=== PATIENT | male | born 1950 | race Caucasian/White ===

== ENCOUNTER 2018-02-11 14:22 | Observation (INO) | payer OTHER ==
[2018-02-11] VITALS (8 sets, daily range): BP systolic 125–183; BP diastolic 64–88; PULSE 69–82; RESP 14–20; TEMP 98.2–98.5; O2SAT 95–96
[~2018-02-11] VITALS: Ht 185.4 cm; Wt 125.0 kg
[~2018-02-11 14:22] MED LIST: ATOR10 PO; LEVO50TA4 PO; LISI-588 PO; ULTR50TA PO
[2018-02-11] MEDS ORDERED: METH750T PO (14:52)
[2018-02-11] MEDS ORDERED: LEVO50TA4 PO (14:52)
[2018-02-11] MEDS ORDERED: ATOR20TA15 PO (14:52)
[2018-02-11] MEDS ORDERED: ISOS60TA PO (14:52)
[2018-02-11] MEDS ORDERED: VITA100018 PO (14:52)
[2018-02-11] MEDS ORDERED: ASPI-516 CHEW (14:52)
[2018-02-11] MEDS ORDERED: LOSA25TA PO (14:52)
[2018-02-11] MEDS ORDERED: METO25TA3 PO (14:52)
[2018-02-11] MEDS ORDERED: TYLE325T PO (14:52)
[2018-02-11] MEDS ORDERED: ASPIRIN 81 MG CHEW TAB PO ONE (15:00)
--- NOTE | 2018-02-11 15:11 | PD ---
HPI Chief Complaint: Dizziness Time Seen by Provider: 14:49 Travel History International Travel<30 days: No Contact w/Intl Traveler<30days: No Traveled to known affect area: No History of Present Illness HPI 67-year-old male here by private vehicle for evaluation of dizziness and chest heaviness. The patient has had these symptoms intermittently over the last 5 days, however states that they were worse today. Patient reports he feels dizzy when he goes from sitting to standing. This dizziness improves while sitting or laying flat. He has never had this happen to him before. He denies any paresthesias or motor deficits. He does experience some blurry vision during these episodes of dizziness. Patient also reports intermittently having chest heaviness over the last 5 days. There are no modifying factors to this heaviness. Currently he does not have any chest discomfort. He denies any known cardiac history, however he is followed by a rn transport Dr. Zepeda and is on isosorbide. He denies fevers or recent illness. No dyspnea. No abdominal pain. No melena or hematochezia. PFSH Past Medical History Heart Rhythm Problems: No Cardiac Catheterization: No Cardiovascular Problems: Yes High Cholesterol: Yes Congestive Heart Failure: No Diabetes: No Heparin Induced Thrombocytopen: No Hypertension: Yes Integumentary: Yes (PSYRIOSIS) Thyroid Disease: Yes Past Surgical History Coronary Artery Bypass Graft: No Genitourinary Surgery: Yes (VASECTOMY) Family History Family Myocardial Infarction: Yes (Mother) Social History Alcohol Use: No Tobacco Use: No Substance Use: No Allergies-Medications (Allergen,Severity, Reaction): Coded Allergies: No Known Allergies (Unverified , 06/30/16) Reported Meds & Prescriptions Reported Meds & Active Scripts Active Reported Aspirin 81 Mg Chew 81 Mg CHEW DAILY Vitamin D3 (Cholecalciferol) 1,000 Unit Tab 1,000 Units PO DAILY Metoprolol Tartrate 25 Mg Tab 25 Mg PO DAILY Isosorbide Mononitrate ER (Isosorbide Mononitrate) 60 Mg Tab 60 Mg PO DAILY Methocarbamol 750 Mg Tab 750 Mg PO HS Atorvastatin (Atorvastatin Calcium) 20 Mg Tab 20 Mg PO HS Tylenol (Acetaminophen) 325 Mg Tab 500 Mg PO Q4H PRN Levothyroxine (Levothyroxine Sodium) 50 Mcg Tab 50 Mcg PO DAILY Losartan (Losartan Potassium) 25 Mg Tab 25 Mg PO DAILY Review of Systems Except as stated in HPI: all other systems reviewed are Neg Physical Exam Narrative GENERAL: Well-developed, well-nourished, awake, alert, no apparent distress. SKIN: Focused skin assessment warm/dry. No rash. No pallor. HEAD: Atraumatic. Normocephalic. EYES: Pupils equal, round, 3 mm, reactive to light. EOMI. No scleral icterus. No injection or drainage. ENT: Mucous membranes pink and moist. Bilateral tympanic membranes and external auditory canals are normal. NECK: Trachea midline. No JVD. No nuchal rigidity. CARDIOVASCULAR: Regular rate and rhythm. No murmur appreciated. RESPIRATORY: No accessory muscle use. Clear to auscultation. Breath sounds equal bilaterally. GASTROINTESTINAL: Abdomen soft, non-tender, nondistended. MUSCULOSKELETAL: No obvious deformities. No clubbing. No cyanosis. No edema. NEUROLOGICAL: Awake and alert. No obvious cranial nerve deficits. Motor grossly within normal limits. Normal speech. No focal deficits. PSYCHIATRIC: Appropriate mood and affect; insight and judgment normal. Data Data Last Documented VS Vital Signs Date Time Temp Pulse Resp B/P (MAP) Pulse Ox O2 Delivery O2 Flow Rate FiO2 02/11/18 18:33 76 17 125/73 (90) 96 02/11/18 14:32 98.2 Orders Orders Electrocardiogram (02/11/18 14:57) Ckmb (Isoenzyme) Profile (02/11/18 14:57) Complete Blood Count With Diff (02/11/18 14:57) Comprehensive Metabolic Panel (02/11/18 14:57) Magnesium (Mg) (02/11/18 14:57) Prothrombin Time / Inr (Pt) (02/11/18 14:57) Act Partial Throm Time (Ptt) (02/11/18 14:57) Troponin I (02/11/18 14:57) Chest, Single Ap (02/11/18 14:57) Ecg Monitoring (02/11/18 14:57) Iv Access Insert/Monitor (02/11/18 14:57) Oximetry (02/11/18 14:57) Aspirin Chew (Aspirin Chew) (02/11/18 15:00) Sodium Chloride 0.9% Flush (Ns Flush) (02/11/18 15:00) Ct Brain W/O Iv Contrast(Rout) (02/11/18 ) CKMB (02/11/18 15:05) CKMB% (02/11/18 15:05) Urinalysis - C+S If Indicated (02/11/18 16:19) Lorazepam Inj (Ativan Inj) (02/11/18 16:30) Meclizine (Antivert) (02/11/18 17:15) Mri Brain W/O Contrast (02/11/18 ) Mra Brain W/O Contrast (Cow) (02/11/18 ) Lorazepam Inj (Ativan Inj) (02/11/18 19:00) Labs Laboratory Tests Test 02/11/18 15:05 02/11/18 16:20 White Blood Count 7.0 TH/MM3 Red Blood Count 4.57 MIL/MM3 Hemoglobin 14.2 GM/DL Hematocrit 41.6 % Mean Corpuscular Volume 91.0 FL Mean Corpuscular Hemoglobin 31.1 PG Mean Corpuscular Hemoglobin Concent 34.1 % Red Cell Distribution Width 13.2 % Platelet Count 206 TH/MM3 Mean Platelet Volume 8.3 FL Neutrophils (%) (Auto) 73.8 % Lymphocytes (%) (Auto) 12.6 % Monocytes (%) (Auto) 11.3 % Eosinophils (%) (Auto) 1.9 % Basophils (%) (Auto) 0.4 % Neutrophils # (Auto) 5.2 TH/MM3 Lymphocytes # (Auto) 0.9 TH/MM3 Monocytes # (Auto) 0.8 TH/MM3 Eosinophils # (Auto) 0.1 TH/MM3 Basophils # (Auto) 0.0 TH/MM3 CBC Comment DIFF FINAL Differential Comment Prothrombin Time 11.6 SEC Prothromb Time International Ratio 1.1 RATIO Activated Partial Thromboplast Time 28.0 SEC Blood Urea Nitrogen 11 MG/DL Creatinine 1.09 MG/DL Random Glucose 76 MG/DL Total Protein 6.2 GM/DL Albumin 3.6 GM/DL Calcium Level 8.6 MG/DL Magnesium Level 2.0 MG/DL Alkaline Phosphatase 74 U/L Aspartate Amino Transf (AST/SGOT) 24 U/L Alanine Aminotransferase (ALT/SGPT) 43 U/L Total Bilirubin 1.5 MG/DL Sodium Level 141 MEQ/L Potassium Level 3.8 MEQ/L Chloride Level 109 MEQ/L Carbon Dioxide Level 26.2 MEQ/L Anion Gap 6 MEQ/L Estimat Glomerular Filtration Rate 67 ML/MIN Total Creatine Kinase 176 U/L Creatine Kinase MB 4.9 NG/ML Troponin I LESS THAN 0.02 NG/ML Urine Color LIGHT-YELLOW Urine Turbidity CLEAR Urine pH 7.0 Urine Specific [place] 1.005 Urine Protein NEG mg/dL Urine Glucose (UA) NEG mg/dL Urine Ketones NEG mg/dL Urine Occult Blood NEG Urine Nitrite NEG Urine Bilirubin NEG Urine Urobilinogen LESS THAN 2.0 MG/DL Urine Leukocyte Esterase NEG Urine RBC LESS THAN 1 /hpf Urine WBC 1 /hpf Microscopic Urinalysis Comment CULT NOT INDICATED MDM Medical Decision Making Medical Screen Exam Complete: Yes Emergency Medical Condition: Yes Medical Record Reviewed: Yes Differential Diagnosis Vertigo: Peripheral versus central, VBI, CVA, ACS, anemia, metabolic abnormality Narrative Course Vital signs reviewed. CBC is essentially unremarkable. CMP is essentially unremarkable. Cardiac enzymes are negative. UA is not suggestive of UTI. CT head: No acute disease. No evidence of acute infarct, hemorrhage, mass, or edema. Chest x-ray: No acute disease. Patient was given meclizine and continues to complain of dizziness upon movements. He required Ativan for CT brain for claustrophobia. Given ongoing vertiginous symptoms, MRI brain and MRA [place] ordered to rule out vertebrobasilar insufficiency. At approximately 7:00 PM at the end of my shift the patient was signed out to Dr. Garza to follow-up with MRI brain and disposition. Miquel Willard MD Feb 11, 2018 15:11
[2018-02-11 15:24] LABS: AUTOMATED NEUTROPHIL # 5.2 TH/MM3 (1.8-7.7); BASOPHIL % 0.4 % (0.0-2.0); EOSINOPHIL # 0.1 TH/MM3 (0-0.4); EOSINOPHIL % 1.9 % (0.0-4.0); HEMATOCRIT 41.6 % (39.0-51.0); HEMOGLOBIN 14.2 GM/DL (13.0-17.0); LYMPH % 12.6 % (9.0-44.0); LYMPHOCYTE # 0.9 TH/MM3 (1.0-4.8); MEAN CORPUSCULAR HEMOGLOBIN 31.1 PG (27.0-34.0); MEAN CORPUSCULAR HGB CONC 34.1 % (32.0-36.0); MEAN PLATELET VOLUME 8.3 FL (7.0-11.0); MONO % 11.3 % (0.0-8.0); MONOCYTE # 0.8 TH/MM3 (0-0.9); NEUT % 73.8 % (16.0-70.0); PLATELET COUNT 206 TH/MM3 (150-450); RED BLOOD COUNT 4.57 MIL/MM3 (4.50-5.90); RED CELL DISTRIBUTION WIDTH 13.2 % (11.6-17.2)
--- NOTE | 2018-02-11 15:40 | RADRPT ---
EXAM DATE/TIME: 02/11/2018 15:05 [facility] COMPARISON: CHEST SINGLE AP, June 30, 2016, 17:31. INDICATIONS : Chest pain to anterior chest. MEDICAL HISTORY : None. SURGICAL HISTORY : None. ENCOUNTER: Initial ACUITY: 1 day PAIN SCORE: 4/10 LOCATION: Bilateral chest FINDINGS: A single view of the chest demonstrates the lungs to be symmetrically aerated without evidence of mas s, infiltrate or effusion. The cardiomediastinal contours are unremarkable. Osseous structures are intact. CONCLUSION: No acute disease. Rubén Barrios MD on February 11, 2018 at 15:38 Board Certified Radiologist. This report was verified electronically.
[2018-02-11 15:55] LABS: ALBUMIN 3.6 GM/DL (3.4-5.0); ALT (GPT) 43 U/L (12-78); AST (GOT) 24 U/L (15-37); BICARBONATE 26.2 MEQ/L (21.0-32.0); BLOOD UREA NITROGEN 11 MG/DL (7-18); CALCIUM 8.6 MG/DL (8.5-10.1); CHLORIDE 109 MEQ/L (98-107); CREATININE 1.09 MG/DL (0.60-1.30); GLOMERULAR FILTRATION RATE 67 ML/MIN (>89); GLUCOSE,RANDOM 76 MG/DL (74-106); SODIUM (NA) 141 MEQ/L (136-145)
[2018-02-11 15:59] LABS: ALKALINE PHOSPHATASE 74 U/L (45-117); TOTAL BILIRUBIN ADULT 1.5 MG/DL (0.2-1.0); TOTAL PROTEIN 6.2 GM/DL (6.4-8.2); TROPONIN I LESS THAN 0.02 NG/ML (0.02-0.05)
[2018-02-11] MEDS: SODIUM CHLORIDE 0.9% FLUSH 10 ML FLUSH IVF PRN ×2 (16:00→16:31)
[2018-02-11 16:03] LABS: INTERNATIONAL NORMALIZED RATIO 1.1 RATIO; PROTHROMBIN TIME - PATIENT 11.6 SEC (9.8-11.6)
[2018-02-11] MEDS ORDERED: LORazepam 2 MG/ML VIAL IV PUSH ONE ×2 (16:30→19:00)
[2018-02-11 16:34] LABS: BILIRUBIN, URINE NEG (NEG); BLOOD, URINE NEG (NEG); GLUCOSE,URINE NEG (NEG); KETONE, URINE NEG (NEG); NITRITE,URINE NEG (NEG); URINE COLOR LIGHT-YELLOW (YELLW/STRAW); URINE LEUKOCYTE ESTERASE NEG (NEG)
--- NOTE | 2018-02-11 16:57 | RADRPT ---
EXAM DATE/TIME: 02/11/2018 16:39 [facility] COMPARISON: No previous studies available for comparison. INDICATIONS : Dizziness and blurred vision for five days. RADIATION DOSE: 56.35 CTDIvol (mGy) MEDICAL HISTORY : Hypertension. SURGICAL HISTORY : None. ENCOUNTER: Initial ACUITY: 1 day PAIN SCALE: 0/10 LOCATION: Bilateral head TECHNIQUE: Multiple contiguous axial images were obtained of the head. Using automated exposure control and adj ustment of the mA and/or kV according to patient size, radiation dose was kept as low as reasonably a chievable to obtain optimal diagnostic quality images. DICOM format image data is available electro nically for review and comparison. FINDINGS: CEREBRUM: The ventricles are normal for age. No evidence of midline shift, mass lesion, hemorrhage or acute in farction. No extra-axial fluid collections are seen. POSTERIOR FOSSA: The cerebellum and brainstem are intact. The 4th ventricle is midline. The cerebellopontine angle i s unremarkable. EXTRACRANIAL: The visualized portion of the orbits is intact. SKULL: The calvaria is intact. No evidence of skull fracture. CONCLUSION: No acute disease. No evidence of acute infarct, hemorrhage, mass or edema. Rubén Barrios MD on February 11, 2018 at 16:54 Board Certified Radiologist. This report was verified electronically.
[2018-02-11] MEDS ORDERED: MECLIZINE HCL 25 MG TAB PO ONE (17:15)
--- NOTE | 2018-02-11 19:16 | RADRPT ---
EXAM DATE/TIME: 02/11/2018 18:56 [facility] COMPARISON: CT BRAIN W/O CONTRAST, February 11, 2018, 16:39. INDICATIONS : Dizziness. MEDICAL HISTORY : Hypertension. Hypercholesterolemia. Hypothyroidism. SURGICAL HISTORY : None. ENCOUNTER: Initial ACUITY: 1 day PAIN SCORE: 0/10 LOCATION: cranial Please note a normal MRA of the brain does not entirely exclude the possibility of a small aneurysm, nor the possibility of distal intracranial vessel disease. TECHNIQUE: 3D time of flight MRA was performed. Source images, multiplanar STS MIP, and 3D volume MIP reconstru ctions were reviewed. FINDINGS: There is severe stenosis of the left internal carotid artery peak wrist segment and cavernous segment noted with diminutive flow identified. Caliber and signal intensity of flow in the left middle cereb ral artery and supraclinoid internal carotid artery is diminished. Basilar artery and distal vertebra l arteries, superior cerebellar and posterior cerebral arteries are patent. There is no aneurysm. No evidence of vascular malformation. CONCLUSION: Severe irregularity of the Karla and distal cervical left internal carotid artery identified with de crease in signal intensity but patent left middle cerebral artery and anterior cerebral artery A1 div ision. Case Damon MD on February 11, 2018 at 19:11 Board Certified Radiologist. This report was verified electronically.
--- NOTE | 2018-02-11 19:37 | RADRPT ---
EXAM DATE/TIME: 02/11/2018 18:56 [facility] COMPARISON: MRA BRAIN W/O CONTRAST, February 11, 2018, 18:56. CT BRAIN W/O CONTRAST, February 11, 2018, 16:39. INDICATIONS : Dizziness. MEDICAL HISTORY : Hypothyroidism. Hypertension. Hypercholesterolemia. SURGICAL HISTORY : None. ENCOUNTER: Initial ACUITY: 1 day PAIN SCORE: 0/10 LOCATION: cranial TECHNIQUE: Multiplanar, multisequence MRI of the brain was performed without contrast. FINDINGS: Diffusion weighted images demonstrate no evidence for acute infarction. There is some secretions with in the right mastoid air cells. 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 There are no signs of intracranial hemorrhage or mass. CONCLUSION: No acute disease. Case Damon MD on February 11, 2018 at 19:35 Board Certified Radiologist. This report was verified electronically.
--- NOTE | 2018-02-11 20:37 | PD ---
Data Data Last Documented VS Vital Signs Date Time Temp Pulse Resp B/P (MAP) Pulse Ox O2 Delivery O2 Flow Rate FiO2 02/11/18 19:56 73 15 95 Room Air 02/11/18 19:55 135/79 (97) 02/11/18 14:32 98.2 Orders Orders Electrocardiogram (02/11/18 14:57) Ckmb (Isoenzyme) Profile (02/11/18 14:57) Complete Blood Count With Diff (02/11/18 14:57) Comprehensive Metabolic Panel (02/11/18 14:57) Magnesium (Mg) (02/11/18 14:57) Prothrombin Time / Inr (Pt) (02/11/18 14:57) Act Partial Throm Time (Ptt) (02/11/18 14:57) Troponin I (02/11/18 14:57) Chest, Single Ap (02/11/18 14:57) Ecg Monitoring (02/11/18 14:57) Iv Access Insert/Monitor (02/11/18 14:57) Oximetry (02/11/18 14:57) Aspirin Chew (Aspirin Chew) (02/11/18 15:00) Sodium Chloride 0.9% Flush (Ns Flush) (02/11/18 15:00) Ct Brain W/O Iv Contrast(Rout) (02/11/18 ) CKMB (02/11/18 15:05) CKMB% (02/11/18 15:05) Urinalysis - C+S If Indicated (02/11/18 16:19) Lorazepam Inj (Ativan Inj) (02/11/18 16:30) Meclizine (Antivert) (02/11/18 17:15) Mri Brain W/O Contrast (02/11/18 ) Mra Brain W/O Contrast (Cow) (02/11/18 ) Lorazepam Inj (Ativan Inj) (02/11/18 19:00) Admit Order (Ed Use Only) (02/11/18 20:19) Consult Neurology (02/11/18 ) Labs Laboratory Tests Test 02/11/18 15:05 02/11/18 16:20 White Blood Count 7.0 TH/MM3 Red Blood Count 4.57 MIL/MM3 Hemoglobin 14.2 GM/DL Hematocrit 41.6 % Mean Corpuscular Volume 91.0 FL Mean Corpuscular Hemoglobin 31.1 PG Mean Corpuscular Hemoglobin Concent 34.1 % Red Cell Distribution Width 13.2 % Platelet Count 206 TH/MM3 Mean Platelet Volume 8.3 FL Neutrophils (%) (Auto) 73.8 % Lymphocytes (%) (Auto) 12.6 % Monocytes (%) (Auto) 11.3 % Eosinophils (%) (Auto) 1.9 % Basophils (%) (Auto) 0.4 % Neutrophils # (Auto) 5.2 TH/MM3 Lymphocytes # (Auto) 0.9 TH/MM3 Monocytes # (Auto) 0.8 TH/MM3 Eosinophils # (Auto) 0.1 TH/MM3 Basophils # (Auto) 0.0 TH/MM3 CBC Comment DIFF FINAL Differential Comment Prothrombin Time 11.6 SEC Prothromb Time International Ratio 1.1 RATIO Activated Partial Thromboplast Time 28.0 SEC Blood Urea Nitrogen 11 MG/DL Creatinine 1.09 MG/DL Random Glucose 76 MG/DL Total Protein 6.2 GM/DL Albumin 3.6 GM/DL Calcium Level 8.6 MG/DL Magnesium Level 2.0 MG/DL Alkaline Phosphatase 74 U/L Aspartate Amino Transf (AST/SGOT) 24 U/L Alanine Aminotransferase (ALT/SGPT) 43 U/L Total Bilirubin 1.5 MG/DL Sodium Level 141 MEQ/L Potassium Level 3.8 MEQ/L Chloride Level 109 MEQ/L Carbon Dioxide Level 26.2 MEQ/L Anion Gap 6 MEQ/L Estimat Glomerular Filtration Rate 67 ML/MIN Total Creatine Kinase 176 U/L Creatine Kinase MB 4.9 NG/ML Troponin I LESS THAN 0.02 NG/ML Urine Color LIGHT-YELLOW Urine Turbidity CLEAR Urine pH 7.0 Urine Specific [place] 1.005 Urine Protein NEG mg/dL Urine Glucose (UA) NEG mg/dL Urine Ketones NEG mg/dL Urine Occult Blood NEG Urine Nitrite NEG Urine Bilirubin NEG Urine Urobilinogen LESS THAN 2.0 MG/DL Urine Leukocyte Esterase NEG Urine RBC LESS THAN 1 /hpf Urine WBC 1 /hpf Microscopic Urinalysis Comment CULT NOT INDICATED [facility] Medical Record Reviewed: Yes Supervised Visit with SHIVA: No Interpretation(s) Last Impressions Chest X-Ray 02/11/18 7674 Signed Impressions: Service Date/Time: Sunday, February 11, 2018 15:05 - CONCLUSION: No acute disease. Rubén Barrios MD Head Magnetic Resonance Angiography 02/11/18 0000 Signed Impressions: Service Date/Time: Sunday, February 11, 2018 18:56 - CONCLUSION: Severe irregularity of the Karla and distal cervical left internal carotid artery identified with decrease in signal intensity but patent left middle cerebral artery and anterior cerebral artery A1 division. Case Damon MD Head CT 02/11/18 0000 Signed Impressions: Service Date/Time: Sunday, February 11, 2018 16:39 - CONCLUSION: No acute disease. No evidence of acute infarct, hemorrhage, mass or edema. Rubén Barrios MD Brain MRI 02/11/18 0000 Signed Impressions: Service Date/Time: Sunday, February 11, 2018 18:56 - CONCLUSION: No acute disease. Case Damon MD Narrative Course During the course of the patient's emergency department visit, the patient's history, examination, and differential diagnosis were reviewed with the patient. 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 The patient had IV access obtained and blood work sent for analysis. Patient's case was checked out to me by Dr. Willard. Please see his complete history and physical. The patient's case was checked out to me at the conclusion of his shift. The patient reported a 5 day history of intermittent blurry vision, dizziness which was described as a lightheaded sensation with standing and chest pressure. The patient's studies were reviewed and remarkable for A white count of 7, hemoglobin 14.2, platelets 206 with 73.8 neutrophils, monocytes 11.3. CMP is remarkable for chloride of 109, total bilirubin 1.5, GFR 67, initial set of cardiac enzymes are negative, PT PTT within normal limit, urinalysis unremarkable. A chest x-ray shows no acute cardiopulmonary disease. MRI of the brain showed no acute abnormality. Regarding the patient's findings on MRA that include severe irregularity of the petrous and distal cervical left internal carotid artery identified with a decrease in signal intensity but patent left middle cerebral artery and anterior cerebral artery A1 division, I spoke to Dr. Ayon the neurologist on- call regarding these findings. He did not recommend any changes to the patient' s medication regimen. He recommended that the patient continue on low-dose aspirin daily. He recommended a consultation with his group to be done in the morning. The patient will be admitted to the [facility] service for continued evaluation, rule out serial cardiac enzyme protocol for chest pressure, neurology consultation regarding carotid abnormality associated with dizziness and blurry vision. The patient's results were discussed with the patient, including the plan of care. I explained that further testing and/ or monitoring is indicated based on the patient's history, examination, and/ or laboratory findings. Therefore, I recommended admission for additional evaluation. The patient expressed understanding and was agreeable with this plan. The patient was admitted to the hospital in stable condition and sent to a bed under the care of the [facility] service. Physician Communication Physician Communication The patient's case including history, pertinent physical examination findings, and laboratory studies were discussed with Dr. Rico. It was agreed that the patient would be admitted to the [facility] service. Diagnosis Primary Impression: Chest pain, rule out acute myocardial infarction Additional Impressions: Dizziness Blurred vision Stenosis of left internal carotid artery Admitting Information Admitting Physician Requests: Observation Natacha Garza MD Feb 11, 2018 20:37
[2018-02-11] MEDS ORDERED: SODIUM CHLOR 0.9% 1000 ML INJ 1,000 ML IV SCH (20:42)
[2018-02-11] MEDS ORDERED: ONDANSETRON HCL 4 MG/2 ML VIAL IVP PRN (20:45)
[2018-02-11] MEDS ORDERED: NALOXONE HCL 0.4 MG/ML AMP IV PUSH PRN (20:45)
[2018-02-11] MEDS ORDERED: SODIUM CHLORIDE 0.9% FLUSH 10 ML FLUSH IV FLUSH PRN (20:45)
--- NOTE | 2018-02-11 21:10 | HHI.HP ---
[facility] Liban Odom MD Admission Diagnosis CP r/o ACS, left carotid abnormality Diagnoses: Travel History International Travel<30 Days: No Contact w/Intl Traveler <30 Da: No Traveled to Known Affected Are: No History of Present Illness 67-year-old male with a past medical history significant for hypertension, hyperlipidemia, hypothyroidism and coronary artery disease presents to emergency department for evaluation of dizziness. Patient reports she was walking earlier today when he was dizzy and had blurred vision. He states this is the fifth time this has occurred this week although this time was worse than previous episodes. He denies any loss of consciousness. His symptoms were relieved by sitting. The patient endorses an accompanying chest pressure that is substernal and does not radiate. He states this is the first time he has had any chest pain or pressure associated with these episodes. The patient denies any fever/chills. No cough. No nausea/vomiting/abdominal pain/diarrhea. Review of Systems Except as stated in HPI: all other systems reviewed are Neg Past Family Social History Past Medical History Hypertension Hyperlipidemia Hypothyroidism Coronary artery disease Past Surgical History Vasectomy Reported Medications Reported Meds & Active Scripts Active Reported Aspirin 81 Mg Chew 81 Mg CHEW DAILY Vitamin D3 (Cholecalciferol) 1,000 Unit Tab 1,000 Units PO DAILY Metoprolol Tartrate 25 Mg Tab 25 Mg PO DAILY Isosorbide Mononitrate ER (Isosorbide Mononitrate) 60 Mg Tab 60 Mg PO DAILY Methocarbamol 750 Mg Tab 750 Mg PO HS Atorvastatin (Atorvastatin Calcium) 20 Mg Tab 20 Mg PO HS Tylenol (Acetaminophen) 325 Mg Tab 500 Mg PO Q4H PRN Levothyroxine (Levothyroxine Sodium) 50 Mcg Tab 50 Mcg PO DAILY Losartan (Losartan Potassium) 25 Mg Tab 25 Mg PO DAILY Allergies: Coded Allergies: No Known Allergies (Unverified , 06/30/16) Family History Mother with CAD Social History Negative for alcohol, tobacco and illicit drugs Physical Exam Vital Signs Vital Signs Date Time Temp Pulse Resp B/P (MAP) Pulse Ox O2 Delivery O2 Flow Rate FiO2 02/11/18 19:56 73 15 95 Room Air 02/11/18 19:55 73 15 135/79 (97) 95 02/11/18 18:33 76 17 125/73 (90) 96 02/11/18 17:00 82 16 133/73 (93) 95 02/11/18 16:00 77 17 143/78 (99) 95 02/11/18 15:00 77 20 142/81 (101) 96 02/11/18 14:47 82 14 143/78 (99) 78 14 142/81 (101) 84 18 133/73 (93) 02/11/18 14:42 80 02/11/18 14:32 98.2 69 18 131/64 (86) 96 Physical Exam GENERAL: Obese, male lying in bed SKIN: No rashes, ecchymoses or lesions. Cool and dry. HEAD: Atraumatic. Normocephalic. No temporal or scalp tenderness. EYES: Pupils equal round and reactive. Extraocular motions intact. No scleral icterus. No injection or drainage. ENT: Nose without bleeding, purulent drainage or septal hematoma. Throat without erythema, tonsillar hypertrophy or exudate. Uvula midline. Airway patent. NECK: Trachea midline. No JVD or lymphadenopathy. Supple, nontender, no meningeal signs. CARDIOVASCULAR: Regular rate and rhythm without murmurs, gallops, or rubs. RESPIRATORY: Clear to auscultation. Breath sounds equal bilaterally. No wheezes , rales, or rhonchi. GASTROINTESTINAL: Abdomen soft, non-tender, nondistended. No hepato-splenomegaly , or palpable masses. No guarding. MUSCULOSKELETAL: Extremities without clubbing, cyanosis, or edema. No joint tenderness, effusion, or edema noted. No calf tenderness. Negative Homans sign bilaterally. NEUROLOGICAL: Awake and alert. Cranial nerves II through XII intact. Motor and sensory within normal limits. Five out of 5 muscle strength in all muscle groups. Normal speech. Laboratory Laboratory Tests Test 02/11/18 15:05 02/11/18 16:20 White Blood Count 7.0 Red Blood Count 4.57 Hemoglobin 14.2 Hematocrit 41.6 Mean Corpuscular Volume 91.0 Mean Corpuscular Hemoglobin 31.1 Mean Corpuscular Hemoglobin Concent 34.1 Red Cell Distribution Width 13.2 Platelet Count 206 Mean Platelet Volume 8.3 Neutrophils (%) (Auto) 73.8 Lymphocytes (%) (Auto) 12.6 Monocytes (%) (Auto) 11.3 Eosinophils (%) (Auto) 1.9 Basophils (%) (Auto) 0.4 Neutrophils # (Auto) 5.2 Lymphocytes # (Auto) 0.9 Monocytes # (Auto) 0.8 Eosinophils # (Auto) 0.1 Basophils # (Auto) 0.0 CBC Comment DIFF FINAL Differential Comment Prothrombin Time 11.6 Prothromb Time International Ratio 1.1 Activated Partial Thromboplast Time 28.0 Blood Urea Nitrogen 11 Creatinine 1.09 Random Glucose 76 Total Protein 6.2 Albumin 3.6 Calcium Level 8.6 Magnesium Level 2.0 Alkaline Phosphatase 74 Aspartate Amino Transf (AST/SGOT) 24 Alanine Aminotransferase (ALT/SGPT) 43 Total Bilirubin 1.5 Sodium Level 141 Potassium Level 3.8 Chloride Level 109 Carbon Dioxide Level 26.2 Anion Gap 6 Estimat Glomerular Filtration Rate 67 Total Creatine Kinase 176 Creatine Kinase MB 4.9 Troponin I LESS THAN 0.02 Urine Color LIGHT-YELLOW Urine Turbidity CLEAR Urine pH 7.0 Urine Specific [place] 1.005 Urine Protein NEG Urine Glucose (UA) NEG Urine Ketones NEG Urine Occult Blood NEG Urine Nitrite NEG Urine Bilirubin NEG Urine Urobilinogen LESS THAN 2.0 Urine Leukocyte Esterase NEG Urine RBC LESS THAN 1 Urine WBC 1 Microscopic Urinalysis Comment CULT NOT INDICATED Result Diagram: 02/11/18 1505 02/11/18 1505 Caprini VTE Risk Assessment Caprini VTE Risk Assessment: Mod/High Risk (score >= 2) Caprini Risk Assessment Model Point Value = 1 Point Value = 2 Point Value = 3 Point Value = 5 Age 41-60 Minor surgery BMI > 25 kg/m2 Swollen legs Varicose veins or History of unexplained or recurrent spontaneous Oral contraceptives or hormone replacement Sepsis (< 1 month) Serious lung disease, including pneumonia (< 1 month) Abnormal pulmonary function Acute myocardial infarction Congestive heart failure (< 1 month) History of inflammatory bowel disease Medical patient at bed rest Age 61-74 Arthroscopic surgery Major open surgery (> 45 min) Laparoscopic surgery (> 45 min) Malignancy Confined to bed (> 72 hours) Immobilizing plaster cast Central venous access Age >= 75 History of VTE Family history of VTE Factor V Leiden Prothrombin [id number] Lupus anticoagulant Anticardiolipin antibodies Elevated serum homocysteine Heparin-induced thrombocytopenia Other congenital or acquired thrombophilia Stroke (< 1 month) Elective arthroplasty Hip, pelvis, or leg fracture Acute spinal cord injury (< 1 month) Prophylaxis Regimen Total Risk Factor Score Risk Level Prophylaxis Regimen 0-1 Low Early ambulation 2 Moderate Order ONE of the following: *Sequential Compression Device (SCD) *Heparin 5000 units SQ BID 3-4 Higher Order ONE of the following medications: *Heparin 5000 units SQ TID *Enoxaparin/Lovenox 40 mg SQ daily (WT < 150 kg, CrCl > 30 mL/min) *Enoxaparin/Lovenox 30 mg SQ daily (WT < 150 kg, CrCl > 10-29 mL/min) *Enoxaparin/Lovenox 30 mg SQ BID (WT < 150 kg, CrCl > 30 mL/min) AND/OR *Sequential Compression Device (SCD) 5 or more Highest Order ONE of the following medications: *Heparin 5000 units SQ TID (Preferred with Epidurals) *Enoxaparin/Lovenox 40 mg SQ daily (WT < 150 kg, CrCl > 30 mL/min) *Enoxaparin/Lovenox 30 mg SQ daily (WT < 150 kg, CrCl > 10-29 mL/min) *Enoxaparin/Lovenox 30 mg SQ BID (WT < 150 kg, CrCl > 30 mL/min) AND *Sequential Compression Device (SCD) Assessment and Plan Assessment and Plan Assessment/plan: 1. Dizziness/blurry vision Unclear etiology Head CT and brain MRI negative for acute process Had MRA shows severe irregularity of the petrous and distal cervical left internal carotid artery Neurology consulted, appreciate recommendations Continue home aspirin 2. Chest pain/CAD Chest pain resolved at this time EKG shows normal sinus rhythm with a right bundle branch block, pulse 78, personally reviewed Initial troponin negative ACS rule out pending; serial troponins/EKGs 3. Hypertension/hyperlipidemia Continue home medications 4. Hypothyroidism Continue home Synthroid FEN NPO Electrolytes: monitor and replete prn NS at 100 cc/hr Heparin Sue Rico MD Feb 11, 2018 21:10
[2018-02-12] VITALS (8 sets, daily range): BP systolic 120–180; BP diastolic 66–98; PULSE 67–82; RESP 16–20; TEMP 97–98.7; O2SAT 96–100
[2018-02-12] MEDS: METHOCARBAMOL 500 MG TAB PO SCH ×2 (00:17→20:46)
[2018-02-12] MEDS: ATORVASTATIN 20 MG TAB PO SCH ×2 (00:17→20:46)
[2018-02-12] MEDS: HEPARIN SODIUM - SQ 10,000 UNITS/ML VIAL SQ SCH ×4 (00:19→20:45)
[2018-02-12] MEDS: SODIUM CHLORIDE 0.9% FLUSH 10 ML FLUSH IV FLUSH SCH ×3 (00:19→20:47)
[2018-02-12 00:35] LABS: TROPONIN I LESS THAN 0.02 NG/ML (0.02-0.05)
[2018-02-12 03:12] LABS: AUTOMATED NEUTROPHIL # 4.4 TH/MM3 (1.8-7.7); BASOPHIL % 0.6 % (0.0-2.0); EOSINOPHIL # 0.2 TH/MM3 (0-0.4); EOSINOPHIL % 3.5 % (0.0-4.0); HEMATOCRIT 41.1 % (39.0-51.0); LYMPH % 19.2 % (9.0-44.0); LYMPHOCYTE # 1.3 TH/MM3 (1.0-4.8); MEAN CELL VOLUME 91.1 FL (80.0-100.0); MEAN CORPUSCULAR HEMOGLOBIN 31.1 PG (27.0-34.0); MEAN CORPUSCULAR HGB CONC 34.1 % (32.0-36.0); MEAN PLATELET VOLUME 8.3 FL (7.0-11.0); MONO % 10.8 % (0.0-8.0); MONOCYTE # 0.7 TH/MM3 (0-0.9); NEUT % 65.9 % (16.0-70.0); PLATELET COUNT 173 TH/MM3 (150-450); RED BLOOD COUNT 4.51 MIL/MM3 (4.50-5.90); RED CELL DISTRIBUTION WIDTH 13.1 % (11.6-17.2); WHITE BLOOD COUNT 6.6 TH/MM3 (4.0-11.0)
[2018-02-12 03:34] LABS: CALCIUM 8.2 MG/DL (8.5-10.1); CREATININE 0.9 MG/DL (0.60-1.30)
[2018-02-12 03:37] LABS: TROPONIN I LESS THAN 0.02 NG/ML (0.02-0.05)
[2018-02-12] MEDS: LEVOTHYROXINE SODIUM 50 MCG TAB PO SCH (07:10)
[2018-02-12] MEDS: SODIUM CHLOR 0.9% 1000 ML INJ 1,000 ML IV SCH (08:32)
[2018-02-12] MEDS: ASPIRIN EC 325 MG TABEC PO SCH (09:00)
[2018-02-12] MEDS ORDERED: ASPIRIN 81 MG CHEW TAB CHEW SCH (09:00)
--- NOTE | 2018-02-12 09:24 | MB ---
cc: Blair Dickey MD DATE: 02/12/2018 HISTORY OF PRESENT ILLNESS: A 67-year-old right-handed man with hypertension, hypercholesterolemia, CAD, without stent, aspirin 81 mg a day. He noticed some chest pressure in the last 5 days. When he stands up, he feels lightheaded and blurred vision. This occurred for about 5 days. No headache or palpitations. REVIEW OF SYSTEMS: He denies any vertigo asymmetrical weakness or numbness or vision loss in one eye. He denies any history of diabetes, CABG, stent, angioplasty, A-fib, Coumadin, renal, hepatic, pulmonary disease, thyroid disease, lupus, ulcer, cancer, seizure or stroke. SOCIAL HISTORY: Nonsmoker, drinker, lives with his . FAMILY HISTORY: Negative for cancer, seizures or stroke. MEDICATIONS. He says no change in his medication in the last week or so. 1. He takes aspirin. 2. Metoprolol. 3. Isosorbide. 4. Methocarbamol. 5. Atorvastatin. 6. Tylenol. 7. Thyroid medicine. 8. Losartan. PAST MEDICAL HISTORY: As above, also history of psoriasis. PHYSICAL EXAMINATION: VITAL SIGNS: One standing blood pressure 133/73. NECK: There were no carotid bruits. HEART: Regular rhythm. I do not detect a murmur. NEUROLOGICAL EXAMINATION: Pupils are equal. Visual bergman are full. Extraocular movements intact without nystagmus. Face is symmetric with normal sensation. Tongue was midline with no drift. He had normal strength in upper and lower extremities bilaterally. DTRs trace throughout. Toes downgoing bilaterally. Pinprick and vibratory sense are intact. He is not ataxic on [id number]. Speech is fluent. He is not aphasic. LABORATORY DATA: CBC is normal. UA is negative. Basic metabolic profile essentially normal. Troponin, CPK normal. Albumin, normal. LFTs normal. He had a chest x-ray that was negative. He had an MRA of his head, showed some disease in the left petrous and distal cervical carotid. MRI of the brain was read as negative. CAT scan of the brain read as negative. On review of the films, I would agree the left distal carotid space of the petrous portion appears quite small and diseased, much smaller than on the right side. His right side may fill his anterior cerebral artery better than the left side. There is a small posterior communicating artery on the left. There is no evidence for acute infarct. There are some small chronic infarcts, somewhat cortically based in the left posterior parieto-occipital region and small white matter changes subcortical on the left parietal region towards the midline, but no acute infarct is seen. No hemorrhage is noted. IMPRESSION AND PLAN: Some distal carotid disease. Whether he could have also disease at the left internal carotid artery is unclear. We are going to do a CTA of his neck and [place] and now for now I would give him 325 of aspirin, check his LDL continue to check some standing blood pressures. I could check a Hallpike maneuver depending on what we find. I note he has been in sinus rhythm on tele here. He does have some coronary artery disease and some chest pressure. Defer to medical team if they think they should have Cardiology see him as he does get chest pressure when he stands. Check his lipid profile. Keep him on IV fluids. Looks like he has had some old infarcts in the left side in the past and that artery could be symptomatic. I will be following him within you in the hospital. On the surface of it, it sounds like he is just having some orthostatic hypotension, but there may be more than that going on with the chest pressure and the MRA findings and the MRI findings. MD PILAR Gusman/LOULOU , 08:34 AM , 09:23 AM
[2018-02-12] MEDS ORDERED: LORazepam 2 MG/ML VIAL IV PUSH ONE (09:45)
--- NOTE | 2018-02-12 10:14 | EKG ---
Date Performed: 02/12/2018 Time Performed: 01:00:13 PTAGE: 67 years EKG: Sinus rhythm WITH OCCASIONAL VENTRICULAR PREMATURE COMPLEXES RIGHT BUNDLE BRANCH BLOCK ABNORMAL ECG NO PREVIOUS TRACING DOCTOR: Blair Banks Interpretating Date/Time 02/12/2018 10:13:00
--- NOTE | 2018-02-12 10:14 | EKG ---
Date Performed: 02/12/2018 Time Performed: 03:39:47 PTAGE: 67 years EKG: Sinus rhythm RIGHT BUNDLE BRANCH BLOCK ABNORMAL ECG PREVIOUS TRACING : 02/11/2018 14.42 Since previous tracing, no significant change noted DOCTOR: Blair Banks Interpretating Date/Time 02/12/2018 10:12:44
--- NOTE | 2018-02-12 10:17 | EKG ---
Date Performed: 02/11/2018 Time Performed: 14:42:48 PTAGE: 67 years EKG: Sinus rhythm RIGHT BUNDLE BRANCH BLOCK ABNORMAL ECG INTERPRETATION BASED ON A DEFAULT AGE OF 40 YEARS NO PREVIOUS TRACING DOCTOR: Blair Banks Interpretating Date/Time 02/12/2018 10:15:49
[2018-02-12] MEDS: METOPROLOL TARTRATE 25 MG TAB PO SCH (11:29)
[2018-02-12] MEDS: ISOSORBIDE MONONITRATE 60 MG CR TAB (IMDUR) PO SCH (11:30)
[2018-02-12] MEDS: LOSARTAN 25 MG TAB PO SCH (11:35)
[2018-02-12] MEDS ORDERED: IOHEXOL 350 MG/ML 10 ML VIAL (for RAD DIAG) IVCONTRAST ONE (13:24)
--- NOTE | 2018-02-12 14:21 | RADRPT ---
EXAM DATE/TIME: 02/12/2018 13:08 [facility] COMPARISON: MRA BRAIN W/O CONTRAST, February 11, 2018, 18:56. INDICATIONS : Episodes of dizziness and blurred vision. IV CONTRAST: 75 cc Omnipaque 350 (iohexol) IV RADIATION DOSE: 10.59 CTDIvol (mGy) MEDICAL HISTORY : Hypertension. SURGICAL HISTORY : None. ENCOUNTER: Initial ACUITY: 1 day PAIN SCALE: 0/10 LOCATION: Bilateral neck Elevated flow velocities and ICA/CCA ratios have been found to correlate with increased degrees of vessel stenosis, calculated as percentage of diameter relative to a normal segment of distal ICA/CCA. TECHNIQUE: Volumetric scanning was performed using a multirow detector CT scanner. The data was post processed with a variety of visualization algorithms including full-volume maximum intensity projection, multip lanar sliding thin-slab reformation, curved-planar reformation, and surface-rendering techniques. Us ing automated exposure control and adjustment of the mA and/or kV according to patient size, radiatio n dose was kept as low as reasonably achievable to obtain optimal diagnostic quality images. DICOM f ormat image data is available electronically for review and comparison. FINDINGS: AORTIC ARCH: There is a three-vessel origin of the great vessels from the aorta. No evidence of ostial narrowing. RIGHT CAROTID: The common carotid artery is intact. The carotid bulb has a normal configuration without ulceration o r narrowing. Atherosclerotic calcification in the proximal internal with luminal irregularity but no stenosis. The external carotid artery is intact. LEFT CAROTID: The common carotid artery is intact. The carotid bulb has a normal configuration without ulceration or narrowing. The ostial portion of the internal carotid is patent. However, an approximately 1 cm, t here is an abrupt transition to a very diminutive internal carotid measuring approximately 1-2 mm. A string sign persists throughout the course of the internal into the skull base. The external carotid artery is intact. VERTEBRALS: The vertebral arteries have a symmetric diameter. No stenotic lesions are seen. CONCLUSION: 1. Arch vessels are patent. 2. String sign with marked luminal narrowing throughout the left internal carotid artery beginning ap proximately 1 cm from the ostium. 3. Atherosclerotic calcification at the origin of the right internal carotid artery with no significa nt stenosis. 4. Both vertebrals are patent. Gabo Todd MD on February 12, 2018 at 14:13 Board Certified Radiologist. This report was verified electronically.
--- NOTE | 2018-02-12 14:41 | HHI.PR ---
Subjective Remarks Follow-up on patient with possible TIA. Patient seen and examined. He states he feels foggy. He denies any headache or vision changes. He reports dizziness at this time while lying in the hospital bed. Patient complaining of left sided nonradicular chest heaviness with associated dyspnea presently. He denies any diaphoresis, palpitations, nausea or vomiting. He denies any fever or chills. Denies any abdominal pain. Denies any hematuria, dysuria, diarrhea or constipation. He denies any hx of atrial fibrillation. He denies any previous CVA or TIA. He reports tobacco use in the past of 1/2 pack per day x 15yrs but quit over 30 yrs ago. Objective Vitals Vital Signs Date Time Temp Pulse Resp B/P (MAP) Pulse Ox O2 Delivery O2 Flow Rate FiO2 02/12/18 11:41 97.6 82 16 178/92 (120) 98 02/12/18 07:57 97.6 75 16 167/92 (117) 97 02/12/18 04:00 98.4 70 20 171/96 (121) 100 02/12/18 00:00 97.0 78 20 173/98 (123) 97 02/11/18 21:45 98.5 77 20 183/88 (119) 96 02/11/18 19:56 73 15 95 Room Air 02/11/18 19:55 73 15 135/79 (97) 95 02/11/18 18:33 76 17 125/73 (90) 96 02/11/18 17:00 82 16 133/73 (93) 95 02/11/18 16:00 77 17 143/78 (99) 95 02/11/18 15:00 77 20 142/81 (101) 96 02/11/18 14:47 82 14 143/78 (99) 78 14 142/81 (101) 84 18 133/73 (93) 02/11/18 14:42 80 02/11/18 14:32 98.2 69 18 131/64 (86) 96 I/O 02/11/18 02/11/18 02/11/18 02/12/18 02/12/18 02/12/18 07:00 15:00 23:00 07:00 15:00 23:00 Intake Total 50 ml Output Total 800 ml 600 ml Balance 50 ml -800 ml -600 ml Intake Oral 50 ml Output Urine Total 800 ml 600 ml # Bowel Movements 0 Result Diagram: 02/12/18 0252 02/12/18 0252 Imaging Last Impressions Chest X-Ray 02/11/18 1457 Signed Impressions: Service Date/Time: Sunday, February 11, 2018 15:05 - CONCLUSION: No acute disease. Rubén Barrios MD Head Magnetic Resonance Angiography 02/11/18 0000 Signed Impressions: Service Date/Time: Sunday, February 11, 2018 18:56 - CONCLUSION: Severe irregularity of the Karla and distal cervical left internal carotid artery identified with decrease in signal intensity but patent left middle cerebral artery and anterior cerebral artery A1 division. Case Damon MD Head CT 02/11/18 0000 Signed Impressions: Service Date/Time: Sunday, February 11, 2018 16:39 - CONCLUSION: No acute disease. No evidence of acute infarct, hemorrhage, mass or edema. Rubén Barrios MD Brain MRI 02/11/18 0000 Signed Impressions: Service Date/Time: Sunday, February 11, 2018 18:56 - CONCLUSION: No acute disease. Case Damon MD Objective Remarks GENERAL: Well-developed well-nourished obese male lying in bed. INAD. Awake and alert. Oriented x 3. SKIN: Cool and dry. HEAD: Atraumatic. Normocephalic. EYES: Extraocular motions intact. No scleral icterus. No injection or drainage. ENT: Nose without bleeding or purulent drainage. Airway patent. MMM. NECK: Trachea midline. CARDIOVASCULAR: Regular rate and rhythm without murmurs, gallops, or rubs. Chest wall nontender to palpation. RESPIRATORY: Clear to auscultation. Breath sounds equal bilaterally. No wheezes , rales, or rhonchi. GASTROINTESTINAL: Abdomen soft, non-tender, nondistended. MUSCULOSKELETAL: Extremities without clubbing, cyanosis, or edema. NEUROLOGICAL: Awake and alert. Cranial nerves II through XII grossly intact. Motor and sensory within normal limits. Nonfocal. Slow but appropriate responses. Medications and IVs Current Medications Medications (Trade) Dose Ordered Sig/Fabiola Route Start Time Stop Time Status Last Admin Sodium Chloride 1,000 ml @ 100 mls/hr Q10H IV 02/11/18 20:42 02/12/18 00:19 (NS Flush) 2 ml UNSCH PRN IV FLUSH 02/11/18 20:45 (NS Flush) 2 ml BID IV FLUSH 02/11/18 21:00 02/12/18 09:00 (Tylenol) 650 mg Q4H PRN PO 02/11/18 20:45 (Zofran Inj) 4 mg Q6H PRN IVP 02/11/18 20:45 (Narcan Inj) 0.4 mg UNSCH PRN IV PUSH 02/11/18 20:45 (Heparin Inj) 5,000 units Q8HR SQ 02/11/18 22:00 02/12/18 07:10 (Aspirin Chew) 81 mg DAILY CHEW 02/12/18 09:00 02/12/18 11:30 (Lipitor) 20 mg HS PO 02/11/18 21:00 02/12/18 00:17 (Imdur) 60 mg DAILY PO 02/12/18 09:00 02/12/18 11:30 (Synthroid) 50 mcg DAILY@0600 PO 02/12/18 06:00 02/12/18 07:10 (Cozaar) 25 mg DAILY PO 02/12/18 09:00 02/12/18 11:35 (Robaxin) 750 mg HS PO 02/11/18 21:00 02/12/18 00:17 (Lopressor) 25 mg DAILY PO 02/12/18 09:00 02/12/18 11:29 (Ecotrin Ec) 325 mg DAILY PO 02/12/18 09:00 Sodium Chloride 1,000 ml @ 75 mls/hr [id number] IV 02/12/18 08:32 A/P Assessment and Plan 67yo male with HTN, HLD, hypothyroidism and CAD admitted with complaints of dizziness, blurred vision and left sided chest pressure x 5 days. Dizziness/blurry vision Possible TIA -Head CT and brain MRI negative for acute process -Had MRA shows severe irregularity of the petrous and distal cervical left internal carotid artery -Neurology consulted, appreciate recommendations. Appears to have had some left sided infarcts in the past. Workup in progress to include ESR, RPR, TERE, B1, B12, CRP, MMA, Lipid profile. CTA brain and neck ordered for further evaluation. Aspirin 325mg daily. Continue on IV fluids. -orthostatic BP measurements ordered -Obtain 2D echo -Holter monitor -continuous cardiac monitoring -PT eval/tx -ST swallow eval -fall and seizure precautions Chest pain/CAD -c/o left sided chest heaviness, dyspnea and dizziness -Consult Cardiology, appreciate recommendations -EKG shows normal sinus rhythm with a right bundle branch block, pulse 78 -troponin negative x 3 Hypertension/hyperlipidemia -Continue home medications to include Imdur 60mg daily, Losartan 25mg daily, Lopressor 25mg daily -continue on statin therapy daily Hypothyroidism -Continue home Synthroid -obtain TSH level Hyperbilirubinemia -patient has no complaints of nausea, vomiting or abdominal pain -monitor FEN NPO Electrolytes: monitor and replete prn NS at 75 cc/hr Heparin Discharge Planning Pending clinical course and Neurology clearance Irma Wood Feb 12, 2018 14:41
--- NOTE | 2018-02-12 14:46 | RADRPT ---
EXAM DATE/TIME: 02/12/2018 13:08 [facility] COMPARISON: MRA BRAIN W/O CONTRAST, February 11, 2018, 18:56. INDICATIONS : Episodes of dizziness and blurred vision. IV CONTRAST: 75 cc Omnipaque 350 (iohexol) IV ; Cumulative dose for multiple exams. RADIATION DOSE: 10.59 CTDIvol (mGy) ; Combined studies MEDICAL HISTORY : Hypertension. SURGICAL HISTORY : None. ENCOUNTER: Subsequent ACUITY: 1 day PAIN SCALE: 0/10 LOCATION: Bilateral head TECHNIQUE: Volumetric scanning was performed using a multi-row detector CT scanner. The data was post processed with a variety of visualization algorithms including full volume maximum intensity projection, multi -planar sliding thin slab reformation, curved planar reformation, and surface rendering techniques. Using automated exposure control and adjustment of the mA and/or kV according to patient size, radiat ion dose was kept as low as reasonably achievable to obtain optimal diagnostic quality images. DICO M format image data is available electronically for review and comparison. FINDINGS: There is excellent visualization of the major intracranial arteries out to the second-order branch ve ssels. There is a string sign with an extremely diminutive distal left internal carotid artery which remains patent to the carotid bifurcation. Otherwise, intracranial vessels are patent without aneurys mal disease. 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 Anterior communicating artery is patent. CONCLUSION: 1. String sign with an extremely diminutive distal left internal carotid artery. Inflow vessels are o therwise patent. 2. 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 The combination almost certai nly significantly limits flow to the left MCA territory. 3. Otherwise, intracranial vessels are patent without aneurysmal disease. Gabo Todd MD on February 12, 2018 at 14:40 Board Certified Radiologist. This report was verified electronically.
[2018-02-12 15:46] LABS: CHOLESTEROL 91 MG/DL (120-200)
[2018-02-12 16:11] LABS: C-REACTIVE PROTEIN LESS THAN 0.29 MG/DL (0.00-0.30); CHOLESTEROL/ HDL RATIO 2.61 RATIO; FOLATE 13.7 NG/ML (3.1-17.5); FREE T4 1.34 NG/DL (0.76-1.46); HDL CHOLESTEROL 34.8 MG/DL (40.0-60.0); LDL CHOLESTEROL 39 MG/DL (0-99); TRIGLYCERIDES 86 MG/DL (42-150)
[2018-02-12] MEDS ORDERED: SODIUM CHLOR 0.9% 1000 ML INJ 1,000 ML IV SCH (17:00)
--- NOTE | 2018-02-13 00:58 | MB ---
cc: Britton Conti DO DATE: 02/12/2018 REASON FOR CONSULTATION: Chest pain. HISTORY OF PRESENT ILLNESS: Yoni Banks is a pleasant 67-year-old male, whom I see in the office, who presented to [facility] Emergency Room on 02/11/2018, due to dizziness, blurred vision and chest pain. He states that over the past week he has had about 5 episodes when he is up and moving. He gets dizzy and has blurred vision. He states that, before this, he had no previous episodes like this. Symptoms seem to be relieved when he sits down. He also has been getting chest pain when he is up and walking around. Chest pain is somewhat substernal and does not radiate. He states that he has had no chest pain and, when seeing him in the office previously, he had a CTA done, showing moderate disease of his RCA and we have been following this for symptoms for some time. In seeing him, he is currently hemodynamically stable without chest pain or shortness of breath. He underwent a CTA of the head, which showed extensive disease of his left internal carotid artery and Vascular Surgery has been consulted for consideration of a CEA. PAST MEDICAL HISTORY: 1. Hypertension. 2. Hyperlipidemia. 3. Hypothyroidism. 4. Coronary artery disease. 5. Peripheral artery disease with left internal carotid artery stenosis. PAST SURGICAL HISTORY: Vasectomy. ALLERGIES: NO KNOWN DRUG ALLERGIES. MEDICATIONS: 1. Methocarbamol 750 mg every night. 2. Lipitor 20 mg every night. 3. Isosorbide mononitrate 60 mg daily. 4. Metoprolol tartrate 25 mg daily. 5. Losartan 25 mg daily. 6. Aspirin 81 mg daily. 7. Synthroid 50 micrograms daily. FAMILY HISTORY: Denies premature coronary artery disease or sudden cardiac deaths within the family. SOCIAL HISTORY: Denies alcohol, tobacco or drug abuse. REVIEW OF SYSTEMS: Fourteen systems were reviewed, including osteopathic; pertinent positives and negatives above, otherwise, negative. PHYSICAL EXAMINATION: VITAL SIGNS: Temperature 98.7, heart rate 70, blood pressure 138/78, respirations 16, pulse oximetry 97% in room air. GENERAL: The patient appears well, no acute distress, alert, awake, oriented x3. HEENT: Extraocular muscles intact. Mucous membranes moist. NECK: Is supple. No JVD at 45 degrees. Left carotid with bruit noted. Right no bruit noted. HEART: Has regular rate and rhythm. Positive first and second heart sounds with no noted murmurs, gallops or rubs. LUNGS: Are clear to auscultation bilaterally. No wheezes, rales or rhonchi. ABDOMEN: Is soft, nontender, nondistended. No organomegaly noted. EXTREMITIES: Show no clubbing, cyanosis or edema. NEUROLOGICAL: No focal deficits. SKIN: Warm, dry and intact. OSTEOPATHIC: No kyphoscoliosis, lordosis or paraspinal tender points. LABWORK: Hemoglobin 14.0, hematocrit 41.1, platelets 173. Potassium 3.7, BUN 10, creatinine 0.90. Troponin negative x3. Electrocardiogram (02/12/2018 at 0339), sinus rhythm, right bundle branch block. IMPRESSIONS: 1. Somewhat atypical chest pain. 2. 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 3. History of coronary artery disease with a CTA showing moderate RCA disease. 4. Hypertension. 5. Hyperlipidemia. RECOMMENDATIONS 1. Mr. Banks presented with dizziness and blurred vision and was found to have significant left carotid artery disease. Vascular Surgery has been consulted for consideration of a CEA. 2. As he has had chest pain with a known history of coronary artery disease, he will need a pharmacologic nuclear stress test preoperatively to further risk stratify him. If this is negative, then he may proceed as a moderate cardiovascular risk. If the stress test shows ischemia then, most likely, he will need a cardiac catheterization to determine his coronary anatomy and, from there, decisions on how to treat his coronary, as well as his carotid, disease. 3. Further recommendations will be made based on the hospital course. Thank you for allowing me to see Yoni Banks. If there are any questions, please do not hesitate to call. DO MASOUD Chen/ROSE MARIE , 12:16 AM , 12:57 AM
[2018-02-13 01:33] LABS: DIRECT BILIRUBIN ADULT 0.2 MG/DL (0.0-0.2)
[2018-02-13 01:42] LABS: INDIRECT BILIRUBIN 1.4 MG/DL (0.0-0.8); TOTAL BILIRUBIN ADULT 1.6 MG/DL (0.2-1.0)
[2018-02-13] MEDS: SODIUM CHLOR 0.9% 1000 ML INJ 1,000 ML IV SCH (02:24)
[2018-02-13 04:06] VITALS: BP 168/93; PULSE 75; RESP 16; TEMP 97.5; O2SAT 98
[2018-02-13] MEDS: LEVOTHYROXINE SODIUM 50 MCG TAB PO SCH (06:18)
[2018-02-13] MEDS: HEPARIN SODIUM - SQ 10,000 UNITS/ML VIAL SQ SCH ×3 (06:18→20:31)
--- NOTE | 2018-02-13 07:15 | HHI.PR ---
Subjective Remarks feels better Objective Vital Signs Date Time Temp Pulse Resp B/P (MAP) Pulse Ox O2 Delivery O2 Flow Rate FiO2 02/13/18 04:06 97.5 75 16 168/93 (118) 98 02/12/18 23:41 98.2 75 18 167/88 (114) 96 02/12/18 23:03 67 02/12/18 20:37 98.3 81 17 120/66 (84) 96 02/12/18 16:02 98.7 70 16 138/78 (98) 97 146/83 (104) 180/97 (124) 02/12/18 11:41 97.6 82 16 178/92 (120) 98 02/12/18 07:57 97.6 75 16 167/92 (117) 97 I/O 02/12/18 02/12/18 02/12/18 02/13/18 02/13/18 02/13/18 07:00 15:00 23:00 07:00 15:00 23:00 Output Total 800 ml 600 ml 400 ml Balance -800 ml -600 ml -400 ml Output Urine Total 800 ml 600 ml 400 ml # Bowel Movements 0 Result Diagram: 02/12/18 0252 02/12/18 0252 Objective Remarks awake alert moves all well vff face sym Assessment and Plan Assessment and Plan imp cards on case echo pend labs ok standing bp ok left carotid string vascular to see on asa and statin ldl nl Blair Dickey MD Feb 13, 2018 07:14
[2018-02-13 07:56] VITALS: BP_SYST 149; BP_SYST 155; BP_SYST 166; BP_DIAS 76; BP_DIAS 83; BP_DIAS 97; PULSE 87; RESP 16; TEMP 97.6; O2SAT 96
[2018-02-13 08:00] VITALS: PULSE 45
[2018-02-13] MEDS: SODIUM CHLORIDE 0.9% FLUSH 10 ML FLUSH IV FLUSH SCH ×2 (09:00→20:30)
[2018-02-13] MEDS: LOSARTAN 25 MG TAB PO SCH (09:00)
[2018-02-13] MEDS: METOPROLOL TARTRATE 25 MG TAB PO SCH (09:00)
[2018-02-13] MEDS: ASPIRIN EC 325 MG TABEC PO SCH (09:55)
[2018-02-13] MEDS: ISOSORBIDE MONONITRATE 60 MG CR TAB (IMDUR) PO SCH (09:55)
--- NOTE | 2018-02-13 11:42 | PD.CARD.PN ---
Subjective Subjective Remarks No events overnight No chest pain, no neurological changes Objective Medications Current Medications Medications (Trade) Dose Ordered Sig/Fabiola Route Start Time Stop Time Status Last Admin (NS Flush) 2 ml UNSCH PRN IV FLUSH 02/11/18 20:45 (NS Flush) 2 ml BID IV FLUSH 02/11/18 21:00 02/12/18 20:47 (Tylenol) 650 mg Q4H PRN PO 02/11/18 20:45 (Zofran Inj) 4 mg Q6H PRN IVP 02/11/18 20:45 (Narcan Inj) 0.4 mg UNSCH PRN IV PUSH 02/11/18 20:45 (Heparin Inj) 5,000 units Q8HR SQ 02/11/18 22:00 02/13/18 06:18 (Lipitor) 20 mg HS PO 02/11/18 21:00 02/12/18 20:46 (Imdur) 60 mg DAILY PO 02/12/18 09:00 02/13/18 09:55 (Synthroid) 50 mcg DAILY@0600 PO 02/12/18 06:00 02/13/18 06:18 (Cozaar) 25 mg DAILY PO 02/12/18 09:00 02/12/18 11:35 (Robaxin) 750 mg HS PO 02/11/18 21:00 02/12/18 20:46 (Lopressor) 25 mg DAILY PO 02/12/18 09:00 02/12/18 11:29 (Ecotrin Ec) 325 mg DAILY PO 02/12/18 09:00 02/13/18 09:55 Sodium Chloride 1,000 ml @ 75 mls/hr [id number] IV 02/12/18 17:00 Vital Signs / I&O Vital Signs Date Time Temp Pulse Resp B/P (MAP) Pulse Ox O2 Delivery O2 Flow Rate FiO2 02/13/18 07:56 97.6 87 16 166/97 (120) 96 149/76 (100) 155/83 (107) 02/13/18 04:06 97.5 75 16 168/93 (118) 98 02/12/18 23:41 98.2 75 18 167/88 (114) 96 02/12/18 23:03 67 02/12/18 20:37 98.3 81 17 120/66 (84) 96 02/12/18 16:02 98.7 70 16 138/78 (98) 97 146/83 (104) 180/97 (124) 02/12/18 11:41 97.6 82 16 178/92 (120) 98 I/O 02/12/18 02/12/18 02/12/18 02/13/18 02/13/18 02/13/18 07:00 15:00 23:00 07:00 15:00 23:00 Output Total 800 ml 600 ml 400 ml 400 ml Balance -800 ml -600 ml -400 ml -400 ml Output Urine Total 800 ml 600 ml 400 ml 400 ml # Bowel Movements 0 Physical Exam GENERAL: NAD, AAOx3 SKIN: Warm and dry. HEAD: Atraumatic. Normocephalic. EYES: Pupils equal and round. No scleral icterus. No injection or drainage. ENT: No nasal bleeding or discharge. Mucous membranes pink and moist. NECK: Trachea midline. No JVD. CARDIOVASCULAR: Regular rate and rhythm. RESPIRATORY: No accessory muscle use. Clear to auscultation. Breath sounds equal bilaterally. GASTROINTESTINAL: Abdomen soft, non-tender, nondistended. Hepatic and splenic margins not palpable. MUSCULOSKELETAL: Extremities without clubbing, cyanosis, or edema. No obvious deformities. NEUROLOGICAL: Awake and alert. No obvious cranial nerve deficits. Motor grossly within normal limits. Five out of 5 muscle strength in the arms and legs. Normal speech. PSYCHIATRIC: Appropriate mood and affect; insight and judgment normal. Laboratory Laboratory Tests Test 02/12/18 14:34 Erythrocyte Sedimentation Rate 3 mm/hr Total Bilirubin 1.6 MG/DL Direct Bilirubin 0.2 MG/DL Indirect Bilirubin 1.4 MG/DL C-Reactive Protein LESS THAN 0.29 MG/DL Triglycerides Level 86 MG/DL Cholesterol Level 91 MG/DL LDL Cholesterol 39 MG/DL HDL Cholesterol 34.8 MG/DL Cholesterol/HDL Ratio 2.61 RATIO Vitamin B12 Level 405 PG/ML Folate 13.7 NG/ML Free Thyroxine 1.34 NG/DL Thyroid Stimulating Hormone 3rd Gen 2.230 uIU/ML Rapid Plasma Reagin NON-REACTIVE Assessment and Plan Problem List: (1) Chest pain ICD Codes: R07.9 - Chest pain, unspecified Status: Acute (2) Stenosis of left internal carotid artery ICD Codes: I65.22 - Occlusion and stenosis of left carotid artery Status: Acute (3) Dizziness ICD Codes: R42 - Dizziness and giddiness Status: Acute (4) Blurred vision ICD Codes: H53.8 - Other visual disturbances Status: Acute (5) Obesity (BMI 30.0-34.9) ICD Codes: E66.9 - Obesity, Class I, BMI 30-34.9 Status: Acute (6) Hypertension ICD Codes: I10 - Essential (primary) hypertension Status: Acute (7) Hyperlipidemia ICD Codes: E78.5 - Hyperlipidemia, unspecified Status: Acute (8) Hypothyroidism ICD Codes: E03.9 - Hypothyroidism, unspecified Status: Acute Assessment and Plan 1) Chest pain Plan for stress test today to rule out significant disease 2) Left carotid stenosis Per the patient, Dr. Cerda saw him and said that with the amount of blockage, not planning on surgery Con't ASA/Statin therapy Britton Conti DO Feb 13, 2018 11:42
[2018-02-13 11:46] VITALS: BP 133/90; PULSE 45; RESP 16; TEMP 97.8; O2SAT 98
[2018-02-13] MEDS ORDERED: REGADENOSON INJ 0.4 MG/5 ML SYR ONE (12:47)
--- NOTE | 2018-02-13 12:51 | HHI.PR ---
Subjective Remarks Follow up for dizziness, blurred vision, concern for TIA. The patient reports feeling better again today. Denies any current dizziness, and only minimal dizziness upon initial standing. Denies any recurrent blurred vision. Denies any headache, unilateral numbness/weakness, chest pain, palpitations, or shortness of breath. He has no other medical complaints to report at this time. Objective Vitals Vital Signs Date Time Temp Pulse Resp B/P (MAP) Pulse Ox O2 Delivery O2 Flow Rate FiO2 02/13/18 11:46 97.8 45 16 133/90 (104) 98 02/13/18 07:56 97.6 87 16 166/97 (120) 96 149/76 (100) 155/83 (107) 02/13/18 04:06 97.5 75 16 168/93 (118) 98 02/12/18 23:41 98.2 75 18 167/88 (114) 96 02/12/18 23:03 67 02/12/18 20:37 98.3 81 17 120/66 (84) 96 02/12/18 16:02 98.7 70 16 138/78 (98) 97 146/83 (104) 180/97 (124) I/O 02/12/18 02/12/18 02/12/18 02/13/18 02/13/18 02/13/18 07:00 15:00 23:00 07:00 15:00 23:00 Output Total 800 ml 600 ml 400 ml 400 ml Balance -800 ml -600 ml -400 ml -400 ml Output Urine Total 800 ml 600 ml 400 ml 400 ml # Bowel Movements 0 Result Diagram: 02/12/18 0252 02/12/18 0252 Imaging Last Impressions Myocardial Perfusion Scan Nuc Med 02/13/18 0000 Signed Impressions: Service Date/Time: Tuesday, February 13, 2018 12:46 - CONCLUSION: Within normal limits. No stress-induced ischemia demonstrated. Normal wall motion. RISK CATEGORY: Low Jose Antonio Pereyra MD Neck CTA 02/12/18 0832 Signed Impressions: Service Date/Time: Monday, February 12, 2018 13:08 - CONCLUSION: 1. Arch vessels are patent. 2. String sign with marked luminal narrowing throughout the left internal carotid artery beginning approximately 1 cm from the ostium. 3. Atherosclerotic calcification at the origin of the right internal carotid artery with no significant stenosis. 4. Both vertebrals are patent. Gabo Todd MD Head CTA 02/12/18 0832 Signed Impressions: Service Date/Time: Monday, February 12, 2018 13:08 - CONCLUSION: 1. String sign with an extremely diminutive distal left internal carotid artery. Inflow vessels are otherwise patent. 2. 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 The combination almost certainly significantly limits flow to the left MCA territory. 3. Otherwise, intracranial vessels are patent without aneurysmal disease. Gabo Todd MD Chest X-Ray 02/11/18 1457 Signed Impressions: Service Date/Time: Sunday, February 11, 2018 15:05 - CONCLUSION: No acute disease. Rubén Barrios MD Head Magnetic Resonance Angiography 02/11/18 0000 Signed Impressions: Service Date/Time: Sunday, February 11, 2018 18:56 - CONCLUSION: Severe irregularity of the Karla and distal cervical left internal carotid artery identified with decrease in signal intensity but patent left middle cerebral artery and anterior cerebral artery A1 division. Case Damon MD Head CT 02/11/18 0000 Signed Impressions: Service Date/Time: Sunday, February 11, 2018 16:39 - CONCLUSION: No acute disease. No evidence of acute infarct, hemorrhage, mass or edema. Rubén Barrios MD Brain MRI 02/11/18 0000 Signed Impressions: Service Date/Time: Sunday, February 11, 2018 18:56 - CONCLUSION: No acute disease. Case Damon MD Objective Remarks GENERAL: Well-nourished, well-developed male patient in [facility]. SKIN: Warm and dry. No rash. HEENT: Normocephalic. Atraumatic. Pupils equal and round. Mucous membranes pink and moist. CARDIOVASCULAR: Regular rate and rhythm. No murmur appreciated. RESPIRATORY: No accessory muscle use. Clear to auscultation. Breath sounds equal bilaterally. GASTROINTESTINAL: Abdomen soft, non-tender, nondistended. Normoactive bowel sounds x4. MUSCULOSKELETAL: No obvious deformities. Extremities without clubbing, cyanosis , or edema. NEUROLOGICAL: Awake and alert. No obvious cranial nerve deficits. Motor grossly within normal limits. 5/5 muscle strength in bilateral upper and lower extremities. Normal speech. No facial droop/lid lag or tongue deviation. PSYCHIATRIC: Appropriate mood and affect; insight and judgment normal. Medications and IVs Current Medications Medications (Trade) Dose Ordered Sig/Fabiola Route Start Time Stop Time Status Last Admin (NS Flush) 2 ml UNSCH PRN IV FLUSH 02/11/18 20:45 (NS Flush) 2 ml BID IV FLUSH 02/11/18 21:00 02/12/18 20:47 (Tylenol) 650 mg Q4H PRN PO 02/11/18 20:45 (Zofran Inj) 4 mg Q6H PRN IVP 02/11/18 20:45 (Narcan Inj) 0.4 mg UNSCH PRN IV PUSH 02/11/18 20:45 (Heparin Inj) 5,000 units Q8HR SQ 02/11/18 22:00 02/13/18 06:18 (Lipitor) 20 mg HS PO 02/11/18 21:00 02/12/18 20:46 (Imdur) 60 mg DAILY PO 02/12/18 09:00 02/13/18 09:55 (Synthroid) 50 mcg DAILY@0600 PO 02/12/18 06:00 02/13/18 06:18 (Cozaar) 25 mg DAILY PO 02/12/18 09:00 02/12/18 11:35 (Robaxin) 750 mg HS PO 02/11/18 21:00 02/12/18 20:46 (Lopressor) 25 mg DAILY PO 02/12/18 09:00 02/12/18 11:29 (Ecotrin Ec) 325 mg DAILY PO 02/12/18 09:00 02/13/18 09:55 Sodium Chloride 1,000 ml @ 75 mls/hr [id number] IV 02/12/18 17:00 A/P Assessment and Plan 67yo male with HTN, HLD, hypothyroidism and CAD admitted with complaints of dizziness, blurred vision and left sided chest pressure x 5 days. Dizziness/blurry vision, suspected TIA: -Head CT and brain MRI images reviewed, negative for acute process -Head MRA shows severe irregularity of the Karla and distal cervical left internal carotid artery -Head/Neck CTA shows string sign with marked luminal narrowing throughout L ICA in combination with left A1 segment congenitally atretic; significantly limiting flow to left MCA territory -Neurology consulted, appreciate recommendations. Appears to have had some left sided infarcts in the past. -Workup in progress to include ESR, RPR, TERE, B1, B12, CRP, MMA. -Continue on Aspirin 325mg daily. -orthostatic BP negative -Echocardiogram pending -Holter monitor, monitor on telemetry, fall and seizure precautions -PT eval/tx, recommend PT at rehab, consult case management -ST swallow eval, no restrictions or speech therapy needed -symptoms improving, awaiting echo Chest pain/CAD: patient complained of left sided chest heaviness, dyspnea and dizziness -Consult Cardiology, appreciate recommendations -ACS ruled out with negative serial cardiac enzymes x 3 -EKG shows NSR with RBBB, pulse 78 -Nuclear Stress test 4/3 within normal limits, no stress-induced ischemia demonstrated, EF 65% -chest pain resolved Hypertension/hyperlipidemia -Continue home medications to include Imdur 60mg daily, Losartan 25mg daily, Lopressor 25mg daily -continue on statin therapy daily Hypothyroidism -Continue home Synthroid -TSH level wnl Hyperbilirubinemia -patient has no complaints of nausea, vomiting or abdominal pain -monitor. Outpatient f/up. DVT Prophylaxis: Heparin sq Discharge Planning Awaiting echocardiogram. PT recommending rehab. Case management consulted to assist with discharge planning. Anna Newell PA-C Feb 13, 2018 12:51 pm
--- NOTE | 2018-02-13 14:59 | PD.CAR.PN ---
CVT Progress Note Subjective/Hospital Course: Patient evaluated in consult dictated Due to the diffuse narrowing of the vessel all the way to the base of the skull there is no target zone and therefore no open or endovascular endarterectomy is possible This is probably result of dissection of the vessel sometimes in the past Would place on platelet inhibitor and that is about it. Thanks J Objective: Vital Signs Date Time Temp Pulse Resp B/P (MAP) Pulse Ox O2 Delivery O2 Flow Rate FiO2 02/13/18 11:46 97.8 45 16 133/90 (104) 98 02/13/18 07:56 97.6 87 16 166/97 (120) 96 149/76 (100) 155/83 (107) 02/13/18 04:06 97.5 75 16 168/93 (118) 98 02/12/18 23:41 98.2 75 18 167/88 (114) 96 02/12/18 23:03 67 02/12/18 20:37 98.3 81 17 120/66 (84) 96 02/12/18 16:02 98.7 70 16 138/78 (98) 97 146/83 (104) 180/97 (124) Result Diagram: 02/12/18 0252 02/12/18 0252 (1) Chest pain (2) Stenosis of left internal carotid artery (3) Dizziness (4) Blurred vision (5) Obesity (BMI 30.0-34.9) (6) Hypertension (7) Hyperlipidemia (8) Hypothyroidism Savage Cerda MD Feb 13, 2018 14:59
[2018-02-13 15:02] VITALS: BP 147/75; PULSE 87; RESP 16; TEMP 97.9; O2SAT 97
--- NOTE | 2018-02-13 15:11 | MB ---
cc: Savage Cerda MD DATE: 02/13/2018 CONSULTING PHYSICIAN: REASON FOR CONSULTATION: Left internal carotid artery stenosis. HISTORY OF PRESENT ILLNESS: This 67-year-old gentleman presented to the hospital from doctor's office complaining about dizziness, blurred vision and chest pain. The patient states that in the past week, he had about 5 episodes of this, mainly blurred vision and dizziness. [place] when this happened. The chest pain is mainly substernal. The patient underwent workup and hence the consultation. PAST MEDICAL HISTORY: Coronary artery disease, hyperlipidemia, hypertension, hypothyroidism. PAST SURGICAL HISTORY: Only vasectomy. MEDICATIONS: Can be found in the record, are mainly antihypertensives. SOCIAL HISTORY: The patient does not smoke or drink. He is retired. PHYSICAL EXAMINATION: GENERAL: Reveals a 67-year-old male in no acute distress. HEENT: Normocephalic. No trauma to the head. Pupils equal, reactive. Extraocular muscles intact. The patient does not have a facial droop or any asymmetry. His speech is normal, although little slow. NECK: Bilateral carotid pulses, very weak on the left side, pretty strong on the right side. No bruits. CHEST: Bilateral breath sounds. HEART: Regular rate and rhythm. ABDOMEN: Soft. No rebound, no guarding, no masses. EXTREMITIES: Grossly within normal limits. The patient has actually palpable femoral pulses, strong dopplerable popliteal pulses. Dorsalis pedis and posterior tibial also strong by Doppler. Feet are warm. NEUROLOGIC: CN II through XII are grossly normal. The patient seems to be neurologically intact, motorically and sensory. Normal deep tendon reflexes. No pathologic reflexes. IMPRESSION: I reviewed laboratory and diagnostic procedures on this gentleman. He indeed has an abnormal CTA of the left carotid, manifested by a narrowing that starts about half inch after the bifurcation and then goes all the way up to the base of the skull. There is essentially a string sign in this carotid and the flow is minimal. It should be noted that this is not a surgically correctable disease, nor is it correctable by endovascular stenting considering that there is no target zone and this is diffuse going all the way up to the base of the skull and then into the division of the middle cerebral artery. 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 This is now a chronic finding. Of course, patient could have theoretically had hypotrophic carotid or in some other ways, injured it. Most likely, however, this is a complete dissection of the carotid and it stopped where the division of the carotid occurs about the base of the skull. This is not reconstructable by any open or endovascular means. The patient should be placed on antiplatelet therapy, either aspirin or Plavix, and that it the only option. I thank you very much for your referral. MD ROSA Wood/LOULOU , 02:43 PM , 03:10 PM MTDLilia
--- NOTE | 2018-02-13 15:42 | RADRPT ---
EXAM DATE/TIME: 02/13/2018 12:46 [facility] COMPARISON: No previous studies available for comparison. INDICATIONS : Substernal chest pain for 1 week. Coronary artery disease. Angina. DOSE: 30 mCi Tc99m Myoview at stress. 11 mCi Tc99m Myoview at rest. 0.4 mg Lexiscan STRESS SYMPTOMS: Dyspnea. EJECTION FRACTION: 65% MEDICAL HISTORY : Hypertension. Hypothyroidism. SURGICAL HISTORY : Vasectomy. ENCOUNTER: Initial ACUITY: 1 week PAIN SCALE: 4/10 LOCATION: Substernal chest TECHNIQUE: The patient underwent pharmacologic stress with infusion of prescribed dose. Continuous ECG tracing was monitored during stress. Gated SPECT imaging was performed after stress and conventional SPECT i maging was performed at rest. The examination was performed on a SPECT/CT scanner, both attenuation and non-corrected datasets were reviewed. FINDINGS: DISTRIBUTION: The maximum perfused segment at stress is in the anterolateral wall. PERFUSION STUDY: The pattern of perfusion at stress is within normal limits. GATED STUDY: There is intact wall motion and thickening without hypokinetic or dyskinetic segments. CONCLUSION: Within normal limits. No stress-induced ischemia demonstrated. Normal wall motion. RISK CATEGORY: Low Jose Antonio Pereyra MD on February 13, 2018 at 15:39 Board Certified Radiologist. This report was verified electronically.
[2018-02-13] MEDS: ATORVASTATIN 20 MG TAB PO SCH (20:30)
[2018-02-13] MEDS: METHOCARBAMOL 500 MG TAB PO SCH (20:31)
[2018-02-13] MEDS: ACETAMINOPHEN 325 MG TAB PO PRN (20:35)
[2018-02-13 21:19] VITALS: BP 131/66; PULSE 46; RESP 18; TEMP 97.9; O2SAT 98
[2018-02-14 00:15] VITALS: PULSE 74
[2018-02-14 04:53] VITALS: BP 143/70; PULSE 45; RESP 18; TEMP 97.8; O2SAT 99
[2018-02-14] MEDS: LEVOTHYROXINE SODIUM 50 MCG TAB PO SCH (05:40)
[2018-02-14] MEDS: ACETAMINOPHEN 325 MG TAB PO PRN ×2 (05:41→13:30)
[2018-02-14] MEDS: HEPARIN SODIUM - SQ 10,000 UNITS/ML VIAL SQ SCH ×2 (05:41→13:30)
--- NOTE | 2018-02-14 07:15 | HHI.PR ---
Subjective Remarks feels better not dizzy Objective Vital Signs Date Time Temp Pulse Resp B/P (MAP) Pulse Ox O2 Delivery O2 Flow Rate FiO2 02/14/18 04:53 97.8 45 18 143/70 (94) 99 02/14/18 00:15 74 02/13/18 21:19 97.9 46 18 131/66 (87) 98 02/13/18 15:02 97.9 87 16 147/75 (99) 97 02/13/18 11:46 97.8 45 16 133/90 (104) 98 02/13/18 08:00 45 02/13/18 07:56 97.6 87 16 166/97 (120) 96 149/76 (100) 155/83 (107) I/O 02/13/18 02/13/18 02/13/18 02/14/18 02/14/18 02/14/18 07:00 15:00 23:00 07:00 15:00 23:00 Output Total 400 ml 400 ml Balance -400 ml -400 ml Output Urine Total 400 ml 400 ml # Voids 4 Result Diagram: 02/12/18 0252 02/12/18 0252 Objective Remarks awake alert moves all well vff face sym gait nl hallpike neg Assessment and Plan Assessment and Plan imp cards on case echo pend still stress test neg labs ok standing bp ok left carotid string vascular felt dissection will rx plavix on asa and statin i would dc asa in three days ldl nl hallpike neg okto dc neurowise and fu office Blair Dickey MD Feb 14, 2018 07:15
[2018-02-14 08:06] VITALS: BP 144/70; PULSE 85; RESP 18; TEMP 97.8; O2SAT 98
[2018-02-14] MEDS: LOSARTAN 25 MG TAB PO SCH (09:00)
[2018-02-14] MEDS ORDERED: CLOPIDOGREL 75 MG TAB PO SCH (09:00)
[2018-02-14] MEDS: METOPROLOL TARTRATE 25 MG TAB PO SCH (09:00)
[2018-02-14] MEDS: ASPIRIN EC 325 MG TABEC PO SCH (09:53)
[2018-02-14] MEDS: ISOSORBIDE MONONITRATE 60 MG CR TAB (IMDUR) PO SCH (09:53)
[2018-02-14] MEDS: SODIUM CHLORIDE 0.9% FLUSH 10 ML FLUSH IV FLUSH SCH (09:54)
--- NOTE | 2018-02-14 10:20 | HHI.DS ---
cc: Blair Dickey MD Discharge Summary Admission Date Feb 11, 2018 at 8:23 pm Discharge Date: Feb 14, 2018 Admitting Diagnosis CP r/o ACS, left carotid abnormality (1) TIA (transient ischemic attack) ICD Code: G45.9 - Transient cerebral ischemic attack, unspecified Diagnosis: Principal (2) Dizziness ICD Code: R42 - Dizziness and giddiness Diagnosis: Principal Status: Acute (3) Stenosis of left internal carotid artery ICD Code: I65.22 - Occlusion and stenosis of left carotid artery Diagnosis: Secondary Status: Acute (4) Chest pain ICD Code: R07.9 - Chest pain, unspecified Diagnosis: Secondary Status: Acute (5) Hypertension ICD Code: I10 - Essential (primary) hypertension Diagnosis: Secondary Status: Acute (6) Hyperlipidemia ICD Code: E78.5 - Hyperlipidemia, unspecified Diagnosis: Secondary Status: Chronic Procedures None. Brief History - From Admission 67-year-old male with a past medical history significant for hypertension, hyperlipidemia, hypothyroidism and coronary artery disease presents to emergency department for evaluation of dizziness. Patient reports she was walking earlier today when he was dizzy and had blurred vision. He states this is the fifth time this has occurred this week although this time was worse than previous episodes. He denies any loss of consciousness. His symptoms were relieved by sitting. The patient endorses an accompanying chest pressure that is substernal and does not radiate. He states this is the first time he has had any chest pain or pressure associated with these episodes. The patient denies any fever/chills. No cough. No nausea/vomiting/abdominal pain/diarrhea. CBC/BMP: 02/12/18 0252 02/12/18 0252 Significant Findings Laboratory Tests Test 02/11/18 15:05 02/11/18 16:20 02/11/18 23:45 02/12/18 02:52 Neutrophils (%) (Auto) 73.8 % (16.0-70.0) Monocytes (%) (Auto) 11.3 % (0.0-8.0) 10.8 % (0.0-8.0) Lymphocytes # (Auto) 0.9 TH/MM3 (1.0-4.8) Total Protein 6.2 GM/DL (6.4-8.2) Total Bilirubin 1.5 MG/DL (0.2-1.0) Chloride Level 109 MEQ/L (98-107) 111 MEQ/L (98-107) Estimat Glomerular Filtration Rate 67 ML/MIN (>89) 84 ML/MIN (>89) Creatine Kinase MB 4.9 NG/ML (0.5-3.6) Troponin I LESS THAN 0.02 NG/ML LESS THAN 0.02 NG/ML LESS THAN 0.02 NG/ML Calcium Level 8.2 MG/DL (8.5-10.1) Test 02/12/18 14:34 Total Bilirubin 1.6 MG/DL (0.2-1.0) Indirect Bilirubin 1.4 MG/DL (0.0-0.8) Cholesterol Level 91 MG/DL (120-200) HDL Cholesterol 34.8 MG/DL (40.0-60.0) Imaging Last Impressions Myocardial Perfusion Scan Nuc Med 02/13/18 0000 Signed Impressions: Service Date/Time: Tuesday, February 13, 2018 12:46 - CONCLUSION: Within normal limits. No stress-induced ischemia demonstrated. Normal wall motion. RISK CATEGORY: Low Jose Antonio Pereyra MD Neck CTA 02/12/1832 Signed Impressions: Service Date/Time: Monday, February 12, 2018 13:08 - CONCLUSION: 1. Arch vessels are patent. 2. String sign with marked luminal narrowing throughout the left internal carotid artery beginning approximately 1 cm from the ostium. 3. Atherosclerotic calcification at the origin of the right internal carotid artery with no significant stenosis. 4. Both vertebrals are patent. Gabo Todd MD Head CTA 02/12/18 0032 Signed Impressions: Service Date/Time: Monday, February 12, 2018 13:08 - CONCLUSION: 1. String sign with an extremely diminutive distal left internal carotid artery. Inflow vessels are otherwise patent. 2. 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 The combination almost certainly significantly limits flow to the left MCA territory. 3. Otherwise, intracranial vessels are patent without aneurysmal disease. Gabo Todd MD Chest X-Ray 02/11/18 5799 Signed Impressions: Service Date/Time: Sunday, February 11, 2018 15:05 - CONCLUSION: No acute disease. Rubén Barrios MD Head Magnetic Resonance Angiography 02/11/18 0000 Signed Impressions: Service Date/Time: Sunday, February 11, 2018 18:56 - CONCLUSION: Severe irregularity of the Karla and distal cervical left internal carotid artery identified with decrease in signal intensity but patent left middle cerebral artery and anterior cerebral artery A1 division. Case Damon MD Head CT 02/11/18 0000 Signed Impressions: Service Date/Time: Sunday, February 11, 2018 16:39 - CONCLUSION: No acute disease. No evidence of acute infarct, hemorrhage, mass or edema. Rubén Barrios MD Brain MRI 02/11/18 0000 Signed Impressions: Service Date/Time: Sunday, February 11, 2018 18:56 - CONCLUSION: No acute disease. Case Damon MD PE at Discharge GENERAL: Well-nourished, well-developed male patient in [facility]. Patient ambulating his room. SKIN: Warm and dry. No rash. HEENT: Normocephalic. Atraumatic. Pupils equal and round. EOMI. No nystagmus. Mucous membranes pink and moist. CARDIOVASCULAR: Regular rate and rhythm. No murmur appreciated. RESPIRATORY: No accessory muscle use. Clear to auscultation. Breath sounds equal bilaterally. GASTROINTESTINAL: Abdomen soft, non-tender, nondistended. Normoactive bowel sounds x4. MUSCULOSKELETAL: No obvious deformities. Extremities without clubbing, cyanosis , or edema. NEUROLOGICAL: Awake and alert. No obvious cranial nerve deficits. Motor grossly within normal limits. 5/5 muscle strength in bilateral upper and lower extremities. Normal speech. No facial droop/lid lag or tongue deviation. PSYCHIATRIC: Appropriate mood and affect; insight and judgment normal. Pt update on day of discharge Follow up for dizziness, blurred vision, chest pain, TIA, carotid stenosis. The patient is seen ambulating his room without difficulty. He denies any further blurred vision, dizziness, or chest pain. He wants to go home. He does not want to go to rehab as he feels he is much improved. Discussed with patient and at bedside who both agree to go home with [facility]. Also discussed Dr. Dickey's recommendations to only continue aspirin for a few more days then stop and continue taking plavix, patient/ verbalized understanding. Hospital Course 67yo male with HTN, HLD, hypothyroidism and CAD admitted with complaints of dizziness, blurred vision and left sided chest pressure x 5 days. Dizziness/blurry vision, suspected TIA, with Left Internal Carotid Stenosis: Head CT and brain MRI images reviewed, negative for acute process. Head MRA shows severe irregularity of the Karla and distal cervical left internal carotid artery. Head/Neck CTA shows string sign with marked luminal narrowing throughout L ICA in combination with left A1 segment congenitally atretic; significantly limiting flow to left MCA territory. Neurology consulted, followed by Dr. Dickey. 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 Orthostatics negative. Holter unremarkable. Echo with EF 50-55%. ESR , RPR, B1, B12, CRP, MMA all wnl. TERE pending at discharge. He was started on Aspirin 325mg daily. He was evaluated by Dr. Cerda with vascular surgery regarding his left ICA stenosis, felt likely chronic dissection, recommended plavix. Dr. Dickey started plavix with recommendations to stop aspirin after 3 days of dual therapy, discussed with the patient/. PT initially recommended rehab however re-evaluation by PT on the day of discharge recommended no PT needed. Patient's symptoms resolved throughout admission and he felt mostly back to baseline except for some generalized weakness upon discharge. Patient and comfortable going home with [facility]. Case management consulted and arranged C at discharge. Chest pain/CAD: patient complained of left sided chest heaviness in combination with his dizziness as above. ACS ruled out with negative serial cardiac enzymes x 3. EKG with no acute ischemic changes. Consult Cardiology. Nuclear Stress test 4/3 within normal limits, no stress-induced ischemia demonstrated, EF 65%. Chest pain resolved. Discussed with ralph Wilcox to discharge. Hypertension/hyperlipidemia: Continue home medications to include Imdur 60mg daily, Losartan 25mg daily, Lopressor 25mg daily. Continue on statin therapy daily. Hypothyroidism: Continue home Synthroid. TSH level wnl Hyperbilirubinemia: patient has no complaints of nausea, vomiting or abdominal pain. monitor. Outpatient f/up. Pt Condition on Discharge: Stable Discharge Disposition: Disch w/ Home Health Serv Discharge Time: > 30 minutes Discharge Instructions DIET: Follow Instructions for: Heart Healthy Diet Follow up Referrals: Neurology - 1 Week with Blair Dickey MD PCP Follow-up - 2-3 Days with Liban Odom MD New Medications: Meclizine (Meclizine) 25 Mg Tab 25 MG PO Q8HR PRN for VERTIGO, #12 TAB 0 Refills Clopidogrel (Plavix) 75 Mg Tab 75 MG PO DAILY for Stroke Prevention, #30 TAB 1 Refill Continued Medications: Acetaminophen (Tylenol) 325 Mg Tab 500 MG PO Q4H PRN for pain, TAB 0 Refills Aspirin (Aspirin) 81 Mg Chew 81 MG CHEW DAILY, TAB 0 Refills Atorvastatin (Atorvastatin) 20 Mg Tab 20 MG PO HS for Cholesterol Management, #30 TAB 0 Refills Cholecalciferol (Vitamin D3) 1,000 Unit Tab 1000 UNITS PO DAILY for Nutritional Supplement, #1 BOTTLE 0 Refills Isosorbide Mononitrate ER (Isosorbide Mononitrate ER) 60 Mg Tab 60 MG PO DAILY for Prevent Chest Pain, #30 TAB 0 Refills Levothyroxine (Levothyroxine) 50 Mcg Tab 50 MCG PO DAILY for Thyroid, #30 TAB 0 Refills Losartan (Losartan) 25 Mg Tab 25 MG PO DAILY for Blood Pressure Management, #30 TAB 0 Refills Methocarbamol (Methocarbamol) 750 Mg Tab 750 MG PO HS for Muscle Spasm, #120 TAB 0 Refills Metoprolol Tartrate (Metoprolol Tartrate) 25 Mg Tab 25 MG PO DAILY, #30 TAB 0 Refills Anna Newell PA-C Feb 14, 2018 10:20 am
--- NOTE | 2018-02-14 10:22 | HHI.FF ---
Face to Face Verification Diagnosis: (1) TIA (transient ischemic attack) (2) Vertigo (3) Chest pain (4) Hypertension (5) Hyperlipidemia (6) Hypothyroidism (7) Chronic back pain (8) Stenosis of left internal carotid artery (9) Blurred vision (10) Dizziness Physical Therapy Order: Evaluate and Treat, Improve ambulation, Strength and gait training Occupational Therapy Order: Evaluate and Treat, Improve ADL Home Health Nursing Order: Medical education Signs/symptoms of disease process Nursing assessment with vital signs I have seen patient Yoni Banks on 02/14/18. My clinical findings support the need for the requested home health care services because: Ltd mobility - disease progression Deconditioned w/ increased weakness Limited ability to care for self I certify that my clinical findings support that this patient is homebound because: Unsteady gait/balance Unsafe to leave home unassisted Unable to use public transportation Anna Newell PA-C Feb 14, 2018 10:22 am
[2018-02-14 11:47] VITALS: BP 140/77; PULSE 85; RESP 20; TEMP 98; O2SAT 97
--- NOTE | 2018-02-14 12:36 | ECHRPT ---
Indication: CVA/TIA CONCLUSIONS The left ventricular systolic function is low normal with an estimated ejection fraction in the rang e of 50- 55%. Wall thickness is normal. Normal left ventricular size. The left atrial size is mildly dilated. Mitral annular calcification is present. Mild mitral valve regurgitation. calcified and Mild to moderate thickening of the aortic valve leaflets. Mild aortic valve regurgitation. There is mild tricuspid valve regurgitation. The estimated pulmonary arterial pressure is 45.8 mmHg. There is a small pericardial effusion present. BP: 178 / 92 HR: 78 Rhythm: Sinus MEASUREMENTS (Male / Female) Normal Values Technical Quality:Fair 2D ECHO LV Diastolic Diameter PLAX 4.8 cm 4.2 - 5.9 / 3.9 - 5.3 cm LV Systolic Diameter PLAX 4.0 cm IVS Diastolic Thickness 0.9 cm 0.6 - 1.0 / 0.6 - 0.9 cm LVPW Diastolic Thickness 0.9 cm 0.6 - 1.0 / 0.6 - 0.9 cm LV Relative Wall Thickness 0.4 RV Internal Dim ED PLAX 2.8 cm LVOT Diameter 2.3 cm LA Systolic Diameter LX 4.2 cm 3.0 - 4.0 / 2.7 - 3.8 cm M-MODE Aortic Root Diameter MM 3.0 cm LA Systolic Diameter MM 4.4 cm LA Ao Ratio MM 1.5 AV Cusp Separation MM 2.1 cm DOPPLER AV Peak Velocity 130.0 cm/s AV Peak Gradient 6.8 mmHg AI Peak Velocity 379.3 cm/s AI Peak Gradient 57.6 mmHg AI Pressure Half Time 855.0 ms LVOT Peak Velocity 83.0 cm/s LVOT Peak Gradient 2.8 mmHg AV Area Cont Eq pk 2.7 cm MV Area PHT 2.9 cm Mitral E Point Velocity 67.5 cm/s Mitral A Point Velocity 90.2 cm/s Mitral E to A Ratio 0.7 LV E' Lateral Velocity 5.6 cm/s Mitral E to LV E' Lateral Ratio 12.1 LV E' Septal Velocity 7.2 cm/s Mitral E to LV E' Septal Ratio 9.4 TR Peak Velocity 299.0 cm/s TR Peak Gradient 35.8 mmHg Right Atrial Pressure 10.0 mmHg Pulmonary Artery Systolic Pressu 45.8 mmHg Right Ventricular Systolic Press 45.8 mmHg FINDINGS LEFT VENTRICLE The left ventricular systolic function is low normal with an estimated ejection fraction in the rang e of 50- 55%. Wall thickness is normal. Normal left ventricular size. RIGHT VENTRICLE Normal right ventricular size and systolic function. LEFT ATRIUM The left atrial size is mildly dilated. RIGHT ATRIUM The right atrial size is normal. ATRIAL SEPTUM Normal atrial septal thickness without atrial level shunting by limited color doppler interrogation. AORTA The aortic root and proximal ascending aorta are normal in size on limited imaging. MITRAL VALVE Mitral annular calcification is present. Mild mitral valve regurgitation. AORTIC VALVE Trileaflet aortic valve. Mild thickening of the aortic valve leaflets. Mild aortic valve regurgitation. TRICUSPID VALVE Structurally normal tricuspid valve. There is mild tricuspid valve regurgitation. The estimated pulmonary arterial pressure is 45.8 mmHg. PULMONARY VALVE No pulmonary valve regurgitation or stenosis. VESSELS The inferior vena cava is normal in size. PERICARDIUM There is a small pericardial effusion present. Basilio Kellogg MD, FACC, [facility] [place] (Electronically Signed) Final Date:14 February 2018 12:35
[2018-02-14 12:52] LABS: METHYLMALONIC ACID 0.16 nmol/mL (<=0.40)
--- NOTE | 2018-02-14 13:32 | HM ---
Date Performed: 02/12/2018 Time Performed: 18:38:00 HOOKUP DATE: 02/12/18 06:38:00 PM Mon ANALYSIS START TIME: 02/12/2018 6:43:00 PM ANALYSIS END TIME: 02/13/2018 6:47:00 PM PATIENT AGE: 67 PATIENT HEIGHT PATIENT WEIGHT DRUG LIST PATIENT DIAGNOSIS: CP R/O ACS TEST NARRATIVE: The patient's average heart rate was 67 BPM. No episodes of tachycardia wer e noted. Heart rates less than 50 BPM were noted 31% of the time. No pauses exceeding 2.0 second s were noted. 1276 ventricular ectopics, which represented 1% of the total beat count, were noted . The highest ventricular ectopic frequency occurred from 08:00 PM to 09:00 PM Mon. During this sourav e 270 VE(s) occurred. Ventricular ectopics were observed as 1217 isolated beat(s), as 20 couplet(s) and as 6 run(s). 1567 supraventricular ectopics, which represented 2% of the total beat count, we re noted. The highest supraventricular ectopic frequency occurred from 02:00 PM to 03:00 PM Tue. Du ring this time 464 SVE(s) occurred. Multiple episodes of ST depression (defined as -1.0 mm or mor e) were noted in channel 1. The maximum depression of -3.8 mm occurred at 07:44:33 PM Mon. Multipl e episodes of ST depression (defined as -1.0 mm or more) were noted in channel 2. The maximum depre ssion of -3.1 mm occurred at 08:02:40 PM Mon. In channel 3, a single episode of ST depression (defin ed as -1.0 mm or more) occurred at 07:37:14 AM Tue with a maximum depression of -1.3 mm. NO DIARY GIGI NTAINED TEST INTERPRETATION: Sinus rhythm OCCASIONAL PACs Signed by : Marry Pepper
[2018-02-14] MEDS ORDERED: PLAV75TA29 PO (13:39)
[2018-02-14] MEDS ORDERED: MECL-62 PO (13:43)
[2018-02-14 13:51] LABS: ANA SCREEN NEG (NEG)
--- NOTE | 2018-02-14 14:25 | PD.CARD.PN ---
Subjective Subjective Remarks No events overnight No chest pain, no neurological changes Objective Medications Current Medications Medications (Trade) Dose Ordered Sig/Fabiola Route Start Time Stop Time Status Last Admin (NS Flush) 2 ml UNSCH PRN IV FLUSH 02/11/18 20:45 (NS Flush) 2 ml BID IV FLUSH 02/11/18 21:00 02/14/18 09:54 (Tylenol) 650 mg Q4H PRN PO 02/11/18 20:45 02/14/18 13:30 (Zofran Inj) 4 mg Q6H PRN IVP 02/11/18 20:45 (Narcan Inj) 0.4 mg UNSCH PRN IV PUSH 02/11/18 20:45 (Heparin Inj) 5,000 units Q8HR SQ 02/11/18 22:00 02/14/18 13:30 (Lipitor) 20 mg HS PO 02/11/18 21:00 02/13/18 20:30 (Imdur) 60 mg DAILY PO 02/12/18 09:00 02/14/18 09:53 (Synthroid) 50 mcg DAILY@0600 PO 02/12/18 06:00 02/14/18 05:40 (Cozaar) 25 mg DAILY PO 02/12/18 09:00 02/12/18 11:35 (Robaxin) 750 mg HS PO 02/11/18 21:00 02/13/18 20:31 (Lopressor) 25 mg DAILY PO 02/12/18 09:00 02/12/18 11:29 (Ecotrin Ec) 325 mg DAILY PO 02/12/18 09:00 02/17/18 08:59 02/14/18 09:53 (Plavix) 75 mg DAILY PO 02/14/18 09:00 02/14/18 09:53 Vital Signs / I&O Vital Signs Date Time Temp Pulse Resp B/P (MAP) Pulse Ox O2 Delivery O2 Flow Rate FiO2 02/14/18 11:47 98.0 85 20 140/77 (98) 97 02/14/18 09:52 20 02/14/18 08:06 97.8 85 18 144/70 (94) 98 02/14/18 04:53 97.8 45 18 143/70 (94) 99 02/14/18 00:15 74 02/13/18 21:19 97.9 46 18 131/66 (87) 98 02/13/18 15:02 97.9 87 16 147/75 (99) 97 I/O 02/13/18 02/13/18 02/13/18 02/14/18 02/14/18 02/14/18 07:00 15:00 23:00 07:00 15:00 23:00 Output Total 400 ml 400 ml Balance -400 ml -400 ml Output Urine Total 400 ml 400 ml # Voids 4 Physical Exam GENERAL: NAD, AAOx3 SKIN: Warm and dry. HEAD: Atraumatic. Normocephalic. EYES: Pupils equal and round. No scleral icterus. No injection or drainage. ENT: No nasal bleeding or discharge. Mucous membranes pink and moist. NECK: Trachea midline. No JVD. CARDIOVASCULAR: Regular rate and rhythm. RESPIRATORY: No accessory muscle use. Clear to auscultation. Breath sounds equal bilaterally. GASTROINTESTINAL: Abdomen soft, non-tender, nondistended. Hepatic and splenic margins not palpable. MUSCULOSKELETAL: Extremities without clubbing, cyanosis, or edema. No obvious deformities. NEUROLOGICAL: Awake and alert. No obvious cranial nerve deficits. Motor grossly within normal limits. Five out of 5 muscle strength in the arms and legs. Normal speech. PSYCHIATRIC: Appropriate mood and affect; insight and judgment normal. Assessment and Plan Problem List: (1) Chest pain ICD Codes: R07.9 - Chest pain, unspecified Status: Acute (2) Stenosis of left internal carotid artery ICD Codes: I65.22 - Occlusion and stenosis of left carotid artery Status: Acute (3) Dizziness ICD Codes: R42 - Dizziness and giddiness Status: Acute (4) Blurred vision ICD Codes: H53.8 - Other visual disturbances Status: Acute (5) Obesity (BMI 30.0-34.9) ICD Codes: E66.9 - Obesity, Class I, BMI 30-34.9 Status: Acute (6) Hypertension ICD Codes: I10 - Essential (primary) hypertension Status: Acute (7) Hyperlipidemia ICD Codes: E78.5 - Hyperlipidemia, unspecified Status: Chronic (8) Hypothyroidism ICD Codes: E03.9 - Hypothyroidism, unspecified Status: Acute Assessment and Plan 1) Chest pain, atypical Stress test showing no significant ischemia 2) Left carotid stenosis Per the patient, Dr. Cerda saw him and said that with the amount of blockage, not planning on surgery Con't Anti-platelet/statin therapy 3) 2D echo pending 4) Cardiovascularly stable for discharge Britton Conti DO Feb 14, 2018 14:25
== END 2018-02-14 16:23 | disposition home or self-care (01) ==
LOC: NEPE 14:22 → NEDA 20:23 → NEPHCDU 21:36
PROVIDERS: ADMIT Internal Medicine; ATTEND Internal Medicine
DX: G45.9 Transient cerebral ischemic attack, unspecified (principal); I77.71 Dissection of carotid artery; R17 Unspecified jaundice; R07.9 Chest pain, unspecified; I25.10 Atherosclerotic heart disease of native coronary artery without angina pectoris; I45.10 Unspecified right bundle-branch block; I10 Essential (primary) hypertension; E78.00 Pure hypercholesterolemia, unspecified; E03.9 Hypothyroidism, unspecified; I49.3 Ventricular premature depolarization; R94.31 Abnormal electrocardiogram [ECG] [EKG]; F40.240 Claustrophobia; I65.22 Occlusion and stenosis of left carotid artery; I73.9 Peripheral vascular disease, unspecified; E66.9 Obesity, unspecified; Z87.891 Personal history of nicotine dependence; Z79.899 Other long term (current) drug therapy; Z79.82 Long term (current) use of aspirin
CPT/HCPCS: 70450; 70496; 70498; 70544; 70551; 71045; 78452; 80048; 80053; 80061; 81001; 82247; 82248; 82550; 82552; 82607; 82746; 83735; 83921; 84425; 84439; 84443; 84484; 85025; 85610; 85652; 85730; 86038; 86140; 86592; 92610; 93005; 93017; 93225; 93226; 93306; 96361; 96372; 96374; 96376; 97162; 97530; 99285; A9502; G0378; G8987; G8988; J1644; J2060; J2785; J7030; Q9967

== ENCOUNTER 2018-03-11 10:45 | Emergency (ER) | payer OTHER ==
[~2018-03-11] VITALS: Ht 185.4 cm; Wt 120.0 kg
[~2018-03-11 10:45] MED LIST changes: +ASPI-516 CHEW; -ATOR10 PO; +ATOR20TA15 PO; +ISOS60TA PO; -LISI-588 PO; +LOSA25TA PO; +MECL-62 PO; +METH750T PO; +METO25TA3 PO; +PLAV75TA29 PO; +TYLE325T PO; -ULTR50TA PO; +VITA100018 PO
[2018-03-11 10:52] VITALS: BP_SYST 125; BP_SYST 137; BP_DIAS 52; BP_DIAS 82; PULSE 49; RESP 18; TEMP 98.4; TEMP 98.8; O2SAT 96; O2SAT 97
[2018-03-11 11:05] VITALS: PULSE 48; RESP 20; O2SAT 95
[2018-03-11] MEDS ORDERED: TRIA.1%T TOPICAL (11:06)
--- NOTE | 2018-03-11 11:41 | PD ---
HPI Chief Complaint: Numbness/Tingling Time Seen by Provider: 11:07 Travel History International Travel<30 days: No Contact w/Intl Traveler<30days: No Traveled to known affect area: No History of Present Illness HPI 67-year-old male presents emergency department for evaluation of left arm, right arm and right foot numbness that started a couple days ago. Patient states that he was laying in bed when the dorsal aspect of his right foot and near the ankle became "numb". Says that the numbness in his foot resolves with walking but denies any other palliative or provocative factors. Patient has does not feel like he has a foot drop. In addition, patient states that yesterday his right arm became numb from his elbow to his fingertips. Says his left arm became numb today and decided to come to the emergency department. Says that the numbness is from his elbow to his fingertips as well in his left arm. He denies any weakness however. He says that the numbness of his hands are resolved whenever he rubs his hands.. Patient states that he was discharged from the hospital several days ago and was placed on Plavix. States that he has been compliant with his medication. He was diagnosed with stenosis of the left carotid artery at last visit. He denies history of peripheral artery disease, diabetes, neuropathy, CVA, TIA. Denies fever, chills, chest pain, shortness of breath. Says he is due to see his primary care physician on Monday for blood work. PFSH Past Medical History Asthma: No Blood Disorders: No Anxiety: No Depression: No Heart Rhythm Problems: No Cancer: No Cardiac Catheterization: No Cardiovascular Problems: Yes (states has occluded L carotid, started on plavix) High Cholesterol: No Chemotherapy: No Chest Pain: No Congestive Heart Failure: No COPD: No Diabetes: No Endocrine: No Genitourinary: No Heparin Induced Thrombocytopen: No Hypertension: Yes Immune Disorder: No Musculoskeletal: Yes ( ) Neurologic: Yes ( ) Psychiatric: No Respiratory: No Integumentary: Yes ( ) Radiation Therapy: No Sleep Apnea: No Thyroid Disease: No Past Surgical History Coronary Artery Bypass Graft: No Genitourinary Surgery: Yes (VASECTOMY) Family History Family Myocardial Infarction: Yes (Mother) Social History Alcohol Use: No Tobacco Use: No Substance Use: No (denied) Allergies-Medications (Allergen,Severity, Reaction): Coded Allergies: No Known Allergies (Unverified , 06/30/16) Reported Meds & Prescriptions Reported Meds & Active Scripts Active Plavix (Clopidogrel Bisulfate) 75 Mg Tab 75 Mg PO DAILY Reported Triamcinolone Topical (Triamcinolone Acetonide) 0.1% Cream 1 Applic TOPICAL BID Aspirin 81 Mg Chew 81 Mg CHEW DAILY Vitamin D3 (Cholecalciferol) 1,000 Unit Tab 1,000 Units PO DAILY Metoprolol Tartrate 25 Mg Tab 25 Mg PO DAILY Isosorbide Mononitrate ER (Isosorbide Mononitrate) 60 Mg Tab 60 Mg PO DAILY Methocarbamol 750 Mg Tab 750 Mg PO HS Atorvastatin (Atorvastatin Calcium) 20 Mg Tab 20 Mg PO HS Tylenol (Acetaminophen) 325 Mg Tab 500 Mg PO Q4H PRN Levothyroxine (Levothyroxine Sodium) 50 Mcg Tab 50 Mcg PO DAILY Losartan (Losartan Potassium) 25 Mg Tab 25 Mg PO DAILY Review of Systems Except as stated in HPI: all other systems reviewed are Neg Physical Exam Narrative GENERAL: [-] SKIN: Focused skin assessment warm/dry. HEAD: Atraumatic. Normocephalic. EYES: Pupils equal and round. No scleral icterus. No injection or drainage. ENT: No nasal bleeding or discharge. Mucous membranes pink and moist. NECK: Trachea midline. No JVD. CARDIOVASCULAR: Regular rate and rhythm. No murmur appreciated. RESPIRATORY: No accessory muscle use. Clear to auscultation. Breath sounds equal bilaterally. GASTROINTESTINAL: Abdomen soft, non-tender, nondistended. Hepatic and splenic margins not palpable. MUSCULOSKELETAL: No obvious deformities. No clubbing. No cyanosis. No edema. Left arm Right arm Right foot NEUROLOGICAL: Awake and alert. No obvious cranial nerve deficits. Motor grossly within normal limits. Normal speech. PSYCHIATRIC: Appropriate mood and affect; insight and judgment normal. Data Data Last Documented VS Vital Signs Date Time Temp Pulse Resp B/P (MAP) Pulse Ox O2 Delivery O2 Flow Rate FiO2 03/11/18 14:33 77 18 151/74 (99) 91 Room Air 03/11/18 10:52 98.4 Orders Orders Mri Brain W/O Contrast (03/11/18 11:50) Electrocardiogram (03/11/18 12:04) Basic Metabolic Panel (Bmp) (03/11/18 12:04) Complete Blood Count With Diff (03/11/18 12:04) Magnesium (Mg) (03/11/18 12:04) Prothrombin Time / Inr (Pt) (03/11/18 12:04) Act Partial Throm Time (Ptt) (03/11/18 12:04) Troponin I (03/11/18 12:04) Chest, Single Ap (03/11/18 12:04) Ecg Monitoring (03/11/18 12:04) Bilateral Bp Monitoring (03/11/18 12:04) Iv Access Insert/Monitor (03/11/18 12:04) Oximetry (03/11/18 12:04) Oxygen Administration (03/11/18 12:04) Sodium Chloride 0.9% Flush (Ns Flush) (03/11/18 12:15) Lorazepam Inj (Ativan Inj) (03/11/18 12:15) Admit Order (Ed Use Only) (03/11/18 14:34) Labs Laboratory Tests Test 03/11/18 12:45 White Blood Count 5.6 TH/MM3 Red Blood Count 4.30 MIL/MM3 Hemoglobin 13.5 GM/DL Hematocrit 39.2 % Mean Corpuscular Volume 91.1 FL Mean Corpuscular Hemoglobin 31.5 PG Mean Corpuscular Hemoglobin Concent 34.6 % Red Cell Distribution Width 13.2 % Platelet Count 169 TH/MM3 Mean Platelet Volume 9.3 FL Neutrophils (%) (Auto) 80.8 % Lymphocytes (%) (Auto) 10.7 % Monocytes (%) (Auto) 6.2 % Eosinophils (%) (Auto) 1.8 % Basophils (%) (Auto) 0.5 % Neutrophils # (Auto) 4.5 TH/MM3 Lymphocytes # (Auto) 0.6 TH/MM3 Monocytes # (Auto) 0.3 TH/MM3 Eosinophils # (Auto) 0.1 TH/MM3 Basophils # (Auto) 0.0 TH/MM3 CBC Comment DIFF FINAL Differential Comment Prothrombin Time 11.8 SEC Prothromb Time International Ratio 1.2 RATIO Activated Partial Thromboplast Time 28.6 SEC Blood Urea Nitrogen 10 MG/DL Creatinine 1.09 MG/DL Random Glucose 177 MG/DL Calcium Level 8.9 MG/DL Magnesium Level 2.1 MG/DL Sodium Level 141 MEQ/L Potassium Level 3.7 MEQ/L Chloride Level 108 MEQ/L Carbon Dioxide Level 22.1 MEQ/L Anion Gap 11 MEQ/L Estimat Glomerular Filtration Rate 67 ML/MIN Troponin I LESS THAN 0.02 NG/ML MDM Medical Decision Making Medical Screen Exam Complete: Yes Emergency Medical Condition: Yes Differential Diagnosis CVA, TIA, neuropathy, cubital tunnel syndrome, carpal tunnel syndrome Narrative Course 67-year-old male presents emergency department for evaluation of left arm, right arm and right foot numbness that started a couple days ago. Patient states that he was laying in bed when the dorsal aspect of his right foot and near the ankle became "numb". Says that the numbness in his foot resolves with walking but denies any other palliative or provocative factors. Patient has does not feel like he has a foot drop. In addition, patient states that yesterday his right arm became numb from his elbow to his fingertips. Says his left arm became numb today and decided to come to the emergency department. Says that the numbness is from his elbow to his fingertips as well in his left arm. He denies any weakness however. He says that the numbness of his hands are resolved whenever he rubs his hands.. Patient states that he was discharged from the hospital several days ago and was placed on Plavix. States that he has been compliant with his medication. He was diagnosed with stenosis of the left carotid artery at last visit. He denies history of peripheral artery disease, diabetes, neuropathy, CVA, TIA. Denies fever, chills, chest pain, shortness of breath. Says he is due to see his primary care physician on Monday for blood work. Denies any history of cancer or chemotherapy. My physical exam findings were most consistent with neuropathy, potentially cubital tunnel syndrome versus ulnar neuropathy versus idiopathic peripheral neuropathy. I spoke with Dr. Ayon, neurologist, he recommended MRI of the brain. If normal will refer to an outpatient appointment with Dr. Ayon for potential nerve conduction study. However, during the process of the workup, an EKG was performed and found bradycardic rates with a 2-[address] Javier, my attending , call Dr. Conti the on-call open claims representative and he recommended admission for new finding on EKG. The cardiac workup was performed. CBC & BMP Diagram 03/11/18 12:45 Calcium Level 8.9, Magnesium Level 2.1 Cardiac enzymes negative. Last Impressions Chest X-Ray 03/11/18 1204 Signed Impressions: Service Date/Time: Sunday, March 11, 2018 12:43 - CONCLUSION: No acute disease. Case Damon MD Brain MRI 03/11/18 1150 Signed Impressions: Service Date/Time: Sunday, March 11, 2018 13:24 - CONCLUSION: No significant change has occurred. Case Damon MD Patient will be admitted for EKG change. He has neuropathy as well and may require a nerve conduction study. I spoke with Dr. Sanders who accepted this patient. Diagnosis Primary Impression: Abnormal EKG Additional Impression: Neuropathy Admitting Information Admitting Physician Requests: Admit Condition: Stable Jennifer Ochoa Mar 11, 2018 11:41
[2018-03-11 11:56] VITALS: BP 136/65; PULSE 48; RESP 18; O2SAT 95
[2018-03-11] MEDS ORDERED: LORazepam 2 MG/ML VIAL IV PUSH ONE (12:15)
[2018-03-11] MEDS ORDERED: SODIUM CHLORIDE 0.9% FLUSH 10 ML FLUSH IVF PRN (12:15)
[2018-03-11 13:17] LABS: AUTOMATED NEUTROPHIL # 4.5 TH/MM3 (1.8-7.7); BASOPHIL % 0.5 % (0.0-2.0); EOSINOPHIL # 0.1 TH/MM3 (0-0.4); EOSINOPHIL % 1.8 % (0.0-4.0); HEMATOCRIT 39.2 % (39.0-51.0); HEMOGLOBIN 13.5 GM/DL (13.0-17.0); LYMPH % 10.7 % (9.0-44.0); LYMPHOCYTE # 0.6 TH/MM3 (1.0-4.8); MEAN CELL VOLUME 91.1 FL (80.0-100.0); MEAN CORPUSCULAR HEMOGLOBIN 31.5 PG (27.0-34.0); MEAN CORPUSCULAR HGB CONC 34.6 % (32.0-36.0); MEAN PLATELET VOLUME 9.3 FL (7.0-11.0); MONO % 6.2 % (0.0-8.0); MONOCYTE # 0.3 TH/MM3 (0-0.9); NEUT % 80.8 % (16.0-70.0); PLATELET COUNT 169 TH/MM3 (150-450); RED CELL DISTRIBUTION WIDTH 13.2 % (11.6-17.2); WHITE BLOOD COUNT 5.6 TH/MM3 (4.0-11.0)
--- NOTE | 2018-03-11 13:23 | RADRPT ---
EXAM DATE/TIME: 03/11/2018 12:43 [facility] COMPARISON: No previous studies available for comparison. INDICATIONS : Chest Pain MEDICAL HISTORY : Hypertension. Hypothyroidism SURGICAL HISTORY : Vasectomy. ENCOUNTER: Initial ACUITY: 1 day PAIN SCORE: 7/10 LOCATION: chest FINDINGS: A single view of the chest demonstrates the lungs to be symmetrically aerated without evidence of mas s, infiltrate or effusion. The cardiomediastinal contours are unremarkable. Osseous structures are intact. CONCLUSION: No acute disease. Case Damon MD on March 11, 2018 at 13:20 Board Certified Radiologist. This report was verified electronically.
[2018-03-11 13:30] LABS: INTERNATIONAL NORMALIZED RATIO 1.2 RATIO; PROTHROMBIN TIME - PATIENT 11.8 SEC (9.8-11.6)
[2018-03-11 13:39] LABS: BICARBONATE 22.1 MEQ/L (21.0-32.0); BLOOD UREA NITROGEN 10 MG/DL (7-18); CALCIUM 8.9 MG/DL (8.5-10.1); CHLORIDE 108 MEQ/L (98-107); CREATININE 1.09 MG/DL (0.60-1.30); GLOMERULAR FILTRATION RATE 67 ML/MIN (>89); GLUCOSE,RANDOM 177 MG/DL (74-106); MAGNESIUM 2.1 MG/DL (1.5-2.5); SODIUM (NA) 141 MEQ/L (136-145)
[2018-03-11 13:44] LABS: TROPONIN I LESS THAN 0.02 NG/ML (0.02-0.05)
--- NOTE | 2018-03-11 13:51 | RADRPT ---
EXAM DATE/TIME: 03/11/2018 13:24 [facility] COMPARISON: MRI BRAIN W/O CONTRAST, February 11, 2018, 18:56. INDICATIONS : Right sided weakness. MEDICAL HISTORY : Hypothyroidism. Hypertension. Hypercholesterolemia. SURGICAL HISTORY : Vasectomy. ENCOUNTER: Initial ACUITY: 1 day PAIN SCORE: 0/10 LOCATION: cranial TECHNIQUE: Multiplanar, multisequence MRI of the brain was performed without contrast. FINDINGS: Diffusion weighted images demonstrate no evidence for acute infarction. A few scattered foci of incre ased flair signal in the bilateral periventricular white matter and bilateral centrum semiovale again seen. Remote left parietal infarct with gliosis. Right mastoid secretions again noted. There is no h emorrhage. No masses are seen. CONCLUSION: No significant change has occurred. Case Damon MD on March 11, 2018 at 13:47 Board Certified Radiologist. This report was verified electronically.
[2018-03-11 14:33] VITALS: BP 151/74; PULSE 77; RESP 18; O2SAT 91
--- NOTE | 2018-03-11 14:39 | EKG ---
Date Performed: 03/11/2018 Time Performed: 11:20:25 PTAGE: 67 years EKG: SINUS BRADYCARDIA WITH OCCASIONAL SUPRAVENTRICULAR PREMATURE COMPLEXES (BLOCKED PACs), LESS LIKELY TO BE 2:1 AV BLOCK ONE PAC CONDUCTS THROUGH POSSIBLE LEFT ATRIAL ENLARGEMENT RIGHT BUNDLE BRANCH BLOCK ABNORMAL ECG PREVIOUS TRACING : 02/12/2018 03.39 Compared to previous tracing, now appears to have blocked PACs DOCTOR: Britton Conti Interpretating Date/Time 03/11/2018 14:37:17
--- NOTE | 2018-03-11 15:30 | HHI.DCPOC ---
Discharge Care Plan Diagnosis: (1) Chronic back pain (2) Hypothyroidism (3) Neuropathy (4) Abnormal EKG Goals to Promote Your Health * To prevent worsening of your condition and complications * To maintain your health at the optimal level Directions to Meet Your Goals Take your medications as prescribed Follow your dietary instruction Follow activity as directed Keep your appointments as scheduled Take your immunizations and boosters as scheduled If your symptoms worsen call your PCP, if no PCP go to Urgent Care Center or Emergency Room Smoking is Dangerous to Your Health. Avoid second hand smoke Call the 24-hour hour crisis hotline for domestic abuse at Juancho Sanders DO Mar 11, 2018 15:30
--- NOTE | 2018-03-11 15:36 | HHI.HP ---
[facility] Primary Care Physician Liban Odom MD Admission Diagnosis abnormal EKG, neuropathy Diagnoses: Travel History International Travel<30 Days: No Contact w/Intl Traveler <30 Da: No Traveled to Known Affected Are: No History of Present Illness The patient is a 67-year-old male past medical history of neuropathy, CAD and carotid stenosis who is presenting to the hospital with sensations of numbness in several extremities. The patient says that earlier this month he came to the hospital because he felt dizzy and weak. He says he was in the hospital for about 3 days. He had a stress test done at that time. The patient says he has been doing well until today when he started to develop numbness in his right foot and both of his arms. He describes the numbness in his arms as involving the forearms and hands. He says it feels better but he still has some residual numbness. He denies any weakness or pain associated with it. He does have chronic back pain that has gotten worse recently. His states that he lifted a heavy refrigerator recently while helping somebody move. The patient currently denies any dizziness. He says he is ambulating without a walker or a cane. He has not been falling down. He was originally to be discharged from the emergency department, however, an EKG showed an abnormality and cardiology was notified. The patient has since been cleared for discharge home by cardiology and also neurology was contacted about his symptoms. The patient does not wish to stay in the hospital for further workup at this time. Review of Systems Except as stated in HPI: all other systems reviewed are Neg Past Family Social History Past Medical History Hypertension Hyperlipidemia Hypothyroidism Coronary artery disease Carotid stenosis Neuropathy Past Surgical History Vasectomy Allergies: Coded Allergies: No Known Allergies (Unverified , 06/30/16) Active Ordered Medications Current Medications Medications (Trade) Dose Ordered Sig/Fabiola Route Start Time Stop Time Status Last Admin (NS Flush) 2 ml UNSCH PRN IVF 03/11/18 12:15 Family History DM CAD Social History The pt does not drink or smoke. Physical Exam Vital Signs Vital Signs Date Time Temp Pulse Resp B/P (MAP) Pulse Ox O2 Delivery O2 Flow Rate FiO2 03/11/18 14:33 77 18 151/74 (99) 91 Room Air 03/11/18 14:05 96 Room Air 03/11/18 11:56 48 18 136/65 (88) 95 Room Air 03/11/18 11:05 48 20 95 Room Air 03/11/18 10:52 98.4 49 18 137/52 (80) 97 Physical Exam GENERAL: This is a well-nourished, well-developed patient, in no apparent distress. SKIN: No rashes, ecchymoses or lesions. Cool and dry. HEAD: Atraumatic. Normocephalic. No temporal or scalp tenderness. EYES: Pupils equal round and reactive. Extraocular motions intact. No scleral icterus. No injection or drainage. ENT: Nose without bleeding, purulent drainage or septal hematoma. Throat without erythema, tonsillar hypertrophy or exudate. Uvula midline. Airway patent. NECK: Trachea midline. No JVD or lymphadenopathy. Supple, nontender, no meningeal signs. CARDIOVASCULAR: Regular rate and rhythm without murmurs, gallops, or rubs. RESPIRATORY: Clear to auscultation. Breath sounds equal bilaterally. No wheezes , rales, or rhonchi. GASTROINTESTINAL: Abdomen soft, non-tender, nondistended. No hepato-splenomegaly , or palpable masses. No guarding. MUSCULOSKELETAL: Extremities without clubbing, cyanosis, or edema. No joint tenderness, effusion, or edema noted. NEUROLOGICAL: Awake and alert. Cranial nerves II through XII intact. Motor grossly within normal limits. Endorses numbness on right foot and both forearms. Laboratory Laboratory Tests Test 03/11/18 12:45 White Blood Count 5.6 Red Blood Count 4.30 Hemoglobin 13.5 Hematocrit 39.2 Mean Corpuscular Volume 91.1 Mean Corpuscular Hemoglobin 31.5 Mean Corpuscular Hemoglobin Concent 34.6 Red Cell Distribution Width 13.2 Platelet Count 169 Mean Platelet Volume 9.3 Neutrophils (%) (Auto) 80.8 Lymphocytes (%) (Auto) 10.7 Monocytes (%) (Auto) 6.2 Eosinophils (%) (Auto) 1.8 Basophils (%) (Auto) 0.5 Neutrophils # (Auto) 4.5 Lymphocytes # (Auto) 0.6 Monocytes # (Auto) 0.3 Eosinophils # (Auto) 0.1 Basophils # (Auto) 0.0 CBC Comment DIFF FINAL Differential Comment Prothrombin Time 11.8 Prothromb Time International Ratio 1.2 Activated Partial Thromboplast Time 28.6 Blood Urea Nitrogen 10 Creatinine 1.09 Random Glucose 177 Calcium Level 8.9 Magnesium Level 2.1 Sodium Level 141 Potassium Level 3.7 Chloride Level 108 Carbon Dioxide Level 22.1 Anion Gap 11 Estimat Glomerular Filtration Rate 67 Troponin I LESS THAN 0.02 Result Diagram: 03/11/18 1245 03/11/18 1245 Imaging Last Impressions Chest X-Ray 03/11/18 1204 Signed Impressions: Service Date/Time: Sunday, March 11, 2018 12:43 - CONCLUSION: No acute disease. Case Damon MD Brain MRI 03/11/18 1150 Signed Impressions: Service Date/Time: Sunday, March 11, 2018 13:24 - CONCLUSION: No significant change has occurred. Case Damon MD Capkrisi VTE Risk Assessment Caprini VTE Risk Assessment: Mod/High Risk (score >= 2) Caprini Risk Assessment Model Point Value = 1 Point Value = 2 Point Value = 3 Point Value = 5 Age 41-60 Minor surgery BMI > 25 kg/m2 Swollen legs Varicose veins or History of unexplained or recurrent spontaneous Oral contraceptives or hormone replacement Sepsis (< 1 month) Serious lung disease, including pneumonia (< 1 month) Abnormal pulmonary function Acute myocardial infarction Congestive heart failure (< 1 month) History of inflammatory bowel disease Medical patient at bed rest Age 61-74 Arthroscopic surgery Major open surgery (> 45 min) Laparoscopic surgery (> 45 min) Malignancy Confined to bed (> 72 hours) Immobilizing plaster cast Central venous access Age >= 75 History of VTE Family history of VTE Factor V Leiden Prothrombin [id number] Lupus anticoagulant Anticardiolipin antibodies Elevated serum homocysteine Heparin-induced thrombocytopenia Other congenital or acquired thrombophilia Stroke (< 1 month) Elective arthroplasty Hip, pelvis, or leg fracture Acute spinal cord injury (< 1 month) Prophylaxis Regimen Total Risk Factor Score Risk Level Prophylaxis Regimen 0-1 Low Early ambulation 2 Moderate Order ONE of the following: *Sequential Compression Device (SCD) *Heparin 5000 units SQ BID 3-4 Higher Order ONE of the following medications: *Heparin 5000 units SQ TID *Enoxaparin/Lovenox 40 mg SQ daily (WT < 150 kg, CrCl > 30 mL/min) *Enoxaparin/Lovenox 30 mg SQ daily (WT < 150 kg, CrCl > 10-29 mL/min) *Enoxaparin/Lovenox 30 mg SQ BID (WT < 150 kg, CrCl > 30 mL/min) AND/OR *Sequential Compression Device (SCD) 5 or more Highest Order ONE of the following medications: *Heparin 5000 units SQ TID (Preferred with Epidurals) *Enoxaparin/Lovenox 40 mg SQ daily (WT < 150 kg, CrCl > 30 mL/min) *Enoxaparin/Lovenox 30 mg SQ daily (WT < 150 kg, CrCl > 10-29 mL/min) *Enoxaparin/Lovenox 30 mg SQ BID (WT < 150 kg, CrCl > 30 mL/min) AND *Sequential Compression Device (SCD) Assessment and Plan Assessment and Plan Neuropathy The patient endorses numbness in his right foot and bilateral forearms. He recently had a neurological evaluation in the hospital. Repeat MRI in the emergency department was stable. Neurology was contacted who recommended an outpatient nerve conduction study. - Follow-up with neurology as an outpatient for nerve conduction study. - Follow hemoglobin A1c level. EKG changes Initially thought to have a 2-1 block. Cardiology evaluated the patient believes the EKG is more consistent with blocked PACs. Recent echo with EF 50-55 %. - DC metoprolol for now per cardiology. - Follow-up with cardiology as an outpatient. Hyperglycemia Glucose level 177 on admission. - Check hemoglobin A1c. PPx: Ambulation Discussed Condition With Pt, pt's , Dr. Conti, Jennifer Justice The pt has been cleared by cardiology and neurology and would like to pursue further work-up as an outpt. Juancho Sanders DO Mar 11, 2018 15:36
--- NOTE | 2018-03-12 08:33 | MB ---
cc: Britton Conti DO DATE: 03/11/2018 REASON FOR CONSULTATION: Possible arrhythmia. HISTORY OF PRESENT ILLNESS: Yoni Banks is a pleasant 67-year-old male, whom I see in the office and presented to [facility] Emergency Room on 03/11/2018 due to numbness in several extremities. Apparently, the patient was driving due to numbness in several extremities. The patient was originally here at the beginning of the month with dizziness and weakness. He continued to have these episodes throughout his hospitalization, but no arrhythmias were noted at that time. He did have a cardiovascular workup which showed a normal pharmacologic nuclear stress test and an echo showing an ejection fraction of 50-55%, with no significant valvulopathies. He was found to have an almost occluded left internal carotid artery. Due to the significance of this, it was felt that it should not be intervened on by Vascular Surgery and he was discharged home for medical management. Since that time, the patient has been doing relatively well. When he was driving today, he started noticing some numbness in his right foot and then to his right hand and then to his left hand. His states that he recently was helping to move a heavy refrigerator. Upon arrival, an EKG was done and there was a question of 2:1 block noted on EKG and so I was asked to see the patient. The patient currently denies chest pain, shortness of breath or dizziness. PAST MEDICAL HISTORY: 1. Hypertension. 2. Hyperlipidemia. 3. Hypothyroidism. 4. Coronary artery disease. 5. Known left carotid stenosis, with string sign by CTA. 6. Neuropathy. PAST SURGICAL HISTORY: Vasectomy. ALLERGIES: NO KNOWN DRUG ALLERGIES. MEDICATIONS: 1. Methocarbamol 750 mg every night. 2. Plavix 75 mg daily. 3. Lipitor 20 mg every night. 4. Imdur 60 mg daily. 5. Metoprolol tartrate 25 mg daily. 6. Losartan 25 mg daily. 7. Aspirin 81 mg daily. 8. Tylenol 500 mg every 4 hours as needed for pain. 9. Synthroid 50 mcg daily. FAMILY HISTORY: Denies premature coronary artery disease or sudden cardiac within the family. SOCIAL HISTORY: Denies tobacco, alcohol or drug abuse. REVIEW OF SYSTEMS: Fourteen systems were reviewed including osteopathic pertinent positives and negatives above, otherwise negative. PHYSICAL EXAMINATION: VITAL SIGNS: Temperature 98.4, heart rate 77, blood pressure 151/74, respirations 18, pulse oximetry 96% on room air. GENERAL: The patient appears well, in no acute distress. Alert, awake and oriented x 3. HEENT: Extraocular muscles intact. Mucous membranes moist. NECK: Supple. No JVD at 45 degrees. Left carotid with bruit noted. Right carotid, no bruit noted. HEART: Regular rate and rhythm. Positive first and second heart sounds, with no murmurs, gallops or rubs. LUNGS: Clear to auscultation bilaterally. No wheezes, rales or rhonchi. ABDOMEN: Soft, nontender, nondistended. No organomegaly noted. EXTREMITIES: Show no clubbing, cyanosis or edema. Femoral and distal pulses intact bilaterally. NEUROLOGIC: No focal deficits. SKIN: Warm, dry and intact. OSTEOPATHICALLY: No kyphoscoliosis, lordosis or paraspinal tender points. LABORATORY DATA: Hemoglobin 13.5, hematocrit 39.2, platelets 169. Potassium 3.7, BUN 10, creatinine 1.09. Troponin less than 0.02. ELECTROCARDIOGRAM (03/11/2018 AT 11:20): Most likely sinus bradycardia with occasional PACs (blocked PACs, less likely to be 2:1 AV block, as 1 PVC conducts through), right bundle branch block. IMPRESSION: 1. Numbness in extremities of his right foot and bilateral forearms. 2. Incidental finding of arrhythmia. 3. Peripheral artery disease, with known left internal carotid artery extensively stenosed. 4. Previous dizziness and weakness, not associated with arrhythmia. RECOMMENDATIONS: 1. Mr. Banks presented with numbness in his right foot and forearms and case was discussed from the emergency room with Neurology. Further recommendations from that standpoint per Neurology. 2. He was incidentally found to have an arrhythmia which appears to be 2:1 block. In review of the EKG, it appears that the nonconducted atrial component is somewhat different than the P-wave and is most likely a PAC. Overall, the timing is relatively similar. There is one conducted one which would go more towards a blocked PAC pattern. 3. Overall, he has had no further dizziness or lightheadedness since his previous hospitalization 4 weeks ago. During the episodes in the emergency room, he feels no lightheadedness or other complaints. 4. I did get him up and walk him around for which he was asymptomatic and during this, his heart rate increased, with a decrease in the nonconducted component. 5. He appears anxious to go home, as well as his does also. Overall, I think this is an incidental finding and more than likely blocked PACs. I have asked that his beta ines be stopped and he will followup in the office with me in the near future. Consideration may be made for long-term rhythm analysis. 6. Case was discussed with the ER attending, the patient, his and primary care team. 7. He understands that if he has any change in his symptoms, he should come back immediately to the emergency room. Thank you for allowing me to see Yoni Darren. If there are any questions, please do not hesitate to call. DO MASOUD Chen/SANDY , 04:36 PM , 05:42 PM
[2018-03-12 10:46] LABS: HEMOGLOBIN A1C 5.1 % (4.3-6.0)
== END 2018-03-11 16:33 | disposition home or self-care (01) ==
LOC: NEPC 10:45 → NEDA 14:41 → UNDOADMOB 14:41
DX: G62.9 Polyneuropathy, unspecified (principal); R00.1 Bradycardia, unspecified; R94.31 Abnormal electrocardiogram [ECG] [EKG]; R73.9 Hyperglycemia, unspecified; R20.0 Anesthesia of skin; I73.9 Peripheral vascular disease, unspecified; I10 Essential (primary) hypertension; E78.00 Pure hypercholesterolemia, unspecified; E03.9 Hypothyroidism, unspecified; Z79.01 Long term (current) use of anticoagulants; Z79.899 Other long term (current) drug therapy
CPT/HCPCS: 70551; 71045; 80048; 83036; 83735; 84484; 85025; 85610; 85730; 93005; 96374; 99285; J2060

== ENCOUNTER 2018-09-01 17:39 | Inpatient (IN) ==
[2018-09-01] MEDS ORDERED: Atropine Inj 1 MG/ML Vial IV.PUSH ONE (18:07)
[2018-09-01] MEDS ORDERED: Aspirin 325 MG Tablet PO ONE (18:09)
--- NOTE | 2018-09-01 18:09 | ED ---
HPI General Chief Complaint: Chest Pain Stated Complaint: dizziness/low pulse Time Seen by Provider: 09/01/18 18:06 Source: patient Mode of arrival: ambulatory Limitations: no limitations History of Present Illness HPI narrative: 68-year-old male patient with history of hypertension, thyroidism , presents to the ER today because he started having left-sided chest pains which he rates an 8 out of 10 in its waxing and waning. He was seen yesterday by his primary care doctor and was found to have slow heart rate, was told to come to the ER if he started having chest pains or having symptoms. He denies any nausea, shortness of breath, or other symptoms. Related Data Home Medications Medication Instructions Recorded Confirmed aspirin [Aspir-81] 81 mg PO DAILY 09/01/18 09/01/18 atorvastatin 20 mg PO DAILY 09/01/18 09/01/18 clopidogrel 75 mg PO DAILY 09/01/18 09/01/18 isosorbide mononitrate 60 mg PO DAILY 09/01/18 09/01/18 levothyroxine 50 mcg PO DAILY 09/01/18 09/01/18 losartan 25 mg PO DAILY 09/01/18 09/01/18 methocarbamol 750 mg PO HS 09/01/18 09/01/18 Allergies Allergy/AdvReac Type Severity Reaction Status Date / Time gabapentin [From Neurontin] Allergy Anaphylaxis Verified 09/01/18 18:04 Review of Systems ROS: all other systems reviewed are negative [facility] Medical History Medical History CAD (coronary artery disease) (Acute) Hyperchloremia (Acute) Hypertension (Acute) Hypothyroid (Acute) Social History Social History Substance History: No History of Abuse Second Hand Smoke Exposure: No Smoking Status: Former smoker How Often Do You Have a Drink Containing Alcohol: Monthly or less Recent Travel in [facility] [place] within the Last 8 Weeks: No Recent Out of Country Travel within the Last 8 Weeks: No Immunization History Tetanus Immunization: <5 Years Exam Narrative Exam Narrative: GENERAL: Well-developed elderly white male patient currently and moderate distress. Awake and oriented x3. SKIN: Focused skin assessment warm/dry. HEAD: Atraumatic. Normocephalic. EYES: Pupils equal and round. No scleral icterus. No injection or drainage. ENT: No nasal bleeding or discharge. Mucous membranes pink and moist. NECK: Trachea midline. No JVD. CARDIOVASCULAR: Slow and regular rhythm. No murmur appreciated. RESPIRATORY: No accessory muscle use. Clear to auscultation. Breath sounds equal bilaterally. GASTROINTESTINAL: Abdomen soft, non-tender, nondistended. Hepatic and splenic margins not palpable. MUSCULOSKELETAL: No obvious deformities. No clubbing. No cyanosis. No edema. NEUROLOGICAL: Awake and alert. No obvious cranial nerve deficits. Motor grossly within normal limits. Normal speech. PSYCHIATRIC: Appropriate mood and affect; insight and judgment normal. Course Initial Documented Vital Signs Temperature 97.5 F L 09/01/18 17:43 Pulse Rate 50 L 09/01/18 17:43 Respiratory Rate 16 09/01/18 17:43 Blood Pressure 152/72 H 09/01/18 17:43 Pulse Oximetry 98 09/01/18 17:43 Last Documented Vital Signs Temperature 97.5 F L 09/01/18 17:43 Pulse Rate 47 L 09/01/18 18:08 Respiratory Rate 18 09/01/18 18:08 Blood Pressure 136/64 09/01/18 18:08 Pulse Oximetry 96 09/01/18 18:19 Medical Decision Making MDM Narrative Medical decision making narrative: EKG shows second-degree Mobitz type II block and patient was initially given 0.5 mg of atropine and heart rate improved momentarily but then went back down to the 40s. Case was discussed with Dr. Blood who is covering for Dr. Conti, patient's dietary tech. He takes a look at the EKG and states that the patient will likely need a temporary pacemaker. He also recommend another dose of atropine 1 mg. He recommends that the patient be admitted to the critical care service. Case is discussed with Dr. Berry for admission. Aggregate critical care time was 35 minutes. Time to perform other separately billable procedures was not included in the critical care time. My time did not include minutes spent treating any other patients simultaneously or on activities that did not directly contribute to the patient's treatment. The services I provided to this patient were to treat and/or prevent clinically significant deterioration that could result in: Worsening dysrhythmia, bradycardia, arrest. I provided critical care services requiring my management, as noted below: Chart data review, documentation time, medication orders and management, vital sign assessments/reviewing monitor data, ordering and reviewing lab tests, ordering and interpreting/reviewing x-rays and diagnostic studies, care of the patient and discussion of the patient with the admitting physicians. Medical Screen Exam Complete: Yes Emergency Medical Condition: Yes Differential Diagnosis Differential Diagnosis: Dysrhythmias versus ACS versus hypotension versus electrolyte abnormalities Lab Data Result diagrams: 09/01/18 18:11 09/01/18 18:11 Lab Results 09/01/18 09/01/18 09/01/18 Range/Units 18:11 18:11 18:11 WBC 6.0 (4.0-11.0) th/mm3 RBC 4.41 L (4.50-5.90) mil/mm3 Hgb 14.1 (13.0-17.0) gm/dL Hct 41.9 (39.0-51.0) % MCV 95.0 (80.0-100.0) fL MCH 32.0 (27.0-34.0) pg MCHC 33.7 (32.0-36.0) % RDW 13.5 (11.6-17.2) % Plt Count 179 (150-450) th/mm3 MPV 8.9 (7.0-11.0) fL Neut % (Auto) 69.6 (16.0-70.0) % Lymph % (Auto) 15.8 (9.0-44.0) % [place] % (Auto) 11.8 H (0.0-8.0) % Eos % (Auto) 1.9 (0.0-4.0) % Baso % (Auto) 0.9 (0.0-2.0) % Neut # (Auto) 4.1 (1.8-7.7) th/mm3 Lymph # (Auto) 0.9 L (1.0-4.8) th/mm3 [place] # (Auto) 0.7 (0.0-0.9) th/mm3 Eos # (Auto) 0.1 (0.0-0.4) th/mm3 Baso # (Auto) 0.1 (0.0-0.2) th/mm3 WBC Differential . Differential Comment Auto diff final Sodium 141 (136-145) meq/L Potassium 4.4 (3.5-5.1) meq/L Chloride 108 H (98-107) meq/L Carbon Dioxide 24.3 (21.0-32.0) meq/L Anion Gap 9 (5-15) meq/L BUN 13 (7-18) mg/dL Creatinine 1.18 (0.60-1.30) mg/dL Estimated GFR 61 L (>89) mL/min Random Glucose 110 H (74-106) mg/dL Calcium 8.5 (8.5-10.1) mg/dL Total Bilirubin 1.0 (0.2-1.0) mg/dL AST 39 H (15-37) U/L ALT 34 (12-78) U/L Alkaline Phosphatase 81 (45-117) U/L Troponin I Less than 0.02 L (0.02-0.05) ng/mL Total Protein 6.4 (6.4-8.2) g/dL Albumin 3.6 (3.4-5.0) g/dL TSH 2.710 Cancelled (0.358-3.740) uIU/mL Free T4 1.13 Cancelled (0.76-1.46) ng/dL Free T3 2.62 Cancelled (2.18-3.98) pg/mL Imaging Data Attestation: I personally reviewed and interpreted this imaging study as follows : Radiologist's impression: Chest X-Ray 09/01/18 18:06 CONCLUSION: Negative examination. ECG Data Attestation: I personally reviewed and interpreted this ECG as follows: Interpretation: EKG shows a sinus bradycardia with a second-degree AV block type II Mobitz, ventricular rate of 47 bpm. Discharge Plan Discharge Disposition Patient Disposition: 30 Still Patient Discharge Condition Condition: Fair Discharge Details Anticipated Discharge Date: 09/01/18 Diagnosis: Bradycardia Physicians Team ED Provider: Kaushik Fermin Rxs /Orders / Referrals /Forms Prescriptions: No Action atorvastatin 20 mg Tablet 20 mg PO DAILY RF: 0 clopidogrel 75 mg Tablet 75 mg PO DAILY RF: 0 aspirin [Aspir-81] 81 mg Tablet,Delayed Release (Dr/Ec) 81 mg PO DAILY RF: 0 isosorbide mononitrate 60 mg Tablet Extended Release 24 Hr 60 mg PO DAILY RF: 0 methocarbamol 750 mg Tablet 750 mg PO HS RF: 0 levothyroxine 50 mcg Tablet 50 mcg PO DAILY RF: 0 losartan 25 mg Tablet 25 mg PO DAILY RF: 0 Discharge Instructions Patient Printed Instructions: Chest Pain (ED) Status ED Status: With Doctor
[2018-09-01 18:22] LABS: Baso # (Auto) 0.1 th/mm3 (0.0-0.2); Baso % (Auto) 0.9 % (0.0-2.0); Eos # (Auto) 0.1 th/mm3 (0.0-0.4); Eos % (Auto) 1.9 % (0.0-4.0); Hematocrit 41.9 % (39.0-51.0); Hemoglobin 14.1 gm/dL (13.0-17.0); Lymph # (Auto) 0.9 th/mm3 (1.0-4.8); Lymph % (Auto) 15.8 % (9.0-44.0); Mean Corpuscular HGB Conc 33.7 % (32.0-36.0); Mean Platelet Volume 8.9 fL (7.0-11.0); Mono # (Auto) 0.7 th/mm3 (0.0-0.9); Mono % (Auto) 11.8 % (0.0-8.0); Neut # (Auto) 4.1 th/mm3 (1.8-7.7); Neut % (Auto) 69.6 % (16.0-70.0); Platelet Count 179 th/mm3 (150-450); Red Blood Count 4.41 mil/mm3 (4.50-5.90); Red Cell Distribution Width 13.5 % (11.6-17.2)
--- NOTE | 2018-09-01 18:42 | XR ---
EXAM DATE: 09/01/2018 6:06 PM EDT AGE/SEX: 68 years / Male INDICATIONS: Chest pain, dizziness and low pulse today. CLINICAL DATA: This is the patient's initial encounter. Patient reports that signs and symptoms have been present for 1 day and indicates a pain score of 6/10. MEDICAL/SURGICAL HISTORY: . Hypertension. Hypothyroidism. . COMPARISON: Previous chest x-ray dated 03/11/2018. FINDINGS: A single AP view of the chest demonstrates the lungs to be symmetrically aerated without evidence of mass, infiltrate or effusion. The cardiomediastinal contours are unremarkable. Osseous structures a re intact. CONCLUSION: Negative examination. Electronically signed by: Darnell Willard MD 09/01/2018 6:41 PM EDT
[2018-09-01 18:48] LABS: Alanine Aminotransferase 34 U/L (12-78)
[2018-09-01 18:50] LABS: Albumin 3.6 g/dL (3.4-5.0); Anion Gap 9 meq/L (5-15); Aspartate Aminotransferase 39 U/L (15-37); Blood Urea Nitrogen 13 mg/dL (7-18); Calcium 8.5 mg/dL (8.5-10.1); Carbon Dioxide 24.3 meq/L (21.0-32.0); Chloride 108 meq/L (98-107); Glomerular Filtration Rate 61 mL/min (>89); Glucose,Random 110 mg/dL (74-106); Potassium 4.4 meq/L (3.5-5.1); Sodium 141 meq/L (136-145)
[2018-09-01 18:58] LABS: Alkaline Phosphatase 81 U/L (45-117); Free T4 (Free Thyroxine) 1.13 ng/dL (0.76-1.46); Total Protein 6.4 g/dL (6.4-8.2); Triiodothyronine (T3) Free 2.62 pg/mL (2.18-3.98)
[2018-09-01] MEDS ORDERED: Atropine Inj 1 MG/10 ML Syringe IV.PUSH ONE (18:59)
--- NOTE | 2018-09-01 21:29 | XR ---
EXAM DATE: 09/01/2018 8:35 PM EDT AGE/SEX: 68 years / Male INDICATIONS: Central line placement. CLINICAL DATA: This is the patient's initial encounter. Patient reports that signs and symptoms have been present for 1 day and indicates a pain score of 0/10. MEDICAL/SURGICAL HISTORY: Hypertension. None. COMPARISON: [facility] – [place], CHEST 1V SINGLE AP, 09/01/2018. . FINDINGS: Right central line in superior vena cava. No pneumothorax. No lung consolidation or significant effus ion. Heart size within normal limits. CONCLUSION: Right central line in superior vena cava without pneumothorax. Electronically signed by: Lei Jenkins MD 09/01/2018 9:27 PM EDT
--- NOTE | 2018-09-01 21:38 | XR ---
EXAM DATE: 09/01/2018 9:01 PM EDT AGE/SEX: 68 years / Male INDICATIONS: Readjustment central line placement. CLINICAL DATA: This is the patient's subsequent encounter. Patient reports that signs and symptoms h ave been present for 1 day and indicates a pain score of 0/10. MEDICAL/SURGICAL HISTORY: Hypertension. None. COMPARISON: [facility] [place], CHEST 1V SINGLE AP, 09/01/2018. . FINDINGS: A single AP view of the chest demonstrates the lungs to be symmetrically aerated without evidence of mass, infiltrate or effusion. Right central line tip overlies right atrium. The cardiomediastinal co ntours are unremarkable. Osseous structures are intact. CONCLUSION: Right central line tip overlies right atrium. No pneumothorax. Electronically signed by: Lei Jenkins MD 09/01/2018 9:37 PM EDT
--- NOTE | 2018-09-01 21:41 | P.HPCC ---
History of Present Illness Primary Care Physician: [facility] History of Present Illness: 68-year-old male patient with history of hypertension, thyroidism, coronary artery disease presents today for an evaluation of left-sided chest pains which he rates an 8 out of 10 in its waxing and waning. He was seen yesterday by his primary care doctor and was found to have slow heart rate, was told to come to the ER if he started having chest pains or having symptoms. He denies any nausea, shortness of breath, or other symptoms. However due to complaints of chest pain he was seen immediately by hygiene assistant Dr. Blood who initiated transvenous pacemaker for the symptomatic secondary degree heart block. Inpatient Certification: I certify that the inpatient services were ordered in accordance with Medicare regulations governing the order. This includes certification that hospital inpatient services are reasonable and necessary and in the case of services not specified as inpatient-only under 42 CFR 419.22(n), that they are appropriately provided as inpatient services in accordance to with the 2-midnight benchmark under 43 CFR 412.3(e) Review of Systems All other systems reviewed negative except as stated in HPI PMFSH - History History Provided By: Patient - Medical History Medical History: Medical History (Last Reviewed 09/01/18 @ 18:08 by Kaushik Fermin MD) CAD (coronary artery disease) Hyperchloremia Hypertension Hypothyroid - Tobacco History Second Hand Smoke Exposure: No Smoking Status: Former smoker - Alcohol History How Often Do You Have a Drink Containing Alcohol: Monthly or less - Substance Use History Substance History: No History of Abuse - Travel History Recent Travel in the [place] Within the Last 8 Weeks: No Recent Travel Out of the Country Within the Last 8 Weeks: No - Immunization History Tetanus Immunization: <5 Years Medications and Allergies Active Medications: Active Medications Aspirin (Ecotrin) 81 mg PO DAILY ANAIS Atorvastatin Calcium (Lipitor) 20 mg PO DAILY ANAIS Clopidogrel Bisulfate (Plavix) 75 mg PO DAILY ANAIS Isosorbide Mononitrate (Imdur) 60 mg PO DAILY@0700 ANAIS Levothyroxine Sodium (Synthroid) 50 mcg PO DAILY@0700 ANAIS Losartan Potassium (Cozaar) 25 mg PO DAILY ANAIS Methocarbamol (Robaxin) 750 mg PO HS ANAIS Sodium Chloride (Ns Flush) 2 ml IV.FLUSH UNSCH PRN PRN Reason: FLUSH AFTER USING IV ACCESS Allergies Allergy/AdvReac Type Severity Reaction Status Date / Time gabapentin [From Neurontin] Allergy Anaphylaxis Verified 09/01/18 18:04 Home Medications Medication Instructions Recorded Confirmed Type aspirin [Aspir-81] 81 mg PO DAILY 09/01/18 09/01/18 History atorvastatin 20 mg PO DAILY 09/01/18 09/01/18 History clopidogrel 75 mg PO DAILY 09/01/18 09/01/18 History isosorbide mononitrate 60 mg PO DAILY 09/01/18 09/01/18 History levothyroxine 50 mcg PO DAILY 09/01/18 09/01/18 History losartan 25 mg PO DAILY 09/01/18 09/01/18 History methocarbamol 750 mg PO HS 09/01/18 09/01/18 History Results - Labs CBC & Chem 7: 09/01/18 18:11 09/01/18 18:11 Labs: Short CBC 09/01/18 Range/Units 18:11 WBC 6.0 (4.0-11.0) th/mm3 Hgb 14.1 (13.0-17.0) gm/dL Hct 41.9 (39.0-51.0) % Plt Count 179 (150-450) th/mm3 BMP 09/01/18 18:11 Sodium 141 Potassium 4.4 Chloride 108 H Carbon Dioxide 24.3 BUN 13 Creatinine 1.18 Calcium 8.5 Cardiac Enzymes 09/01/18 Range/Units 18:11 Troponin I Less than 0.02 L (0.02-0.05) ng/mL Liver Function 09/01/18 Range/Units 18:11 Total Bilirubin 1.0 (0.2-1.0) mg/dL AST 39 H (15-37) U/L ALT 34 (12-78) U/L Alkaline Phosphatase 81 (45-117) U/L Albumin 3.6 (3.4-5.0) g/dL - Imaging Impressions Chest X-Ray 09/01/18 18:06 CONCLUSION: Negative examination. Chest X-Ray 09/01/18 20:35 CONCLUSION: Right central line in superior vena cava without pneumothorax. Chest X-Ray 09/01/18 21:01 CONCLUSION: Right central line tip overlies right atrium. No pneumothorax. Exam Vital signs: Vital Signs 09/01/18 17:43 09/01/18 17:51 09/01/18 18:08 Temperature 97.5 F L Pulse Rate 50 L 49 L 47 L Respiratory Rate 16 15 18 Blood Pressure 152/72 H 129/60 136/64 Pulse Oximetry 98 96 96 09/01/18 18:19 09/01/18 20:00 Temperature Pulse Rate 47 L Respiratory Rate 18 Blood Pressure 126/63 Pulse Oximetry 96 98 Intake & Output 09/01/18 09/01/18 09/02/18 06:59 18:59 06:59 Weight 116.573 kg - Constitutional mild distress - Routine HEENT Exam Head: Present: normocephalic, atraumatic Eye: Present: PERRL ENT: Present: mucous membranes moist - Routine Neck Exam Present: supple, full ROM, JVD. Absent: carotid bruit - Routine Respiratory Exam Absent: accessory muscle use, rhonchi, stridor, wheezes, crackles - Routine Cardiovascular Exam Present: RRR, S1, S2, bradycardia. Absent: murmur, gallop, rubs - Routine Abdominal Exam Present: soft, normoactive bowel sounds - Routine Extremities Exam Absent: cyanosis, clubbing, edema - Routine Skin Exam Present: intact. Absent: cyanosis, erythema - Routine Neurological Exam Present: alert, oriented X3, moving all extremities Septic Shock Reassessment Septic shock perfusion: reassessment completed Caprini VTE Risk Assessment Caprini VTE Risk Assessment: Moderate/High Risk (score >= 2) Caprini Risk Assessment Model: Point Value = 1 Point Value = 2 Point Value = 3 Point Value = 5 Age 41-60 Minor surgery BMI > 25 kg/m2 Swollen legs Varicose veins or History of unexplained or recurrent spontaneous Oral contraceptives or hormone replacement Sepsis (< 1 month) Serious lung disease, including pneumonia (< 1 month) Abnormal pulmonary function Acute myocardial infarction Congestive heart failure (< 1 month) History of inflammatory bowel disease Medical patient at bed rest Age 61-74 Arthroscopic surgery Major open surgery (> 45 min) Laparoscopic surgery (> 45 min) Malignancy Confined to bed (> 72 hours) Immobilizing plaster cast Central venous access Age >= 75 History of VTE Family history of VTE Factor V Leiden Prothrombin [id number] Lupus anticoagulant Anticardiolipin antibodies Elevated serum homocysteine Heparin-induced thrombocytopenia Other congenital or acquired thrombophilia Stroke (< 1 month) Elective arthroplasty Hip, pelvis, or leg fracture Acute spinal cord injury (< 1 month) Prophylaxis Regimen: Total Risk Factor Score Risk Level Prophylaxis Regimen 0-1 Low Early ambulation 2 Moderate Order ONE of the following: *Sequential Compression Device (SCD) *Heparin 5000 units SQ BID 3-4 Higher Order ONE of the following medications: *Heparin 5000 units SQ TID *Enoxaparin/Lovenox 40 mg SQ daily (WT < 150 kg, CrCl > 30 mL/min) *Enoxaparin/Lovenox 30 mg SQ daily (WT < 150 kg, CrCl > 10-29 mL/min) *Enoxaparin/Lovenox 30 mg SQ BID (WT < 150 kg, CrCl > 30 mL/min) AND/OR *Sequential Compression Device (SCD) 5 or more Highest Order ONE of the following medications: *Heparin 5000 units SQ TID (Preferred with Epidurals) *Enoxaparin/Lovenox 40 mg SQ daily (WT < 150 kg, CrCl > 30 mL/min) *Enoxaparin/Lovenox 30 mg SQ daily (WT < 150 kg, CrCl > 10-29 mL/min) *Enoxaparin/Lovenox 30 mg SQ BID (WT < 150 kg, CrCl > 30 mL/min) AND *Sequential Compression Device (SCD) Assessment and Plan - Assessment and Plan Plan: Bradycardia -Second degree heart block -Transvenous pacemaker per cardiology -Series of troponins and EKG to rule out ACS -2D echo -Further management per cardiology CAD -Aspirin -Plavix -Series of troponins and EKGs Hyperchloremia -Atorvastatin Hypertension -Isosorbide -Losartan Hypothyroid -Levothyroxine -Repeat TSH a.m. DVT GI prophylaxis -Teds SCDs -Subcu heparin -Cardiac diet 35 minutes of critical care
[2018-09-01] MEDS ORDERED: Bisacodyl 10 MG Supp RECTAL PRN (21:43)
[2018-09-01] MEDS: Heparin - SQ 10,000 UNITS/ML Vial SQ SCH (22:59)
[2018-09-01] MEDS: Sod Chloride 0.9% Inj 1,000 ML IV.CONT SCH (23:00)
[2018-09-01] MEDS: Acetaminophen 325 MG Tablet PO PRN (23:00)
[2018-09-02] MEDS ORDERED: Magnesium Sulfate Inj 4 GM in Sodium Chlor 0.9% Inj 92 ML IV.SIG PRN (01:12)
[2018-09-02] MEDS ORDERED: Potassium Phosphate 500 MG Soluble Tablet PO PRN ×2 (01:12)
[2018-09-02] MEDS ORDERED: Potassium Chloride 25 MEQ Effervescent Tablet PO PRN (01:12)
[2018-09-02] MEDS ORDERED: Sodium Phosphate Inj 30 MMOL in Sodium Chlor 0.9% Inj 250 ML IV.SIG PRN (01:12)
[2018-09-02] MEDS ORDERED: Potassium Chlor 20 mEq Premix 20 MEQ/100 ML PIGGYBACK IV.SIG PRN ×2 (01:12)
[2018-09-02] MEDS ORDERED: Potassium Phosphate Inj 30 MMOL in Sodium Chlor 0.9% Inj 250 ML IV.SIG PRN (01:12)
[2018-09-02] MEDS ORDERED: Potassium Chlor 40 mEq Premix 40 MEQ/100 ML PIGGYBACK IV.SIG PRN ×2 (01:12)
[2018-09-02] MEDS ORDERED: Magnesium Oxide 400 MG Tablet PO PRN (01:12)
[2018-09-02] MEDS ORDERED: Magnesium Sulfate Inj 2 GM in Sodium Chlor 0.9% Inj 96 ML IV.SIG PRN (01:12)
[2018-09-02] MEDS ORDERED: Chlorhexidine Gluconate 2% 1 Pack (2 Cloths) TOPICAL PRN (04:00)
[2018-09-02 05:37] LABS: Baso % (Auto) 0.7 % (0.0-2.0); Eos # (Auto) 0.1 th/mm3 (0.0-0.4); Eos % (Auto) 2.7 % (0.0-4.0); Hematocrit 40.6 % (39.0-51.0); Hemoglobin 13.7 gm/dL (13.0-17.0); Lymph # (Auto) 0.9 th/mm3 (1.0-4.8); Lymph % (Auto) 18.3 % (9.0-44.0); Mean Corpuscular HGB Conc 33.8 % (32.0-36.0); Mean Corpuscular Hemoglobin 32.2 pg (27.0-34.0); Mean Corpuscular Volume 95.2 fL (80.0-100.0); Mean Platelet Volume 8.6 fL (7.0-11.0); Mono # (Auto) 0.5 th/mm3 (0.0-0.9); Neut # (Auto) 3.2 th/mm3 (1.8-7.7); Neut % (Auto) 67.3 % (16.0-70.0); Platelet Count 128 th/mm3 (150-450); Red Blood Count 4.27 mil/mm3 (4.50-5.90); Red Cell Distribution Width 13.4 % (11.6-17.2); White Blood Count 4.7 th/mm3 (4.0-11.0)
[2018-09-02 05:45] LABS: Activated Partial Thrombo Time 29.5 sec (24.3-30.1); INR 1.2 Ratio; Prothrombin Time 12.3 sec (9.8-11.6)
[2018-09-02 06:12] LABS: Alanine Aminotransferase 27 U/L (12-78); Albumin 3.2 g/dL (3.4-5.0); Alkaline Phosphatase 74 U/L (45-117); Anion Gap 4 meq/L (5-15); Aspartate Aminotransferase 15 U/L (15-37); Blood Urea Nitrogen 12 mg/dL (7-18); Calcium 7.6 mg/dL (8.5-10.1); Carbon Dioxide 29.1 meq/L (21.0-32.0); Chloride 110 meq/L (98-107); Glomerular Filtration Rate 81 mL/min (>89); Glucose,Random 87 mg/dL (74-106); Magnesium 2.2 mg/dL (1.5-2.5); Phosphorus 3.1 mg/dL (2.5-4.9); Potassium 3.8 meq/L (3.5-5.1); Sodium 143 meq/L (136-145); Total Protein 5.5 g/dL (6.4-8.2)
[2018-09-02] MEDS: Chlorhexidine Gluconate 2% 1 Pack (2 Cloths) TOPICAL SCH (06:25)
[2018-09-02] MEDS: Heparin - SQ 10,000 UNITS/ML Vial SQ SCH ×3 (06:25→21:03)
[2018-09-02] MEDS: Levothyroxine 50 MCG Tablet PO SCH (06:27)
[2018-09-02] MEDS: Isosorbide Mononitrate 60 MG ER 24HR Tablet (Imdur) PO SCH (07:50)
[2018-09-02] MEDS: Senna/Docusate Sodium 8.6/50 MG Tablet PO SCH ×2 (08:18→21:04)
[2018-09-02] MEDS: Sod Chloride 0.9% Inj 1,000 ML IV.CONT SCH ×2 (09:58→21:04)
--- NOTE | 2018-09-02 10:58 | P.PNCC ---
Subjective Subjective Remarks/Hospital Course: 09/01: 68-year-old male patient with history of hypertension, thyroidism, coronary artery disease presents today for an evaluation of left-sided chest pains which he rates an 8 out of 10 in its waxing and waning. He was seen yesterday by his primary care doctor and was found to have slow heart rate, was told to come to the ER if he started having chest pains or having symptoms. He denies any nausea, shortness of breath, or other symptoms. However due to complaints of chest pain he was seen immediately by surgery center administrator Dr. Blood who initiated transvenous pacemaker for the symptomatic secondary degree heart block. 09/02: Resting in bed comfortably. Denies any chest pain or shortness of breath currently. Transvenous pacer in place with paced rhythm. Objective Vital Signs / I&O: Vital Signs 09/01/18 17:43 09/01/18 17:51 09/01/18 18:08 Temperature 97.5 F L Pulse Rate 50 L 49 L 47 L Respiratory Rate 16 15 18 Blood Pressure 152/72 H 129/60 136/64 Pulse Oximetry 98 96 96 09/01/18 18:19 09/01/18 20:00 09/01/18 20:09 Temperature Pulse Rate 47 L 48 L Respiratory Rate 18 Blood Pressure 126/63 Pulse Oximetry 96 98 09/01/18 20:15 09/01/18 23:00 09/01/18 23:04 Temperature 97.0 F L 97.0 F L Pulse Rate 45 L 61 59 L Respiratory Rate 20 20 Blood Pressure 130/66 146/85 H Pulse Oximetry 95 97 09/01/18 23:45 09/02/18 03:23 09/02/18 03:55 Temperature 97.4 F L Pulse Rate 59 L 59 L Respiratory Rate 20 20 Blood Pressure 143/83 H Pulse Oximetry 95 09/02/18 07:21 09/02/18 07:24 09/02/18 08:07 Temperature 97 F L Pulse Rate 59 L 59 L Respiratory Rate 20 Blood Pressure 150/88 H Pulse Oximetry 96 96 09/02/18 08:40 09/02/18 09:03 Temperature Pulse Rate 59 L Respiratory Rate Blood Pressure Pulse Oximetry 99 Intake & Output 09/01/18 09/02/18 09/02/18 18:59 06:59 18:59 Intake Total 480 / 480 1000 / 1000 Output Total 400 / 400 Balance 80 / 80 1000 / 1000 Weight 116.573 kg 116 kg Intake: IV 1000 / 1000 NS Inj 1,000 ML @ 84 mls/hr IV. 1000 / 1000 CONT .[id number] [facility] Rx#:[id number] Oral 480 / 480 Output: Urine 400 / 400 Result Diagrams: 09/02/18 05:00 09/02/18 05:00 Objective Remarks: HEENT/Neuro: No pallor or icterus, tongue moist, MELVIN, Awake alert oriented 3 , nonfocal grossly, moving all 4 extremities Neck: No JVD Chest/pulmonary: CTA bilaterally Cardiovascular: S1-S2 regular no gallop or murmur. Transvenous pacer in place. Paced rhythm noted. GI/abdomen: Soft, nontender, bowel sounds present Extremities: Warm bilaterally, no edema Assessment and Plan - Assessment and Plan Plan: Bradycardia -Second degree heart block -Transvenous pacemaker per cardiology -Series of troponins and EKG to rule out ACS -2D echo -Further management per cardiology CAD -Aspirin -Plavix -Series of troponins and EKGs Hyperchloremia -Atorvastatin Hypertension -Isosorbide -Losartan Hypothyroid -Levothyroxine -Repeat TSH a.m. DVT GI prophylaxis -Teds SCDs -Subcu heparin -Cardiac diet
[2018-09-02] MEDS: Acetaminophen 325 MG Tablet PO PRN (17:51)
[2018-09-02] MEDS: Methocarbamol 500 MG Tablet PO SCH (21:03)
--- NOTE | 2018-09-02 21:26 | ECHRPT ---
Indication: CARDIOMYOPATHY CONCLUSIONS The left ventricular systolic function is normal with an estimated ejection fraction of 55%. Normal left ventricular size. Wall thickness is normal. No regional wall motion abnormalities are present. Aortic valve sclerosis is present. Mild aortic valve regurgitation. There is trace tricuspid valve regurgitation. The estimated pulmonary arterial pressure is 27 mmHg. BP: / HR: Rhythm: Sinus MEASUREMENTS (Male / Female) Normal Values Technical Quality:Good 2D ECHO LV Diastolic Diameter PLAX 4.2 cm 4.2 - 5.9 / 3.9 - 5.3 cm LV Systolic Diameter PLAX 3.2 cm IVS Diastolic Thickness 1.1 cm 0.6 - 1.0 / 0.6 - 0.9 cm LVPW Diastolic Thickness 1.2 cm 0.6 - 1.0 / 0.6 - 0.9 cm LV Relative Wall Thickness 0.6 LVOT Diameter 1.8 cm LA Systolic Diameter LX 3.7 cm 3.0 - 4.0 / 2.7 - 3.8 cm LV Ejection Fraction MOD 4C 57.3 % LV Ejection Fraction 4C AL 58.0 % DOPPLER AV Peak Velocity 145.0 cm/s AV Peak Gradient 8.4 mmHg AI Peak Velocity 355.0 cm/s AI Peak Gradient 50.4 mmHg AI Pressure Half Time 882.0 ms LVOT Peak Velocity 105.0 cm/s LVOT Peak Gradient 4.4 mmHg AV Area Cont Eq pk 1.8 cm MV Area PHT 3.5 cm Mitral E Point Velocity 86.9 cm/s Mitral A Point Velocity 84.9 cm/s Mitral E to A Ratio 1.0 LV E' Lateral Velocity 7.1 cm/s Mitral E to LV E' Lateral Ratio 12.2 LV E' Septal Velocity 7.0 cm/s Mitral E to LV E' Septal Ratio 12.4 TR Peak Velocity 208.0 cm/s TR Peak Gradient 17.3 mmHg Right Atrial Pressure 10.0 mmHg Pulmonary Artery Systolic Pressu 27.3 mmHg Right Ventricular Systolic Press 27.3 mmHg PV Peak Velocity 86.9 cm/s PV Peak Gradient 3.0 mmHg FINDINGS LEFT VENTRICLE The left ventricular systolic function is low normal with an estimated ejection fraction in the rang e of 50- 55%. Normal left ventricular size. Wall thickness is normal. No regional wall motion abnormalities are present. RIGHT VENTRICLE Normal right ventricular size and systolic function. LEFT ATRIUM The left atrial size is normal. RIGHT ATRIUM The right atrial size is normal. ATRIAL SEPTUM Normal atrial septal thickness without atrial level shunting by limited color doppler interrogation. AORTA The aortic root and proximal ascending aorta are normal in size on limited imaging. MITRAL VALVE Structurally normal mitral valve. No mitral valve stenosis or regurgitation. AORTIC VALVE Trileaflet aortic valve. Aortic valve sclerosis is present. Mild aortic valve regurgitation. TRICUSPID VALVE Structurally normal tricuspid valve. There is trace tricuspid valve regurgitation. The estimated pulmonary arterial pressure is 27.3 mmHg. PULMONARY VALVE No pulmonary valve regurgitation or stenosis. VESSELS The inferior vena cava is normal in size. PERICARDIUM No pericardial effusion. Vinicius Ospina MD, FACC (Electronically Signed) Final Date:02 September 2018 21:25
--- NOTE | 2018-09-02 21:34 | P.PCN ---
Date of procedure: 09/01/18 Pre-op diagnosis: Heart block Post-op diagnosis: same Procedure: Central line placement A time-out was completed verifying correct patient, procedure, site, positioning , and special equipment if applicable. The patient was placed in a dependent position appropriate for central line placement based on the vein to be cannulated. The patients right neck was prepped and draped in sterile fashion. 1% Lidocaine was used to anesthetize the surrounding skin area. A single lumen 7.5-Faroese Cordis to do so catheter was introduced into the the internal jugular vein using the Seldinger technique and under ultrasound guidance. The catheter was threaded smoothly over the guide wire and appropriate blood return was obtained. Each lumen of the catheter was evacuated of air and flushed with sterile saline. The catheter was then sutured in place to the skin and a sterile dressing applied. Perfusion to the extremity distal to the point of catheter insertion was checked and found to be adequate. Estimated Blood Loss: 1ml The patient tolerated the procedure well and there were no complications.
--- NOTE | 2018-09-02 22:06 | ECG ---
Date Performed: 09/02/2018 Time Performed: 06:22:40 PTAGE: 68 years EKG: VENTRICULAR PACING Abnormal ECG Since the PREVIOUS TRACING , no significant change noted DOCTOR: Vinicius Ospina Interpretating Date/Time 09/02/2018 22:04:14
--- NOTE | 2018-09-02 22:18 | ECG ---
Date Performed: 09/01/2018 Time Performed: 20:42:02 PTAGE: 68 years EKG: Ventricular pacing. Pacemaker rhythm - no further analysis Abnormal ECG PREVIOUS TRACING : 09/01/2018 18.01 Compared to previous tracing, V pacing now present DOCTOR: Vinicius Ospina Interpretating Date/Time 09/02/2018 22:17:27
--- NOTE | 2018-09-02 22:23 | ECG ---
Date Performed: 09/01/2018 Time Performed: 18:01:58 PTAGE: 68 years EKG: SINUS BRADYCARDIA WITH 2ND DEGREE AV BLOCK, LIKELY MOBITZ TYPE II RIGHT BUNDLE BRANCH BLOCK ABNORMAL ECG PREVIOUS TRACING : 03/11/2018 11.20 Since the previous tracing, no significant change noted DOCTOR: Vinicius Ospina Interpretating Date/Time 09/02/2018 22:22:10
[2018-09-03] MEDS: Isosorbide Mononitrate 60 MG ER 24HR Tablet (Imdur) PO SCH (06:21)
[2018-09-03] MEDS: Levothyroxine 50 MCG Tablet PO SCH (06:21)
[2018-09-03] MEDS: Heparin - SQ 10,000 UNITS/ML Vial SQ SCH ×3 (06:21→21:00)
[2018-09-03] MEDS: Chlorhexidine Gluconate 2% 1 Pack (2 Cloths) TOPICAL SCH (06:22)
--- NOTE | 2018-09-03 06:42 | P.PNCA ---
Subjective Interval history: No acute events. Denies chest pain currently. Still has 2:1 block underlying. Medications and Allergies Active Medications: Active Medications Acetaminophen (Tylenol) 650 mg PO Q6H PRN PRN Reason: PAIN 1-10 AND/OR FEVER >101F Last Admin: 09/02/18 17:51 Dose: 650 mg Al Hydroxide/Mg Hydroxide (Milk Of Alexis Núñez) 30 ml PO Q12H PRN PRN Reason: Mild Constipation Albuterol (Duoneb Neb (Prn)) 1 ampul NEB Q2HR NEB PRN PRN Reason: WHEEZING Aspirin (Ecotrin) 81 mg PO DAILY [facility] Last Admin: 09/02/18 08:18 Dose: 81 mg Atorvastatin Calcium (Lipitor) 20 mg PO DAILY [facility] Last Admin: 09/02/18 08:18 Dose: 20 mg Bisacodyl (Dulcolax Supp) 10 mg RECTAL DAILY PRN PRN Reason: SEVERE CONSITIPATION Chlorhexidine Gluconate (Chlorhexidine 2% Cloth) 3 pack TOPICAL DAILY@0400 [facility] Stop: 09/07/18 03:59 Last Admin: 09/03/18 06:22 Dose: 3 pack Chlorhexidine Gluconate (Chlorhexidine 2% Cloth) 3 pack TOPICAL DAILY@0400 PRN PRN Reason: Extra cloth needed Stop: 09/07/18 03:59 Clopidogrel Bisulfate (Plavix) 75 mg PO DAILY [facility] Last Admin: 09/02/18 08:18 Dose: 75 mg Heparin Sodium (Porcine) (Heparin Inj) 5,000 units SQ Q8H [facility] Last Admin: 09/03/18 06:21 Dose: 5,000 units Sodium Chloride (Ns Inj) 1,000 mls @ 84 mls/hr IV.CONT .[id number] [facility] Last Admin: 09/02/18 21:04 Dose: 84 mls/hr Magnesium Sulfate 4 gm/ Sodium (Chloride) 100 mls @ 50 mls/hr IV.SIG UNSCH PRN PRN Reason: For Magnesium 0.9 - 1.1 mg/dL Magnesium Sulfate 2 gm/ Sodium (Chloride) 100 mls @ 50 mls/hr IV.SIG UNSCH PRN PRN Reason: For Magnesium 1.2 - 1.6 mg/dL Potassium Chloride (Kcl 40 Meq Premix Inj) 40 meq in 100 mls @ 25 mls/hr IV.SIG Q2H PRN PRN Reason: For Potassium 2.8 - 3.2 mEq/L Potassium Chloride (Kcl 40 Meq Premix Inj) 40 meq in 100 mls @ 25 mls/hr IV.SIG UNSCH PRN PRN Reason: For Potassium 3.3 - 3.5 mEq/L Potassium Chloride (Kcl 20 Meq Premix Inj) 20 meq in 100 mls @ 50 mls/hr IV.SIG Q2H PRN PRN Reason: For Potassium 2.8 - 3.2 mEq/L Potassium Phosphate 30 mmol/ (Sodium Chloride) 260 mls @ 42 mls/hr IV.SIG UNSCH PRN PRN Reason: SEE LABEL COMMENTS Sodium Phosphate 30 mmol/ (Sodium Chloride) 260 mls @ 42 mls/hr IV.SIG UNSCH PRN PRN Reason: For Phosphorus < 2.5 mg/dL Potassium Chloride (Kcl 20 Meq Premix Inj) 20 meq in 100 mls @ 50 mls/hr IV.SIG Q2H PRN PRN Reason: For Potassium 3.3 - 3.5 mEq/L Isosorbide Mononitrate (Imdur) 60 mg PO DAILY@0700 [facility] Last Admin: 09/03/18 06:21 Dose: 60 mg Lactulose (Lactulose Liq) 30 ml PO DAILY PRN PRN Reason: SEVERE CONSITIPATION Levothyroxine Sodium (Synthroid) 50 mcg PO DAILY@0700 [facility] Last Admin: 09/03/18 06:21 Dose: 50 mcg Losartan Potassium (Cozaar) 25 mg PO DAILY [facility] Last Admin: 09/02/18 08:18 Dose: 25 mg Magnesium Oxide (Mag-Ox) 800 mg PO UNSCH PRN PRN Reason: For Magnesium 1.2 - 1.6 mg/dL Methocarbamol (Robaxin) 750 mg PO HS [facility] Last Admin: 09/02/18 21:03 Dose: 750 mg Morphine Sulfate (Morphine Inj) 2 mg IV.PUSH Q2H PRN PRN Reason: PAIN SCALE 6 TO 10 Ondansetron HCl (Zofran Inj) 4 mg IV.PUSH Q6H PRN PRN Reason: NAUSEA OR VOMITING Potassium Bicarb/Potassium Chloride (K-Lyte Cl Eff) 50 meq PO UNSCH PRN PRN Reason: For Potassium 3.3 - 3.5 mEq/L Potassium Phosphate (K-Phos Original) 2,000 mg PO Q4H PRN PRN Reason: Phosphorus Less Than 2.5 mg/dL Potassium Phosphate (K-Phos Original) 2,000 mg PO UNSCH PRN PRN Reason: SEE LABEL COMMENTS Senna/Docusate Sodium (Clementine-Colace) 1 tab PO BID [facility] Last Admin: 09/02/18 21:04 Dose: 1 tab Sennosides (Senokot) 17.2 mg PO Q12H PRN PRN Reason: Moderate Constipation Sodium Chloride (Ns Flush) 2 ml IV.FLUSH UNSCH PRN PRN Reason: FLUSH AFTER USING IV ACCESS Sodium Chloride (Ns Flush) 2 ml IV.FLUSH BID [facility] Last Admin: 09/02/18 21:30 Dose: 2 ml Sodium Chloride (Ns Flush) 2 ml IV.FLUSH PRN PRN PRN Reason: FLUSH AFTER USING IV ACCESS Allergies Allergy/AdvReac Type Severity Reaction Status Date / Time gabapentin [From Neurontin] Allergy Anaphylaxis Verified 09/01/18 18:04 Home Medications Medication Instructions Recorded Confirmed Type aspirin [Aspir-81] 81 mg PO DAILY 09/01/18 09/01/18 History atorvastatin 20 mg PO DAILY 09/01/18 09/01/18 History clopidogrel 75 mg PO DAILY 09/01/18 09/01/18 History isosorbide mononitrate 60 mg PO DAILY 09/01/18 09/01/18 History levothyroxine 50 mcg PO DAILY 09/01/18 09/01/18 History losartan 25 mg PO DAILY 09/01/18 09/01/18 History methocarbamol 750 mg PO HS 09/01/18 09/01/18 History amoxicillin 500 mg PO QID 09/02/18 09/02/18 History Physical Exam Vital signs: Vital Signs 09/02/18 07:21 09/02/18 07:24 09/02/18 08:07 Temperature 97 F L Pulse Rate 59 L 59 L Respiratory Rate 20 Blood Pressure 150/88 H Pulse Oximetry 96 96 09/02/18 08:40 09/02/18 09:03 09/02/18 10:57 Temperature Pulse Rate 59 L 59 L Respiratory Rate Blood Pressure Pulse Oximetry 99 09/02/18 11:00 09/02/18 14:56 09/02/18 15:02 Temperature 97 F L 97.5 F L Pulse Rate 59 L 59 L 59 L Respiratory Rate 18 18 Blood Pressure 158/93 H 138/78 Pulse Oximetry 97 996 H 09/02/18 19:00 09/02/18 20:00 09/02/18 20:02 Temperature 98.6 F Pulse Rate 59 L Respiratory Rate 20 Blood Pressure 151/74 H Pulse Oximetry 95 95 95 09/02/18 23:00 09/03/18 03:00 Temperature 98.6 F 98.2 F Pulse Rate 59 L 59 L Respiratory Rate 20 20 Blood Pressure 153/87 H 141/79 H Pulse Oximetry 94 L 95 Intake & Output 09/02/18 09/02/18 09/03/18 06:59 18:59 06:59 Intake Total 480 / 480 2500 / 2500 1000 / 1000 Output Total 400 / 400 2300 / 2300 2300 / 2300 Balance 80 / 80 200 / 200 -1300 / -1300 Weight 116 kg Intake: IV 1000 / 1000 1000 / 1000 NS Inj 1,000 ML @ 84 mls/hr IV. 1000 / 1000 1000 / 1000 CONT .[id number] [facility] Rx#:[id number] Oral 480 / 480 1500 / 1500 Output: Urine 400 / 400 2300 / 2300 2300 / 2300 Stool 0 / 0 Other: # Voids 6 - Constitutional no acute distress - Routine HEENT Exam Head: Present: normocephalic - Routine Neck Exam Absent: JVD - Routine Respiratory Exam Present: CTA bilaterally - Routine Cardiovascular Exam Present: RRR, S1, S2 - Routine Abdominal Exam Present: soft, normoactive bowel sounds - Routine Extremities Exam Absent: edema - Routine Neurological Exam Present: alert, oriented X3, CN II-XII intact Results 09/02/18 05:00 09/02/18 05:00 Cardiac Enzymes 09/01/18 09/01/18 09/02/18 Range/Units 18:11 22:31 05:00 AST 39 H 15 (15-37) U/L Troponin I Less than 0.02 L Less than 0.02 L Less than 0.02 L (0.02-0.05) ng/mL Coagulation 09/02/18 Range/Units 05:00 PT 12.3 H (9.8-11.6) sec APTT 29.5 (24.3-30.1) sec CBC 09/01/18 09/02/18 Range/Units 18:11 05:00 WBC 6.0 4.7 (4.0-11.0) th/mm3 RBC 4.41 L 4.27 L (4.50-5.90) mil/mm3 Hgb 14.1 13.7 (13.0-17.0) gm/dL Hct 41.9 40.6 (39.0-51.0) % Plt Count 179 128 L (150-450) th/mm3 Neut # (Auto) 4.1 3.2 (1.8-7.7) th/mm3 Lymph # (Auto) 0.9 L 0.9 L (1.0-4.8) th/mm3 Coal # (Auto) 0.7 0.5 (0.0-0.9) th/mm3 Eos # (Auto) 0.1 0.1 (0.0-0.4) th/mm3 Baso # (Auto) 0.1 0.0 (0.0-0.2) th/mm3 Comprehensive Metabolic Panel 09/01/18 09/02/18 Range/Units 18:11 05:00 Sodium 141 143 (136-145) meq/L Potassium 4.4 3.8 (3.5-5.1) meq/L Chloride 108 H 110 H (98-107) meq/L Carbon Dioxide 24.3 29.1 (21.0-32.0) meq/L BUN 13 12 (7-18) mg/dL Creatinine 1.18 0.92 (0.60-1.30) mg/dL Calcium 8.5 7.6 L D (8.5-10.1) mg/dL AST 39 H 15 (15-37) U/L ALT 34 27 (12-78) U/L Alkaline Phosphatase 81 74 (45-117) U/L Total Protein 6.4 5.5 L D (6.4-8.2) g/dL Albumin 3.6 3.2 L (3.4-5.0) g/dL Intake and Output 09/02/18 09/02/18 09/03/18 14:59 22:59 06:59 Intake Total 1000 / 1000 2500 / 2500 Output Total 4600 / 4600 Balance 1000 / 1000 -2100 / -2100 Intake: IV 1000 / 1000 1000 / 1000 NS Inj 1,000 ML @ 84 mls/hr IV. 1000 / 1000 1000 / 1000 CONT .[id number] [facility] Rx#:[id number] Oral 1500 / 1500 Output: Urine 4600 / 4600 Stool 0 / 0 Other: # Voids 6 - Imaging and Cardiology Imaging: Impressions Chest X-Ray 09/01/18 18:06 CONCLUSION: Negative examination. Chest X-Ray 09/01/18 20:35 CONCLUSION: Right central line in superior vena cava without pneumothorax. Chest X-Ray 09/01/18 21:01 CONCLUSION: Right central line tip overlies right atrium. No pneumothorax. Assessment and Plan - Plan 2:1 CHB transvenous pacemaker set at 60, has underlying 2:1 heart block. will keep patient NPO and plan for PPM later today if possible.
[2018-09-03] MEDS ORDERED: hydrALAZINE HCl Inj 20 MG/ML Vial ONE (06:46)
[2018-09-03] MEDS: hydrALAZINE HCl Inj 20 MG/ML Vial IV.PUSH PRN (06:55)
--- NOTE | 2018-09-03 08:32 | P.PNCC ---
Subjective Subjective Remarks/Hospital Course: 09/01: 68-year-old male patient with history of hypertension, thyroidism, coronary artery disease presents today for an evaluation of left-sided chest pains which he rates an 8 out of 10 in its waxing and waning. He was seen yesterday by his primary care doctor and was found to have slow heart rate, was told to come to the ER if he started having chest pains or having symptoms. He denies any nausea, shortness of breath, or other symptoms. However due to complaints of chest pain he was seen immediately by submersible pilot Dr. lBood who initiated transvenous pacemaker for the symptomatic secondary degree heart block. 09/02: Resting in bed comfortably. Denies any chest pain or shortness of breath currently. Transvenous pacer in place with paced rhythm. 09/03: Sitting up in chair. Denies any chest pain or shortness of breath. Transvenous pacer in place with paced rhythm noted. Awaiting permanent pacer placement by cardiology possibly today. Objective Vital Signs / I&O: Vital Signs 09/02/18 08:40 09/02/18 09:03 09/02/18 10:57 Temperature Pulse Rate 59 L 59 L Respiratory Rate Blood Pressure Pulse Oximetry 99 09/02/18 11:00 09/02/18 14:56 09/02/18 15:02 Temperature 97 F L 97.5 F L Pulse Rate 59 L 59 L 59 L Respiratory Rate 18 18 Blood Pressure 158/93 H 138/78 Pulse Oximetry 97 996 H 09/02/18 19:00 09/02/18 20:00 09/02/18 20:02 Temperature 98.6 F Pulse Rate 59 L Respiratory Rate 20 Blood Pressure 151/74 H Pulse Oximetry 95 95 95 09/02/18 23:00 09/03/18 03:00 09/03/18 07:00 Temperature 98.6 F 98.2 F Pulse Rate 59 L 59 L 59 L Respiratory Rate 20 20 Blood Pressure 153/87 H 141/79 H Pulse Oximetry 94 L 95 Intake & Output 09/02/18 09/03/18 09/03/18 18:59 06:59 18:59 Intake Total 2500 / 2500 1720 / 1720 Output Total 2300 / 2300 4100 / 4100 Balance 200 / 200 -2380 / -2380 Weight 101 kg Intake: IV 1000 / 1000 1000 / 1000 NS Inj 1,000 ML @ 84 mls/hr IV. 1000 / 1000 1000 / 1000 CONT .[id number] [facility] Rx#:[id number] Oral 1500 / 1500 720 / 720 Output: Urine 2300 / 2300 4100 / 4100 Stool 0 / 0 Other: # Voids 6 Result Diagrams: 09/02/18 05:00 09/02/18 05:00 Objective Remarks: HEENT/Neuro: No pallor or icterus, tongue moist, MELVIN, Awake alert oriented 3 , nonfocal grossly, moving all 4 extremities Neck: No JVD Chest/pulmonary: CTA bilaterally Cardiovascular: S1-S2 regular no gallop or murmur. Transvenous pacer in place. Paced rhythm noted. GI/abdomen: Soft, nontender, bowel sounds present Extremities: Warm bilaterally, no edema Assessment and Plan - Assessment and Plan Plan: Bradycardia -Second degree heart block -Transvenous pacemaker in place. Awaiting permanent pacemaker placement today. -2D echo -Further management per cardiology CAD -Aspirin -Plavix -Series of troponins and EKGs Hyperchloremia -Atorvastatin Hypertension -Isosorbide -Losartan Hypothyroid -Levothyroxine -Repeat TSH a.m. DVT GI prophylaxis -Teds SCDs -Subcu heparin -Cardiac diet We will consult and transfer to hospitalist service following permanent pacemaker placement.
--- NOTE | 2018-09-03 08:51 | P.CONCA ---
History of Present Illness Service: Cardiology Primary Care Provider: [facility] Chief Complaint: Symptomatic Bradycardia History of Present Illness: This is a very pleasant 68 year old previously seen in consultation by Dr. Conti. He has a history of almost occluded Left Carotid Stenosis which has been medically managed. He has a past medical history of HTN, HLD, Hypothyroidism and Coronary artery disease. He presented with acute onset of Chest pain and was found to be in a 2:1 block that started two hours ago. He also felt lightheaded. It is of note that he has previously had this noted but his HR would improve with activity at that time. He was on a beta ines which was held. No tick exposures noted. His TSH was noted to be normal. Given his symptoms, a bedside pacemaker was placed. After placement of the temporary pacemaker via the right IJ, the patient noted immediate improvement. Review of Systems All other systems reviewed negative except as stated in HPI [facility] - History History Provided By: Patient - Medical History Medical History: Medical History (Last Reviewed 09/03/18 @ 07:58 by Leonides Alvarenga, PT) CAD (coronary artery disease) Hyperchloremia Hypertension Hypothyroid - Tobacco History Second Hand Smoke Exposure: No Tobacco Use In Past 30 Days: No Smoking Status: Former smoker Tobacco Type: Cigarettes - Alcohol History How Often Do You Have a Drink Containing Alcohol: Monthly or less - Substance Use History Substance History: No History of Abuse - Travel History Recent Travel in the [place] Within the Last 8 Weeks: No Recent Travel Out of the Country Within the Last 8 Weeks: No - Immunization History Tetanus Immunization: <5 Years Medications and Allergies Active Medications: Active Medications Acetaminophen (Tylenol) 650 mg PO Q6H PRN PRN Reason: PAIN 1-10 AND/OR FEVER >101F Last Admin: 09/02/18 17:51 Dose: 650 mg Al Hydroxide/Mg Hydroxide (Milk Of Alexis Liq) 30 ml PO Q12H PRN PRN Reason: Mild Constipation Albuterol (Duoneb Neb (Prn)) 1 ampul NEB Q2HR NEB PRN PRN Reason: WHEEZING Aspirin (Ecotrin) 81 mg PO DAILY [facility] Last Admin: 09/02/18 08:18 Dose: 81 mg Atorvastatin Calcium (Lipitor) 20 mg PO DAILY [facility] Last Admin: 09/02/18 08:18 Dose: 20 mg Bisacodyl (Dulcolax Supp) 10 mg RECTAL DAILY PRN PRN Reason: SEVERE CONSITIPATION Chlorhexidine Gluconate (Chlorhexidine 2% Cloth) 3 pack TOPICAL DAILY@0400 [facility] Stop: 09/07/18 03:59 Last Admin: 09/03/18 06:22 Dose: 3 pack Chlorhexidine Gluconate (Chlorhexidine 2% Cloth) 3 pack TOPICAL DAILY@0400 PRN PRN Reason: Extra cloth needed Stop: 09/07/18 03:59 Clopidogrel Bisulfate (Plavix) 75 mg PO DAILY [facility] Last Admin: 09/02/18 08:18 Dose: 75 mg Heparin Sodium (Porcine) (Heparin Inj) 5,000 units SQ Q8H [facility] Last Admin: 09/03/18 06:21 Dose: 5,000 units Hydralazine HCl (Apresoline Inj) 10 mg IV.PUSH Q2H PRN PRN Reason: SYS BP GREATER THAN 160 MMHG Last Admin: 09/03/18 06:55 Dose: 10 mg Sodium Chloride (Ns Inj) 1,000 mls @ 84 mls/hr IV.CONT .[id number] [facility] Last Admin: 09/02/18 21:04 Dose: 84 mls/hr Magnesium Sulfate 4 gm/ Sodium (Chloride) 100 mls @ 50 mls/hr IV.SIG UNSCH PRN PRN Reason: For Magnesium 0.9 - 1.1 mg/dL Magnesium Sulfate 2 gm/ Sodium (Chloride) 100 mls @ 50 mls/hr IV.SIG UNSCH PRN PRN Reason: For Magnesium 1.2 - 1.6 mg/dL Potassium Chloride (Kcl 40 Meq Premix Inj) 40 meq in 100 mls @ 25 mls/hr IV.SIG Q2H PRN PRN Reason: For Potassium 2.8 - 3.2 mEq/L Potassium Chloride (Kcl 40 Meq Premix Inj) 40 meq in 100 mls @ 25 mls/hr IV.SIG UNSCH PRN PRN Reason: For Potassium 3.3 - 3.5 mEq/L Potassium Chloride (Kcl 20 Meq Premix Inj) 20 meq in 100 mls @ 50 mls/hr IV.SIG Q2H PRN PRN Reason: For Potassium 2.8 - 3.2 mEq/L Potassium Phosphate 30 mmol/ (Sodium Chloride) 260 mls @ 42 mls/hr IV.SIG UNSCH PRN PRN Reason: SEE LABEL COMMENTS Sodium Phosphate 30 mmol/ (Sodium Chloride) 260 mls @ 42 mls/hr IV.SIG UNSCH PRN PRN Reason: For Phosphorus < 2.5 mg/dL Potassium Chloride (Kcl 20 Meq Premix Inj) 20 meq in 100 mls @ 50 mls/hr IV.SIG Q2H PRN PRN Reason: For Potassium 3.3 - 3.5 mEq/L Isosorbide Mononitrate (Imdur) 60 mg PO DAILY@0700 [facility] Last Admin: 09/03/18 06:21 Dose: 60 mg Lactulose (Lactulose Liq) 30 ml PO DAILY PRN PRN Reason: SEVERE CONSITIPATION Levothyroxine Sodium (Synthroid) 50 mcg PO DAILY@0700 [facility] Last Admin: 09/03/18 06:21 Dose: 50 mcg Losartan Potassium (Cozaar) 25 mg PO DAILY [facility] Last Admin: 09/02/18 08:18 Dose: 25 mg Magnesium Oxide (Mag-Ox) 800 mg PO UNSCH PRN PRN Reason: For Magnesium 1.2 - 1.6 mg/dL Methocarbamol (Robaxin) 750 mg PO HS [facility] Last Admin: 09/02/18 21:03 Dose: 750 mg Morphine Sulfate (Morphine Inj) 2 mg IV.PUSH Q2H PRN PRN Reason: PAIN SCALE 6 TO 10 Ondansetron HCl (Zofran Inj) 4 mg IV.PUSH Q6H PRN PRN Reason: NAUSEA OR VOMITING Potassium Bicarb/Potassium Chloride (K-Lyte Cl Eff) 50 meq PO UNSCH PRN PRN Reason: For Potassium 3.3 - 3.5 mEq/L Potassium Phosphate (K-Phos Original) 2,000 mg PO Q4H PRN PRN Reason: Phosphorus Less Than 2.5 mg/dL Potassium Phosphate (K-Phos Original) 2,000 mg PO UNSCH PRN PRN Reason: SEE LABEL COMMENTS Senna/Docusate Sodium (Clementine-Colace) 1 tab PO BID [facility] Last Admin: 09/02/18 21:04 Dose: 1 tab Sennosides (Senokot) 17.2 mg PO Q12H PRN PRN Reason: Moderate Constipation Sodium Chloride (Ns Flush) 2 ml IV.FLUSH UNSCH PRN PRN Reason: FLUSH AFTER USING IV ACCESS Sodium Chloride (Ns Flush) 2 ml IV.FLUSH BID [facility] Last Admin: 09/02/18 21:30 Dose: 2 ml Sodium Chloride (Ns Flush) 2 ml IV.FLUSH PRN PRN PRN Reason: FLUSH AFTER USING IV ACCESS Allergies Allergy/AdvReac Type Severity Reaction Status Date / Time gabapentin [From Neurontin] Allergy Anaphylaxis Verified 09/01/18 18:04 Home Medications Medication Instructions Recorded Confirmed Type aspirin [Aspir-81] 81 mg PO DAILY 09/01/18 09/01/18 History atorvastatin 20 mg PO DAILY 09/01/18 09/01/18 History clopidogrel 75 mg PO DAILY 09/01/18 09/01/18 History isosorbide mononitrate 60 mg PO DAILY 09/01/18 09/01/18 History levothyroxine 50 mcg PO DAILY 09/01/18 09/01/18 History losartan 25 mg PO DAILY 09/01/18 09/01/18 History methocarbamol 750 mg PO HS 09/01/18 09/01/18 History amoxicillin 500 mg PO QID 09/02/18 09/02/18 History Exam Vital signs: Vital Signs 09/02/18 09:03 09/02/18 10:57 09/02/18 11:00 Temperature 97 F L Pulse Rate 59 L 59 L 59 L Respiratory Rate 18 Blood Pressure 158/93 H Pulse Oximetry 97 09/02/18 14:56 09/02/18 15:02 09/02/18 19:00 Temperature 97.5 F L 98.6 F Pulse Rate 59 L 59 L 59 L Respiratory Rate 18 20 Blood Pressure 138/78 151/74 H Pulse Oximetry 996 H 95 09/02/18 20:00 09/02/18 20:02 09/02/18 23:00 Temperature 98.6 F Pulse Rate 59 L Respiratory Rate 20 Blood Pressure 153/87 H Pulse Oximetry 95 95 94 L 09/03/18 03:00 09/03/18 07:00 Temperature 98.2 F Pulse Rate 59 L 59 L Respiratory Rate 20 Blood Pressure 141/79 H Pulse Oximetry 95 Intake & Output 09/02/18 09/03/18 09/03/18 18:59 06:59 18:59 Intake Total 2500 / 2500 1720 / 1720 Output Total 2300 / 2300 4100 / 4100 Balance 200 / 200 -2380 / -2380 Weight 101 kg Intake: IV 1000 / 1000 1000 / 1000 NS Inj 1,000 ML @ 84 mls/hr IV. 1000 / 1000 1000 / 1000 CONT .[id number] [facility] Rx#:[id number] Oral 1500 / 1500 720 / 720 Output: Urine 2300 / 2300 4100 / 4100 Stool 0 / 0 Other: # Voids 6 - Constitutional no acute distress - Routine HEENT Exam Head: Present: normocephalic Eye: Present: EOMI ENT: Present: mucous membranes moist - Routine Neck Exam Absent: JVD - Routine Chest/Breast/Axilla Exam Chest wall: Absent: tenderness - Routine Respiratory Exam Present: CTA bilaterally - Routine Cardiovascular Exam Present: S1, S2, bradycardia - Routine Abdominal Exam Present: soft, normoactive bowel sounds - Routine Extremities Exam Absent: edema - Routine Skin Exam Comments: diaphoretic - Routine Neurological Exam Present: alert, oriented X3, CN II-XII intact - Routine Psychiatric Exam Present: normal affect Results 09/02/18 05:00 09/02/18 05:00 Cardiac Enzymes 09/01/18 09/01/18 09/02/18 Range/Units 18:11 22:31 05:00 AST 39 H 15 (15-37) U/L Troponin I Less than 0.02 L Less than 0.02 L Less than 0.02 L (0.02-0.05) ng/mL Coagulation 09/02/18 Range/Units 05:00 PT 12.3 H (9.8-11.6) sec APTT 29.5 (24.3-30.1) sec CBC 09/01/18 09/02/18 Range/Units 18:11 05:00 WBC 6.0 4.7 (4.0-11.0) th/mm3 RBC 4.41 L 4.27 L (4.50-5.90) mil/mm3 Hgb 14.1 13.7 (13.0-17.0) gm/dL Hct 41.9 40.6 (39.0-51.0) % Plt Count 179 128 L (150-450) th/mm3 Neut # (Auto) 4.1 3.2 (1.8-7.7) th/mm3 Lymph # (Auto) 0.9 L 0.9 L (1.0-4.8) th/mm3 [place] # (Auto) 0.7 0.5 (0.0-0.9) th/mm3 Eos # (Auto) 0.1 0.1 (0.0-0.4) th/mm3 Baso # (Auto) 0.1 0.0 (0.0-0.2) th/mm3 Comprehensive Metabolic Panel 09/01/18 09/02/18 Range/Units 18:11 05:00 Sodium 141 143 (136-145) meq/L Potassium 4.4 3.8 (3.5-5.1) meq/L Chloride 108 H 110 H (98-107) meq/L Carbon Dioxide 24.3 29.1 (21.0-32.0) meq/L BUN 13 12 (7-18) mg/dL Creatinine 1.18 0.92 (0.60-1.30) mg/dL Calcium 8.5 7.6 L D (8.5-10.1) mg/dL AST 39 H 15 (15-37) U/L ALT 34 27 (12-78) U/L Alkaline Phosphatase 81 74 (45-117) U/L Total Protein 6.4 5.5 L D (6.4-8.2) g/dL Albumin 3.6 3.2 L (3.4-5.0) g/dL Intake and Output 09/02/18 09/03/18 09/03/18 22:59 06:59 14:59 Intake Total 2500 / 2500 720 / 720 Output Total 4600 / 4600 1800 / 1800 Balance -2100 / -2100 -1080 / -1080 Intake: IV 1000 / 1000 NS Inj 1,000 ML @ 84 mls/hr IV. 1000 / 1000 CONT .[id number] [facility] Rx#:[id number] Oral 1500 / 1500 720 / 720 Output: Urine 4600 / 4600 1800 / 1800 Stool 0 / 0 Other: # Voids 6 Weight 101 kg - Imaging and Cardiology Imaging: Impressions Chest X-Ray 09/01/18 18:06 CONCLUSION: Negative examination. Chest X-Ray 09/01/18 20:35 CONCLUSION: Right central line in superior vena cava without pneumothorax. Chest X-Ray 09/01/18 21:01 CONCLUSION: Right central line tip overlies right atrium. No pneumothorax. EKG interpretations - Blocks, axis, hypertrophy, ST abn AV and intraventricular conduction: 2 to 1 AV block Assessment and Plan - Plan Symptomatic 2:1 AV block- he is known to have this previously and his BB was held at that time. His TSH is wnL. His troponin is wnL. Currently he is chest pain free while in a paced rhythm. Will monitor him over the weekend and consider PPM pending clinical course. Peripheral artery disease-continue medical management ASA, Plavix, statin. Hypothyroidism-continue current medications CAD-continue meds as above.Prior Cardiac workup including nuclear stress and echo wnL.
[2018-09-03] MEDS: Senna/Docusate Sodium 8.6/50 MG Tablet PO SCH ×2 (08:55→20:35)
[2018-09-03] MEDS: Sod Chloride 0.9% Inj 1,000 ML IV.CONT SCH (08:59)
--- NOTE | 2018-09-03 09:05 | P.PCNCA ---
- Cardiology Procedure Note Procedure: Bedside Temporary Pacemaker Procedure Date: 09/01/18 Procedure Detail: After discussion of risks, benefits, and alternatives Dr. Berry placed a 7F IJ catheter in the right IJ with US guidance (please see his note). The patient was moved to the ICU and given his chest pain, I placed a balloon catheter pacemaker into the RV. Capture was confirmed by EKG and CXRAY performed. The patient tolerated the procedure without any complications.
[2018-09-03] MEDS: Acetaminophen 325 MG Tablet PO PRN ×2 (09:20→17:43)
[2018-09-03] MEDS ORDERED: Mupirocin 2% Nasal Oint Topical Syringe EACH NARE SCH (12:30)
[2018-09-03] MEDS ORDERED: Chlorhexidine Gluconate 2% 1 Pack (2 Cloths) TOPICAL SCH (12:30)
[2018-09-03] MEDS: Methocarbamol 500 MG Tablet PO SCH (20:35)
[2018-09-03] MEDS: Morphine Inj 4 MG/ML Vial IV.PUSH PRN (23:35)
[2018-09-03 23:44] LABS: Potassium 4.1 meq/L (3.5-5.1)
[2018-09-04] MEDS: Heparin - SQ 10,000 UNITS/ML Vial SQ SCH ×3 (06:39→21:17)
[2018-09-04] MEDS: Isosorbide Mononitrate 60 MG ER 24HR Tablet (Imdur) PO SCH (06:39)
[2018-09-04] MEDS: Sod Chloride 0.9% Inj 1,000 ML IV.CONT SCH ×3 (06:39→20:20)
[2018-09-04] MEDS: Levothyroxine 50 MCG Tablet PO SCH (06:39)
[2018-09-04] MEDS: Chlorhexidine Gluconate 2% 1 Pack (2 Cloths) TOPICAL SCH (06:40)
[2018-09-04] MEDS: Senna/Docusate Sodium 8.6/50 MG Tablet PO SCH ×2 (08:45→20:09)
[2018-09-04] MEDS ORDERED: ceFAZolin 2 GM Premix Inj 2 GM/50 ML PIGGYBACK IV.SIG SCH (09:00)
[2018-09-04] MEDS ORDERED: Vancomycin Inj 1,000 MG in Sodium Chlor 0.9% Inj 250 ML IV.SIG SCH (09:00)
[2018-09-04 09:46] LABS: Baso % (Auto) 0.5 % (0.0-2.0); Eos # (Auto) 0.1 th/mm3 (0.0-0.4); Eos % (Auto) 2.1 % (0.0-4.0); Hematocrit 42.7 % (39.0-51.0); Hemoglobin 14.6 gm/dL (13.0-17.0); Lymph # (Auto) 0.8 th/mm3 (1.0-4.8); Lymph % (Auto) 12.9 % (9.0-44.0); Mean Corpuscular HGB Conc 34.3 % (32.0-36.0); Mean Corpuscular Hemoglobin 31.8 pg (27.0-34.0); Mean Corpuscular Volume 92.8 fL (80.0-100.0); Mean Platelet Volume 8.3 fL (7.0-11.0); Mono # (Auto) 0.7 th/mm3 (0.0-0.9); Mono % (Auto) 10.5 % (0.0-8.0); Neut # (Auto) 4.7 th/mm3 (1.8-7.7); Platelet Count 173 th/mm3 (150-450); Red Cell Distribution Width 13.7 % (11.6-17.2); White Blood Count 6.4 th/mm3 (4.0-11.0)
[2018-09-04] MEDS ORDERED: Lidocaine 2% Inj 50 ML Vial ONE (09:47)
[2018-09-04] MEDS ORDERED: Phenylephrine/NS 1000 MCG/10ML Syringe IV.PUSH ONE (09:53)
[2018-09-04] MEDS ORDERED: Lidocaine PF 1% Inj 5 ML Syringe OTHER ONE (09:53)
[2018-09-04 10:22] LABS: Alanine Aminotransferase 25 U/L (12-78); Albumin 3.3 g/dL (3.4-5.0); Alkaline Phosphatase 76 U/L (45-117); Anion Gap 7 meq/L (5-15); Aspartate Aminotransferase 11 U/L (15-37); Blood Urea Nitrogen 11 mg/dL (7-18); Calcium 8.5 mg/dL (8.5-10.1); Carbon Dioxide 25.9 meq/L (21.0-32.0); Chloride 109 meq/L (98-107); Glomerular Filtration Rate 81 mL/min (>89); Glucose,Random 84 mg/dL (74-106); Magnesium 1.9 mg/dL (1.5-2.5); Phosphorus 3.1 mg/dL (2.5-4.9); Potassium 3.8 meq/L (3.5-5.1); Sodium 142 meq/L (136-145); Total Protein 5.8 g/dL (6.4-8.2)
--- NOTE | 2018-09-04 11:49 | CATHPROC ---
Patient Name: Yoni Banks Study #: [id number] Initial MD: Jaime Lugo Date of : 1950 Study Date: 09/04/2018 Cardiac Catheterization Report 09/04/2018 11:48:34 AM Financial #: [id number] 1 of 9 Patient Name: Yoni Banks Study #: [id number] Initial MD: Jaime Lugo Date of : 1950 Study Date: 09/04/2018 Entire Case Report Patient Information Patient Name Yoni Banks Date of 1950 Age 68 years Financial # [id number] Gender M AlternateID Lab Number 6 Room Number 449 Height (in) 73.0 Height (cm) 185.4 BSA 2.25 Weight (lbs) 221.8 Weight (kg) 100.8 Patient Address/Phone Number Home Address [facility] Home Phone Number [phone] [phone] Study Information Study Number Admission Scheduled Start Study Start [id number] Sep 01 2018 7:16PM 09/04/2018 Sep 04 2018 9:38AM [place] [facility] Cardiac Catheterization Admit Source Facility Department Other [facility] - Housekeeping Department Worker Physician and Clinical Staff Initial Jaime Morris African Studies Professor Edy Childress,RT(R) African Studies Professor Radha RamseyRT(R) TECH2 Other Anesthesia, VULNERABILITY ASSESSMENT ANALYST Recorder Carine Rivers,RN Scrub Susan Hernandez RCIS Procedures Performed Procedure Location (Site) Vessel Name Lead Insertion Venogram Jugular Vein (right) Jugular 09/04/2018 11:48:34 AM Financial #: [id number] 2 of 9 Patient Name: Yoni Banks Study #: [id number] Initial MD: Jaime Lugo Date of : 1950 Study Date: 09/04/2018 Equipment Time River Boat Captain Description Size Mfg Part Number Used/Scraped 10:29 BIOTRONIK LEAD, SOLIA 60 PRO MRI * [id number] Used 10:39 BIOTRONIK LEAD, SOLIA 60 53 PRO MRI * [id number] Used PACEMAKER, ENDORA 8 DR-T PRO 10:48 BIOTRONIK DDDR [id number] Used MRI [id number] 10:05 ? BLANKET,WARM AIR CCL * Used *[id number] TP-1103 10:05 ? SUTURE, STRIP PLUS 1/2" * Used *[id number] 10:05 MEDLINE PACER ADHESIVE, MASTISOL 2/3CC 2/3CC 0523-48 Used 10:05 MEDLINE PACER MUNIZ, LIMB * 2530 *[id number] Used [id number] 10:05 MEDLINE PACER PACK, PACER CUSTOM * Used *[id number] 10:05 MEDLINE PACER PEN, SKIN DUAL W/ RULER * Used *[id number] 10:28 WatchGuard PACER SAFE SHEATH, FR7, 13CM FR 7 [id number] Used 10:28 WatchGuard PACER SAFE SHEATH, FR7, 13CM FR 7 CLS-1007 Used 10:11 Needle Sponge Count 2 22 Used 10:11 Needle Sponge Count 3 3 Used 10:11 Needle Sponge Count 30 1 Used 10:24 NYCOMED OMNIPAQUE, 350 MG, 50ML 50ML [id number] Used [id number] *[id number] SUTURE, 3-0 VICRYL [SH] ([id number]) SUTURE, 3-0 VICRYL [SH] (SBQ660V) SUTURE, 4-0 MONOCRYL [PS2] (Y496G) [facility] PAD, ELECTROSURGICAL 10:05 * [id number] *[id number] Used SURGICAL GROUNDING ORANGE 0174-0402 10:05 [employer]. / * Used *76536 Equipment Model, Serial, Lot Number and Expiration Data Description Model Number Serial Number Lot Number Expiration Date LEAD, SOLIA 60 PRO MRI [id number] 04-12-2020 LEAD, SOLIA 60 53 PRO MRI [id number] 06-12-2020 PACEMAKER, ENDORA 8 DR-T PRO [id number] 12-13-2019 MRI 09/04/2018 11:48:34 AM Financial #: [id number] 3 of 9 Patient Name: Yoni Banks Study #: [id number] Initial MD: Jaime Lugo Date of : 1950 Study Date: 09/04/2018 Insurance Information Insurance Payor Private Health Insurance Third Republican Third Republican Number [employer] GOLD PLUS O [facility] History: Allergies Allergy Reaction No Known Allergies gabapentin Anaphylaxis History: Risk Factors Family History of Hypertension Dyslipidemia Previous FL Previous Heart Failure Premature CAD Yes Yes Yes No No Prior Valve Prior PCI Prior CABG Surgery No No No Cerebrovascular Peripheral Artery Chronic Lung On Dialysis Diabetes Disease Disease Disease No No No No No Labs Hgb (g/dl) Hct (%) WBC (l/cumm) Platelets (thousands) 11.60-17.00 35.00-51.00 4.00-11.00 150.00-450.00 13.7 40.6 4.7 128 Glucose (mg/dl) BUN (mg/dl) Creatinine (mg/dl) BUN:Creatinine (1:x) 74.00-106.00 7.00-18.00 0.50-1.30 10.00-20.00 87 12 0.9 13.3 Na (meq/l) K (meq/l) 136.00-145.00 3.50-5.10 143 4.1 INR (PTT:PT) 0.90-1.10 1.2 Medication Medication Total Dose (Bolus/Oral) Medication Total Dosage/Unit 2% XYLOCAINE 50 mL 09/04/2018 11:48:34 AM Financial #: [id number] Patient Name: Yoni Banks Study #: [id number] Initial MD: Jaime Lugo Date of : 1950 Study Date: 09/04/20 18 Medications (Bolus/Oral) Medication Time Given Dosage/Unit Administered By Reason 09/04/2018 10:23:18 2% XYLOCAINE 50 mL Jaime Lugo AM 50 mL 2% XYLOCAINE given in lab by Jaime Lugo in Left shoulder via Subcutaneous. Ordered by Jaime Lugo. Medication (Drip) Medication Time Given Dosage/Unit Concentration/Unit Diluent (ml) Solution 09/04/2018 10:13:59 ANCEF 2 g AM 2 g ANCEF given in lab by NADEGE Becker via Peripheral IV. Ordered by Jaime Lugo. Reason: As per physicians verbal order. IV Solutions 09/04/2018 9:57:21 AM 0 mL (IV) NaCl .9 Patient arrived on IV Solutions via Peripheral IV. Pump/Drip Flow = 125 ml/hr using NaCl .9. Reason: As per physicians verbal order. RIJ introducer side port IV Solutions 09/04/2018 9:58:57 AM 0 mL (IV) NaCl .9 IV Solutions given in lab by Carine Rivers RN in Left Antecubital via Peripheral IV. Pump/Drip Evan w = 30 ml/hr using NaCl .9. Ordered by Jaime Lugo. Reason: As per physicians verbal order. 09/04/2018 10:15:22 VANCOMYCIN DRIP 1 g AM 1 g VANCOMYCIN DRIP given in lab by NADEGE Becker via Peripheral IV. Ordered by Jaime Lugo. Reas on: As per physicians verbal order. 09/04/2018 11:48:34 AM Financial #: [id number] Patient Name: Yoni Banks Study #: [id number] Initial MD: Jaime Lugo Date of : 1950 Study Date: 09/04/2018 Initial Case Assessment Cardiovascular HR Rhythm NIBP 62 3DHB 180/84 Edema Present Skin color Skin None Normal Warm Dry Circulatory - Right Pulses Dorsalis Pedis 1 Scale (0,1,2,3,4,d) Circulatory - Left Pulses Dorsalis Pedis 1 Scale (0,1,2,3,4,d) Circulatory - Lower Extremities Color Lower Right Color Lower Left Normal Normal Neurological State Oriented to time-place- Alert Moves all extremities person Respiration - General Respiration Rate SpO2 (%) (B/min) 16 99 Chronological Log Time Study Chronological Log 9:38:11 Patient arrived via Bed. 9:38:12 Patient Name, D.O.B, / Armband Verified By R.N. 9:38:12 Consent signed by the physician and the patient and verified by the Housekeeping Department Worker staff. 9:38:14 Pre-op and post- op instructions given; patient acknowledges understanding of instructions. 9:38:56 Patient has been NPO for More than 6Hrs. 9:38:57 Verbal Stimulation=2 Physical Stimulation=2 Airway=2 Respiration=2 TOTAL=8. (0=absent, 1=li mited, 2=present) 9:39:01 History and physical on the chart or being dictated. 9:39:29 Patient Warmer Placed on the Table. 9:39:35 Disposable Defibrillator Pads Placed On Patient. 09/04/2018 11:48:34 AM Financial #: [id number] Patient Name: Yoni Banks Study #: [id number] Initial MD: Jaime Lugo Date of : 1950 Study Date: 09/04/2018 9:39:40 Magen Prominences Protected 9:39:47 Bovie ground pad applied to: right thigh 9:54:00 Anesthesia at bedside. Assumes care of patient. Assessment: Initial Case, HR=62 BPM, Rhythm=3DHB, ILBK=249/84 mmhg, Edema=None, Color=Normal, S kin = Warm, Dry Right Pulses: Luis Fernando Ped=1 Left Pulses: Luis Fernando Ped=1 9:54:11 Lower Right Extremities: Color=Normal Lower Left Extremities: Color=Normal Neurological: State=Alert, Ox3, OLIVAS Respiration: Resp=16 B/min, SpO2=99 % 9:54:44 Anesthesia at bedside. Assumes care of patient. 9:57:21 A # 5FR introducer for TV pacemaker IV was noted in the Jugular Vein (right). Grade = 0 Patient arrived on IV Solutions via Peripheral IV. Pump/Drip Flow = 125 ml/hr using NaCl .9. Re ason: As per physicians 9:57:21 verbal order. RIJ introducer side port Skin Breakdown- none per pt. sensitive skin...raised/pink where ekg patches removed and where s haved with chest 9:58:00 prepping in lab. 9:58:47 A # 20 IV was noted in the Antecubital (left). Grade = 0 IV Solutions given in lab by Carine Rivers RN in Left Antecubital via Peripheral IV. Pump/Dr ip Flow = 30 ml/hr using 9:58:57 NaCl .9. Ordered by Jaime Lugo. Reason: As per physicians verbal order. 10:00:04 2% CHLORHEXIDINE GLUCONATE WASH AND NASAL SWIPE DONE PRIOR TO PROCEDURE. 10:04:36 Left Upper Chest Prepped Times Two. 10:04:50 Table restraints applied according to hospital policy 10:06:23 Reference ECG taken 10:09:35 Anesthesiologist present for LMA insertion. First Sponge And Instrument Count Done by Susan Hernandez RCIS. 10:10:32 Hypo's: 3, Sponges: 30, Bovie/scratch: 2 Sutures: 6, Blades: 2, Instruments: 26, Syveck Patches: 0 Verified by 10:12:34 A sterile drape was applied after a 5 minute prep drying time. 2 g ANCEF given in lab by Anesthesia, VULNERABILITY ASSESSMENT ANALYST via Peripheral IV. Ordered by Jaime Lugo. Reason: As per physicians 10:13:59 verbal order. 10:14:12 MD paged 10:15:16 MD responded 1 g VANCOMYCIN DRIP given in lab by Anesthesia, VULNERABILITY ASSESSMENT ANALYST via Peripheral IV. Ordered by Jaime Lugo . Reason: As per 10:15:22 physicians verbal order. 10:18:15 MD arrived. 10:18:18 Biotronik repjustino Kowalski and CADEN present for case. Time Out. Correct patient, procedure, procedure equipment, site and side verified with physicia n present. Time 10:20:49 concurred by MD, individual staff and VULNERABILITY ASSESSMENT ANALYST. Time Out #2 - Consents verified, patient in correct position, all results are labled and displa yed, safety precautions 10:21:00 taken, antibiotics administered. Time out concurred by MD, individual staff and VULNERABILITY ASSESSMENT ANALYST in procedu re 10:21:20 Case Start 10:23:18 50 mL 2% XYLOCAINE given in lab by Jaime Lugo in Left shoulder via Subcutaneous. Ordered by Jaime Lugo. 10:23:50 The Jugular Vein (right) was manually injected with 20 cc's of contrast. OMNIPAQUE, 350 MG, 50ML 50ML used. 09/04/2018 11:48:34 AM Financial #: [id number] 7 of 9 Patient Name: Yoni Banks Study #: [id number] Initial MD: Jaime Lugo Date of : 1950 Study Date: 09/04/2018 10:24:32 Surgical Incision Made. 10:24:37 A pocket was created at the Lt. upper chest. 10:25:47 Two dry sponges put into the surgical pocket. 10:26:12 Vascular access was obtained in the Subclav. Vein (Lft. 10:26:15 Wire inserted 10:26:37 Vascular access was obtained in the Subclav. Vein (Lft. 10:26:39 Wire inserted 10:27:01 A SAFE SHEATH, FR7, 13CM FR 7 was advanced into the Subclav. Vein (Lft using the Modified S eldinger technique. 10:27:11 Wire removed 10:28:46 A LEAD, SOLIA 60 PRO MRI * was inserted and positioned in the RV. 10:37:22 Lead placement verified under fluoroscopy 10:37:41 The RV lead impedance and threshold being tested. 10:39:25 The RV lead was sutured to the fascia. 10:41:36 A SAFE SHEATH, FR7, 13CM FR 7 was advanced into the Subclav. Vein (Lft using the Modified S eldinger technique. 10:41:39 Wire removed 10:42:18 A LEAD, SOLIA 60 53 PRO MRI * was inserted and positioned in the RA. 10:44:23 Lead placement verified under fluoroscopy 10:45:15 The Atrial lead impedance and threshold is being tested. 10:46:47 The Atrial lead was sutured to the fascia. 10:51:45 2 dry sponges removed from the surgical pocket. 10:53:06 A PACEMAKER, ENDORA 8 DR-T PRO MRI DDDR was connected and placed in the pocket. 10:53:25 Device settings tested and applied as per order Dr. Lugo by rep. Second Sponge And Instrument Count Done by Susan Hernandez RCIS. 10:55:34 Hypo's: 3, Sponges: 30, Bovie/scratch: 2 Sutures: 6, Blades: 2, Instruments: 26, Syveck Patches: 0 Verified by 10:55:54 The pocket is being closed. 11:00:05 Implant Procedure was performed. 11:00:11 A PPM Implant . (Dual) 11:00:26 No case complications noted. 11:00:30 Cine recording checked. 11:00:39 Implantable Device card placed in patient's chart. 11:06:13 PACU called. Spoke to Radha 11:06:20 Bedside Report will be given. 11:07:13 CVICU called re:bed reassignment order. Spoke to Chasity. 11:07:28 Case End (Physician broke scrub) 11:09:57 the TV pacer wire was removed from the RIJ introducer port. Final Sponge And Instrument Count Done by Susan Hernandez RCIS. 11:14:28 Hypo's: 3, Sponges: 30, Bovie/scratch: 2 Sutures: 6, Blades: 2, Instruments: 26, Syveck Patches: 0 Verified by 09/04/2018 11:48:34 AM Financial #: [id number] Patient Name: Yoni Banks Study #: [id number] Initial MD: Jaime Lugo Date of : 1950 Study Date: 09/04/2018 11:15:07 Steri-strips applied to site. 11:20:17 Sterile dressing applied to site 11:25:36 Defibrillator and ground pads removed. Skin intact. 11:27:06 LMA removed by anesthesia and pt placed to supplemental oxygen by SFM. 11:29:44 A sling was placed on the affected arm. Patient moved to stretcher and transported to PACU with VULNERABILITY ASSESSMENT ANALYST and tech accompanying in stable c ondition. Portable 11:32:[address] monitors in place. End Study - Contrast Media Used In Study Contrast Total Opened (mL) Total Used (mL) Total Wasted (mL) Omnipaque 50 20 30 End Study - Maximum Contrast Load Max Contrast Load (mL) 560.1 End Study - Radiation Exposure Fluoro Time (minutes) 8.1 End Study - Patient Disposition Complications Transferred To No Telemetry Bed 09/04/2018 11:48:34 AM Financial #: [id number]
[2018-09-04] MEDS: hydrALAZINE HCl Inj 20 MG/ML Vial IV.PUSH PRN (12:00)
[2018-09-04] MEDS ORDERED: Iohexol 350 MG/ML 50 ML Vial (for EPS) IVCONTRAST ONE (12:26)
[2018-09-04] MEDS: Morphine Inj 4 MG/ML Vial IV.PUSH PRN ×5 (12:28→23:35)
--- NOTE | 2018-09-04 12:46 | P.PNIM ---
Subjective Interval history: 09/01: 68-year-old male patient with history of hypertension, thyroidism, coronary artery disease presents today for an evaluation of left-sided chest pains which he rates an 8 out of 10 in its waxing and waning. He was seen yesterday by his primary care doctor and was found to have slow heart rate, was told to come to the ER if he started having chest pains or having symptoms. He denies any nausea, shortness of breath, or other symptoms. However due to complaints of chest pain he was seen immediately by [employer] rep Dr. Blood who initiated transvenous pacemaker for the symptomatic secondary degree heart block. 09/02: Resting in bed comfortably. Denies any chest pain or shortness of breath currently. Transvenous pacer in place with paced rhythm. 09/03: Sitting up in chair. Denies any chest pain or shortness of breath. Transvenous pacer in place with paced rhythm noted. Awaiting permanent pacer placement by cardiology possibly today. 09-04 TRANSFERRED TO OUR SERVICE TODAY HAD PACEMAKER PLACED IN LEFT CHEST TODAY 09-04 SEEN IN ICU AFTER PROCEDURE DW RN AND PT AND FAMILY INCREASE ACTIVITY TRANSFER OUT OF ICU PT AND OT EVAL AND TREAT Physical Exam Vital signs: Vital Signs 09/03/18 15:00 09/03/18 19:00 09/03/18 20:00 Temperature 98.3 F 98 F Pulse Rate 60 59 L Respiratory Rate 16 Blood Pressure 146/71 H 121/60 Pulse Oximetry 97 96 96 09/03/18 20:35 09/03/18 23:00 09/04/18 03:00 Temperature 98.8 F Pulse Rate 59 L 59 L Respiratory Rate 16 14 Blood Pressure 135/80 152/82 H Pulse Oximetry 97 94 L 94 L 09/04/18 07:00 09/04/18 08:00 Temperature 97.8 F Pulse Rate 59 L Respiratory Rate 18 Blood Pressure 148/87 H Pulse Oximetry 94 L 95 Intake & Output 09/03/18 09/04/18 09/04/18 18:59 06:59 18:59 Intake Total 2340 / 2340 240 / 240 1800 / 1800 Output Total 1050 / 1050 1160 / 1160 Balance 1290 / 1290 -920 / -920 1800 / 1800 Weight 100.8 kg Intake: IV 1000 / 1000 1800 / 1800 NS Inj 1,000 ML @ 125 mls/hr IV 1000 / 1000 800 / 800 .CONT .Q8H [facility] Rx#:[id number] Oral 1340 / 1340 240 / 240 Output: Urine 1050 / 1050 1160 / 1160 Other: Date of Last Bowel Movement 09/03/18 09/03/18 09/03/18 # Bowel Movements 2 0 Narrative: GENERAL: AWAKE ALERT AND ORIENTED X3 TALKATIVE AND COOPERATIVE SKIN: Warm and dry. HEAD: Atraumatic. Normocephalic. EYES: Pupils equal and round. No scleral icterus. No injection or drainage. EOMI ENT: No nasal bleeding or discharge. Mucous membranes pink and moist. TONGUE IS MIDLINE NECK: Trachea midline. No JVD. SUPPLE CARDIOVASCULAR: Regular rate and rhythm. S1, S2 NO S3 OR S4 PACED -PACER IN LEFT CHEST RESPIRATORY: No accessory muscle use. Clear to auscultation. Breath sounds equal bilaterally. GASTROINTESTINAL: Abdomen soft, non-tender, nondistended. Hepatic and splenic margins not palpable. MUSCULOSKELETAL: Extremities without clubbing, cyanosis, or edema. No obvious deformities. NEUROLOGICAL: Awake and alert. No obvious cranial nerve deficits. Motor grossly within normal limits. Five out of 5 muscle strength in the arms and legs. Normal speech. PSYCHIATRIC: Appropriate mood and affect; insight and judgment normal. Results - Labs CBC & Chem 7: 09/04/18 09:30 09/04/18 09:30 Laboratory Results - last 24 hr 09/03/18 09/04/18 09/04/18 23:00 09:30 09:30 WBC 6.4 RBC 4.60 Hgb 14.6 Hct 42.7 MCV 92.8 MCH 31.8 MCHC 34.3 RDW 13.7 Plt Count 173 D MPV 8.3 Neut % (Auto) 74.0 H Lymph % (Auto) 12.9 Knox % (Auto) 10.5 H Eos % (Auto) 2.1 Baso % (Auto) 0.5 Neut # (Auto) 4.7 Lymph # (Auto) 0.8 L [place] # (Auto) 0.7 Eos # (Auto) 0.1 Baso # (Auto) 0.0 WBC Differential . Differential Comment Auto diff final Sodium 142 Potassium 4.1 3.8 Chloride 109 H Carbon Dioxide 25.9 Anion Gap 7 BUN 11 Creatinine 0.92 Estimated GFR 81 L Random Glucose 84 Calcium 8.5 Phosphorus 3.1 Magnesium 2.0 1.9 Total Bilirubin 0.8 AST 11 L ALT 25 Alkaline Phosphatase 76 Total Protein 5.8 L Albumin 3.3 L TSH 3.150 Free T4 1.30 - Imaging ITS Impressions Chest X-Ray 09/01/18 21:01 CONCLUSION: Right central line tip overlies right atrium. No pneumothorax. - Procedures LEFT SIDE PPM 09-04 Assessment and Plan - Plan Bradycardia -Second degree heart block -Transvenous pacemaker in place. Awaiting permanent pacemaker placement today. -2D echo -Further management per cardiology SP LEFT SIDE PPM ON 09-04 CAD -Aspirin -Plavix -Series of troponins and EKGs Hyperchloremia -Atorvastatin Hypertension -Isosorbide -Losartan Hypothyroid -Levothyroxine -Repeat TSH a.m. DVT GI prophylaxis -Teds SCDs -Subcu heparin -Cardiac diet PT AND OT TRANSFER OUT OF ICU INCREASE ACTIVITY AM LABS Code Status: FULL CODE Discussed Condition With: RN AND PT AND Discharge Planning: WHEN CLEARED BY ALL
--- NOTE | 2018-09-04 13:52 | XR ---
EXAM DATE: 09/04/2018 12:00 AM EDT AGE/SEX: 68 years / Male INDICATIONS: Post op pacemaker, evaluate for pneumothorax. CLINICAL DATA: This is the patient's initial encounter. Patient reports that signs and symptoms have been present for 1 day and indicates a pain score of Nonresponsive. MEDICAL/SURGICAL HISTORY: Hypertension. None. COMPARISON: [facility] [place], CHEST 1V SINGLE AP, 09/01/2018. . FINDINGS: A single AP view of the chest demonstrates the lungs to be symmetrically aerated without evidence of mass, infiltrate or effusion. Since the previous examination there is been placement of a dual-lead p acing device on the left. Leads terminate in the region of the right atrium and right ventricle respe ctively. No pneumothorax. The cardiomediastinal contours are unremarkable. Osseous structures are i ntact. CONCLUSION: No pneumothorax. Electronically signed by: Matthew Reilly MD 09/04/2018 1:51 PM EDT
[2018-09-04] MEDS: Acetaminophen 325 MG Tablet PO PRN ×2 (13:57→20:09)
[2018-09-04] MEDS ORDERED: Labetalol HCl Inj 100 MG/20 ML Vial ONE (14:01)
[2018-09-04] MEDS ORDERED: Labetalol HCl Inj 20 MG/4 ML Vial IV.PUSH PRN (14:05)
[2018-09-04 17:57] LABS: Hemoglobin A1c 5.1 % (4.3-6.0)
--- NOTE | 2018-09-04 19:37 | ECG ---
Date Performed: 09/04/2018 Time Performed: 12:19:44 PTAGE: 68 years EKG: Sinus rhythm . Atrial synchronous pacemaker Compared to prior electrocardiogram, AV synchrony appears present. PREVIOUS TRACING : 09/04/2018 09.27 DOCTOR: Pravin Nicole Interpretating Date/Time 09/04/2018 19:35:50
[2018-09-04] MEDS: Methocarbamol 500 MG Tablet PO SCH (20:09)
[2018-09-04] MEDS ORDERED: Vancomycin Inj 1,000 MG in Sodium Chlor 0.9% Inj 250 ML IV.SIG ONE (23:30)
[2018-09-05] MEDS: Chlorhexidine Gluconate 2% 1 Pack (2 Cloths) TOPICAL SCH (04:31)
[2018-09-05] MEDS: Levothyroxine 50 MCG Tablet PO SCH (06:21)
[2018-09-05] MEDS: Acetaminophen 325 MG Tablet PO PRN (06:21)
[2018-09-05] MEDS: Heparin - SQ 10,000 UNITS/ML Vial SQ SCH (06:21)
[2018-09-05] MEDS: Isosorbide Mononitrate 60 MG ER 24HR Tablet (Imdur) PO SCH (06:21)
[2018-09-05] MEDS: Sod Chloride 0.9% Inj 1,000 ML IV.CONT SCH (06:25)
[2018-09-05 07:32] LABS: Baso % (Auto) 0.4 % (0.0-2.0); Eos % (Auto) 0.1 % (0.0-4.0); Hemoglobin 14.1 gm/dL (13.0-17.0); Lymph # (Auto) 0.6 th/mm3 (1.0-4.8); Lymph % (Auto) 5.5 % (9.0-44.0); Mean Corpuscular HGB Conc 33.5 % (32.0-36.0); Mean Corpuscular Hemoglobin 31.9 pg (27.0-34.0); Mean Platelet Volume 8.2 fL (7.0-11.0); Mono # (Auto) 1.4 th/mm3 (0.0-0.9); Mono % (Auto) 14.4 % (0.0-8.0); Neut % (Auto) 79.6 % (16.0-70.0); Platelet Count 164 th/mm3 (150-450); Red Blood Count 4.42 mil/mm3 (4.50-5.90)
[2018-09-05 07:46] VITALS: BP 112/62; RESP 18; TEMP 97.9
--- NOTE | 2018-09-05 08:03 | P.PNCA ---
Subjective Interval history: Pacemaker follow up. Patient c/o moderate incisional pain, couldn't sleep. No dyspnea, dizziness, palpitations. Medications and Allergies Active Medications: Active Medications Acetaminophen (Tylenol) 650 mg PO Q6H PRN PRN Reason: PAIN 1-10 AND/OR FEVER >101F Last Admin: 09/05/18 06:21 Dose: 650 mg Al Hydroxide/Mg Hydroxide (Milk Of Alexis Liq) 30 ml PO Q12H PRN PRN Reason: Mild Constipation Albuterol (Duoneb Neb (Prn)) 1 ampul NEB Q2HR NEB PRN PRN Reason: WHEEZING Aspirin (Ecotrin) 81 mg PO DAILY [facility] Last Admin: 09/04/18 08:44 Dose: 81 mg Atorvastatin Calcium (Lipitor) 20 mg PO DAILY [facility] Last Admin: 09/04/18 08:44 Dose: 20 mg Bisacodyl (Dulcolax Supp) 10 mg RECTAL DAILY PRN PRN Reason: SEVERE CONSITIPATION Chlorhexidine Gluconate (Chlorhexidine 2% Cloth) 3 pack TOPICAL DAILY@0400 [facility] Stop: 09/07/18 03:59 Last Admin: 09/05/18 04:31 Dose: 3 pack Chlorhexidine Gluconate (Chlorhexidine 2% Cloth) 3 pack TOPICAL DAILY@0400 PRN PRN Reason: Extra cloth needed Stop: 09/07/18 03:59 Chlorhexidine Gluconate (Chlorhexidine 2% Cloth) 3 pack TOPICAL [employer] [facility] Stop: 09/06/18 12:20 Clopidogrel Bisulfate (Plavix) 75 mg PO DAILY [facility] Last Admin: 09/04/18 08:44 Dose: 75 mg Heparin Sodium (Porcine) (Heparin Inj) 5,000 units SQ Q8H [facility] Last Admin: 09/05/18 06:21 Dose: 5,000 units Hydralazine HCl (Apresoline Inj) 10 mg IV.PUSH Q2H PRN PRN Reason: SYS BP GREATER THAN 160 [facility] Last Admin: 09/04/18 12:00 Dose: 10 mg Magnesium Sulfate 4 gm/ Sodium (Chloride) 100 mls @ 50 mls/hr IV.SIG UNSCH PRN PRN Reason: For Magnesium 0.9 - 1.1 mg/dL Magnesium Sulfate 2 gm/ Sodium (Chloride) 100 mls @ 50 mls/hr IV.SIG UNSCH PRN PRN Reason: For Magnesium 1.2 - 1.6 mg/dL Potassium Chloride (Kcl 40 Meq Premix Inj) 40 meq in 100 mls @ 25 mls/hr IV.SIG Q2H PRN PRN Reason: For Potassium 2.8 - 3.2 mEq/L Potassium Chloride (Kcl 40 Meq Premix Inj) 40 meq in 100 mls @ 25 mls/hr IV.SIG UNSCH PRN PRN Reason: For Potassium 3.3 - 3.5 mEq/L Potassium Chloride (Kcl 20 Meq Premix Inj) 20 meq in 100 mls @ 50 mls/hr IV.SIG Q2H PRN PRN Reason: For Potassium 2.8 - 3.2 mEq/L Potassium Phosphate 30 mmol/ (Sodium Chloride) 260 mls @ 42 mls/hr IV.SIG UNSCH PRN PRN Reason: SEE LABEL COMMENTS Sodium Phosphate 30 mmol/ (Sodium Chloride) 260 mls @ 42 mls/hr IV.SIG UNSCH PRN PRN Reason: For Phosphorus < 2.5 mg/dL Potassium Chloride (Kcl 20 Meq Premix Inj) 20 meq in 100 mls @ 50 mls/hr IV.SIG Q2H PRN PRN Reason: For Potassium 3.3 - 3.5 mEq/L Cefazolin Sodium/Dextrose (Ancef 2 Gm Premix Inj) 2 gm in 50 mls @ 100 mls/hr IV.SIG [employer] [facility] Stop: 09/06/18 12:21 Last Infusion: 09/04/18 11:45 Dose: Infused Sodium Chloride (Ns Inj) 1,000 mls @ 125 mls/hr IV.CONT .Q8H [facility] Last Admin: 09/05/18 06:25 Dose: 125 mls/hr Vancomycin HCl 1,000 mg/ (Sodium Chloride) 250 mls @ 250 mls/hr IV.SIG [employer] [facility] Stop: 09/06/18 12:21 Last Infusion: 09/04/18 11:45 Dose: Infused Isosorbide Mononitrate (Imdur) 60 mg PO DAILY@0700 [facility] Last Admin: 09/05/18 06:21 Dose: 60 mg Labetalol HCl (Trandate Inj) 10 mg IV.PUSH Q1H PRN PRN Reason: SYS BP GREATER THAN 160 [facility] Last Admin: 09/04/18 14:00 Dose: 10 mg Lactulose (Lactulose Liq) 30 ml PO DAILY PRN PRN Reason: SEVERE CONSITIPATION Levothyroxine Sodium (Synthroid) 50 mcg PO DAILY@0700 [facility] Last Admin: 09/05/18 06:21 Dose: 50 mcg Losartan Potassium (Cozaar) 25 mg PO DAILY [facility] Last Admin: 09/04/18 08:44 Dose: 25 mg Magnesium Oxide (Mag-Ox) 800 mg PO UNSCH PRN PRN Reason: For Magnesium 1.2 - 1.6 mg/dL Methocarbamol (Robaxin) 750 mg PO HS [facility] Last Admin: 09/04/18 20:09 Dose: 750 mg Morphine Sulfate (Morphine Inj) 2 mg IV.PUSH Q2H PRN PRN Reason: PAIN SCALE 6 TO 10 Last Admin: 09/04/18 23:35 Dose: 2 mg Mupirocin (Bactroban 2% Nasal Oint) 1 applicatio EACH NARE [employer] [facility] Stop: 09/06/18 12:20 Ondansetron HCl (Zofran Inj) 4 mg IV.PUSH Q6H PRN PRN Reason: NAUSEA OR VOMITING Potassium Bicarb/Potassium Chloride (K-Lyte Cl Eff) 50 meq PO UNSCH PRN PRN Reason: For Potassium 3.3 - 3.5 mEq/L Potassium Phosphate (K-Phos Original) 2,000 mg PO Q4H PRN PRN Reason: Phosphorus Less Than 2.5 mg/dL Potassium Phosphate (K-Phos Original) 2,000 mg PO UNSCH PRN PRN Reason: SEE LABEL COMMENTS Povidone Iodine (Betadine 5% Antisepsis Kit) 1 applicatio EACH NARE [employer] [facility] Stop: 09/06/18 12:20 Last Admin: 09/04/18 09:41 Dose: 1 applicatio Senna/Docusate Sodium (Clementine-Colace) 1 tab PO BID [facility] Last Admin: 09/04/18 20:09 Dose: 1 tab Sennosides (Senokot) 17.2 mg PO Q12H PRN PRN Reason: Moderate Constipation Sodium Chloride (Ns Flush) 2 ml IV.FLUSH UNSCH PRN PRN Reason: FLUSH AFTER USING IV ACCESS Sodium Chloride (Ns Flush) 2 ml IV.FLUSH BID [facility] Last Admin: 09/04/18 20:13 Dose: 2 ml Sodium Chloride (Ns Flush) 2 ml IV.FLUSH PRN PRN PRN Reason: FLUSH AFTER USING IV ACCESS Allergies Allergy/AdvReac Type Severity Reaction Status Date / Time gabapentin [From Neurontin] Allergy Anaphylaxis Verified 09/01/18 18:04 Home Medications Medication Instructions Recorded Confirmed Type aspirin [Aspir-81] 81 mg PO DAILY 09/01/18 09/01/18 History atorvastatin 20 mg PO DAILY 09/01/18 09/01/18 History clopidogrel 75 mg PO DAILY 09/01/18 09/01/18 History isosorbide mononitrate 60 mg PO DAILY 09/01/18 09/01/18 History levothyroxine 50 mcg PO DAILY 09/01/18 09/01/18 History losartan 25 mg PO DAILY 09/01/18 09/01/18 History methocarbamol 750 mg PO HS 09/01/18 09/01/18 History amoxicillin 500 mg PO QID 09/02/18 09/02/18 History Physical Exam Vital signs: Vital Signs 09/04/18 08:00 09/04/18 11:45 09/04/18 15:00 Temperature 97.7 F 98.1 F Pulse Rate 95 H 104 H Respiratory Rate 16 18 Blood Pressure 185/102 H 120/73 Pulse Oximetry 95 99 96 09/04/18 19:00 09/04/18 20:00 09/04/18 20:35 Temperature 98.2 F Pulse Rate 103 H Respiratory Rate 18 Blood Pressure 107/63 Pulse Oximetry 96 96 09/04/18 23:00 09/05/18 01:07 09/05/18 03:00 Temperature 98.4 F 98.4 F Pulse Rate 109 H 105 H Respiratory Rate 20 18 20 Blood Pressure 122/69 122/69 Pulse Oximetry 95 95 09/05/18 07:00 Temperature 97.9 F Pulse Rate 96 H Respiratory Rate 18 Blood Pressure 112/62 Pulse Oximetry 94 L Intake & Output 09/04/18 09/05/18 09/05/18 18:59 06:59 18:59 Intake Total 2099 / 2099 2870 / 2870 Output Total 1100 / 1100 650 / 650 Balance 1000 / 1000 2220 / 2220 Weight 101 kg Intake: IV 2099 / 2099 2150 / 2150 NS Inj 1,000 ML @ 125 mls/hr IV 800 / 800 1900 / 1900 .CONT .Q8H [facility] Rx#:[id number] Vancomycin Inj 1,000 MG In NS 250 / 250 250 / 250 Inj 250 ML @ 250 mls/hr IV.SIG ONCE ONE Rx#:[id number] Ancef 2 GM Premix Inj 2 gm In 50 / 50 50 ml @ 100 mls/hr IV.SIG [employer] [facility] Rx#:[id number] Oral 720 / 720 Output: Urine 1100 / 1100 650 / 650 Other: Date of Last Bowel Movement 09/03/18 # Bowel Movements 0 - Constitutional no acute distress - Routine Neck Exam Absent: JVD - Routine Respiratory Exam Present: CTA bilaterally - Routine Cardiovascular Exam Present: RRR, S1, S2. Absent: murmur, gallop Comments: Pacer site clean, dry, intact, no hematoma or tenderness. Results 09/05/18 07:14 09/04/18 09:30 Cardiac Enzymes 09/04/18 Range/Units 09:30 AST 11 L (15-37) U/L CBC 09/04/18 09/05/18 Range/Units 09:30 07:14 WBC 6.4 10.0 D (4.0-11.0) th/mm3 RBC 4.60 4.42 L (4.50-5.90) mil/mm3 Hgb 14.6 14.1 (13.0-17.0) gm/dL Hct 42.7 42.0 (39.0-51.0) % Plt Count 173 D 164 (150-450) th/mm3 Neut # (Auto) 4.7 8.0 H (1.8-7.7) th/mm3 Lymph # (Auto) 0.8 L 0.6 L (1.0-4.8) th/mm3 [place] # (Auto) 0.7 1.4 H (0.0-0.9) th/mm3 Eos # (Auto) 0.1 0.0 (0.0-0.4) th/mm3 Baso # (Auto) 0.0 0.0 (0.0-0.2) th/mm3 Comprehensive Metabolic Panel 09/03/18 09/04/18 Range/Units 23:00 09:30 Sodium 142 (136-145) meq/L Potassium 4.1 3.8 (3.5-5.1) meq/L Chloride 109 H (98-107) meq/L Carbon Dioxide 25.9 (21.0-32.0) meq/L BUN 11 (7-18) mg/dL Creatinine 0.92 (0.60-1.30) mg/dL Calcium 8.5 (8.5-10.1) mg/dL AST 11 L (15-37) U/L ALT 25 (12-78) U/L Alkaline Phosphatase 76 (45-117) U/L Total Protein 5.8 L (6.4-8.2) g/dL Albumin 3.3 L (3.4-5.0) g/dL Intake and Output 09/04/18 09/05/18 09/05/18 22:59 06:59 14:59 Intake Total 1000 / 1000 1870 / 1870 Output Total 1100 / 1100 650 / 650 Balance -100 / -100 1220 / 1220 Intake: IV 1000 / 1000 1150 / 1150 NS Inj 1,000 ML @ 125 mls/hr IV 1000 / 1000 900 / 900 .CONT .Q8H [facility] Rx#:[id number] Vancomycin Inj 1,000 MG In NS 250 / 250 Inj 250 ML @ 250 mls/hr IV.SIG ONCE ONE Rx#:[id number] Oral 720 / 720 Output: Urine 1100 / 1100 650 / 650 Other: Date of Last Bowel Movement 09/03/18 # Bowel Movements 0 Weight 101 kg - Imaging and Cardiology Imaging: Impressions Chest X-Ray 09/04/18 00:00 CONCLUSION: No pneumothorax. Assessment and Plan - Assessment (1) Status post placement of cardiac pacemaker Code(s): Z95.0 - Presence of cardiac pacemaker Status: Acute Plan: Stable overnight. Pacer site OK. Pacer re-interrogation shows stable, good pacing parameters. OK from my standpoint to discharge today, same home medications plus Levaquin 500 mg qd for 7 days, one week f/u for incision/pacer recheck. - Plan Code Status: full code Discussed Condition With: patient
[2018-09-05 08:04] LABS: Alanine Aminotransferase 32 U/L (12-78); Albumin 3.5 g/dL (3.4-5.0); Anion Gap 8 meq/L (5-15); Aspartate Aminotransferase 22 U/L (15-37); Blood Urea Nitrogen 16 mg/dL (7-18); Calcium 8.5 mg/dL (8.5-10.1); Carbon Dioxide 23.3 meq/L (21.0-32.0); Chloride 106 meq/L (98-107); Glomerular Filtration Rate 77 mL/min (>89); Glucose,Random 113 mg/dL (74-106); Magnesium 1.8 mg/dL (1.5-2.5); Potassium 4.1 meq/L (3.5-5.1); Sodium 137 meq/L (136-145)
[2018-09-05 08:09] LABS: Alkaline Phosphatase 74 U/L (45-117); Total Protein 6.3 g/dL (6.4-8.2)
[2018-09-05] MEDS: Morphine Inj 4 MG/ML Vial IV.PUSH PRN (08:14)
[2018-09-05] MEDS: Senna/Docusate Sodium 8.6/50 MG Tablet PO SCH (08:15)
[2018-09-05 08:40] VITALS: O2SAT 93
[2018-09-05 08:45] VITALS: PULSE 98
--- NOTE | 2018-09-05 09:20 | P.PNIM ---
Subjective Interval history: 09/01: 68-year-old male patient with history of hypertension, thyroidism, coronary artery disease presents today for an evaluation of left-sided chest pains which he rates an 8 out of 10 in its waxing and waning. He was seen yesterday by his primary care doctor and was found to have slow heart rate, was told to come to the ER if he started having chest pains or having symptoms. He denies any nausea, shortness of breath, or other symptoms. 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 Blood who initiated transvenous pacemaker for the symptomatic secondary degree heart block. 09/02: Resting in bed comfortably. Denies any chest pain or shortness of breath currently. Transvenous pacer in place with paced rhythm. 09/03: Sitting up in chair. Denies any chest pain or shortness of breath. Transvenous pacer in place with paced rhythm noted. Awaiting permanent pacer placement by cardiology possibly today. 09-04 TRANSFERRED TO OUR SERVICE TODAY HAD PACEMAKER PLACED IN LEFT CHEST TODAY 09-04 SEEN IN ICU AFTER PROCEDURE DW RN AND PT AND FAMILY INCREASE ACTIVITY TRANSFER OUT OF ICU 09-05 HAS BEEN CLEARED BY CARDIOLOGY PT AND OT EVAL AND TREAT DW RN AND PT AND CM DC TO HOME TODAY Physical Exam Vital signs: Vital Signs 09/04/18 11:45 09/04/18 15:00 09/04/18 19:00 Temperature 97.7 F 98.1 F 98.2 F Pulse Rate 95 H 104 H 103 H Respiratory Rate 16 18 18 Blood Pressure 185/102 H 120/73 107/63 Pulse Oximetry 99 96 09/04/18 20:00 09/04/18 20:35 09/04/18 23:00 Temperature 98.4 F Pulse Rate 109 H Respiratory Rate 20 Blood Pressure 122/69 Pulse Oximetry 96 96 95 09/05/18 01:07 09/05/18 03:00 09/05/18 07:00 Temperature 98.4 F 97.9 F Pulse Rate 105 H 98 H Respiratory Rate 18 20 18 Blood Pressure 122/69 112/62 Pulse Oximetry 95 94 L 09/05/18 08:00 Temperature Pulse Rate Respiratory Rate Blood Pressure Pulse Oximetry 93 L Intake & Output 09/04/18 09/05/18 09/05/18 18:59 06:59 18:59 Intake Total 2099 / 2099 2870 / 2870 Output Total 1100 / 1100 650 / 650 Balance 1000 / 1000 2220 / 2220 Weight 101 kg Intake: IV 2100 / 2100 2150 / 2150 NS Inj 1,000 ML @ 125 mls/hr IV 800 / 800 1900 / 1900 .CONT .Q8H [facility] Rx#:[id number] Vancomycin Inj 1,000 MG In NS 250 / 250 250 / 250 Inj 250 ML @ 250 mls/hr IV.SIG ONCE ONE Rx#:[id number] Ancef 2 GM Premix Inj 2 gm In 50 / 50 50 ml @ 100 mls/hr IV.SIG [employer] [facility] Rx#:[id number] Oral 720 / 720 Output: Urine 1100 / 1100 650 / 650 Other: Date of Last Bowel Movement 09/03/18 # Bowel Movements 0 Narrative: GENERAL: AWAKE ALERT AND ORIENTED X3 TALKATIVE AND COOPERATIVE SKIN: Warm and dry. HEAD: Atraumatic. Normocephalic. EYES: Pupils equal and round. No scleral icterus. No injection or drainage. EOMI ENT: No nasal bleeding or discharge. Mucous membranes pink and moist. TONGUE IS MIDLINE NECK: Trachea midline. No JVD. SUPPLE CARDIOVASCULAR: Regular rate and rhythm. S1, S2 NO S3 OR S4 PACED -PACER IN LEFT CHEST RESPIRATORY: No accessory muscle use. Clear to auscultation. Breath sounds equal bilaterally. GASTROINTESTINAL: Abdomen soft, non-tender, nondistended. Hepatic and splenic margins not palpable. MUSCULOSKELETAL: Extremities without clubbing, cyanosis, or edema. No obvious deformities. NEUROLOGICAL: Awake and alert. No obvious cranial nerve deficits. Motor grossly within normal limits. Five out of 5 muscle strength in the arms and legs. Normal speech. PSYCHIATRIC: Appropriate mood and affect; insight and judgment normal. Results - Labs CBC & Chem 7: 09/05/18 07:14 09/05/18 07:14 Laboratory Results - last 24 hr 09/04/18 09/04/18 09/04/18 09:30 09:30 09:30 WBC 6.4 RBC 4.60 Hgb 14.6 Hct 42.7 MCV 92.8 MCH 31.8 MCHC 34.3 RDW 13.7 Plt Count 173 D MPV 8.3 Neut % (Auto) 74.0 H Lymph % (Auto) 12.9 [place] % (Auto) 10.5 H Eos % (Auto) 2.1 Baso % (Auto) 0.5 Neut # (Auto) 4.7 Lymph # (Auto) 0.8 L [place] # (Auto) 0.7 Eos # (Auto) 0.1 Baso # (Auto) 0.0 WBC Differential . Differential Comment Auto diff final Sodium 142 Potassium 3.8 Chloride 109 H Carbon Dioxide 25.9 Anion Gap 7 BUN 11 Creatinine 0.92 Estimated GFR 81 L Random Glucose 84 Hemoglobin A1c 5.1 Calcium 8.5 Phosphorus 3.1 Magnesium 1.9 Total Bilirubin 0.8 AST 11 L ALT 25 Alkaline Phosphatase 76 Total Protein 5.8 L Albumin 3.3 L TSH 3.150 Free T4 1.30 09/05/18 09/05/18 07:14 07:14 WBC 10.0 D RBC 4.42 L Hgb 14.1 Hct 42.0 MCV 95.0 MCH 31.9 MCHC 33.5 RDW 14.0 Plt Count 164 MPV 8.2 Neut % (Auto) 79.6 H Lymph % (Auto) 5.5 L [place] % (Auto) 14.4 H Eos % (Auto) 0.1 Baso % (Auto) 0.4 Neut # (Auto) 8.0 H Lymph # (Auto) 0.6 L [place] # (Auto) 1.4 H Eos # (Auto) 0.0 Baso # (Auto) 0.0 WBC Differential . Differential Comment Auto diff final Sodium 137 Potassium 4.1 Chloride 106 Carbon Dioxide 23.3 Anion Gap 8 BUN 16 Creatinine 0.96 Estimated GFR 77 L Random Glucose 113 H Hemoglobin A1c Calcium 8.5 Phosphorus 3.0 Magnesium 1.8 Total Bilirubin 1.7 H AST 22 ALT 32 Alkaline Phosphatase 74 Total Protein 6.3 L Albumin 3.5 TSH Free T4 - Imaging Impressions Chest X-Ray 09/04/18 00:00 CONCLUSION: No pneumothorax. - Procedures LEFT SIDE PPM 09-04 Assessment and Plan - Plan Bradycardia -Second degree heart block -Transvenous pacemaker in place. Awaiting permanent pacemaker placement today. -2D echo -Further management per cardiology SP LEFT SIDE PPM ON 09-04 CAD -Aspirin -Plavix -Series of troponins and EKGs Hyperchloremia -Atorvastatin Hypertension -Isosorbide -Losartan Hypothyroid -Levothyroxine -Repeat TSH a.m. DVT GI prophylaxis -Teds SCDs -Subcu heparin -Cardiac diet PT AND OT TRANSFER OUT OF ICU INCREASE ACTIVITY DC TO HOME TODAY Code Status: FULL CODE Discussed Condition With: DC TO HOME TODAY Discharge Planning: WHEN CLEARED BY ALL
--- NOTE | 2018-09-05 09:25 | P.DS ---
Date of admission: 09/01/18 19:16 Primary care physician: Shellie Romero Attending physician on discharge: Urbano Marte Anticipated date of discharge: 09/05/18 Brief History from admission: 68-year-old male patient with history of hypertension, thyroidism, coronary artery disease presents today for an evaluation of left-sided chest pains which he rates an 8 out of 10 in its waxing and waning. He was seen yesterday by his primary care doctor and was found to have slow heart rate, was told to come to the ER if he started having chest pains or having symptoms. He denies any nausea, shortness of breath, or other symptoms. However due to complaints of chest pain he was seen immediately by concrete engineer Dr. Blood who initiated transvenous pacemaker for the symptomatic secondary degree heart block. Patient update on day of discharge: 09/01: 68-year-old male patient with history of hypertension, thyroidism, coronary artery disease presents today for an evaluation of left-sided chest pains which he rates an 8 out of 10 in its waxing and waning. He was seen yesterday by his primary care doctor and was found to have slow heart rate, was told to come to the ER if he started having chest pains or having symptoms. He denies any nausea, shortness of breath, or other symptoms. However due to complaints of chest pain he was seen immediately by concrete engineer Dr. Blood who initiated transvenous pacemaker for the symptomatic secondary degree heart block. 09/02: Resting in bed comfortably. Denies any chest pain or shortness of breath currently. Transvenous pacer in place with paced rhythm. 09/03: Sitting up in chair. Denies any chest pain or shortness of breath. Transvenous pacer in place with paced rhythm noted. Awaiting permanent pacer placement by cardiology possibly today. 09-04 TRANSFERRED TO OUR SERVICE TODAY HAD PACEMAKER PLACED IN LEFT CHEST TODAY 09-04 SEEN IN ICU AFTER PROCEDURE ROSE MARIE RN AND PT AND FAMILY INCREASE ACTIVITY TRANSFER OUT OF ICU 09-05 HAS BEEN CLEARED BY CARDIOLOGY PT AND OT EVAL AND TREAT ROSE MARIE RN AND PT AND CM DC TO HOME TODAY DS: Diagnosis - Discharge Diagnosis (1) Bradycardia Status: Acute (2) Status post placement of cardiac pacemaker Status: Acute DS: Medications - Discharge Medications Prescriptions: sennosides-docusate sodium [Senna Plus] 1 tab PO BID #60 tab DS: Summary Hospital Course: 09/01: 68-year-old male patient with history of hypertension, thyroidism, coronary artery disease presents today for an evaluation of left-sided chest pains which he rates an 8 out of 10 in its waxing and waning. He was seen yesterday by his primary care doctor and was found to have slow heart rate, was told to come to the ER if he started having chest pains or having symptoms. He denies any nausea, shortness of breath, or other symptoms. However due to complaints of chest pain he was seen immediately by concrete engineer Dr. Blood who initiated transvenous pacemaker for the symptomatic secondary degree heart block. 09/02: Resting in bed comfortably. Denies any chest pain or shortness of breath currently. Transvenous pacer in place with paced rhythm. 09/03: Sitting up in chair. Denies any chest pain or shortness of breath. Transvenous pacer in place with paced rhythm noted. Awaiting permanent pacer placement by cardiology possibly today. 09-04 TRANSFERRED TO OUR SERVICE TODAY HAD PACEMAKER PLACED IN LEFT CHEST TODAY 09-04 SEEN IN ICU AFTER PROCEDURE DW RN AND PT AND FAMILY INCREASE ACTIVITY TRANSFER OUT OF ICU 09-05 HAS BEEN CLEARED BY CARDIOLOGY PT AND OT EVAL AND TREAT ROSE MARIE RN AND PT AND CM DC TO HOME TODAY - Time Spent with Patient Total time spent providing and/or coordinating discharge services: Greater than 30 minutes - Quality: VTE Deep Vein Thrombosis/Pulmonary Embolism Present on Admission: No Exam Vital signs: Vital Signs 09/04/18 11:45 09/04/18 15:00 09/04/18 19:00 Temperature 97.7 F 98.1 F 98.2 F Pulse Rate 95 H 104 H 103 H Respiratory Rate 16 18 18 Blood Pressure 185/102 H 120/73 107/63 Pulse Oximetry 99 96 09/04/18 20:00 09/04/18 20:35 09/04/18 23:00 Temperature 98.4 F Pulse Rate 109 H Respiratory Rate 20 Blood Pressure 122/69 Pulse Oximetry 96 96 95 09/05/18 01:07 09/05/18 03:00 09/05/18 07:00 Temperature 98.4 F 97.9 F Pulse Rate 105 H 98 H Respiratory Rate 18 20 18 Blood Pressure 122/69 112/62 Pulse Oximetry 95 94 L 09/05/18 08:00 Temperature Pulse Rate Respiratory Rate Blood Pressure Pulse Oximetry 93 L Intake & Output 09/04/18 09/05/18 09/05/18 18:59 06:59 18:59 Intake Total 2099 / 2100 2870 / 2870 Output Total 1100 / 1100 650 / 650 Balance 1000 / 1000 2220 / 2220 Weight 101 kg Intake: IV 2100 / 2100 2150 / 2150 NS Inj 1,000 ML @ 125 mls/hr IV 800 / 800 1900 / 1900 .CONT .Q8H [facility] Rx#:[id number] Vancomycin Inj 1,000 MG In NS 250 / 250 250 / 250 Inj 250 ML @ 250 mls/hr IV.SIG ONCE ONE Rx#:[id number] Ancef 2 GM Premix Inj 2 gm In 50 / 50 50 ml @ 100 mls/hr IV.SIG MINI SHIFTER [facility] Rx#:[id number] Oral 720 / 720 Output: Urine 1100 / 1100 650 / 650 Other: Date of Last Bowel Movement 09/03/18 # Bowel Movements 0 Narrative: GENERAL: AWAKE ALERT AND ORIENTED X3 TALKATIVE AND COOPERATIVE SKIN: Warm and dry. HEAD: Atraumatic. Normocephalic. EYES: Pupils equal and round. No scleral icterus. No injection or drainage. EOMI ENT: No nasal bleeding or discharge. Mucous membranes pink and moist. TONGUE IS MIDLINE NECK: Trachea midline. No JVD. SUPPLE CARDIOVASCULAR: Regular rate and rhythm. S1, S2 NO S3 OR S4 PACED -PACER IN LEFT CHEST RESPIRATORY: No accessory muscle use. Clear to auscultation. Breath sounds equal bilaterally. GASTROINTESTINAL: Abdomen soft, non-tender, nondistended. Hepatic and splenic margins not palpable. MUSCULOSKELETAL: Extremities without clubbing, cyanosis, or edema. No obvious deformities. NEUROLOGICAL: Awake and alert. No obvious cranial nerve deficits. Motor grossly within normal limits. Five out of 5 muscle strength in the arms and legs. Normal speech. PSYCHIATRIC: Appropriate mood and affect; insight and judgment normal. Results Procedures completed during hospitalization: LEFT SIDE PPM 09-04 Completed studies during hospitalization: Laboratory Results WBC 10.0 th/mm3 (4.0-11.0) D 09/05/18 07:14 RBC 4.42 mil/mm3 (4.50-5.90) L 09/05/18 07:14 Hgb 14.1 gm/dL (13.0-17.0) 09/05/18 07:14 Hct 42.0 % (39.0-51.0) 09/05/18 07:14 MCV 95.0 fL (80.0-100.0) 09/05/18 07:14 MCH 31.9 pg (27.0-34.0) 09/05/18 07:14 MCHC 33.5 % (32.0-36.0) 09/05/18 07:14 RDW 14.0 % (11.6-17.2) 09/05/18 07:14 Plt Count 164 th/mm3 (150-450) 09/05/18 07:14 MPV 8.2 fL (7.0-11.0) 09/05/18 07:14 Neut % (Auto) 79.6 % (16.0-70.0) H 09/05/18 07:14 Lymph % (Auto) 5.5 % (9.0-44.0) L 09/05/18 07:14 Dubois % (Auto) 14.4 % (0.0-8.0) H 09/05/18 07:14 Eos % (Auto) 0.1 % (0.0-4.0) 09/05/18 07:14 Baso % (Auto) 0.4 % (0.0-2.0) 09/05/18 07:14 Neut # (Auto) 8.0 th/mm3 (1.8-7.7) H 09/05/18 07:14 Lymph # (Auto) 0.6 th/mm3 (1.0-4.8) L 09/05/18 07:14 Dubois # (Auto) 1.4 th/mm3 (0.0-0.9) H 09/05/18 07:14 Eos # (Auto) 0.0 th/mm3 (0.0-0.4) 09/05/18 07:14 Baso # (Auto) 0.0 th/mm3 (0.0-0.2) 09/05/18 07:14 WBC Differential . 09/05/18 07:14 Differential Comment Auto diff final 09/05/18 07:14 PT 12.3 sec (9.8-11.6) H 09/02/18 05:00 INR 1.2 Ratio 09/02/18 05:00 APTT 29.5 sec (24.3-30.1) 09/02/18 05:00 Sodium 137 meq/L (136-145) 09/05/18 07:14 Potassium 4.1 meq/L (3.5-5.1) 09/05/18 07:14 Chloride 106 meq/L (98-107) 09/05/18 07:14 Carbon Dioxide 23.3 meq/L (21.0-32.0) 09/05/18 07:14 Anion Gap 8 meq/L (5-15) 09/05/18 07:14 BUN 16 mg/dL (7-18) 09/05/18 07:14 Creatinine 0.96 mg/dL (0.60-1.30) 09/05/18 07:14 Estimated GFR 77 mL/min (>89) L 09/05/18 07:14 Random Glucose 113 mg/dL (74-106) H 09/05/18 07:14 Hemoglobin A1c 5.1 % (4.3-6.0) 09/04/18 09:30 Calcium 8.5 mg/dL (8.5-10.1) 09/05/18 07:14 Phosphorus 3.0 mg/dL (2.5-4.9) 09/05/18 07:14 Magnesium 1.8 mg/dL (1.5-2.5) 09/05/18 07:14 Total Bilirubin 1.7 mg/dL (0.2-1.0) H 09/05/18 07:14 AST 22 U/L (15-37) 09/05/18 07:14 ALT 32 U/L (12-78) 09/05/18 07:14 Alkaline Phosphatase 74 U/L (45-117) 09/05/18 07:14 Troponin I Less than 0.02 ng/mL (0.02-0.05) L 09/02/18 05:00 Total Protein 6.3 g/dL (6.4-8.2) L 09/05/18 07:14 Albumin 3.5 g/dL (3.4-5.0) 09/05/18 07:14 TSH 3.150 uIU/mL (0.358-3.740) 09/04/18 09:30 Free T4 1.30 ng/dL (0.76-1.46) 09/04/18 09:30 Free T3 2.62 pg/mL (2.18-3.98) 09/01/18 18:11 Nasal Screen MRSA (PCR) Not detected (Negative) 09/01/18 23:30 Impressions Chest X-Ray 09/04/18 00:00 CONCLUSION: No pneumothorax. Labs on day of discharge: Labs from last 24 hours 09/05/18 09/05/18 09/04/18 07:14 07:14 09:30 WBC 10.0 D RBC 4.42 L Hgb 14.1 Hct 42.0 MCV 95.0 MCH 31.9 MCHC 33.5 RDW 14.0 Plt Count 164 MPV 8.2 Neut % (Auto) 79.6 H Lymph % (Auto) 5.5 L Dubois % (Auto) 14.4 H Eos % (Auto) 0.1 Baso % (Auto) 0.4 Neut # (Auto) 8.0 H Lymph # (Auto) 0.6 L Dubois # (Auto) 1.4 H Eos # (Auto) 0.0 Baso # (Auto) 0.0 WBC Differential . Differential Comment Auto diff final Sodium 137 Potassium 4.1 Chloride 106 Carbon Dioxide 23.3 Anion Gap 8 BUN 16 Creatinine 0.96 Estimated GFR 77 L Random Glucose 113 H Hemoglobin A1c 5.1 Calcium 8.5 Phosphorus 3.0 Magnesium 1.8 Total Bilirubin 1.7 H AST 22 ALT 32 Alkaline Phosphatase 74 Total Protein 6.3 L Albumin 3.5 TSH Free T4 09/04/18 09/04/18 09:30 09:30 WBC 6.4 RBC 4.60 Hgb 14.6 Hct 42.7 MCV 92.8 MCH 31.8 MCHC 34.3 RDW 13.7 Plt Count 173 D MPV 8.3 Neut % (Auto) 74.0 H Lymph % (Auto) 12.9 Dubois % (Auto) 10.5 H Eos % (Auto) 2.1 Baso % (Auto) 0.5 Neut # (Auto) 4.7 Lymph # (Auto) 0.8 L Dubois # (Auto) 0.7 Eos # (Auto) 0.1 Baso # (Auto) 0.0 WBC Differential . Differential Comment Auto diff final Sodium 142 Potassium 3.8 Chloride 109 H Carbon Dioxide 25.9 Anion Gap 7 BUN 11 Creatinine 0.92 Estimated GFR 81 L Random Glucose 84 Hemoglobin A1c Calcium 8.5 Phosphorus 3.1 Magnesium 1.9 Total Bilirubin 0.8 AST 11 L ALT 25 Alkaline Phosphatase 76 Total Protein 5.8 L Albumin 3.3 L TSH 3.150 Free T4 1.30 - Impressions ITS Impressions Chest X-Ray 09/04/18 00:00 CONCLUSION: No pneumothorax. Discharge Plan - Discharge Disposition Patient Disposition: 01 Discharge Home - Discharge Condition Condition: Good - Discharge Order Discharge Orders: Discharge Order (Routine); Ordered 09/05/18 Ordered By: Urbano Marte Cardiology Clear for Discharge (Routine); Ordered 09/05/18 Ordered By: Jaime Lugo - Discharge Details Anticipated Discharge Date: 09/05/18 Discharge Comment: DC TO HOME TODAY - Physicians Team Primary Care Provider: Shellie Hensley Attending Provider: Urbano Marte Other Providers: Chloé Blood MD
--- NOTE | 2018-09-06 01:14 | ECG ---
Date Performed: 09/04/2018 Time Performed: 09:27:02 PTAGE: 68 years EKG: Ventricular pacing Since the PREVIOUS TRACING , no significant change noted DOCTOR: Britton Conti Interpretating Date/Time 09/06/2018 01:13:50
--- NOTE | 2018-09-10 12:09 | CONS ---
cc: Jaime Lugo MD DATE: 09/04/2018 REASON FOR CONSULTATION: Permanent pacemaker implantation. HISTORY OF PRESENT ILLNESS: The patient is a 68-year-old white male, followed in the office by Dr. Britton Conti, with a history of carotid disease, coronary artery disease, hypertension, transient ischemic attack, who presented to the emergency room on 09/01/2018 apparently with complaints of left-sided chest pain. He was noted to be in second-degree AV block type 2. A temporary pacemaker was placed, which completely resolved his chest discomforts. The patient actually states he has had no recent chest pains. The patient states he came to the emergency department because of lightheadedness which lasted about 2-3 hours. He denies syncope, palpitations, pedal edema, paroxysmal nocturnal dyspnea, fevers, headache, nausea, abdominal pain. PAST MEDICAL HISTORY: 1. Carotid disease with "string sign" seen on 02/12/2018 CT in the left internal carotid artery. At that time, he was treated conservatively. 2. Coronary artery disease with 50%-60% right coronary artery disease demonstrated by CT angiogram of the coronaries 07/25/2016. 3. Hyperlipidemia. 4. Hypertension. 5. Hypothyroidism. 6. Transient ischemic attack. 7. Psoriasis. CARDIAC MEDICATIONS AT HOME: 1. Losartan 25 mg daily. 2. Isosorbide mononitrate 60 mg daily. 3. Plavix 75 mg daily. 4. Atorvastatin 20 mg daily. 5. Aspirin 81 mg daily. ALLERGIES: 1. GABAPENTIN. 2. METOPROLOL. 3. BACLOFEN. FAMILY HISTORY: Noncontributory. SOCIAL HISTORY: The patient is a former smoker. He denies alcohol abuse. REVIEW OF SYSTEMS: As in history of present illness, otherwise negative or noncontributory. He also denies abdominal pain, melena, dyspepsia, bright red blood per rectum. Physical examination: VITAL SIGNS: His blood pressure 152/82 with a pulse of 60, respirations 14. GENERAL: He is a well-developed, well-nourished white male, in no acute distress. NECK: Jugular venous pressure is normal. Carotid pulses are 2+ bilaterally and without bruits. CHEST: Reveals clear lungs bergman. CARDIAC: He has a regular rhythm and rate without S3, S4, or murmur. ABDOMEN: He has a soft, nontender abdomen. Bowel sounds are present. There is no definite hepatosplenomegaly. EXTREMITIES: Examination reveals no clubbing, cyanosis or edema. LABORATORY DATA: Includes WBC 4.7, hemoglobin 13.7, platelets 128. Potassium 4.1, BUN 12, creatinine 0.92. Negative cardiac enzymes. Chest x-ray shows no acute disease. EKG from 09/01/2018 at 6:01 p.m. shows sinus bradycardia with second-degree AV block, probably type 2, right bundle branch block. IMPRESSION: Symptomatic bradycardia, second-degree AV block, possibly type 2, in a 68-year- old white male with a history of carotid disease, coronary artery disease, hypertension, transient ischemic attack. I have been asked to see the patient for permanent pacemaker implantation. The patient has had recent symptoms of moderate lightheadedness associated with the bradycardia. Some of his rhythm strips are more suggestive of sinus bradycardia with blocked premature atrial complexes. Other rhythm strips are consistent with second-degree AV block, probably type 2. In light of the symptomatic bradycardia, I would agree with the need for permanent pacemaker implantation. The nature of this procedure and potential risks including, but not limited to, cardiac perforation, pneumothorax, bleeding, infection have been outlined to the patient, who agrees to proceed. RECOMMENDATIONS: Permanent pacemaker implantation today. MD FANTA Chen/claritza , 08:31 AM , 08:39 AM ALEKSANDER
--- NOTE | 2018-09-10 12:13 | OP ---
cc: Jaime Lugo MD, Vincent G DO DATE OF OPERATION: 09/04/2018 PROCEDURE PERFORMED: Dual chamber permanent pacemaker implantation via the left subclavian vein. INDICATIONS: Symptomatic bradycardia, symptomatic second degree AV block. OPERATIVE NOTE: The patient was brought to the operating suite in the fasting state after having signed informed consent. The left upper chest was prepped and draped as per policy and anesthetized with 1% lidocaine. A transverse incision was made inferior to the left clavicle and using blunt dissection, a subcutaneous pocket was formed down to the pectoralis fascia. After administration of 20 mL of contrast through a left arm peripheral IV, central venous access was obtained twice without difficulty via the left subclavian vein using modified Seldinger technique. Over the more lateral guidewire, a 7-Slovak sheath was placed and through the sheath, a ventricular active fixation lead was introduced and its tip positioned in the right ventricular apex region where good current of injury , stimulation threshold (0.4 volts) and sensitivity (8.2 millivolts) were demonstrated. This lead was secured into place using 2-0 silk ties down to the pectoralis fascia. Over the remaining guidewire, another 7-Slovak sheath was placed and through this sheath, an atrial active fixation lead was introduced and its tip positioned in the right atrial appendage where good current of injury, stimulation threshold (0.5 volts) and sensitivity (1.3 millivolts) were demonstrated. This lead was secured into place using 2-0 silk ties down to the pectoralis fascia. The leads were then connected to the pacemaker generator, which is a Biotronik Edora device. The leads and the generator were placed back into the subcutaneous pocket, which was closed using 3-0 Vicryl interrupted stitches in 2 layers to close the subcutaneous tissue and then 4-0 Monocryl running stitch to close the subcuticular tissue. Overlapping Steri- Strips and a dressing were applied. There were no apparent immediate complications. A portable chest x-ray is pending at the time of this dictation. CONCLUSION: Successful dual-chamber permanent pacemaker implantation via the left subclavian vein using a Biotronik Edora pacemaker generator. MD FANTA Chen/gina , 11:11 AM , 11:18 AM MTDLilia
== END 2018-09-05 11:03 | disposition home or self-care (01) ==
LOC: NEPE 17:39 → NEDA 19:16 → HCVI 20:12
PROVIDERS: ADMIT Hospitalist; ATTEND Hospitalist

== ENCOUNTER 2018-09-19 13:17 | Inpatient (IN) ==
[2018-09-19] MEDS ORDERED: Sod Chloride 0.9% Inj 1,000 ML IV.SIG ONE (14:17)
--- NOTE | 2018-09-19 14:25 | ED ---
HPI General Chief complaint: Impress Associate Problem Stated complaint: Med Time Seen by Provider: 09/19/18 14:17 Source: patient and EMS Mode of arrival: EMS Limitations: no limitations History of Present Illness HPI narrative: 68-year-old male patient with previous history of hypertension, CAD, bradycardia status post pacemaker placement 2 weeks ago, presents to the ER today because he has been feeling weak in general and has been having palpitations, and pain at his pacemaker site. He denies any fevers, vomiting, diarrhea, black stools, or other issues. Related Data Home Medications Medication Instructions Recorded Confirmed aspirin [Aspir-81] 81 mg PO DAILY 09/01/18 09/01/18 atorvastatin 20 mg PO DAILY 09/01/18 09/01/18 clopidogrel 75 mg PO DAILY 09/01/18 09/01/18 isosorbide mononitrate 60 mg PO DAILY 09/01/18 09/01/18 levothyroxine 50 mcg PO DAILY 09/01/18 09/01/18 losartan 25 mg PO DAILY 09/01/18 09/01/18 methocarbamol 750 mg PO HS 09/01/18 09/01/18 Previous Rx's Medication Instructions Recorded sennosides-docusate sodium [Senna 1 tab PO BID #60 tab 09/05/18 Plus] Allergies Allergy/AdvReac Type Severity Reaction Status Date / Time gabapentin [From Neurontin] Allergy Anaphylaxis Verified 09/01/18 18:04 Review of Systems ROS: all other systems reviewed are negative PMFSH History History Provided By: Patient Medical History Medical History CAD (coronary artery disease) (Acute) Hyperchloremia (Acute) Hypertension (Acute) Hypothyroid (Acute) Social History Social History Substance History: No History of Abuse Second Hand Smoke Exposure: No Smoking Status: Never smoker Tobacco Type: Cigarettes How Often Do You Have a Drink Containing Alcohol: Never Recent Travel in [facility] within the Last 8 Weeks: No Recent Out of Country Travel within the Last 8 Weeks: No Exam Narrative Exam Narrative: GENERAL: Well-developed elderly white male patient currently in mild distress. Awake, lethargic, and oriented x3. SKIN: Focused skin assessment warm/dry. HEAD: Atraumatic. Normocephalic. EYES: Pupils equal and round. No scleral icterus. No injection or drainage. ENT: No nasal bleeding or discharge. Mucous membranes pink and moist. NECK: Trachea midline. No JVD. CARDIOVASCULAR: Regular rate and rhythm. No murmur appreciated. RESPIRATORY: No accessory muscle use. Clear to auscultation. Breath sounds equal bilaterally. CHEST: Nontender throughout without deformity or crepitance. No retractions or use of accessory muscles. Left chest wall ecchymotic, incision site for the pacemaker appears to be clean, dry, intact without significant drainage. GASTROINTESTINAL: Abdomen soft, non-tender, nondistended. Hepatic and splenic margins not palpable. MUSCULOSKELETAL: No obvious deformities. No clubbing. No cyanosis. No edema. NEUROLOGICAL: Awake and alert. No obvious cranial nerve deficits. Motor grossly within normal limits. Normal speech. PSYCHIATRIC: Appropriate mood and affect; insight and judgment normal. Course Initial Documented Vital Signs Temperature 97.6 F 09/19/18 14:06 Pulse Rate 118 H 09/19/18 14:06 Respiratory Rate 18 09/19/18 14:06 Blood Pressure 119/70 09/19/18 14:06 Pulse Oximetry 98 09/19/18 14:06 Last Documented Vital Signs Temperature 97.6 F 09/19/18 14:06 Pulse Rate 121 H 09/19/18 16:30 Respiratory Rate 17 09/19/18 16:30 Blood Pressure 121/67 09/19/18 16:30 Pulse Oximetry 100 09/19/18 16:30 Medical Decision Making MDM Narrative Medical decision making narrative: EKG shows a paced rhythm at a rate of 120 bpm. IV fluids were given in the ER. And at this point, lab work shows leukocytosis. There is concern of possible underlying sepsis and IV antibiotics were initiated. The rest of the lab work was unremarkable. At this point, my plan would be to admit the patient for possible sepsis. Case is discussed with Dr. Can for admission. Pacemaker rep has been asked to evaluate pacemaker as well. Medical Screen Exam Complete: Yes Emergency Medical Condition: Yes Lab Data Result diagrams: 09/19/18 14:30 09/19/18 14:30 Lab Results 09/19/18 09/19/18 09/19/18 Range/Units 14:30 14:30 14:30 WBC 15.3 H (4.0-11.0) th/mm3 RBC 3.93 L (4.50-5.90) mil/mm3 Hgb 12.6 L (13.0-17.0) gm/dL Hct 36.2 L (39.0-51.0) % MCV 92.1 (80.0-100.0) fL MCH 31.9 (27.0-34.0) pg MCHC 34.7 (32.0-36.0) % RDW 13.2 (11.6-17.2) % Plt Count 332 D (150-450) th/mm3 MPV 7.4 (7.0-11.0) fL Neut % (Auto) 87.1 H (16.0-70.0) % Lymph % (Auto) 2.5 L (9.0-44.0) % [place] % (Auto) 9.6 H (0.0-8.0) % Eos % (Auto) 0.5 (0.0-4.0) % Baso % (Auto) 0.3 (0.0-2.0) % Neut # (Auto) 13.3 H (1.8-7.7) th/mm3 Lymph # (Auto) 0.4 L (1.0-4.8) th/mm3 [place] # (Auto) 1.5 H (0.0-0.9) th/mm3 Eos # (Auto) 0.1 (0.0-0.4) th/mm3 Baso # (Auto) 0.0 (0.0-0.2) th/mm3 WBC Differential . Differential Comment Auto diff final PT 11.9 H (9.8-11.6) sec INR 1.2 Ratio Sodium 136 (136-145) meq/L Potassium 4.2 (3.5-5.1) meq/L Chloride 102 (98-107) meq/L Carbon Dioxide 21.9 (21.0-32.0) meq/L Anion Gap 12 (5-15) meq/L BUN 13 (7-18) mg/dL Creatinine 0.81 (0.60-1.30) mg/dL Estimated GFR Greater than 89 (>89) mL/min Random Glucose 117 H (74-106) mg/dL Calcium 8.7 (8.5-10.1) mg/dL Total Bilirubin 1.7 H (0.2-1.0) mg/dL AST 32 (15-37) U/L ALT 46 (12-78) U/L Alkaline Phosphatase 203 H (45-117) U/L Troponin I Less than 0.02 L (0.02-0.05) ng/mL Total Protein 6.4 (6.4-8.2) g/dL Albumin 3.1 L (3.4-5.0) g/dL Urine Color (Yellw/Straw) Urine Clarity (Clear) Urine pH (5.0-8.5) Ur Specific [place] (1.002-1.035) Urine Protein (Neg-Trace) mg/dL Urine Glucose (UA) (Negative) mg/dL Urine Ketones (Negative) mg/dL Urine Occult Blood (Negative) Urine Nitrate (Negative) Urine Bilirubin (Negative) Urine Urobilinogen (Less than 2) mg/dL Ur Leukocyte Esterase (Negative) Urine RBC (0-3) /hpf Urine WBC (0-5) /hpf Ur Squamous Epith Cells (0-5) /hpf Hyaline Casts (0-3) /lpf Urine Mucus (Occasional) /lpf Micro UA Comment Ur Microscopic Review Urine Culture Comments 09/19/18 Range/Units 15:30 WBC (4.0-11.0) th/mm3 RBC (4.50-5.90) mil/mm3 Hgb (13.0-17.0) gm/dL Hct (39.0-51.0) % MCV (80.0-100.0) fL MCH (27.0-34.0) pg MCHC (32.0-36.0) % RDW (11.6-17.2) % Plt Count (150-450) th/mm3 MPV (7.0-11.0) fL Neut % (Auto) (16.0-70.0) % Lymph % (Auto) (9.0-44.0) % [place] % (Auto) (0.0-8.0) % Eos % (Auto) (0.0-4.0) % Baso % (Auto) (0.0-2.0) % Neut # (Auto) (1.8-7.7) th/mm3 Lymph # (Auto) (1.0-4.8) th/mm3 [place] # (Auto) (0.0-0.9) th/mm3 Eos # (Auto) (0.0-0.4) th/mm3 Baso # (Auto) (0.0-0.2) th/mm3 WBC Differential Differential Comment PT (9.8-11.6) sec INR Ratio Sodium (136-145) meq/L Potassium (3.5-5.1) meq/L Chloride (98-107) meq/L Carbon Dioxide (21.0-32.0) meq/L Anion Gap (5-15) meq/L BUN (7-18) mg/dL Creatinine (0.60-1.30) mg/dL Estimated GFR (>89) mL/min Random Glucose (74-106) mg/dL Calcium (8.5-10.1) mg/dL Total Bilirubin (0.2-1.0) mg/dL AST (15-37) U/L ALT (12-78) U/L Alkaline Phosphatase (45-117) U/L Troponin I (0.02-0.05) ng/mL Total Protein (6.4-8.2) g/dL Albumin (3.4-5.0) g/dL Urine Color Mai (Yellw/Straw) Urine Clarity Hazy H (Clear) Urine pH 5.0 (5.0-8.5) Ur Specific [place] 1.028 (1.002-1.035) Urine Protein 30 H (Neg-Trace) mg/dL Urine Glucose (UA) Negative (Negative) mg/dL Urine Ketones 20 (Negative) mg/dL Urine Occult Blood Negative (Negative) Urine Nitrate Negative (Negative) Urine Bilirubin Negative (Negative) Urine Urobilinogen 2.0 H (Less than 2) mg/dL Ur Leukocyte Esterase Negative (Negative) Urine RBC 1 (0-3) /hpf Urine WBC 3 (0-5) /hpf Ur Squamous Epith Cells <1 (0-5) /hpf Hyaline Casts 1 (0-3) /lpf Urine Mucus Many H (Occasional) /lpf Micro UA Comment Culture not ind Ur Microscopic Review Not Reportable Urine Culture Comments Culture not ind Imaging Data Radiologist's impression: Chest X-Ray 09/19/18 14:17 CONCLUSION: Mild cardiomegaly. No evidence of acute process. Stable pacemaker. Discharge Plan Discharge Disposition Patient Disposition: 30 Still Patient Discharge Condition Condition: Fair Discharge Details Anticipated Discharge Date: 09/19/18 Diagnosis: Sepsis Physicians Team ED Provider: Kaushik Fermin Primary Care Provider: Shellie Hensley Rxs /Orders / Referrals /Forms Prescriptions: No Action atorvastatin 20 mg Tablet 20 mg PO DAILY RF: 0 clopidogrel 75 mg Tablet 75 mg PO DAILY RF: 0 aspirin [Aspir-81] 81 mg Tablet,Delayed Release (Dr/Ec) 81 mg PO DAILY RF: 0 isosorbide mononitrate 60 mg Tablet Extended Release 24 Hr 60 mg PO DAILY RF: 0 methocarbamol 750 mg Tablet 750 mg PO HS RF: 0 levothyroxine 50 mcg Tablet 50 mcg PO DAILY RF: 0 losartan 25 mg Tablet 25 mg PO DAILY RF: 0 sennosides-docusate sodium [Senna Plus] 8.6-50 mg Tablet 1 tab PO BID Qty: 60 RF: 0 Discharge Interventions Interventions: Vital Signs Last Done: 09/19/18 16:30 Status ED Status: With Doctor
[2018-09-19 14:46] LABS: Baso % (Auto) 0.3 % (0.0-2.0); Eos # (Auto) 0.1 th/mm3 (0.0-0.4); Eos % (Auto) 0.5 % (0.0-4.0); Hematocrit 36.2 % (39.0-51.0); Hemoglobin 12.6 gm/dL (13.0-17.0); Lymph # (Auto) 0.4 th/mm3 (1.0-4.8); Lymph % (Auto) 2.5 % (9.0-44.0); Mean Corpuscular HGB Conc 34.7 % (32.0-36.0); Mean Corpuscular Hemoglobin 31.9 pg (27.0-34.0); Mean Corpuscular Volume 92.1 fL (80.0-100.0); Mean Platelet Volume 7.4 fL (7.0-11.0); Mono # (Auto) 1.5 th/mm3 (0.0-0.9); Mono % (Auto) 9.6 % (0.0-8.0); Neut # (Auto) 13.3 th/mm3 (1.8-7.7); Neut % (Auto) 87.1 % (16.0-70.0); Platelet Count 332 th/mm3 (150-450); Red Blood Count 3.93 mil/mm3 (4.50-5.90); Red Cell Distribution Width 13.2 % (11.6-17.2); White Blood Count 15.3 th/mm3 (4.0-11.0)
--- NOTE | 2018-09-19 14:48 | XR ---
EXAM DATE: 09/19/2018 2:41 PM EST AGE/SEX: 68 years / Male INDICATIONS: Heart palpitations. CLINICAL DATA: This is the patient's initial encounter. Patient reports that signs and symptoms have been present for 1 day and indicates a pain score of 5/10. MEDICAL/SURGICAL HISTORY: Hypertension. Pacemaker. COMPARISON: [facility] – [place], [place]ST 1V SINGLE AP, 09/04/2018. . FINDINGS: A single AP view of the chest demonstrates the lungs to be symmetrically aerated without evidence of mass, infiltrate or effusion. Heart is mildly enlarged. Pacemaker is noted in place. The cardiomedias tinal contours are otherwise unremarkable. Osseous structures are intact. CONCLUSION: Mild cardiomegaly. No evidence of acute process. Stable pacemaker. Electronically signed by: Rubén Barrios MD 09/19/2018 2:47 PM EST
[2018-09-19 14:55] LABS: INR 1.2 Ratio; Prothrombin Time 11.9 sec (9.8-11.6)
[2018-09-19 15:14] LABS: Albumin 3.1 g/dL (3.4-5.0); Anion Gap 12 meq/L (5-15); Aspartate Aminotransferase 32 U/L (15-37); Blood Urea Nitrogen 13 mg/dL (7-18); Calcium 8.7 mg/dL (8.5-10.1); Carbon Dioxide 21.9 meq/L (21.0-32.0); Chloride 102 meq/L (98-107); Glomerular Filtration Rate Greater Than 89 mL/min (>89); Glucose,Random 117 mg/dL (74-106); Potassium 4.2 meq/L (3.5-5.1); Sodium 136 meq/L (136-145)
[2018-09-19 15:25] LABS: Alanine Aminotransferase 46 U/L (12-78); Alkaline Phosphatase 203 U/L (45-117); Total Protein 6.4 g/dL (6.4-8.2)
[2018-09-19] MEDS ORDERED: Piperacil/Tazo 2.25 GM Premix 50 ML IV.SIG ONE (15:57)
[2018-09-19] MEDS ORDERED: Acetaminophen 500 MG Tablet PO ONE (15:57)
[2018-09-19 16:45] LABS: Bilirubin,Urine Negative (Negative); Clarity,Urine Hazy (Clear); Color,Urine Amber (Yellw/Straw); Glucose,Urine (UA) Negative (Negative); Hyaline Casts,Urine 1 /lpf (0-3); Leukocyte Esterase,Urine Negative (Negative); Mucus,Urine Many /lpf (Occasional); Nitrite,Urine Negative (Negative); Specific Gravity,Urine 1.028 (1.002-1.035); Squamous Epithelial Cell,Urine <1 /hpf (0-5)
--- NOTE | 2018-09-19 18:34 | P.HP ---
History of Present Illness Primary Care Physician: Heather Heather History of Present Illness: 68-year-old white male being admitted for possible sepsis. Patient was in his usual state of health until sometime earlier this morning began experiencing fluttering in his chest and generalized weakness with fatigue. says he has been getting poor sleep since last night. Patient denies any nausea vomiting diarrhea or any fevers. He denies any out right new chest pain. Reports that the insertion site for his pacemaker is sore, he also reports having a little left-sided chest pain which is just medial to the insertion site which he at best describes in a vague and intermittent fashion. In the emergency department patient had a chest x-ray done which I independently reviewed which was quite clear. Blood work showed leukocytosis of 15,000 and tachycardia into the 110s. Recently had a dual chamber pacemaker placed within on 09/04 for Symptomatic bradycardia, symptomatic second degree AV block. Inpatient Certification: I certify that the inpatient services were ordered in accordance with Medicare regulations governing the order. This includes certification that hospital inpatient services are reasonable and necessary and in the case of services not specified as inpatient-only under 42 CFR 419.22(n), that they are appropriately provided as inpatient services in accordance to with the 2-midnight benchmark under 43 CFR 412.3(e) Estimated Total Length of Stay (Days): 2 Plans for Post Hospital Care: Not yet determined Review of Systems All other systems reviewed negative except as stated in HPI PMFSH - History History Provided By: Patient - Medical History Medical History: Medical History (Last Reviewed 09/19/18 @ 18:43 by Davon Can MD) CAD (coronary artery disease) Hyperchloremia Hypertension Hypothyroid - Family History Family History: Family History (Last Updated 09/19/18 @ 18:44 by Davon Can MD) Other Diabetes Stroke - Social History I have reviewed the patient's Social History: Yes - Tobacco History Second Hand Smoke Exposure: No Tobacco Use In Past 30 Days: No Smoking Status: Former smoker Tobacco Type: Cigarettes - Alcohol History How Often Do You Have a Drink Containing Alcohol: Never - Substance Use History Substance History: No History of Abuse - Travel History Recent Travel in the [place] Within the Last 8 Weeks: No Recent Travel Out of the Country Within the Last 8 Weeks: No - Immunization History Tetanus Immunization: <5 Years Medications and Allergies Active Medications: Active Medications Aspirin (Ecotrin) 81 mg PO DAILY [facility] Atorvastatin Calcium (Lipitor) 20 mg PO DAILY [facility] Clopidogrel Bisulfate (Plavix) 75 mg PO DAILY [facility] Sodium Chloride (Ns Inj) 1,000 mls @ 84 mls/hr IV.CONT .[id number] [facility] Piperacillin/Tazobactam/Dextrose (Zosyn 3.375 Gm Premix) 50 mls @ 100 mls/hr IV.SIG Q6H [facility] Levothyroxine Sodium (Synthroid) 50 mcg PO DAILY [facility] Sodium Chloride (Ns Flush) 2 ml IV.FLUSH BID [facility] Sodium Chloride (Ns Flush) 2 ml IV.FLUSH PRN PRN PRN Reason: FLUSH AFTER USING IV ACCESS Vitamin D (Vitamin D3) 1,000 unit PO DAILY [facility] Allergies Allergy/AdvReac Type Severity Reaction Status Date / Time gabapentin [From Neurontin] Allergy Anaphylaxis Verified 09/01/18 18:04 Home Medications Medication Instructions Recorded Confirmed Type aspirin [Aspir-81] 81 mg PO DAILY 09/01/18 09/19/18 History atorvastatin 20 mg PO DAILY 09/01/18 09/19/18 History clopidogrel 75 mg PO DAILY 09/01/18 09/19/18 History isosorbide mononitrate 60 mg PO DAILY 09/01/18 09/19/18 History levothyroxine 50 mcg PO DAILY 09/01/18 09/19/18 History losartan 25 mg PO DAILY 09/01/18 09/19/18 History methocarbamol 750 mg PO HS 09/01/18 09/19/18 History amoxicillin 500 mg PO DAILY 09/19/18 09/19/18 History cholecalciferol (vitamin D3) 1,000 unit PO DAILY 09/19/18 09/19/18 History [Vitamin D3] Exam Vital signs: Vital Signs 09/19/18 14:06 09/19/18 15:50 09/19/18 16:30 Temperature 97.6 F Pulse Rate 118 H 112 H 121 H Respiratory Rate 18 18 17 Blood Pressure 119/70 120/70 121/67 Pulse Oximetry 98 96 100 09/19/18 18:05 Temperature Pulse Rate 79 Respiratory Rate 18 Blood Pressure 107/66 Pulse Oximetry 99 Intake & Output 09/18/18 09/19/18 09/19/18 18:59 06:59 18:59 Intake Total 1050 / 1050 Balance 1050 / 1050 Weight 107.501 kg Intake: IV 1050 / 1050 Zosyn 2.25 GM Premix 50 ML @ 50 / 50 100 mls/hr IV.SIG ONCE ONE Rx#: [id number] NS Inj 1,000 ML @ Wide Open IV. 1000 / 1000 SIG BOLUS ONE Rx#:[id number] Narrative: VS: afebrile GENERAL: Elderly male, well-nourished, lying in bed, no acute distress SKIN: Warm and dry. Steri-Strips over incision in place over left chest which appears dry clean and intact, ecchymosis noted just lateral to Steri-Strips EYES: Pupils equal and round. No scleral icterus. No injection or drainage. ENT: No nasal bleeding or discharge. Mucous membranes pink and moist. CARDIOVASCULAR: Regular rate and rhythm. no murmurs RESPIRATORY: No accessory muscle use. Clear to auscultation. Breath sounds equal bilaterally. GASTROINTESTINAL: Abdomen soft, non-tender, nondistended. Extremities: No clubbing, cyanosis, or edema. No obvious deformities. MUSCULOSKELETAL: 3/5 proximal upper extremity strength bilaterally, 5/5 proximal lower extremity strength bilaterally. Adequate muscle bulk and tone for age and habitus. No palpable mass felt over left chest that is suggestive of abscess NEUROLOGICAL: Awake and alert. No obvious cranial nerve deficits. No facial droop nor slurred speech noted. PSYCHIATRIC: Appropriate mood and affect; insight and judgment normal. Results - Labs CBC & Chem 7: 09/19/18 14:30 09/19/18 14:30 Labs: Laboratory Results - last 24 hr 09/19/18 09/19/18 09/19/18 14:30 14:30 14:30 WBC 15.3 H RBC 3.93 L Hgb 12.6 L Hct 36.2 L MCV 92.1 MCH 31.9 MCHC 34.7 RDW 13.2 Plt Count 332 D MPV 7.4 Neut % (Auto) 87.1 H Lymph % (Auto) 2.5 L [place] % (Auto) 9.6 H Eos % (Auto) 0.5 Baso % (Auto) 0.3 Neut # (Auto) 13.3 H Lymph # (Auto) 0.4 L [place] # (Auto) 1.5 H Eos # (Auto) 0.1 Baso # (Auto) 0.0 WBC Differential . Differential Comment Auto diff final PT 11.9 H INR 1.2 Sodium 136 Potassium 4.2 Chloride 102 Carbon Dioxide 21.9 Anion Gap 12 BUN 13 Creatinine 0.81 Estimated GFR Greater than 89 Random Glucose 117 H Calcium 8.7 Total Bilirubin 1.7 H AST 32 ALT 46 Alkaline Phosphatase 203 H Troponin I Less than 0.02 L Total Protein 6.4 Albumin 3.1 L Urine Color Urine Clarity Urine pH Ur Specific [place] Urine Protein Urine Glucose (UA) Urine Ketones Urine Occult Blood Urine Nitrate Urine Bilirubin Urine Urobilinogen Ur Leukocyte Esterase Urine RBC Urine WBC Ur Squamous Epith Cells Hyaline Casts Urine Mucus Micro UA Comment Ur Microscopic Review Urine Culture Comments 09/19/18 15:30 WBC RBC Hgb Hct MCV MCH MCHC RDW Plt Count MPV Neut % (Auto) Lymph % (Auto) [place] % (Auto) Eos % (Auto) Baso % (Auto) Neut # (Auto) Lymph # (Auto) [place] # (Auto) Eos # (Auto) Baso # (Auto) WBC Differential Differential Comment PT INR Sodium Potassium Chloride Carbon Dioxide Anion Gap BUN Creatinine Estimated GFR Random Glucose Calcium Total Bilirubin AST ALT Alkaline Phosphatase Troponin I Total Protein Albumin Urine Color Mai Urine Clarity Hazy H Urine pH 5.0 Ur Specific [place] 1.028 Urine Protein 30 H Urine Glucose (UA) Negative Urine Ketones 20 Urine Occult Blood Negative Urine Nitrate Negative Urine Bilirubin Negative Urine Urobilinogen 2.0 H Ur Leukocyte Esterase Negative Urine RBC 1 Urine WBC 3 Ur Squamous Epith Cells <1 Hyaline Casts 1 Urine Mucus Many H Micro UA Comment Culture not ind Ur Microscopic Review Not Reportable Urine Culture Comments Culture not ind - Imaging Impressions Chest X-Ray 09/19/18 14:17 CONCLUSION: Mild cardiomegaly. No evidence of acute process. Stable pacemaker. Caprini VTE Risk Assessment Caprini VTE Risk Assessment: Moderate/High Risk (score >= 2) Caprini Risk Assessment Model: Point Value = 1 Point Value = 2 Point Value = 3 Point Value = 5 Age 41-60 Minor surgery BMI > 25 kg/m2 Swollen legs Varicose veins or History of unexplained or recurrent spontaneous Oral contraceptives or hormone replacement Sepsis (< 1 month) Serious lung disease, including pneumonia (< 1 month) Abnormal pulmonary function Acute myocardial infarction Congestive heart failure (< 1 month) History of inflammatory bowel disease Medical patient at bed rest Age 61-74 Arthroscopic surgery Major open surgery (> 45 min) Laparoscopic surgery (> 45 min) Malignancy Confined to bed (> 72 hours) Immobilizing plaster cast Central venous access Age >= 75 History of VTE Family history of VTE Factor V Leiden Prothrombin [id number] Lupus anticoagulant Anticardiolipin antibodies Elevated serum homocysteine Heparin-induced thrombocytopenia Other congenital or acquired thrombophilia Stroke (< 1 month) Elective arthroplasty Hip, pelvis, or leg fracture Acute spinal cord injury (< 1 month) Prophylaxis Regimen: Total Risk Factor Score Risk Level Prophylaxis Regimen 0-1 Low Early ambulation 2 Moderate Order ONE of the following: *Sequential Compression Device (SCD) *Heparin 5000 units SQ BID 3-4 Higher Order ONE of the following medications: *Heparin 5000 units SQ TID *Enoxaparin/Lovenox 40 mg SQ daily (WT < 150 kg, CrCl > 30 mL/min) *Enoxaparin/Lovenox 30 mg SQ daily (WT < 150 kg, CrCl > 10-29 mL/min) *Enoxaparin/Lovenox 30 mg SQ BID (WT < 150 kg, CrCl > 30 mL/min) AND/OR *Sequential Compression Device (SCD) 5 or more Highest Order ONE of the following medications: *Heparin 5000 units SQ TID (Preferred with Epidurals) *Enoxaparin/Lovenox 40 mg SQ daily (WT < 150 kg, CrCl > 30 mL/min) *Enoxaparin/Lovenox 30 mg SQ daily (WT < 150 kg, CrCl > 10-29 mL/min) *Enoxaparin/Lovenox 30 mg SQ BID (WT < 150 kg, CrCl > 30 mL/min) AND *Sequential Compression Device (SCD) Assessment and Plan - Plan 68-year-old white male being admitted for possible sepsis Possible sepsis Leukocytosis with tachycardia was concerning enough with symptomatology of fatigue and malaise to pursue sepsis workup Repeat CBC in a.m., blood cultures drawn -Urine collection is pending but unlikely to be positive -Continue Zosyn for now, afebrile at this time, if fever does emerge expand antibiotics notably with vancomycin Chest pain We will trend troponins although ACS does not high concern at this time If pain persists and no possible source of sepsis is found can consider performing CT of the chest or ultrasound of the left-sided chest wall where the pacemaker is placed -telemetry Carotid artery disease Continue home aspirin, Lipitor, Plavix Hypothyroidism Continue home Synthroid Hypertension Hold home antihypertensives until sepsis is improving or blood pressure starts to rise drastically Heparin
[2018-09-19] MEDS: Acetaminophen 325 MG Tablet PO PRN (21:49)
[2018-09-19] MEDS: Heparin - SQ 10,000 UNITS/ML Vial SQ SCH (21:49)
[2018-09-19] MEDS: Benzonatate 100 MG Capsule PO PRN (23:06)
[2018-09-19] MEDS: Piperacil/Tazo 3.375 GM Premix 50 ML IV.SIG SCH (23:06)
[2018-09-20] MEDS: Acetaminophen 325 MG Tablet PO PRN ×3 (01:36→17:40)
[2018-09-20] MEDS: Piperacil/Tazo 3.375 GM Premix 50 ML IV.SIG SCH ×4 (04:35→22:27)
[2018-09-20] MEDS: Heparin - SQ 10,000 UNITS/ML Vial SQ SCH ×3 (05:26→22:29)
[2018-09-20] MEDS: Levothyroxine 50 MCG Tablet PO SCH (05:30)
[2018-09-20] MEDS: Sod Chloride 0.9% Inj 1,000 ML IV.CONT SCH ×4 (06:22→22:26)
[2018-09-20 08:42] LABS: Baso % (Auto) 0.5 % (0.0-2.0); Eos # (Auto) 0.3 th/mm3 (0.0-0.4); Eos % (Auto) 3.8 % (0.0-4.0); Hematocrit 33.6 % (39.0-51.0); Hemoglobin 11.6 gm/dL (13.0-17.0); Lymph # (Auto) 0.5 th/mm3 (1.0-4.8); Lymph % (Auto) 5.8 % (9.0-44.0); Mean Corpuscular HGB Conc 34.5 % (32.0-36.0); Mean Corpuscular Hemoglobin 31.9 pg (27.0-34.0); Mean Corpuscular Volume 92.3 fL (80.0-100.0); Mean Platelet Volume 7.5 fL (7.0-11.0); Mono # (Auto) 1.1 th/mm3 (0.0-0.9); Mono % (Auto) 12.6 % (0.0-8.0); Neut # (Auto) 6.6 th/mm3 (1.8-7.7); Neut % (Auto) 77.3 % (16.0-70.0); Platelet Count 216 th/mm3 (150-450); Red Blood Count 3.64 mil/mm3 (4.50-5.90); Red Cell Distribution Width 13.6 % (11.6-17.2); White Blood Count 8.5 th/mm3 (4.0-11.0)
--- NOTE | 2018-09-20 09:23 | P.PNIM ---
Subjective Interval history: No fevers overnight. WBC count has trended downward. No new complaints from the patient. Patient does have pacemaker placement 2 weeks ago. No drainage from site. No overt erythema. Blood cultures negative at 24 hours. Physical Exam Vital signs: Vital Signs 09/19/18 14:06 09/19/18 15:50 09/19/18 16:30 Temperature 97.6 F Pulse Rate 118 H 112 H 121 H Respiratory Rate 18 18 17 Blood Pressure 119/70 120/70 121/67 Pulse Oximetry 98 96 100 09/19/18 18:05 09/19/18 19:46 09/19/18 21:02 Temperature 97.9 F Pulse Rate 79 84 84 Respiratory Rate 18 16 18 Blood Pressure 107/66 122/57 L 137/66 Pulse Oximetry 99 99 99 09/20/18 00:00 09/20/18 00:56 09/20/18 04:00 Temperature 98.6 F 97.8 F Pulse Rate 75 86 82 Respiratory Rate 18 18 Blood Pressure 130/59 L 155/74 H Pulse Oximetry 98 97 09/20/18 08:00 Temperature 96.5 F L Pulse Rate 83 Respiratory Rate 20 Blood Pressure 118/71 Pulse Oximetry 99 Intake & Output 09/19/18 09/20/18 09/20/18 18:59 06:59 18:59 Intake Total 1050 / 1050 640 / 640 1000 / 1000 Output Total 1200 / 1200 Balance 1050 / 1050 -560 / -560 1000 / 1000 Weight 107.501 kg 107.5 kg Intake: IV 1050 / 1050 100 / 100 1000 / 1000 NS Inj 1,000 ML @ 84 mls/hr IV. 1000 / 1000 CONT .[id number] [facility] Rx#:[id number] Zosyn 2.25 GM Premix 50 ML @ 50 / 50 100 mls/hr IV.SIG ONCE ONE Rx#: [id number] Zosyn 3.375 GM Premix 50 ML @ 100 / 100 100 mls/hr IV.SIG Q6H [facility] Rx#: [id number] NS Inj 1,000 ML @ Wide Open IV. 1000 / 1000 [facility] Rx#:[id number] Oral 540 / 540 Output: Urine 1200 / 1200 Narrative: GENERAL: NAD, A&Ox3 HEAD: Normocephalic. NECK: Supple, trachea midline. No lymphadenopathy. EYES: No scleral icterus. No injection or drainage. CARDIOVASCULAR: Regular rate and rhythm without murmurs, gallops, or rubs. RESPIRATORY: Breath sounds equal bilaterally. No accessory muscle use. GASTROINTESTINAL: Abdomen soft, non-tender, nondistended. MUSCULOSKELETAL: No cyanosis, or edema. SKIN: Warm and dry. Left side of chest has a pacemaker wound which is healing well without evidence of external infection. NEURO: No focal neurological deficits. Results - Labs CBC & Chem 7: 09/20/18 08:14 09/19/18 14:30 Laboratory Results - last 24 hr 09/19/18 09/19/18 09/19/18 14:30 14:30 14:30 WBC 15.3 H RBC 3.93 L Hgb 12.6 L Hct 36.2 L MCV 92.1 MCH 31.9 MCHC 34.7 RDW 13.2 Plt Count 332 D MPV 7.4 Neut % (Auto) 87.1 H Lymph % (Auto) 2.5 L [place] % (Auto) 9.6 H Eos % (Auto) 0.5 Baso % (Auto) 0.3 Neut # (Auto) 13.3 H Lymph # (Auto) 0.4 L [place] # (Auto) 1.5 H Eos # (Auto) 0.1 Baso # (Auto) 0.0 WBC Differential . Differential Comment Auto diff final PT 11.9 H INR 1.2 Sodium 136 Potassium 4.2 Chloride 102 Carbon Dioxide 21.9 Anion Gap 12 BUN 13 Creatinine 0.81 Estimated GFR Greater than 89 Random Glucose 117 H Calcium 8.7 Total Bilirubin 1.7 H AST 32 ALT 46 Alkaline Phosphatase 203 H Troponin I Less than 0.02 L Total Protein 6.4 Albumin 3.1 L Urine Color Urine Clarity Urine pH Ur Specific [place] Urine Protein Urine Glucose (UA) Urine Ketones Urine Occult Blood Urine Nitrate Urine Bilirubin Urine Urobilinogen Ur Leukocyte Esterase Urine RBC Urine WBC Ur Squamous Epith Cells Hyaline Casts Urine Mucus Micro UA Comment Ur Microscopic Review Urine Culture Comments 09/19/18 09/19/18 09/20/18 15:30 20:10 08:14 WBC 8.5 RBC 3.64 L Hgb 11.6 L Hct 33.6 L MCV 92.3 MCH 31.9 MCHC 34.5 RDW 13.6 Plt Count 216 D MPV 7.5 Neut % (Auto) 77.3 H Lymph % (Auto) 5.8 L [place] % (Auto) 12.6 H Eos % (Auto) 3.8 Baso % (Auto) 0.5 Neut # (Auto) 6.6 Lymph # (Auto) 0.5 L [place] # (Auto) 1.1 H Eos # (Auto) 0.3 Baso # (Auto) 0.0 WBC Differential . Differential Comment Auto diff final PT INR Sodium Potassium Chloride Carbon Dioxide Anion Gap BUN Creatinine Estimated GFR Random Glucose Calcium Total Bilirubin AST ALT Alkaline Phosphatase Troponin I Less than 0.02 L Total Protein Albumin Urine Color [place] Urine Clarity Hazy H Urine pH 5.0 Ur Specific [place] 1.028 Urine Protein 30 H Urine Glucose (UA) Negative Urine Ketones 20 Urine Occult Blood Negative Urine Nitrate Negative Urine Bilirubin Negative Urine Urobilinogen 2.0 H Ur Leukocyte Esterase Negative Urine RBC 1 Urine WBC 3 Ur Squamous Epith Cells <1 Hyaline Casts 1 Urine Mucus Many H Micro UA Comment Culture not ind Ur Microscopic Review Not Reportable Urine Culture Comments Culture not ind - Imaging Impressions Chest X-Ray 09/19/18 14:17 CONCLUSION: Mild cardiomegaly. No evidence of acute process. Stable pacemaker. Assessment and Plan - Plan 68-year-old white male being admitted for possible sepsis Sepsis Leukocytosis Etiology of infection unknown Continue Zosyn Continue monitoring blood cultures Continue vancomycin Monitor for any recurrence of fevers or sepsis Chest pain No chest pain this morning ACS workup negative Follow on telemetry Carotid artery disease Continue aspirin, Lipitor, Plavix Hypothyroidism Continue Synthroid Hypertension Follow blood pressures
--- NOTE | 2018-09-20 10:11 | ECG ---
Date Performed: 09/19/2018 Time Performed: 14:14:52 PTAGE: 68 years EKG: ELECTRONIC VENTRICULAR PACEMAKER ABNORMAL RHYTHM ECG Since the PREVIOUS TRACING , no significant change noted PREVIOUS TRACIN09/04/18 DOCTOR: Blair Banks Interpretating Date/Time 09/20/2018 10:09:55
[2018-09-20] MEDS: Benzonatate 100 MG Capsule PO PRN (17:39)
[2018-09-20] MEDS ORDERED: Morphine Sulfate Inj 2 MG/ML Vial IV.PUSH ONE (20:00)
[2018-09-20] MEDS ORDERED: Vancomycin Consult Pharmacy OTHER PRN (21:43)
[2018-09-20] MEDS ORDERED: Vancomycin Inj 1,000 MG in Sodium Chlor 0.9% Inj 250 ML IV.SIG ONE (21:45)
[2018-09-20] MEDS ORDERED: Vancomycin Inj 2,000 MG in Sodium Chlor 0.9% Inj 500 ML IV.SIG ONE (22:00)
[2018-09-21] MEDS: Benzonatate 100 MG Capsule PO PRN ×2 (01:18→18:24)
[2018-09-21 04:34] LABS: Baso % (Auto) 0.3 % (0.0-2.0); Eos # (Auto) 0.3 th/mm3 (0.0-0.4); Eos % (Auto) 2.2 % (0.0-4.0); Hematocrit 39.2 % (39.0-51.0); Hemoglobin 13.6 gm/dL (13.0-17.0); Lymph # (Auto) 0.7 th/mm3 (1.0-4.8); Lymph % (Auto) 5.3 % (9.0-44.0); Mean Corpuscular HGB Conc 34.6 % (32.0-36.0); Mean Corpuscular Hemoglobin 31.4 pg (27.0-34.0); Mean Corpuscular Volume 90.8 fL (80.0-100.0); Mean Platelet Volume 7.7 fL (7.0-11.0); Mono # (Auto) 1.3 th/mm3 (0.0-0.9); Mono % (Auto) 10.3 % (0.0-8.0); Neut # (Auto) 10.2 th/mm3 (1.8-7.7); Neut % (Auto) 81.9 % (16.0-70.0); Platelet Count 327 th/mm3 (150-450); Red Blood Count 4.32 mil/mm3 (4.50-5.90); Red Cell Distribution Width 13.3 % (11.6-17.2); White Blood Count 12.5 th/mm3 (4.0-11.0)
[2018-09-21 05:04] LABS: Alanine Aminotransferase 61 U/L (12-78)
[2018-09-21 05:08] LABS: Alkaline Phosphatase 295 U/L (45-117); Total Protein 6.7 g/dL (6.4-8.2)
[2018-09-21 05:11] LABS: Albumin 2.9 g/dL (3.4-5.0); Anion Gap 11 meq/L (5-15); Aspartate Aminotransferase 43 U/L (15-37); Blood Urea Nitrogen 13 mg/dL (7-18); Calcium 8.4 mg/dL (8.5-10.1); Carbon Dioxide 22.7 meq/L (21.0-32.0); Chloride 102 meq/L (98-107); Glomerular Filtration Rate 79 mL/min (>89); Glucose,Random 106 mg/dL (74-106); Potassium 4.2 meq/L (3.5-5.1); Sodium 136 meq/L (136-145)
[2018-09-21] MEDS: Heparin - SQ 10,000 UNITS/ML Vial SQ SCH ×3 (05:25→21:11)
[2018-09-21] MEDS: Piperacil/Tazo 3.375 GM Premix 50 ML IV.SIG SCH ×2 (05:25→09:51)
[2018-09-21] MEDS: Levothyroxine 50 MCG Tablet PO SCH (05:25)
[2018-09-21] MEDS: Acetaminophen 325 MG Tablet PO PRN ×3 (05:25→18:24)
[2018-09-21] MEDS: Sod Chloride 0.9% Inj 1,000 ML IV.CONT SCH ×3 (06:41→20:56)
--- NOTE | 2018-09-21 08:47 | P.PNIM ---
Subjective Interval history: f/u; generalized weakness in no acute distress. but feels weak. no fever. no chest pain or sob today. Physical Exam Vital signs: Vital Signs 09/20/18 09:00 09/20/18 12:00 09/20/18 16:00 Temperature 96.1 F L 96.3 F L Pulse Rate 84 81 83 Respiratory Rate 20 20 Blood Pressure 127/70 172/79 H Pulse Oximetry 98 09/20/18 18:00 09/20/18 19:54 09/20/18 20:00 Temperature 96.6 F L 97.9 F Pulse Rate 81 73 Respiratory Rate 20 16 18 Blood Pressure 142/64 H 124/59 L Pulse Oximetry 95 97 09/21/18 00:00 09/21/18 04:00 09/21/18 05:13 Temperature 98.1 F 97.7 F Pulse Rate 75 87 84 Respiratory Rate 18 18 20 Blood Pressure 145/59 H 155/78 H Pulse Oximetry 97 95 09/21/18 08:00 Temperature 97.2 F L Pulse Rate 80 Respiratory Rate 22 Blood Pressure 150/90 H Pulse Oximetry 96 Intake & Output 09/20/18 09/21/18 09/21/18 18:59 06:59 18:59 Intake Total 2100 / 2100 1640 / 1640 Output Total 500 / 500 800 / 800 Balance 1600 / 1600 840 / 840 Weight 102.3 kg Intake: IV 2099 / 2099 1640 / 1640 NS Inj 1,000 ML @ 84 mls/hr IV. 1999 / 1999 1000 / 1000 CONT .[id number] [facility] Rx#:[id number] Zosyn 3.375 GM Premix 50 ML @ 100 / 100 100 / 100 100 mls/hr IV.SIG Q6H [facility] Rx#: [id number] Vancomycin Inj 2,000 MG In NS 540 / 540 Inj 500 ML @ 270 mls/hr IV.SIG ONCE ONE Rx#:[id number] Output: Urine 500 / 500 800 / 800 Other: Date of Last Bowel Movement 09/20/18 - Constitutional no acute distress - Detailed Chest Wall Exam Comments: site of the pacemaker looks clean with no erythema. - Routine Respiratory Exam Present: CTA bilaterally - Routine Cardiovascular Exam Present: RRR - Routine Abdominal Exam Present: soft - Routine Extremities Exam Comments: mild bilateral pedal edema. - Routine Neurological Exam Present: alert, oriented X3 Results - Labs CBC & Chem 7: 09/21/18 04:21 09/21/18 04:21 Laboratory Results - last 24 hr 09/20/18 09/20/18 09/21/18 08:14 21:49 04:21 WBC 8.5 RBC 3.64 L Hgb 11.6 L Hct 33.6 L MCV 92.3 MCH 31.9 MCHC 34.5 RDW 13.6 Plt Count 216 D MPV 7.5 Neut % (Auto) 77.3 H Lymph % (Auto) 5.8 L [place] % (Auto) 12.6 H Eos % (Auto) 3.8 Baso % (Auto) 0.5 Neut # (Auto) 6.6 Lymph # (Auto) 0.5 L [place] # (Auto) 1.1 H Eos # (Auto) 0.3 Baso # (Auto) 0.0 WBC Differential . Differential Comment Auto diff final Sodium 136 Potassium 4.2 Chloride 102 Carbon Dioxide 22.7 Anion Gap 11 BUN 13 Creatinine 0.94 Estimated GFR 79 L Random Glucose 106 Calcium 8.4 L Total Bilirubin 1.1 H AST 43 H ALT 61 Alkaline Phosphatase 295 H Troponin I Less than 0.02 L Less than 0.02 L Total Protein 6.7 Albumin 2.9 L 09/21/18 04:21 WBC 12.5 H RBC 4.32 L Hgb 13.6 D Hct 39.2 MCV 90.8 MCH 31.4 MCHC 34.6 RDW 13.3 Plt Count 327 D MPV 7.7 Neut % (Auto) 81.9 H Lymph % (Auto) 5.3 L [place] % (Auto) 10.3 H Eos % (Auto) 2.2 Baso % (Auto) 0.3 Neut # (Auto) 10.2 H Lymph # (Auto) 0.7 L [place] # (Auto) 1.3 H Eos # (Auto) 0.3 Baso # (Auto) 0.0 WBC Differential . Differential Comment Auto diff final Sodium Potassium Chloride Carbon Dioxide Anion Gap BUN Creatinine Estimated GFR Random Glucose Calcium Total Bilirubin AST ALT Alkaline Phosphatase Troponin I Total Protein Albumin Microbiology 09/19/18 14:35 Blood - Peripheral Aerobic Blood Culture - Preliminary No growth in 1 day 09/19/18 14:35 Blood - Peripheral Anaerobic Blood Culture - Preliminary gram positive cocci 09/19/18 14:30 Blood - Peripheral Aerobic Blood Culture - Preliminary No growth in 1 day 09/19/18 14:30 Blood - Peripheral Anaerobic Blood Culture - Preliminary No growth in 1 day Assessment and Plan - Plan SIRS Continue Zosyn Continue monitoring blood cultures; two bottles of the blood cultures with gram positive cocci;will consult ID. Continue vancomycin Monitor for any recurrence of fevers or sepsis Chest pain s/p recent pacemaker placement No chest pain this morning ACS workup negative Follow on telemetry Carotid artery disease Continue aspirin, Lipitor, Plavix Hypothyroidism Continue Synthroid Hypertension Follow blood pressures generalized weakness PT consulted. Discharge Planning: case management consulted to assist with dc planning.
--- NOTE | 2018-09-21 11:27 | P.CONID ---
History of Present Illness Service: Infectious Disease Consult date: 09/21/18 Requesting Physician: Judy Castro Reason for Consult: Evaluate patient with recent pacemaker placement, has positive blood cultur Primary Care Provider: [facility] History of Present Illness: Patient seen and examined. Records reviewed. Patient is a 68-year-old male, recently hospitalized last September 01 when he presented with chest pain. He was diagnosed to have symptomatic bradycardia, and has second-degree AV block. He had an echo at that time which showed aortic valve sclerosis, mild AI, and trace TR, and an EF of 55%. He had placement of a temporary transvenous pacemaker at that time. He subsequently underwent placement of a dual-chamber permanent pacemaker on September 04, and was discharge. He was apparently doing well, and was seen by his pr internship, and everything looked okay at that time, with instructions to follow-up in 6-8 months. On the early childhood education coordinator of admission patient apparently started having problem with some chest discomfort, some fluttering in his chest. He apparently has been having significant weakness, and has not been sleeping well the last couple nights. He has some soreness on his pacemaker but not really bad. He has not had any fever chills or sweats. Denies any nausea or vomiting , diarrhea or any urinary complaints. He has not had any respiratory symptoms as far as cough or congestion or any sore throat. On presentation patient was afebrile. He had a white count of 16,000, and he was tachycardic. 2 blood cultures were done at that time, and they are now reported as growing gram-positive cocci in pairs and clusters. Patient was admitted as a sepsis, and has been on Zosyn and vancomycin. His chest x-ray looked clear. Patient currently is complaining of pain in both shoulders and and hands, but worse on the right. He just received some pain medication, and the pain is currently under control. Infectious disease consultation has been requested to assist with evaluation and treatment. Review of Systems Constitutional: Reports fatigue, Reports lack of energy, Denies chills, Denies fever(s), Denies night sweats Eyes: Denies discharge, Denies dry eyes Ears, Nose, Mouth, and Throat: Denies difficulty swallowing, Denies mouth lesions, Denies nasal discharge, Denies pain with swallowing, Denies sore throat Cardiovascular: Reports chest pain, Reports rapid, pounding, or irregular heartbeat, Reports shortness of breath, Denies generalized swelling Respiratory: Reports shortness of breath, Denies chest congestion, Denies cough Gastrointestinal: Denies abdominal pain, Denies loose stools, Denies nausea, Denies pain with swallowing, Denies vomiting Genitourinary: Denies painful urination, Denies urinary frequency Musculoskeletal: Reports joint pain, Denies joint swelling Skin/Breast: Denies rash, Denies yellowing of the skin Neurologic: Denies headache(s) PMFSH - History History Provided By: Patient - Medical History Medical History: Medical History (Last Updated 09/21/18 @ 11:21 by Sanam Huber MD) Pacemaker CAD (coronary artery disease) Hyperchloremia Hypertension Hypothyroid - Family History Family History: Family History (Last Reviewed 09/21/18 @ 11:21 by Sanam Huber MD) Other Diabetes Stroke - Tobacco History Second Hand Smoke Exposure: No Tobacco Use In Past 30 Days: No Smoking Status: Former smoker Tobacco Type: Cigarettes - Alcohol History How Often Do You Have a Drink Containing Alcohol: Monthly or less - Substance Use History Substance History: No History of Abuse - Travel History Recent Travel in the [place] Within the Last 8 Weeks: No Recent Travel Out of the Country Within the Last 8 Weeks: No - Immunization History Tetanus Immunization: <5 Years Medications and Allergies Active Medications: Active Medications Acetaminophen (Tylenol) 650 mg PO Q4H PRN PRN Reason: fever or haddad Last Admin: 09/21/18 05:25 Dose: 650 mg Hydrocodone Bitart/Acetaminophen ([place] 5/325) 1 tab PO Q6H PRN PRN Reason: pain 5-10 Last Admin: 09/21/18 09:52 Dose: 1 tab Albuterol (Duoneb Neb (Prn)) 1 ampul NEB Q4HR NEB PRN PRN Reason: sob Last Admin: 09/21/18 05:11 Dose: 1 ampul Aspirin (Ecotrin) 81 mg PO DAILY [facility] Last Admin: 09/21/18 09:52 Dose: 81 mg Atorvastatin Calcium (Lipitor) 20 mg PO DAILY [facility] Last Admin: 09/21/18 09:52 Dose: 20 mg Benzonatate (Tessalon Perles) 100 mg PO Q8H PRN PRN Reason: CONSTIPATION Last Admin: 09/21/18 01:18 Dose: 100 mg Clopidogrel Bisulfate (Plavix) 75 mg PO DAILY [facility] Last Admin: 09/21/18 09:52 Dose: 75 mg Heparin Sodium (Porcine) (Heparin Inj) 5,000 units SQ Q8HR [facility] Last Admin: 09/21/18 05:25 Dose: 5,000 units Sodium Chloride (Ns Inj) 1,000 mls @ 84 mls/hr IV.CONT .[id number] [facility] Last Admin: 09/21/18 06:41 Dose: Not Given Piperacillin/Tazobactam/Dextrose (Zosyn 3.375 Gm Premix) 50 mls @ 100 mls/hr IV.SIG Q6H [facility] Last Admin: 09/21/18 09:51 Dose: 100 mls/hr Levothyroxine Sodium (Synthroid) 50 mcg PO DAILY@0600 [facility] Last Admin: 09/21/18 05:25 Dose: 50 mcg Pharmacy Profile Note (Vancomycin Consult Pharmacy) 1 each OTHER UNSCH PRN PRN Reason: Pharmacy to dose Sodium Chloride (Ns Flush) 2 ml IV.FLUSH BID [facility] Last Admin: 09/21/18 09:54 Dose: Not Given Sodium Chloride (Ns Flush) 2 ml IV.FLUSH PRN PRN PRN Reason: FLUSH AFTER USING IV ACCESS Vitamin D (Vitamin D3) 1,000 unit PO DAILY [facility] Last Admin: 09/21/18 09:52 Dose: 1,000 unit Allergies Allergy/AdvReac Type Severity Reaction Status Date / Time gabapentin [From Neurontin] Allergy Anaphylaxis Verified 09/01/18 18:04 Home Medications Medication Instructions Recorded Confirmed Type aspirin [Aspir-81] 81 mg PO DAILY 09/01/18 09/19/18 History atorvastatin 20 mg PO DAILY 09/01/18 09/19/18 History clopidogrel 75 mg PO DAILY 09/01/18 09/19/18 History isosorbide mononitrate 60 mg PO DAILY 09/01/18 09/19/18 History levothyroxine 50 mcg PO DAILY 09/01/18 09/19/18 History losartan 25 mg PO DAILY 09/01/18 09/19/18 History methocarbamol 750 mg PO HS 09/01/18 09/19/18 History amoxicillin 500 mg PO DAILY 09/19/18 09/19/18 History cholecalciferol (vitamin D3) 1,000 unit PO DAILY 09/19/18 09/19/18 History [Vitamin D3] Exam Vital signs: Vital Signs 09/20/18 12:00 09/20/18 16:00 09/20/18 18:00 Temperature 96.1 F L 96.3 F L 96.6 F L Pulse Rate 81 83 81 Respiratory Rate 20 20 20 Blood Pressure 127/70 172/79 H 142/64 H Pulse Oximetry 98 95 09/20/18 19:54 09/20/18 20:00 09/21/18 00:00 Temperature 97.9 F 98.1 F Pulse Rate 73 75 Respiratory Rate 16 18 18 Blood Pressure 124/59 L 145/59 H Pulse Oximetry 97 97 09/21/18 04:00 09/21/18 05:13 09/21/18 08:00 Temperature 97.7 F 97.2 F L Pulse Rate 87 84 80 Respiratory Rate 18 20 22 Blood Pressure 155/78 H 150/90 H Pulse Oximetry 95 96 Intake & Output 09/20/18 09/21/18 09/21/18 18:59 06:59 18:59 Intake Total 2100 / 2100 1640 / 1640 Output Total 500 / 500 800 / 800 Balance 1600 / 1600 840 / 840 Weight 102.3 kg Intake: IV 2099 / 2100 1640 / 1640 NS Inj 1,000 ML @ 84 mls/hr IV. 1999 / 1999 1000 / 1000 CONT .[id number] [facility] Rx#:[id number] Zosyn 3.375 GM Premix 50 ML @ 100 / 100 100 / 100 100 mls/hr IV.SIG Q6H [facility] Rx#: [id number] Vancomycin Inj 2,000 MG In NS 540 / 540 Inj 500 ML @ 270 mls/hr IV.SIG ONCE ONE Rx#:[id number] Output: Urine 500 / 500 800 / 800 Other: Date of Last Bowel Movement 09/20/18 Narrative: Physical examination GENERAL: Patient is a well-nourished, well-developed male, awake, slow to respond, looks mildly dyspneic during my exam. SKIN: Cool and dry. No generalized rash, no ecchymoses and no evidence of embolic lesions. HEAD: Atraumatic. Normocephalic. No temporal wasting, or tenderness. EYES: [place] conjunctiva. No petechia or hemorrhage. Pupils equal, round and reactive to light. Extraocular movements full and intact. No scleral icterus. No injection or drainage. EARS, NOSE AND THROAT: Nose without bleeding or purulent nasal discharge. No sinus tenderness. Mucous membranes pink and moist. No oral lesions noted. No exudate. No oral thrush. NECK: Trachea midline. Supple and not tender, no meningeal signs CARDIOVASCULAR: Regular rate and rhythm. No murmurs, rubs or gallops heard. Pacemaker in L upper chest with some mild ecchymoses laterally, no redness, no induration, no tenderness, has steristrips in place with some old blood in the strips medially. RESPIRATORY: Clear to auscultation. Breath sounds equal bilaterally. No rales , wheezing or rhonchi. Decreased at the bases ABDOMEN: Soft, non-tender, nondistended. Bowel sounds present and normoactive. No guarding. No rebound. No organomegaly. EXTREMITIES: No clubbing, cyanosis, or edema. Has brownish pigmentation both legs. No calf tenderness. Well perfused and warm. R shoulder has no swelling , no redness, and has good ROM NEUROLOGICAL: Awake and alert, slow to answer my questions. Cranial nerves grossly intact. Motor grossly within normal limits. PSYCHIATRIC: Normal affect, calm and cooperative. LINE: No evidence of infection Results - Labs CBC & Chem 7: 09/21/18 04:21 09/21/18 04:21 Labs: Laboratory Results - last 24 hr 09/20/18 09/21/18 09/21/18 21:49 04:21 04:21 WBC 12.5 H RBC 4.32 L Hgb 13.6 D Hct 39.2 MCV 90.8 MCH 31.4 MCHC 34.6 RDW 13.3 Plt Count 327 D MPV 7.7 Neut % (Auto) 81.9 H Lymph % (Auto) 5.3 L [place] % (Auto) 10.3 H Eos % (Auto) 2.2 Baso % (Auto) 0.3 Neut # (Auto) 10.2 H Lymph # (Auto) 0.7 L [place] # (Auto) 1.3 H Eos # (Auto) 0.3 Baso # (Auto) 0.0 WBC Differential . Differential Comment Auto diff final Sodium 136 Potassium 4.2 Chloride 102 Carbon Dioxide 22.7 Anion Gap 11 BUN 13 Creatinine 0.94 Estimated GFR 79 L Random Glucose 106 Calcium 8.4 L Total Bilirubin 1.1 H AST 43 H ALT 61 Alkaline Phosphatase 295 H Troponin I Less than 0.02 L Less than 0.02 L Total Protein 6.7 Albumin 2.9 L Assessment and Plan - Plan Impression Positive BC with GPC, likely Staph worrisome for pacer infection - the pocket does not look infected Recent PPM placement for symptomatic second degree AVB Hx CAD Recommendation Repeat BC Repeat echo look at valves and leads - may need to do JA Follow C/S results Contiue vanco Add Ancef If not MRSA D/C Vanco Stop Zosyn Monitor progress I will follow along with you Thank you for this consultation
[2018-09-21] MEDS ORDERED: ceFAZolin Inj 2,000 MG in Sodium Chlor 0.9% Inj 80 ML IV.SIG SCH (12:00)
--- NOTE | 2018-09-21 13:44 | ECHRPT ---
Indication: Acute and subacute infective endocarditis CONCLUSIONS The left ventricular systolic function is low normal with an estimated ejection fraction in the rang e of 50- 55%. Wall thickness is normal. Normal left ventricular size. BP: / HR: Rhythm: Sinus MEASUREMENTS (Male / Female) Normal Values Technical Quality:Good 2D ECHO LV Diastolic Diameter PLAX 4.5 cm 4.2 - 5.9 / 3.9 - 5.3 cm LV Systolic Diameter PLAX 3.5 cm IVS Diastolic Thickness 1.0 cm 0.6 - 1.0 / 0.6 - 0.9 cm LVPW Diastolic Thickness 0.9 cm 0.6 - 1.0 / 0.6 - 0.9 cm LV Relative Wall Thickness 0.4 DOPPLER AV Peak Velocity 115.0 cm/s AV Peak Gradient 5.3 mmHg AI Peak Velocity 316.0 cm/s AI Peak Gradient 39.9 mmHg AI Pressure Half Time 362.0 ms LVOT Peak Velocity 115.0 cm/s LVOT Peak Gradient 5.3 mmHg TR Peak Velocity 258.0 cm/s TR Peak Gradient 26.6 mmHg Right Atrial Pressure 10.0 mmHg Pulmonary Artery Systolic Pressu 36.6 mmHg Right Ventricular Systolic Press 36.6 mmHg FINDINGS LEFT VENTRICLE The left ventricular systolic function is low normal with an estimated ejection fraction in the rang e of 50- 55%. Wall thickness is normal. Normal left ventricular size. RIGHT VENTRICLE Normal right ventricular size and systolic function. LEFT ATRIUM The left atrial size is normal. RIGHT ATRIUM The right atrial size is normal. ATRIAL SEPTUM Normal atrial septal thickness without atrial level shunting by limited color doppler interrogation. AORTA The aortic root and proximal ascending aorta are normal in size on limited imaging. MITRAL VALVE Structurally normal mitral valve. No mitral valve stenosis or regurgitation. AORTIC VALVE Trileaflet aortic valve. No aortic valve stenosis or regurgitation. TRICUSPID VALVE Structurally normal tricuspid valve. No tricuspid valve stenosis or regurgitation. PULMONARY VALVE No pulmonary valve regurgitation or stenosis. VESSELS The inferior vena cava is normal in size. PERICARDIUM No pericardial effusion. Antione Pepper MD, FACC (Electronically Signed) Final Date:21 September 2018 13:43
[2018-09-21] MEDS: ceFAZolin 2 GM Premix Inj 2 GM/50 ML PIGGYBACK IV.SIG SCH ×2 (13:47→21:09)
--- NOTE | 2018-09-21 15:32 | ECG ---
Date Performed: 09/20/2018 Time Performed: 19:45:38 PTAGE: 68 years EKG: ELECTRONIC VENTRICULAR PACEMAKER Compared to previous tracing, the HR has slowed significan tly ABNORMAL RHYTHM ECG PREVIOUS TRACING : 09/19/2018 14.14 DOCTOR: Gloria Prescott Interpretating Date/Time 09/21/2018 15:31:48
[2018-09-21] MEDS: Vancomycin Inj 1,500 MG in Sodium Chlor 0.9% Inj 500 ML IV.SIG SCH (23:35)
[2018-09-22] MEDS: Benzonatate 100 MG Capsule PO PRN ×2 (02:41→11:52)
[2018-09-22] MEDS: Acetaminophen 325 MG Tablet PO PRN ×2 (02:54→13:56)
[2018-09-22] MEDS: ceFAZolin 2 GM Premix Inj 2 GM/50 ML PIGGYBACK IV.SIG SCH ×3 (03:40→22:28)
[2018-09-22] MEDS: Levothyroxine 50 MCG Tablet PO SCH (06:52)
[2018-09-22] MEDS: Heparin - SQ 10,000 UNITS/ML Vial SQ SCH ×3 (06:57→22:31)
[2018-09-22] MEDS: Sod Chloride 0.9% Inj 1,000 ML IV.CONT SCH ×2 (06:59→22:35)
[2018-09-22 07:45] LABS: Glomerular Filtration Rate Greater Than 89 mL/min (>89)
--- NOTE | 2018-09-22 08:09 | P.PNIM ---
Subjective Interval history: f/u; bacteremia in no acute distress. denies chest pain or sob. remains afebrile. no new complaints. Physical Exam Vital signs: Vital Signs 09/21/18 12:00 09/21/18 15:58 09/21/18 18:42 Temperature 97.6 F 97.6 F Pulse Rate 79 80 74 Respiratory Rate 20 20 16 Blood Pressure 126/60 149/68 H Pulse Oximetry 98 98 99 09/21/18 20:00 09/22/18 00:00 09/22/18 04:00 Temperature 97.6 F 97.8 F 97.6 F Pulse Rate 75 78 78 Respiratory Rate 18 18 18 Blood Pressure 144/70 H 141/58 H 138/67 Pulse Oximetry 94 L 94 L 96 09/22/18 04:19 Temperature Pulse Rate Respiratory Rate 19 Blood Pressure Pulse Oximetry Intake & Output 09/21/18 09/22/18 09/22/18 18:59 06:59 18:59 Intake Total 1100 / 1100 1815 / 1815 Output Total 705 / 705 1400 / 1400 Balance 395 / 395 415 / 415 Weight 103 kg Intake: IV 1100 / 1100 1815 / 1815 NS Inj 1,000 ML @ 84 mls/hr IV. 1000 / 1000 1200 / 1200 CONT .[id number] ANAIS Rx#:[id number] Zosyn 3.375 GM Premix 50 ML @ 50 / 50 100 mls/hr IV.SIG Q6H ANAIS Rx#: [id number] Vancomycin Inj 1,500 MG In NS 515 / 515 Inj 500 ML @ 257.5 mls/hr IV. SIG Q18H ANAIS Rx#:[id number] Ancef 2 GM Premix Inj 2 gm In 50 / 50 100 / 100 50 ml @ 100 mls/hr IV.SIG Q8H ANAIS Rx#:[id number] Output: Urine 705 / 705 1400 / 1400 Other: Date of Last Bowel Movement 09/20/18 - Constitutional no acute distress - Routine Respiratory Exam Present: CTA bilaterally - Routine Cardiovascular Exam Present: RRR - Routine Abdominal Exam Present: soft - Routine Extremities Exam Comments: no pedal edema. - Routine Neurological Exam Present: alert, oriented X3 Results - Labs CBC & Chem 7: 09/21/18 04:21 09/22/18 07:07 Laboratory Results - last 24 hr 09/22/18 07:07 Creatinine 0.71 Estimated GFR Greater than 89 Microbiology 09/19/18 14:30 Blood - Peripheral Aerobic Blood Culture - Preliminary Staphylococcus epidermidis 09/19/18 14:30 Blood - Peripheral Anaerobic Blood Culture - Preliminary No growth in 2 days 09/19/18 14:35 Blood - Peripheral Aerobic Blood Culture - Preliminary No growth in 2 days 09/19/18 14:35 Blood - Peripheral Anaerobic Blood Culture - Preliminary gram positive cocci Assessment and Plan - Plan SIRS s/p recent pacemaker placement Continue monitoring blood cultures; two bottles of the initial blood cultures with gram positive cocci. will follow the repeated blood cultures. echo with EF 50-55% and no vegetation Continue vancomycin and Ancef ID consult appreciated Carotid artery disease Continue aspirin, Lipitor, Plavix Hypothyroidism Continue Synthroid Hypertension Follow blood pressures generalized weakness PT consulted. Discharge Planning: rehab when cleared by ID-pending the blood cultures.
--- NOTE | 2018-09-22 17:56 | ECG ---
Date Performed: 09/22/2018 Time Performed: 16:11:36 PTAGE: 68 years EKG: ELECTRONIC VENTRICULAR PACEMAKER ABNORMAL RHYTHM ECG No significant change from prior elect rocardiogram. PREVIOUS TRACING : 09/20/2018 19.45 DOCTOR: Pravin Nicole Interpretating Date/Time 09/22/2018 17:55:08
[2018-09-22] MEDS: Vancomycin Inj 1,500 MG in Sodium Chlor 0.9% Inj 500 ML IV.SIG SCH (18:26)
[2018-09-22] MEDS: Morphine Inj 4 MG/ML Vial IV.PUSH PRN (19:38)
[2018-09-22] MEDS ORDERED: Morphine Sulfate Inj 2 MG/ML Vial IV.PUSH ONE (21:15)
[2018-09-23] MEDS: Benzonatate 100 MG Capsule PO PRN ×2 (01:52→15:57)
[2018-09-23] MEDS: ceFAZolin 2 GM Premix Inj 2 GM/50 ML PIGGYBACK IV.SIG SCH ×3 (04:26→21:32)
[2018-09-23] MEDS: Morphine Inj 4 MG/ML Vial IV.PUSH PRN ×3 (04:27→12:56)
[2018-09-23] MEDS: Levothyroxine 50 MCG Tablet PO SCH (06:01)
[2018-09-23] MEDS: Heparin - SQ 10,000 UNITS/ML Vial SQ SCH ×3 (06:02→21:33)
[2018-09-23] MEDS: Sod Chloride 0.9% Inj 1,000 ML IV.CONT SCH (07:51)
[2018-09-23 08:37] LABS: Glomerular Filtration Rate Greater Than 89 mL/min (>89)
--- NOTE | 2018-09-23 10:28 | P.PNIM ---
Subjective Interval history: f/u; bacteremia in no acute distress. denies chest pain today. no fever. Physical Exam Vital signs: Vital Signs 09/22/18 12:00 09/22/18 12:55 09/22/18 14:52 Temperature 97.6 F 98.1 F Pulse Rate 79 80 83 Respiratory Rate 16 18 17 Blood Pressure 142/64 H 134/67 Pulse Oximetry 98 97 98 09/22/18 16:00 09/22/18 18:21 09/22/18 19:38 Temperature 97.6 F Pulse Rate 81 85 Respiratory Rate 15 19 Blood Pressure 126/62 208/91 H Pulse Oximetry 95 94 L 98 09/22/18 19:43 09/22/18 19:45 09/22/18 20:00 Temperature 97.6 F Pulse Rate 85 87 88 Respiratory Rate 18 19 24 Blood Pressure 179/100 H Pulse Oximetry 98 98 100 09/22/18 20:23 09/22/18 20:25 09/22/18 20:37 Temperature Pulse Rate 89 Respiratory Rate 19 28 H 28 H Blood Pressure 144/65 H Pulse Oximetry 99 09/22/18 20:39 09/22/18 20:43 09/23/18 00:00 Temperature 97.9 F Pulse Rate 87 88 Respiratory Rate 28 H 28 H 28 H Blood Pressure 147/71 H 142/68 H Pulse Oximetry 95 96 09/23/18 04:00 09/23/18 08:00 Temperature 97.3 F L 98.1 F Pulse Rate 62 81 Respiratory Rate 28 H 15 Blood Pressure 187/78 H 197/101 H Pulse Oximetry 97 97 Intake & Output 09/22/18 09/23/18 09/23/18 18:59 06:59 18:59 Intake Total 700 / 700 2045 / 2045 Output Total 550 / 550 Balance 700 / 700 1495 / 1495 Weight 105.5 kg Intake: IV 50 / 50 1565 / 1565 NS Inj 1,000 ML @ 84 mls/hr IV. 1000 / 1000 CONT .[id number] ANAIS Rx#:[id number] Vancomycin Inj 1,500 MG In NS 515 / 515 Inj 500 ML @ 257.5 mls/hr IV. SIG Q18H ANAIS Rx#:[id number] Ancef 2 GM Premix Inj 2 gm In 50 / 50 50 / 50 50 ml @ 100 mls/hr IV.SIG Q8H ANAIS Rx#:[id number] Oral 650 / 650 480 / 480 Output: Urine 550 / 550 Other: # Voids 5 Date of Last Bowel Movement 09/20/18 09/20/18 # Bowel Movements 1 - Constitutional no acute distress - Routine Respiratory Exam Present: CTA bilaterally - Routine Cardiovascular Exam Present: RRR - Routine Abdominal Exam Present: soft - Routine Extremities Exam Comments: no pedal edema. - Routine Neurological Exam Present: alert Results - Labs CBC & Chem 7: 09/21/18 04:21 09/23/18 07:10 Laboratory Results - last 24 hr 09/22/18 09/23/18 17:15 07:10 Creatinine 0.80 Estimated GFR Greater than 89 Troponin I Less than 0.02 L Microbiology 09/19/18 14:35 Blood - Peripheral Aerobic Blood Culture - Preliminary No growth in 3 days 09/19/18 14:35 Blood - Peripheral Anaerobic Blood Culture - Preliminary Staphylococcus coag negative 09/19/18 14:30 Blood - Peripheral Aerobic Blood Culture - Preliminary Staphylococcus epidermidis 09/19/18 14:30 Blood - Peripheral Anaerobic Blood Culture - Preliminary No growth in 3 days 09/21/18 12:52 Blood - Peripheral Aerobic Blood Culture - Preliminary No growth in 1 day 09/21/18 12:52 Blood - Peripheral Anaerobic Blood Culture - Preliminary No growth in 1 day 09/21/18 12:45 Blood - Peripheral Aerobic Blood Culture - Preliminary No growth in 1 day 09/21/18 12:45 Blood - Peripheral Anaerobic Blood Culture - Preliminary No growth in 1 day Assessment and Plan - Plan SIRS s/p recent pacemaker placement Continue monitoring blood cultures; two bottles of the initial blood cultures with gram positive cocci. will follow the repeated blood cultures. echo with EF 50-55% and no vegetation Continue vancomycin and Ancef ID following. Carotid artery disease Continue aspirin, Lipitor, Plavix Hypothyroidism Continue Synthroid Hypertension will resume home meds. continue to monitor. generalized weakness PT consulted. DVT prophylaxis with subq Heparin Discharge Planning: rehab when cleared by ID-pending the clinical course and w/u.
[2018-09-23] MEDS ORDERED: Pharmacy Ordered Lab Info OTHER ONE (10:45)
[2018-09-23] MEDS: Vancomycin Inj 1,500 MG in Sodium Chlor 0.9% Inj 500 ML IV.SIG SCH ×2 (12:06→23:28)
[2018-09-23] MEDS: Isosorbide Mononitrate 60 MG ER 24HR Tablet (Imdur) PO SCH (12:15)
[2018-09-23] MEDS: Acetaminophen 325 MG Tablet PO PRN (23:47)
[2018-09-24] MEDS: Benzonatate 100 MG Capsule PO PRN ×2 (00:15→23:07)
[2018-09-24] MEDS: Levothyroxine 50 MCG Tablet PO SCH (05:38)
[2018-09-24] MEDS: Heparin - SQ 10,000 UNITS/ML Vial SQ SCH ×3 (05:38→21:03)
[2018-09-24] MEDS: ceFAZolin 2 GM Premix Inj 2 GM/50 ML PIGGYBACK IV.SIG SCH (05:38)
[2018-09-24 06:15] LABS: Baso # (Auto) 0.1 th/mm3 (0.0-0.2); Baso % (Auto) 1.3 % (0.0-2.0); Eos # (Auto) 0.4 th/mm3 (0.0-0.4); Eos % (Auto) 8.7 % (0.0-4.0); Hematocrit 32.7 % (39.0-51.0); Hemoglobin 11.2 gm/dL (13.0-17.0); Lymph # (Auto) 0.7 th/mm3 (1.0-4.8); Lymph % (Auto) 13.7 % (9.0-44.0); Mean Corpuscular HGB Conc 34.3 % (32.0-36.0); Mean Corpuscular Hemoglobin 31.2 pg (27.0-34.0); Mean Corpuscular Volume 90.9 fL (80.0-100.0); Mean Platelet Volume 7.3 fL (7.0-11.0); Mono # (Auto) 0.5 th/mm3 (0.0-0.9); Mono % (Auto) 10.2 % (0.0-8.0); Neut # (Auto) 3.4 th/mm3 (1.8-7.7); Neut % (Auto) 66.1 % (16.0-70.0); Platelet Count 322 th/mm3 (150-450); Red Cell Distribution Width 13.5 % (11.6-17.2); White Blood Count 5.2 th/mm3 (4.0-11.0)
[2018-09-24 06:40] LABS: Alanine Aminotransferase 79 U/L (12-78); Albumin 2.2 g/dL (3.4-5.0); Alkaline Phosphatase 403 U/L (45-117); Anion Gap 8 meq/L (5-15); Aspartate Aminotransferase 66 U/L (15-37); Blood Urea Nitrogen 7 mg/dL (7-18); Calcium 8.2 mg/dL (8.5-10.1); Carbon Dioxide 26.6 meq/L (21.0-32.0); Chloride 108 meq/L (98-107); Glomerular Filtration Rate Greater Than 89 mL/min (>89); Glucose,Random 100 mg/dL (74-106); Potassium 3.5 meq/L (3.5-5.1); Sodium 143 meq/L (136-145); Total Protein 5.1 g/dL (6.4-8.2)
[2018-09-24] MEDS: Isosorbide Mononitrate 60 MG ER 24HR Tablet (Imdur) PO SCH (08:14)
--- NOTE | 2018-09-24 09:55 | P.PNID ---
Subjective Remarks: Patient is a 68-year-old male, recently hospitalized last September 01 when he presented with chest pain. He was diagnosed to have symptomatic bradycardia, and has second-degree AV block. He had an echo at that time which showed aortic valve sclerosis, mild AI, and trace TR, and an EF of 55%. He had placement of a temporary transvenous pacemaker at that time. He subsequently underwent placement of a dual-chamber permanent pacemaker on September 04, and was discharge. 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 On the shipsmith of admission patient apparently started having problem with some chest discomfort, some fluttering in his chest. He apparently has been having significant weakness, and has not been sleeping well the last couple nights. He has some soreness on his pacemaker but not really bad. He has not had any fever chills or sweats. Denies any nausea or vomiting , diarrhea or any urinary complaints. He has not had any respiratory symptoms as far as cough or congestion or any sore throat. On presentation patient was afebrile. He had a white count of 16,000, and he was tachycardic. 2 blood cultures were done at that time, and they are now reported as growing gram-positive cocci in pairs and clusters. Patient was admitted as a sepsis, and has been on Zosyn and vancomycin. His chest x-ray looked clear. Patient currently is complaining of pain in both shoulders and and hands, but worse on the right. He just received some pain medication, and the pain is currently under control. Infectious disease consultation has been requested to assist with evaluation and treatment. Notes reviewed Gene rosas D/W Dr Gloria Sullivan is over the pacer site - under control BC wit Staph epi Repeat BC negative so far Echo noted No rash or itching Ni diarrhea Voiding ok Antibiotics: Vancomycin Ancef Lines: PIV Past Medical History: Pacemaker CAD (coronary artery disease) Hyperchloremia Hypertension Hypothyroid Allergies/Adverse Reactions: Allergies gabapentin [From Neurontin] Allergy (Verified 09/01/18 18:04) Anaphylaxis Objective Vital Signs 09/23/18 12:00 09/23/18 16:00 09/23/18 17:11 Temperature 97.6 F 97.7 F Pulse Rate 80 81 Respiratory Rate 16 15 Blood Pressure 194/96 H 125/58 L Pulse Oximetry 96 97 97 09/23/18 18:24 09/23/18 20:00 09/24/18 00:00 Temperature 98 F 97.8 F Pulse Rate 56 L 87 81 Respiratory Rate 18 22 22 Blood Pressure 142/65 H 139/65 Pulse Oximetry 97 98 09/24/18 04:00 09/24/18 08:00 Temperature 97.9 F 98.1 F Pulse Rate 70 82 Respiratory Rate 22 18 Blood Pressure 147/68 H 158/81 H Pulse Oximetry 97 93 L Intake & Output 09/23/18 09/24/18 09/24/18 18:59 06:59 18:59 Intake Total 2465 / 2465 1095 / 1095 Output Total 850 / 850 2300 / 2300 Balance 1615 / 1615 -1205 / -1205 Weight 108 kg Intake: IV 1565 / 1565 615 / 615 Vancomycin Inj 1,500 MG In NS 515 / 515 515 / 515 Inj 500 ML @ 257.5 mls/hr IV. SIG Q12H ANAIS Rx#:[id number] Ancef 2 GM Premix Inj 2 gm In 50 / 50 100 / 100 50 ml @ 100 mls/hr IV.SIG Q8H ANAIS Rx#:[id number] Oral 900 / 900 480 / 480 Output: Urine 850 / 850 2300 / 2300 Other: Date of Last Bowel Movement 09/24/18 # Bowel Movements 0 09/19/18 14:35 Blood - Peripheral Aerobic Blood Culture - Preliminary gram positive cocci 09/19/18 14:35 Blood - Peripheral Anaerobic Blood Culture - Final Staphylococcus epidermidis 09/19/18 14:30 Blood - Peripheral Aerobic Blood Culture - Final Staphylococcus epidermidis 09/19/18 14:30 Blood - Peripheral Anaerobic Blood Culture - Preliminary No growth in 4 days 09/22/18 07:07 Blood - Peripheral Aerobic Blood Culture - Preliminary No growth in 1 day 09/22/18 07:07 Blood - Peripheral Anaerobic Blood Culture - Preliminary No growth in 1 day 09/21/18 12:52 Blood - Peripheral Aerobic Blood Culture - Preliminary No growth in 2 days 09/21/18 12:52 Blood - Peripheral Anaerobic Blood Culture - Preliminary No growth in 2 days 09/21/18 12:45 Blood - Peripheral Aerobic Blood Culture - Preliminary No growth in 2 days 09/21/18 12:45 Blood - Peripheral Anaerobic Blood Culture - Preliminary No growth in 2 days Lab - Hematology Results 09/24/18 04:40 WBC 5.2 RBC 3.60 L Hgb 11.2 L Hct 32.7 L MCV 90.9 MCH 31.2 MCHC 34.3 RDW 13.5 Plt Count 322 MPV 7.3 Neut % (Auto) 66.1 Lymph % (Auto) 13.7 [place] % (Auto) 10.2 H Eos % (Auto) 8.7 H Baso % (Auto) 1.3 Neut # (Auto) 3.4 Lymph # (Auto) 0.7 L [place] # (Auto) 0.5 Eos # (Auto) 0.4 Baso # (Auto) 0.1 WBC Differential . Differential Comment Auto diff final Lab - Chemistry Results 09/22/18 09/23/18 09/24/18 17:15 07:10 04:40 Sodium 143 Potassium 3.5 Chloride 108 H Carbon Dioxide 26.6 Anion Gap 8 BUN 7 Creatinine 0.80 0.64 Estimated GFR Greater than 89 Greater than 89 Random Glucose 100 Calcium 8.2 L Total Bilirubin 0.5 AST 66 H ALT 79 H Alkaline Phosphatase 403 H Troponin I Less than 0.02 L Total Protein 5.1 L D Albumin 2.2 L Imaging: ITS Impressions Chest X-Ray 09/19/18 14:17 CONCLUSION: Mild cardiomegaly. No evidence of acute process. Stable pacemaker. Physical Exam: GENERAL: awake, slow to respond, NAD. SKIN: Cool and dry. No generalized rash, no ecchymoses and no evidence of embolic lesions. HEAD: Atraumatic. Normocephalic. No temporal wasting, or tenderness. EYES: [place] conjunctiva. No petechia or hemorrhage. Pupils equal, round and reactive to light. Extraocular movements full and intact. No scleral icterus. No injection or drainage. EARS, NOSE AND THROAT: Nose without bleeding or purulent nasal discharge. No sinus tenderness. Mucous membranes pink and moist. No oral lesions noted. No exudate. No oral thrush. NECK: Trachea midline. Supple and not tender, no meningeal signs CARDIOVASCULAR: Regular rate and rhythm. No murmurs, rubs or gallops heard. Pacemaker in L upper chest with some evolving ecchymoses laterally, no redness, no induration, no tenderness, has steristrips in place with some old blood in the strips medially. RESPIRATORY: Clear to auscultation. Breath sounds equal bilaterally. No rales , wheezing or rhonchi. Decreased at the bases ABDOMEN: Soft, non-tender, nondistended. Bowel sounds present and normoactive. No guarding. No rebound. No organomegaly. EXTREMITIES: No clubbing, cyanosis. Has some pedal edema. Has brownish pigmentation both legs. No calf tenderness. Well perfused and warm. R shoulder has no swelling , no redness, and has good ROM NEUROLOGICAL: Awake and alert, slow to answer my questions. Cranial nerves grossly intact. Motor grossly within normal limits. PSYCHIATRIC: Normal affect, calm and cooperative. LINE: No evidence of infection Assessment and Plan - Plan Impression Staph epi positive BC, - the pocket does not look infected - S/P pacer placement - echo ok Recent PPM placement for symptomatic second degree AVB Hx CAD Recommendation Follow repeat BC Continue vanco Stop Ancef If stable, PICC tomorrow Give 2 weeks IV vanco on D/C If more (+) BC, longer, and do JA Monitor progress Explained plan to patient and - to decide on rehab vs home D/W Dr Castro
--- NOTE | 2018-09-24 10:17 | P.PNIM ---
Subjective Interval history: f/u; bacteremia in no acute distress. denies pain. no fever. at the bedside. Physical Exam Vital signs: Vital Signs 09/23/18 12:00 09/23/18 16:00 09/23/18 17:11 Temperature 97.6 F 97.7 F Pulse Rate 80 81 Respiratory Rate 16 15 Blood Pressure 194/96 H 125/58 L Pulse Oximetry 96 97 97 09/23/18 18:24 09/23/18 20:00 09/24/18 00:00 Temperature 98 F 97.8 F Pulse Rate 56 L 87 81 Respiratory Rate 18 22 22 Blood Pressure 142/65 H 139/65 Pulse Oximetry 97 98 09/24/18 04:00 09/24/18 08:00 09/24/18 09:54 Temperature 97.9 F 98.1 F Pulse Rate 70 82 82 Respiratory Rate 22 18 16 Blood Pressure 147/68 H 158/81 H Pulse Oximetry 97 93 L Intake & Output 09/23/18 09/24/18 09/24/18 18:59 06:59 18:59 Intake Total 2465 / 2465 1095 / 1095 Output Total 850 / 850 2300 / 2300 Balance 1615 / 1615 -1205 / -1205 Weight 108 kg Intake: IV 1565 / 1565 615 / 615 Vancomycin Inj 1,500 MG In NS 515 / 515 515 / 515 Inj 500 ML @ 257.5 mls/hr IV. SIG Q12H ANAIS Rx#:[id number] Ancef 2 GM Premix Inj 2 gm In 50 / 50 100 / 100 50 ml @ 100 mls/hr IV.SIG Q8H ANAIS Rx#:[id number] Oral 900 / 900 480 / 480 Output: Urine 850 / 850 2300 / 2300 Other: Date of Last Bowel Movement 09/24/18 # Bowel Movements 0 - Constitutional no acute distress - Routine Respiratory Exam Present: CTA bilaterally - Routine Cardiovascular Exam Present: RRR - Routine Abdominal Exam Present: soft - Routine Extremities Exam Comments: no pedal edema. - Routine Neurological Exam Present: alert, oriented X3 Results - Labs CBC & Chem 7: 09/24/18 04:40 09/24/18 04:40 Laboratory Results - last 24 hr 09/23/18 09/24/18 09/24/18 11:25 04:40 04:40 WBC 5.2 RBC 3.60 L Hgb 11.2 L Hct 32.7 L MCV 90.9 MCH 31.2 MCHC 34.3 RDW 13.5 Plt Count 322 MPV 7.3 Neut % (Auto) 66.1 Lymph % (Auto) 13.7 [place] % (Auto) 10.2 H Eos % (Auto) 8.7 H Baso % (Auto) 1.3 Neut # (Auto) 3.4 Lymph # (Auto) 0.7 L [place] # (Auto) 0.5 Eos # (Auto) 0.4 Baso # (Auto) 0.1 WBC Differential . Differential Comment Auto diff final Sodium 143 Potassium 3.5 Chloride 108 H Carbon Dioxide 26.6 Anion Gap 8 BUN 7 Creatinine 0.64 Estimated GFR Greater than 89 Random Glucose 100 Calcium 8.2 L Total Bilirubin 0.5 AST 66 H ALT 79 H Alkaline Phosphatase 403 H Total Protein 5.1 L D Albumin 2.2 L Vancomycin Trough 7.4 Microbiology 09/19/18 14:35 Blood - Peripheral Aerobic Blood Culture - Preliminary gram positive cocci 09/19/18 14:35 Blood - Peripheral Anaerobic Blood Culture - Final Staphylococcus epidermidis 09/19/18 14:30 Blood - Peripheral Aerobic Blood Culture - Final Staphylococcus epidermidis 09/19/18 14:30 Blood - Peripheral Anaerobic Blood Culture - Preliminary No growth in 4 days 09/22/18 07:07 Blood - Peripheral Aerobic Blood Culture - Preliminary No growth in 1 day 09/22/18 07:07 Blood - Peripheral Anaerobic Blood Culture - Preliminary No growth in 1 day 09/21/18 12:52 Blood - Peripheral Aerobic Blood Culture - Preliminary No growth in 2 days 09/21/18 12:52 Blood - Peripheral Anaerobic Blood Culture - Preliminary No growth in 2 days 09/21/18 12:45 Blood - Peripheral Aerobic Blood Culture - Preliminary No growth in 2 days 09/21/18 12:45 Blood - Peripheral Anaerobic Blood Culture - Preliminary No growth in 2 days Assessment and Plan - Plan SIRS s/p recent pacemaker placement Continue monitoring blood cultures; two bottles of the initial blood cultures with gram positive cocci. the repeated blood cultures negative so far. echo with EF 50-55% and no vegetation Continue vancomycin ; plan for PICC tomorrow and dc on IV Abx for two weeks if no further positive blood cultures and stable. ID following. Carotid artery disease Continue aspirin, Lipitor, Plavix Hypothyroidism Continue Synthroid Hypertension will resume home meds. continue to monitor. generalized weakness PT consulted. DVT prophylaxis with subq Heparin Discussed Condition With: . Discharge Planning: dc to SNF tomorrow if stable with no further positive blood cultures- with IV Abx- after PICC is in place.
[2018-09-24] MEDS: Vancomycin Inj 1,500 MG in Sodium Chlor 0.9% Inj 500 ML IV.SIG SCH ×2 (10:58→23:07)
[2018-09-24] MEDS: Acetaminophen 325 MG Tablet PO PRN ×3 (11:51→20:54)
[2018-09-25] MEDS: Levothyroxine 50 MCG Tablet PO SCH (05:51)
[2018-09-25] MEDS: Acetaminophen 325 MG Tablet PO PRN ×4 (05:52→23:26)
[2018-09-25] MEDS: Heparin - SQ 10,000 UNITS/ML Vial SQ SCH ×3 (05:54→22:28)
--- NOTE | 2018-09-25 09:17 | P.PNID ---
Subjective Remarks: Patient is a 68-year-old male, recently hospitalized last September 01 when he presented with chest pain. He was diagnosed to have symptomatic bradycardia, and has second-degree AV block. He had an echo at that time which showed aortic valve sclerosis, mild AI, and trace TR, and an EF of 55%. He had placement of a temporary transvenous pacemaker at that time. He subsequently underwent placement of a dual-chamber permanent pacemaker on September 04, and was discharge. He was apparently doing well, and was seen by his bankruptcy paralegal, and everything looked okay at that time, with instructions to follow-up in 6-8 months. On the feather shaper of admission patient apparently started having problem with some chest discomfort, some fluttering in his chest. He apparently has been having significant weakness, and has not been sleeping well the last couple nights. He has some soreness on his pacemaker but not really bad. He has not had any fever chills or sweats. Denies any nausea or vomiting , diarrhea or any urinary complaints. He has not had any respiratory symptoms as far as cough or congestion or any sore throat. On presentation patient was afebrile. He had a white count of 16,000, and he was tachycardic. 2 blood cultures were done at that time, and they are now reported as growing gram-positive cocci in pairs and clusters. Patient was admitted as a sepsis, and has been on Zosyn and vancomycin. His chest x-ray looked clear. Patient currently is complaining of pain in both shoulders and and hands, but worse on the right. He just received some pain medication, and the pain is currently under control. Infectious disease consultation has been requested to assist with evaluation and treatment. Notes reviewed Temps ok BC wit Staph epi Repeat BC negative so far Echo noted No rash or itching No diarrhea Voiding ok Being evaluated for [facility] Vanco trough to be done today - will then determine dose of Abx for D/C Antibiotics: Vancomycin Ancef Lines: PIV Past Medical History: Pacemaker CAD (coronary artery disease) Hyperchloremia Hypertension Hypothyroid Allergies/Adverse Reactions: Allergies gabapentin [From Neurontin] Allergy (Verified 09/01/18 18:04) Anaphylaxis Objective Vital Signs 09/24/18 09:54 09/24/18 12:00 09/24/18 16:00 Temperature 97.8 F 98.3 F Pulse Rate 82 85 75 Respiratory Rate 16 18 17 Blood Pressure 141/62 H 122/56 L Pulse Oximetry 96 95 09/24/18 20:00 09/25/18 00:00 09/25/18 04:00 Temperature 98.0 F 97.7 F 97.8 F Pulse Rate 88 84 73 Respiratory Rate 18 18 18 Blood Pressure 158/72 H 152/78 H 168/75 H Pulse Oximetry 94 L 92 L 95 09/25/18 08:00 Temperature 98.3 F Pulse Rate 83 Respiratory Rate 20 Blood Pressure 156/91 H Pulse Oximetry 96 Intake & Output 09/24/18 09/25/18 09/25/18 18:59 06:59 18:59 Intake Total 1700 / 1700 515 / 515 Output Total 1000 / 1000 1500 / 1500 Balance 700 / 700 -985 / -985 Weight 105.5 kg Intake: IV 500 / 500 515 / 515 Vancomycin Inj 1,500 MG In NS 500 / 500 515 / 515 Inj 500 ML @ 257.5 mls/hr IV. SIG Q12H [facility] Rx#:[id number] Oral 1200 / 1200 Output: Urine 1000 / 1000 1500 / 1500 Other: Date of Last Bowel Movement 09/24/18 # Bowel Movements 3 09/22/18 07:07 Blood - Peripheral Aerobic Blood Culture - Preliminary No growth in 2 days 09/22/18 07:07 Blood - Peripheral Anaerobic Blood Culture - Preliminary No growth in 2 days 09/21/18 12:52 Blood - Peripheral Aerobic Blood Culture - Preliminary No growth in 3 days 09/21/18 12:52 Blood - Peripheral Anaerobic Blood Culture - Preliminary No growth in 3 days 09/21/18 12:45 Blood - Peripheral Aerobic Blood Culture - Preliminary No growth in 3 days 09/21/18 12:45 Blood - Peripheral Anaerobic Blood Culture - Preliminary No growth in 3 days 09/19/18 14:30 Blood - Peripheral Aerobic Blood Culture - Final Staphylococcus epidermidis 09/19/18 14:30 Blood - Peripheral Anaerobic Blood Culture - Final No growth in 5 days 09/19/18 14:35 Blood - Peripheral Aerobic Blood Culture - Preliminary gram positive cocci 09/19/18 14:35 Blood - Peripheral Anaerobic Blood Culture - Final Staphylococcus epidermidis Lab - Hematology Results 09/24/18 04:40 WBC 5.2 RBC 3.60 L Hgb 11.2 L Hct 32.7 L MCV 90.9 MCH 31.2 MCHC 34.3 RDW 13.5 Plt Count 322 MPV 7.3 Neut % (Auto) 66.1 Lymph % (Auto) 13.7 [place] % (Auto) 10.2 H Eos % (Auto) 8.7 H Baso % (Auto) 1.3 Neut # (Auto) 3.4 Lymph # (Auto) 0.7 L [place] # (Auto) 0.5 Eos # (Auto) 0.4 Baso # (Auto) 0.1 WBC Differential . Differential Comment Auto diff final Lab - Chemistry Results 09/24/18 04:40 Sodium 143 Potassium 3.5 Chloride 108 H Carbon Dioxide 26.6 Anion Gap 8 BUN 7 Creatinine 0.64 Estimated GFR Greater than 89 Random Glucose 100 Calcium 8.2 L Total Bilirubin 0.5 AST 66 H ALT 79 H Alkaline Phosphatase 403 H Total Protein 5.1 L D Albumin 2.2 L Imaging: ITS Impressions Chest X-Ray 09/19/18 14:17 CONCLUSION: Mild cardiomegaly. No evidence of acute process. Stable pacemaker. Physical Exam: GENERAL: awake, slow to respond, NAD. SKIN: Cool and dry. No generalized rash, no ecchymoses and no evidence of embolic lesions. HEAD: Atraumatic. Normocephalic. No temporal wasting, or tenderness. EYES: [place] conjunctiva. No petechia or hemorrhage. Pupils equal, round and reactive to light. Extraocular movements full and intact. No scleral icterus. No injection or drainage. EARS, NOSE AND THROAT: Nose without bleeding or purulent nasal discharge. No sinus tenderness. Mucous membranes pink and moist. No oral lesions noted. No exudate. No oral thrush. NECK: Trachea midline. Supple and not tender, no meningeal signs CARDIOVASCULAR: Regular rate and rhythm. No murmurs, rubs or gallops heard. Pacemaker in L upper chest with some evolving ecchymoses laterally, no redness, no induration, no tenderness, has steristrips in place with some old blood in the strips medially. RESPIRATORY: Clear to auscultation. Breath sounds equal bilaterally. No rales , wheezing or rhonchi. Decreased at the bases ABDOMEN: Soft, non-tender, nondistended. Bowel sounds present and normoactive. No guarding. No rebound. No organomegaly. EXTREMITIES: No clubbing, cyanosis. Has some pedal edema. Has brownish pigmentation both legs. No calf tenderness. Well perfused and warm. R shoulder has no swelling , no redness, and has good ROM NEUROLOGICAL: Awake and alert, slow to answer my questions. Cranial nerves grossly intact. Motor grossly within normal limits. PSYCHIATRIC: Normal affect, calm and cooperative. LINE: No evidence of infection Assessment and Plan - Plan Impression Staph epi positive BC, - the pocket does not look infected - S/P pacer placement - echo ok Recent PPM placement for symptomatic second degree AVB Hx CAD Recommendation Follow repeat BC Continue vanco PICC Await Vanco trough today and determine dose of vanco on D/C I will fill out Abx form once I have the final dose recommendation If more (+) BC, longer, and do JA Monitor progress D/W RN
[2018-09-25] MEDS: Isosorbide Mononitrate 60 MG ER 24HR Tablet (Imdur) PO SCH (09:51)
[2018-09-25] MEDS ORDERED: Pharmacy Ordered Lab Info OTHER ONE (10:45)
--- NOTE | 2018-09-25 10:53 | P.PN ---
Subjective Interval history: afebrile having a BM- no diarrhea no complains of pain aware he is going down for PICC placement today voiding d/w him latest culture reports Physical Exam Vital signs: Vital Signs 09/24/18 12:00 09/24/18 16:00 09/24/18 20:00 Temperature 97.8 F 98.3 F 98.0 F Pulse Rate 85 75 88 Respiratory Rate 18 17 18 Blood Pressure 141/62 H 122/56 L 158/72 H Pulse Oximetry 96 95 94 L 09/25/18 00:00 09/25/18 04:00 09/25/18 08:00 Temperature 97.7 F 97.8 F 98.3 F Pulse Rate 84 73 83 Respiratory Rate 18 18 20 Blood Pressure 152/78 H 168/75 H 156/91 H Pulse Oximetry 92 L 95 96 Intake & Output 09/24/18 09/25/18 09/25/18 18:59 06:59 18:59 Intake Total 1700 / 1700 515 / 515 Output Total 1000 / 1000 1500 / 1500 Balance 700 / 700 -985 / -985 Weight 105.5 kg Intake: IV 500 / 500 515 / 515 Vancomycin Inj 1,500 MG In NS 500 / 500 515 / 515 Inj 500 ML @ 257.5 mls/hr IV. SIG Q12H [facility] Rx#:[id number] Oral 1200 / 1200 Output: Urine 1000 / 1000 1500 / 1500 Other: Date of Last Bowel Movement 09/24/18 09/25/18 # Bowel Movements 3 Narrative: awake, slow to respond, No generalized rash, no ecchymoses and no evidence of embolic lesions. Atraumatic. Normocephalic. No temporal wasting, or tenderness. EYES: [place] conjunctiva. No petechia or hemorrhage. Pupils equal, round and reactive to light. Extraocular movements full and intact. No scleral icterus. No injection or drainage. EARS, NOSE AND THROAT: Nose without bleeding or purulent n NECK: Trachea midline. Supple and not tender, no meningeal signs CARDIOVASCULAR: Regular rate and rhythm. Pacemaker in L upper chest with some mild ecchymoses laterally, no redness, no induration, no tenderness, has sterile strips in place with some old blood in the strips medially. RESPIRATORY: Clear to auscultation. Breath sounds equal bilaterally. No rales , wheezing or rhonchi. Decreased at the bases ABDOMEN: Soft, non-tender, nondistended. Bowel sounds present and normoactive. No guarding. No rebound. No organomegaly. EXTREMITIES: No clubbing, cyanosis, or edema. Has brownish pigmentation both legs. No calf tenderness. Well perfused and warm. R shoulder has no swelling , no redness, and has good ROM NEUROLOGICAL: Awake and alert. Cranial nerves grossly intact. Motor grossly within normal limits. PSYCHIATRIC: Normal affect, calm and cooperative. LINE: No evidence of infection Results - Labs CBC & Chem 7: 09/24/18 04:40 09/25/18 10:45 Microbiology 09/22/18 07:07 Blood - Peripheral Aerobic Blood Culture - Preliminary No growth in 2 days 09/22/18 07:07 Blood - Peripheral Anaerobic Blood Culture - Preliminary No growth in 2 days 09/21/18 12:52 Blood - Peripheral Aerobic Blood Culture - Preliminary No growth in 3 days 09/21/18 12:52 Blood - Peripheral Anaerobic Blood Culture - Preliminary No growth in 3 days 09/21/18 12:45 Blood - Peripheral Aerobic Blood Culture - Preliminary No growth in 3 days 09/21/18 12:45 Blood - Peripheral Anaerobic Blood Culture - Preliminary No growth in 3 days 09/19/18 14:30 Blood - Peripheral Aerobic Blood Culture - Final Staphylococcus epidermidis 09/19/18 14:30 Blood - Peripheral Anaerobic Blood Culture - Final No growth in 5 days 09/19/18 14:35 Blood - Peripheral Aerobic Blood Culture - Preliminary gram positive cocci 09/19/18 14:35 Blood - Peripheral Anaerobic Blood Culture - Final Staphylococcus epidermidis Assessment and Plan - Plan 68 years old S. Epidermidis bacteremia S/P Recent PM placement Continue monitoring blood cultures; two bottles of the initial blood cultures with gram positive cocci. the repeated blood cultures negative so far. x48 hours echo with EF 50-55% and no vegetation Continue vancomycin plan for PICC today and and dc on IV Abx for two weeks if no further positive blood cultures and stable. ID following. if + BC- plan for JA Carotid artery disease Continue aspirin, Lipitor, Plavix Hypothyroidism Continue Synthroid Hypertension will resume home meds. continue to monitor. generalized weakness PT ff DVT prophylaxis with subq Heparin Discussed Condition With: . Discharge Planning: plan for SNF vs home with home health care
[2018-09-25] MEDS ORDERED: Heparin Central Flush 100 UNIT/ML 5 ML Vial IV.FLUSH ONE (11:43)
[2018-09-25 12:24] LABS: Alanine Aminotransferase 72 U/L (12-78); Albumin 2.6 g/dL (3.4-5.0); Anion Gap 9 meq/L (5-15); Aspartate Aminotransferase 54 U/L (15-37); Blood Urea Nitrogen 8 mg/dL (7-18); Calcium 8.4 mg/dL (8.5-10.1); Carbon Dioxide 24.2 meq/L (21.0-32.0); Chloride 109 meq/L (98-107); Glomerular Filtration Rate Greater Than 89 mL/min (>89); Glucose,Random 145 mg/dL (74-106); Potassium 3.7 meq/L (3.5-5.1); Sodium 142 meq/L (136-145)
[2018-09-25 12:27] LABS: Alkaline Phosphatase 384 U/L (45-117); Total Protein 5.5 g/dL (6.4-8.2); Vancomycin,Trough 14.2 mcg/mL (5.0-10.0)
--- NOTE | 2018-09-25 12:27 | P.RAD ---
Post PICC Progress Note - Pre Procedure Diagnosis (1) Sepsis - Post Procedure Diagnosis (1) Sepsis - Procedure Procedure: right PICC line placement Procedure Date: 09/25/18 Supervising Radiologist: Matthew Reilly Jr, MD Proceduralist/Assist: Christopher Brannon - Device Side: right Device: single lumen PICC Line Length (cm): 50 Catheter: Power PICC - Plan of Activity Patient to Unit: Nursing Unit Patient Condition: Good PICC line can be used immediately
[2018-09-25] MEDS: Vancomycin Inj 1,500 MG in Sodium Chlor 0.9% Inj 500 ML IV.SIG SCH ×2 (12:31→22:28)
--- NOTE | 2018-09-25 12:45 | IR ---
EXAM DATE: 09/25/2018 12:33 PM EST AGE/SEX: 68 years / Male INDICATIONS: Patient presents with sepsis in need of peripheral intravenous line placement for medic ation administration. CLINICAL DATA: This is the patient's initial encounter. Patient reports that signs and symptoms have been present for 1 day and indicates a pain score of 5/10. MEDICAL/SURGICAL HISTORY: . CAD, HTN, Hypothyroid, Hyperchloremia. . Pacemaker. COMPARISON: No prior exams available for comparison. FLUORO TIME (min): 0.70 IMAGE SERIES: 1 ACCESS SITE: Right cephalic vein MEDICATION(S): 200 units Heparin IV DEVICE(S): 4 [place] single lumen 50cm Xcela Power PICC . . PROCEDURE : 1. Ultrasound guidance for venous catheterization. 2. Ultrasound guided central venous Power PICC line placement. The risks, benefits and alternatives to the procedure were explained and verbal and written consent w as obtained. The site was prepped in sterile fashion. Full sterile technique was used, including ca p, mask, sterile gloves and gown and a large sterile sheet. Hand hygiene and 2% chlorhexidine prep w as utilized per protocol for cutaneous antisepsis with appropriate dry time for site. Sterile gel an d sterile probe cover were utilized for ultrasound guidance. The skin and subcutaneous tissues were infiltrated with local anesthetic solution. Under direct ultrasound guidance, a suitable vein was accessed and a measuring guidewire was introduc ed and positioned in the central venous system. The ultrasound images depicting access guidance were saved and stored to PACS for permanent record. A Power Injectable PICC line was cut to prescribed length and introduced, positioned with tip at the cavoatrial junction level. The line was flushed and secured per protocol. Chest radiograph is to be obtained to confirm position. CONCLUSION: 1. Uncomplicated central venous Power PICC line placement. 2. The PICC line can be used immediately. Electronically signed by: Matthew Reilly MD 09/25/2018 12:43 PM EST
[2018-09-25 21:07] VITALS: RESP 18
[2018-09-26] MEDS: Levothyroxine 50 MCG Tablet PO SCH (06:03)
[2018-09-26] MEDS: Heparin - SQ 10,000 UNITS/ML Vial SQ SCH ×2 (06:03→14:16)
[2018-09-26] MEDS: Acetaminophen 325 MG Tablet PO PRN (07:50)
[2018-09-26] MEDS: Benzonatate 100 MG Capsule PO PRN (09:28)
[2018-09-26] MEDS: Isosorbide Mononitrate 60 MG ER 24HR Tablet (Imdur) PO SCH (09:28)
--- NOTE | 2018-09-26 09:31 | P.DCO ---
Post Hospital Infusion Therapy - Infusion Therapy Location of Infusion Therapy: Home Health Care IV Infusion Order - Patient Information Patient Weight: 105.8 kg - Diagnosis (1) Other staphylococcal septicemia Code(s): A41.1 - Sepsis due to other specified staphylococcus - Administer Medication Vancomycin Dose: 1.5 grams IV Directions: q 12 hours Stop Treatment: 10/07/18 - Additional Information Venous Access: PICC Line Additional Instructions: [x] Peripheral flush and dressing changes per protocol [x] Implanted port and central line o scribe operator: * Implanted port: 10 ml Normal Saline followed by 5 ml Heparin 100 units/ml Heparin flush after each use and monthly to maintain. [] May leave port accessed during therapy. [] May leave peripheral site accessed for duration of therapy. [x] If patient has SOB or respiratory distress, check oxygen saturation. If less than 90% or clinical signs of respiratory distress, administer oxygen at 2 L/min. via nasal cannula and notify physician. [x] Anaphylaxis/Reaction orders: * Stop infusion. * Keep IV line open with saline flush. * Notify physician. * Monitor vital signs every 15 minutes until symptoms resolve. * Check Oxygen saturation; Oxygen at 2 L/min. via nasal cannula if less than 90% or clinical signs of respiratory distress. * Administer diphenhydramine (Benadryl) 25 mg IV STAT, (unless patient has received as pre-med). May repeat once, if necessary. * Solu-Cortef 250 mg IVP over 30-60 seconds, use 100 mg vials for each dissolution. * Epinephrine (1mg/1 ml) 0.3 mg subcutaneously or IVP now with any signs of respiratory distress. * Check with physician for new additional pre-med orders if patient is re- challenged or re-treated. [x] May remove PICC line when treatment complete. [x] If the patient is admitted to the hospital, the ED, or transferred via [facility] , complete transfer form including medication reconciliation order sheet. Weekly Labs: CBC w/diff, Creatinine, Vancomycin Trough (Labs every Monday - copy to me) - Case Management Consult Case Management Consult-IVF: Yes - Patient Information Allergies gabapentin [From Neurontin] Allergy (Verified 09/01/18 18:04) Anaphylaxis
--- NOTE | 2018-09-26 09:38 | P.PNID ---
Subjective Remarks: Patient is a 68-year-old male, recently hospitalized last September 01 when he presented with chest pain. He was diagnosed to have symptomatic bradycardia, and has second-degree AV block. He had an echo at that time which showed aortic valve sclerosis, mild AI, and trace TR, and an EF of 55%. He had placement of a temporary transvenous pacemaker at that time. He subsequently underwent placement of a dual-chamber permanent pacemaker on September 04, and was discharge. He was apparently doing well, and was seen by his rapier insertion loom fixer, and everything looked okay at that time, with instructions to follow-up in 6-8 months. On the manager scientific of admission patient apparently started having problem with some chest discomfort, some fluttering in his chest. He apparently has been having significant weakness, and has not been sleeping well the last couple nights. He has some soreness on his pacemaker but not really bad. He has not had any fever chills or sweats. Denies any nausea or vomiting , diarrhea or any urinary complaints. He has not had any respiratory symptoms as far as cough or congestion or any sore throat. On presentation patient was afebrile. He had a white count of 16,000, and he was tachycardic. 2 blood cultures were done at that time, and they are now reported as growing gram-positive cocci in pairs and clusters. Patient was admitted as a sepsis, and has been on Zosyn and vancomycin. His chest x-ray looked clear. Patient currently is complaining of pain in both shoulders and and hands, but worse on the right. He just received some pain medication, and the pain is currently under control. Infectious disease consultation has been requested to assist with evaluation and treatment. Notes reviewed Temps ok BC with Staph epi No new (+) BC PICC in place Echo noted Wants to go home and get his IV Abx at home No rash or itching No diarrhea Voiding ok Antibiotics: Vancomycin Ancef Lines: PIV Past Medical History: Pacemaker CAD (coronary artery disease) Hyperchloremia Hypertension Hypothyroid Allergies/Adverse Reactions: Allergies gabapentin [From Neurontin] Allergy (Verified 09/01/18 18:04) Anaphylaxis Objective Vital Signs 09/25/18 12:00 09/25/18 16:00 09/25/18 17:35 Temperature 97.6 F 97.8 F Pulse Rate 79 83 83 Respiratory Rate 20 20 20 Blood Pressure 148/84 H 137/68 Pulse Oximetry 97 95 09/25/18 20:00 09/26/18 00:00 09/26/18 04:00 Temperature 97.6 F 97.7 F 97.5 F L Pulse Rate 76 78 81 Respiratory Rate 18 18 18 Blood Pressure 141/71 H 145/77 H 134/94 H Pulse Oximetry 93 L 95 97 09/26/18 08:00 Temperature 97.3 F L Pulse Rate 84 Respiratory Rate 18 Blood Pressure 139/84 Pulse Oximetry 96 Intake & Output 09/25/18 09/26/18 09/26/18 18:59 06:59 18:59 Intake Total 500 / 500 515 / 515 Output Total 6 6 950 / 950 Balance 494 / 494 -435 / -435 Weight 105.8 kg 105.8 kg Intake: IV 500 / 500 515 / 515 Vancomycin Inj 1,500 MG In NS 500 / 500 515 / 515 Inj 500 ML @ 257.5 mls/hr IV. SIG Q12H [facility] Rx#:[id number] Output: Urine 5 / 5 950 / 950 Stool Other: Date of Last Bowel Movement 09/25/18 09/25/18 09/22/18 07:07 Blood - Peripheral Aerobic Blood Culture - Preliminary No growth in 3 days 09/22/18 07:07 Blood - Peripheral Anaerobic Blood Culture - Preliminary No growth in 3 days 09/21/18 12:52 Blood - Peripheral Aerobic Blood Culture - Preliminary No growth in 4 days 09/21/18 12:52 Blood - Peripheral Anaerobic Blood Culture - Preliminary No growth in 4 days 09/21/18 12:45 Blood - Peripheral Aerobic Blood Culture - Preliminary No growth in 4 days 09/21/18 12:45 Blood - Peripheral Anaerobic Blood Culture - Preliminary No growth in 4 days 09/19/18 14:30 Blood - Peripheral Aerobic Blood Culture - Final Staphylococcus epidermidis 09/19/18 14:30 Blood - Peripheral Anaerobic Blood Culture - Final No growth in 5 days 09/19/18 14:35 Blood - Peripheral Aerobic Blood Culture - Preliminary gram positive cocci 09/19/18 14:35 Blood - Peripheral Anaerobic Blood Culture - Final Staphylococcus epidermidis Lab - Chemistry Results 09/25/18 10:45 Sodium 142 Potassium 3.7 Chloride 109 H Carbon Dioxide 24.2 Anion Gap 9 BUN 8 Creatinine 0.83 Estimated GFR Greater than 89 Random Glucose 145 H Calcium 8.4 L Total Bilirubin 0.5 AST 54 H ALT 72 Alkaline Phosphatase 384 H Total Protein 5.5 L Albumin 2.6 L Imaging: ITS Impressions Chest X-Ray 09/19/18 14:17 CONCLUSION: Mild cardiomegaly. No evidence of acute process. Stable pacemaker. PICC Line Insertion 09/25/18 00:00 CONCLUSION: 1. Uncomplicated central venous Power PICC line placement. 2. The PICC line can be used immediately. Physical Exam: GENERAL: awake, slow to respond, NAD. SKIN: Cool and dry. No generalized rash, no ecchymoses and no evidence of embolic lesions. HEAD: Atraumatic. Normocephalic. No temporal wasting, or tenderness. EYES: [place] conjunctiva. No petechia or hemorrhage. Pupils equal, round and reactive to light. Extraocular movements full and intact. No scleral icterus. No injection or drainage. EARS, NOSE AND THROAT: Nose without bleeding or purulent nasal discharge. No sinus tenderness. Mucous membranes pink and moist. No oral lesions noted. No exudate. No oral thrush. NECK: Trachea midline. Supple and not tender, no meningeal signs CARDIOVASCULAR: Regular rate and rhythm. No murmurs, rubs or gallops heard. Pacemaker in L upper chest with some evolving ecchymoses laterally, no redness, no induration, no tenderness, has steristrips in place with some old blood in the strips medially. RESPIRATORY: Clear to auscultation. Breath sounds equal bilaterally. No rales , wheezing or rhonchi. Decreased at the bases ABDOMEN: Soft, non-tender, nondistended. Bowel sounds present and normoactive. No guarding. No rebound. No organomegaly. EXTREMITIES: No clubbing, cyanosis. Has some pedal edema. Has brownish pigmentation both legs. No calf tenderness. Well perfused and warm. R shoulder has no swelling , no redness, and has good ROM NEUROLOGICAL: Awake and alert, slow to answer my questions. Cranial nerves grossly intact. Motor grossly within normal limits. PSYCHIATRIC: Normal affect, calm and cooperative. LINE: No evidence of infection Assessment and Plan (1) Other staphylococcal septicemia Status: Acute Code(s): A41.1 - Sepsis due to other specified staphylococcus - Plan Impression Staph epi positive BC, - the pocket does not look infected - S/P pacer placement - echo ok Recent PPM placement for symptomatic second degree AVB Hx CAD Recommendation Continue vanco - give IV Abx until Oct 07 Abx infusion form filled out OK for D/C once Abx arranged Patient will get his dose at 11 am today, and home health can start in AM with new time Explained plan to the patient and D/W RN
--- NOTE | 2018-09-26 10:37 | P.DCO ---
- Physical Therapy Order: Evaluate and treat, Improve ambulation, Strength and gait training - Home Health Nursing Order: Medical education, Signs/symptoms of disease process, Medication education-adverse effect, Nursing assessment with vital signs, IV medication administration - Case Management Consult Case Management Consult-Home Health: Yes - Certification I have seen patient Yoni Banks on 09/26/18. My clinical findings support the need for the requested home health care services because: Need for psychosocial assistance, Infection with risk of complications I certify that my clinical findings support that this patient is homebound because: Post-op weakness, Need for psychosocial assistance
--- NOTE | 2018-09-26 10:40 | P.PN ---
Subjective Interval history: up on chair excited to go home seen with supportive not requiring any pain meds since 09/23 d/w them - we arranging for home heatlh care nursing and PT Physical Exam Vital signs: Vital Signs 09/25/18 12:00 09/25/18 16:00 09/25/18 17:35 Temperature 97.6 F 97.8 F Pulse Rate 79 83 83 Respiratory Rate 20 20 20 Blood Pressure 148/84 H 137/68 Pulse Oximetry 97 95 09/25/18 20:00 09/26/18 00:00 09/26/18 04:00 Temperature 97.6 F 97.7 F 97.5 F L Pulse Rate 76 78 81 Respiratory Rate 18 18 18 Blood Pressure 141/71 H 145/77 H 134/94 H Pulse Oximetry 93 L 95 97 09/26/18 08:00 Temperature 97.3 F L Pulse Rate 84 Respiratory Rate 18 Blood Pressure 139/84 Pulse Oximetry 96 Intake & Output 09/25/18 09/26/18 09/26/18 18:59 06:59 18:59 Intake Total 500 / 500 515 / 515 Output Total 6 / 6 950 / 950 Balance 494 / 494 -435 / -435 Weight 105.8 kg 105.8 kg Intake: IV 500 / 500 515 / 515 Vancomycin Inj 1,500 MG In NS 500 / 500 515 / 515 Inj 500 ML @ 257.5 mls/hr IV. SIG Q12H [facility] Rx#:[id number] Output: Urine 5 / 5 950 / 950 Stool / Other: Date of Last Bowel Movement 09/25/18 09/25/18 Narrative: awake, alert, more interactive this am Atraumatic. Normocephalic. Ns. EYES: anicteric Nose without bleeding or purulent n NECK: Trachea midline. Supple and not tender, no meningeal signs CARDIOVASCULAR: Regular rate and rhythm. Pacemaker in L upper chest with some mild ecchymoses laterally, no redness, no induration, no tenderness, has sterile strips in place with some old blood in the strips medially. RESPIRATORY: Clear to auscultation. Breath sounds equal bilaterally. No rales , wheezing or rhonchi. Decreased at the bases ABDOMEN: Soft, non-tender, nondistended. Bowel sounds present and normoactive. No guarding. No rebound. No organomegaly. EXTREMITIES: No clubbing, cyanosis, or edema. Has brownish pigmentation both legs. No calf tenderness. Well perfused and warm. R shoulder has no swelling , no redness, and has good ROM right UE- PICC line in place NEUROLOGICAL: Awake and alert. Cranial nerves grossly intact. Motor grossly within normal limits. PSYCHIATRIC: Normal affect, calm and cooperative. Results - Labs CBC & Chem 7: 09/24/18 04:40 09/25/18 10:45 Laboratory Results - last 24 hr 09/25/18 10:45 Sodium 142 Potassium 3.7 Chloride 109 H Carbon Dioxide 24.2 Anion Gap 9 BUN 8 Creatinine 0.83 Estimated GFR Greater than 89 Random Glucose 145 H Calcium 8.4 L Total Bilirubin 0.5 AST 54 H ALT 72 Alkaline Phosphatase 384 H Total Protein 5.5 L Albumin 2.6 L Vancomycin Trough 14.2 H Microbiology 09/19/18 14:35 Blood - Peripheral Aerobic Blood Culture - Final Micrococcus species 09/19/18 14:35 Blood - Peripheral Anaerobic Blood Culture - Final Staphylococcus epidermidis 09/22/18 07:07 Blood - Peripheral Aerobic Blood Culture - Preliminary No growth in 3 days 09/22/18 07:07 Blood - Peripheral Anaerobic Blood Culture - Preliminary No growth in 3 days 09/21/18 12:52 Blood - Peripheral Aerobic Blood Culture - Preliminary No growth in 4 days 09/21/18 12:52 Blood - Peripheral Anaerobic Blood Culture - Preliminary No growth in 4 days 09/21/18 12:45 Blood - Peripheral Aerobic Blood Culture - Preliminary No growth in 4 days 09/21/18 12:45 Blood - Peripheral Anaerobic Blood Culture - Preliminary No growth in 4 days - Imaging Impressions PICC Line Insertion 09/25/18 00:00 CONCLUSION: 1. Uncomplicated central venous Power PICC line placement. 2. The PICC line can be used immediately. - Procedures 09/26- PICC placement Assessment and Plan - Plan 68 years old S. Epidermidis bacteremia S/P Recent PM placement S/P PICC- 09/25 Continue monitoring blood cultures; two bottles of the initial blood cultures with gram positive cocci. the repeated blood cultures negative so far. x48 hours echo with EF 50-55% and no vegetation Continue vancomycin till 10/07 per ID recommendations Carotid artery disease Continue aspirin, Lipitor, Plavix Hypothyroidism Continue Synthroid Hypertension - on Imdur, Cozaar generalized weakness/Deconditioning PT ff - arrange for home PT DVT prophylaxis with subq Heparin Discussed Condition With: . 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
--- NOTE | 2018-09-26 10:53 | P.DS ---
Date of admission: 09/19/18 17:16 Primary care physician: Shellie Romero Attending physician on discharge: Samantha John Anticipated date of discharge: 09/26/18 Brief History from admission: 68-year-old white male being admitted for possible sepsis. Patient was in his usual state of health until sometime earlier this morning began experiencing fluttering in his chest and generalized weakness with fatigue. says he has been getting poor sleep since last night. Patient denies any nausea vomiting diarrhea or any fevers. He denies any out right new chest pain. Reports that the insertion site for his pacemaker is sore, he also reports having a little left-sided chest pain which is just medial to the insertion site which he at best describes in a vague and intermittent fashion. In the emergency department patient had a chest x-ray done which I independently reviewed which was quite clear. Blood work showed leukocytosis of 15,000 and tachycardia into the 110s. Recently had a dual chamber pacemaker placed within on 09/04 for Symptomatic bradycardia, symptomatic second degree AV block. Patient update on day of discharge: awake and alert no opain complains afebrile DS: Summary Hospital Course: 68 years old S. Epidermidis bacteremia S/P Recent PM placement S/P PICC- 09/25 Continue monitoring blood cultures; two bottles of the initial blood cultures with gram positive cocci. the repeated blood cultures negative so far. x48 hours echo with EF 50-55% and no vegetation Continue vancomycin till 10/07 per ID recommendations Carotid artery disease Continue aspirin, Lipitor, Plavix Hypothyroidism Continue Synthroid Hypertension - on Imdur, Cozaar generalized weakness/Deconditioning PT ff - arrange for home PT DVT prophylaxis with subq Heparin Discussed Condition With: . 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 - Time Spent with Patient Total time spent providing and/or coordinating discharge services: Greater than 30 minutes - Quality: VTE Deep Vein Thrombosis/Pulmonary Embolism Present on Admission: No Exam Vital signs: Vital Signs 09/25/18 12:00 09/25/18 16:00 09/25/18 17:35 Temperature 97.6 F 97.8 F Pulse Rate 79 83 83 Respiratory Rate 20 20 20 Blood Pressure 148/84 H 137/68 Pulse Oximetry 97 95 09/25/18 20:00 09/26/18 00:00 09/26/18 04:00 Temperature 97.6 F 97.7 F 97.5 F L Pulse Rate 76 78 81 Respiratory Rate 18 18 18 Blood Pressure 141/71 H 145/77 H 134/94 H Pulse Oximetry 93 L 95 97 09/26/18 08:00 Temperature 97.3 F L Pulse Rate 84 Respiratory Rate 18 Blood Pressure 139/84 Pulse Oximetry 96 Intake & Output 09/25/18 09/26/18 09/26/18 18:59 06:59 18:59 Intake Total 500 / 500 515 / 515 Output Total 6 / 6 950 / 950 Balance 494 / 494 -435 / -435 Weight 105.8 kg 105.8 kg Intake: IV 500 / 500 515 / 515 Vancomycin Inj 1,500 MG In NS 500 / 500 515 / 515 Inj 500 ML @ 257.5 mls/hr IV. SIG Q12H [facility] Rx#:[id number] Output: Urine 5 / 5 950 / 950 Stool Other: Date of Last Bowel Movement 09/25/18 09/25/18 09/25/18 Results Procedures completed during hospitalization: 09/26- PICC placement Labs on day of discharge: Labs from last 24 hours 09/25/18 10:45 Sodium 142 Potassium 3.7 Chloride 109 H Carbon Dioxide 24.2 Anion Gap 9 BUN 8 Creatinine 0.83 Estimated GFR Greater than 89 Random Glucose 145 H Calcium 8.4 L Total Bilirubin 0.5 AST 54 H ALT 72 Alkaline Phosphatase 384 H Total Protein 5.5 L Albumin 2.6 L Vancomycin Trough 14.2 H Preliminary micro results at discharge 09/22/18 07:07 Aerobic Blood Culture - Preliminary Blood - Peripheral No growth in 3 days Anaerobic Blood Culture - Preliminary No growth in 3 days 09/21/18 12:52 Aerobic Blood Culture - Preliminary Blood - Peripheral No growth in 4 days Anaerobic Blood Culture - Preliminary No growth in 4 days 09/21/18 12:45 Aerobic Blood Culture - Preliminary Blood - Peripheral No growth in 4 days Anaerobic Blood Culture - Preliminary No growth in 4 days - Impressions ITS Impressions Chest X-Ray 09/19/18 14:17 CONCLUSION: Mild cardiomegaly. No evidence of acute process. Stable pacemaker. PICC Line Insertion 09/25/18 00:00 CONCLUSION: 1. Uncomplicated central venous Power PICC line placement. 2. The PICC line can be used immediately. Discharge Plan - Discharge Disposition Patient Disposition: /Home Health Service - Discharge Condition Condition: Fair - Discharge Order Discharge Orders: Discharge Order (Routine); Ordered 09/26/18 Ordered By: Samantha John - Discharge Details Anticipated Discharge Date: 09/19/18 - Physicians Team Primary Care Provider: Shellie Hensley Attending Provider: Samantha John Other Providers: Shellie Hensley ; Sanam Huber MD ; [facility],[place] ; [facility]
[2018-09-26] MEDS: Vancomycin Inj 1,500 MG in Sodium Chlor 0.9% Inj 500 ML IV.SIG SCH (11:36)
[2018-09-26 12:14] VITALS: PULSE 77
[2018-09-26 16:38] VITALS: BP 135/66; TEMP 97.3; O2SAT 97
[2018-09-27] MEDS ORDERED: Pharmacy Ordered Lab Info OTHER ONE (10:45)
== END 2018-09-26 17:07 | disposition home health service (06) ==
LOC: NEPC 13:17 → NEDA 17:16 → H7ONC 20:34 → N07 09-20 21:25
PROVIDERS: ADMIT Internal Medicine; ATTEND Internal Medicine